=== PATIENT | female | born 1995 | race Caucasian/White ===

== ENCOUNTER 2018-11-15 16:44 | Emergency (ER) | payer OTHER, SELFPAY ==
[2018-11-15] MEDS ORDERED: MAGNE/ALUM HYDROXD 30 ML UCUP ONE (18:07)
[2018-11-15 18:57] LABS: Urine Blood TRACE (NEG); Urine Glucose NEGATIVE (NEG); Urine Protein NEGATIVE (NEG); Urine Specific Gravity 1.025 (1.005-1.030); Urine pH 5.5 (5.0-7.0)
[2018-11-15 19:50] LABS: Basophils % 0.3 % (0-1.3); Eosinophils % 1.9 % (0-4.4); Hematocrit 44.2 % (36.0-45.0); MPV 7.3 fL (7.6-11.3); Monocytes % 5.2 % (3.3-12.3); RBC Red Blood Cell Count 4.55 M/uL (3.86-4.86)
[2018-11-15 20:05] LABS: Albumin 4.2 g/dL (3.4-5.0); Bilirubin Direct 0.1 mg/dL (0-0.2); Bilirubin Total 0.4 mg/dL (0.2-1.0); Potassium 3.7 mmol/L (3.5-5.1); Protein, Total 8.6 g/dL (6.4-8.2)
--- NOTE | 2018-11-15 20:27 | RAD REPORT ---
EXAM DESCRIPTION: US - Abdomen Exam Limited - 11/15/2018 8:10 pm CLINICAL HISTORY: Abdominal pain COMPARISON: None. FINDINGS: No gallstones, sludge or other abnormalities within the gallbladder lumen. There is no wal l thickening or pericholecystic fluid. No common duct stone or biliary tree dilatation identified. IMPRESSION: Normal gallbladder and biliary tree ultrasound.
--- NOTE | 2018-11-15 20:34 | ER ---
Nurse's Notes [facility] Name: Sony Major Age: 23 yrs Sex: Female : 1995 Arrival Date: 11/15/2018 Time: 16:47 Bed 19 Private MD: Diagnosis: Pain localized to upper abdomen Presentation: 11/15 16:54 Presenting complaint: Patient states: 2 DAYS EPIGASTRIC PAIN WITH NAUSEA, DENIES bp VOMITING OR DIARRHEA. Transition of care: patient was not received from another setting of care. Onset of symptoms is unknown. Risk Assessment: Do you want to hurt yourself or someone else? Patient reports no desire to harm self or others. Initial Sepsis Screen: Does the patient meet any 2 criteria? No. Patient's initial sepsis screen is negative. Does the patient have a suspected source of infection? No. Patient's initial sepsis screen is negative. Care prior to arrival: None. 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 - Social history:: Smoking status: Patient/guardian denies using tobacco. - Ebola Screening: : No symptoms or risks identified at this time. Screenin:10 Abuse screen: Denies threats or abuse. Nutritional screening: No deficits noted. tr5 Tuberculosis screening: No symptoms or risk factors identified. Fall Risk No fall in past 12 months (0 pts). No secondary diagnosis (0 pts). No IV (0 pts). Ambulatory Aid- None/Bed Rest/Nurse Assist (0 pts). Gait- Normal/Bed Rest/Wheelchair (0 pts) Mental Status- Oriented to own ability (0 pts). Assessment: 17:00 General: Appears in no apparent distress. Behavior is calm, cooperative, appropriate tr5 for age. Pain: Complains of pain in epigastric area Pain does not radiate. Quality of pain is described as burning. 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 Gait is steady. Cardiovascular: Heart tones present Bruits absent Capillary refill < 3 seconds Pulses are all present. Edema is absent. Respiratory: Airway is patent Trachea midline Breath sounds are clear bilaterally. GI: Abd is soft X 4 quads Reports nausea. : No signs and/or symptoms were reported regarding the genitourinary system. EENT: No signs and/or symptoms were reported regarding the EENT system. Derm: Skin is intact, Skin is dry, Skin is pink, warm \T\ dry. Skin temperature is warm. Musculoskeletal: Capillary refill < 3 seconds, Range of motion: intact in all extremities. 18:11 Reassessment: Patient appears in no apparent distress at this time. Patient and/or tr5 family updated on plan of care and expected duration. Pain level reassessed. Patient is alert, oriented x 3, equal unlabored respirations, skin warm/dry/pink. 19:25 Reassessment: Patient appears in no apparent distress at this time. Patient and/or aa1 family updated on plan of care and expected duration. Pain level reassessed. Patient is alert, oriented x 3, equal unlabored respirations, skin warm/dry/pink. Labs sent at this time. 20:50 Reassessment: Patient appears in no apparent distress at this time. Patient is alert, aa1 oriented x 3, equal unlabored respirations, skin warm/dry/pink. Discussed d/c \T\ f/u instructions with pt; denies questions or concerns at this time. Amb to lobby with steady gait Patient states feeling better. Patient states symptoms have improved. Vital Signs: 16:55 BP 116 / 75; Pulse 86; Resp 16; Temp 97.7; Pulse Ox 99% ; Weight 68.04 kg; Height 5 ft. bp 1 in. (154.94 cm); 18:11 BP 118 / 72; Pulse 85; Resp 16; Pulse Ox 99% on R/A; tr5 19:30 BP 128 / 84; Pulse 81; Resp 16; Pulse Ox 98% on R/A; aa1 20:50 BP 121 / 76; Pulse 79; Resp 16; Temp 98.0; Pulse Ox 99% on R/A; Pain 2/10; aa1 16:55 Body Mass Index 28.34 (68.04 kg, 154.94 cm) bp ED Course: 16:47 Patient arrived in ED. mr 16:55 Triage completed. bp 16:55 Arm band placed on. bp 17:10 Patient has correct armband on for positive identification. Call light in reach. Side tr5 rails up X 1. 17:31 Brandon Cazares MD is Attending Physician. 17:50 Francisco Javier Baird, RN is Primary Nurse. tr5 19:11 Report given to Kelly LINDO. tr5 19:25 Initial lab(s) drawn, by me, sent to lab. Inserted saline lock: 20 gauge in left aa1 antecubital area, using aseptic technique. Blood collected. 20:09 US Abdomen Limited In Process Unspecified. EDMS 20:50 No provider procedures requiring assistance completed. IV discontinued, intact, aa1 bleeding controlled, No redness/swelling at site. Pressure dressing applied. Administered Medications: 17:53 Drug: Maalox Suspension (200 mg-200 mg-20 mg/5 mL) 30 ml Route: PO; tr5 18:10 Follow up: Response: No adverse reaction tr5 Outcome: 20:33 Discharge ordered by . 20:50 Discharged to home ambulatory, with significant other. aa1 20:50 Condition: good 20:50 Discharge instructions given to patient, significant other, Instructed on discharge instructions, follow up and referral plans. Demonstrated understanding of instructions, follow-up care. 20:57 Patient left the ED. aa1 Signatures: Dispatcher [employer] EDOR Kelly Mendoza, RN RN aa1 BenítezCharla mr Brandon Cazares MD MD Joseph Rendon RN GUICHO bp Francisco Javier Baird, GUICHO RN tr5
--- NOTE | 2018-11-15 20:34 | EDPHYS ---
Physician Documentation [facility] Name: Sony Major Age: 23 yrs Sex: Female : 1995 Arrival Date: 11/15/2018 Time: 16:47 Bed 19 Private MD: ED Physician Brandon Cazares HPI: 11/15 21:20 This 23 yrs old Female presents to ER via Ambulatory with complaints of gs Abdominal Pain. 21:20 The patient presents with abdominal pain in the epigastric area, in the right upper gs quadrant. Onset: The symptoms/episode began/occurred 3 day(s) ago. The symptoms do not radiate. Associated signs and symptoms: Pertinent positives: nausea, Pertinent negatives: diarrhea, dysuria, fever, vomiting. The symptoms are described as crampy. Modifying factors: The symptoms are alleviated by nothing, the symptoms are aggravated by food. Severity of pain: At its worst the pain was moderate in the emergency department the pain is unchanged. The patient has not experienced similar symptoms in the past. 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 - Social history:: Smoking status: Patient/guardian denies using tobacco. - Ebola Screening: : No symptoms or risks identified at this time. ROS: 21:20 All other systems are negative. gs Exam: 21:20 Head/Face: Normocephalic, atraumatic. Eyes: Pupils equal round and reactive to light, gs extra-ocular motions intact. Lids and lashes normal. Conjunctiva and sclera are non-icteric and not injected. Cornea within normal limits. Periorbital areas with no swelling, redness, or edema. ENT: Nares patent. No nasal discharge, no septal abnormalities noted. Tympanic membranes are normal and external auditory canals are clear. Oropharynx with no redness, swelling, or masses, exudates, or evidence of obstruction, uvula midline. Mucous membranes moist. Neck: Trachea midline, no thyromegaly or masses palpated, and no cervical lymphadenopathy. Supple, full range of motion without nuchal rigidity, or vertebral point tenderness. No Meningismus. Chest/axilla: Normal chest wall appearance and motion. Nontender with no deformity. No lesions are appreciated. Cardiovascular: Regular rate and rhythm with a normal S1 and S2. No gallops, murmurs, or rubs. Normal PMI, no JVD. No pulse deficits. Respiratory: Lungs have equal breath sounds bilaterally, clear to auscultation and percussion. No rales, rhonchi or wheezes noted. No increased work of breathing, no retractions or nasal flaring. Back: No spinal tenderness. No costovertebral tenderness. Full range of motion. Skin: Warm, dry with normal turgor. Normal color with no rashes, no lesions, and no evidence of cellulitis. MS/ Extremity: Pulses equal, no cyanosis. Neurovascular intact. Full, normal range of motion. Neuro: Awake and alert, GCS 15, oriented to person, place, time, and situation. Cranial nerves II-XII grossly intact. Motor strength 5/5 in all extremities. Sensory grossly intact. Cerebellar exam normal. Normal gait. 21:20 Constitutional: The patient appears alert, awake, comfortable. 21:20 Abdomen/GI: Palpation: moderate abdominal tenderness, in the epigastric area and right upper quadrant. Vital Signs: 16:55 BP 116 / 75; Pulse 86; Resp 16; Temp 97.7; Pulse Ox 99% ; Weight 68.04 kg; Height 5 ft. bp 1 in. (154.94 cm); 18:11 BP 118 / 72; Pulse 85; Resp 16; Pulse Ox 99% on R/A; tr5 19:30 BP 128 / 84; Pulse 81; Resp 16; Pulse Ox 98% on R/A; aa1 20:50 BP 121 / 76; Pulse 79; Resp 16; Temp 98.0; Pulse Ox 99% on R/A; Pain 2/10; aa1 16:55 Body Mass Index 28.34 (68.04 kg, 154.94 cm) bp MDM: 17:47 Patient medically screened. gs 21:20 Differential diagnosis: cholecystitis, Cholelithiasis, non-specific abd pain, gs pancreatitis, urinary tract infection. Data reviewed: vital signs, nurses notes. Data reviewed: lab test result(s), radiologic studies. Counseling: I had a detailed discussion with the patient and/or guardian regarding: the historical points, exam findings, and any diagnostic results supporting the discharge/admit diagnosis, radiology results, the need for outpatient follow up. Response to treatment: the patient's symptoms have markedly improved after treatment, and as a result, I will discharge patient. 11/15 18:11 Order name: Urine Dipstick--Ancillary (enter results); Complete Time: 19:05 11/15 18:11 Order name: Urine --Ancillary (enter results); Complete Time: 19:05 11/15 19:05 Order name: Basic Metabolic Panel; Complete Time: 20:32 11/15 19:05 Order name: CBC with Diff; Complete Time: 20:32 11/15 19:05 Order name: Hepatic Function; Complete Time: 20:32 11/15 17:31 Order name: Urine Test (obtain specimen); Complete Time: 18:05 11/15 17:31 Order name: Urine Dipstick-Ancillary (obtain specimen); Complete Time: 18:05 11/15 19:05 Order name: Lipase; Complete Time: 20:32 11/15 19:05 Order name: IV Saline Lock; Complete Time: 19:52 11/15 19:05 Order name: Labs collected and sent; Complete Time: 19:52 11/15 19:05 Order name: US Abdomen Limited; Complete Time: 20:32 gs Administered Medications: 17:53 Drug: Maalox Suspension (200 mg-200 mg-20 mg/5 mL) 30 ml Route: PO; tr5 18:10 Follow up: Response: No adverse reaction tr5 Disposition: 11/15/18 20:33 Discharged to Home. Impression: Pain localized to upper abdomen. - Condition is Stable. - Discharge Instructions: Abdominal Pain, Adult. - Medication Reconciliation Form, Thank You Letter, Antibiotic Education, Prescription Opioid Use form. - Follow up: Private Physician; When: 2 - 3 days; Reason: Re-evaluation by your physician. Signatures: Dispatcher [employer] EDMS Kelly Mendoza RN RN aa1 Brandon Cazares MD MD gs Peltier, Brian, RN RN bp Rodriguez, Tommie, RN RN tr5 Corrections: (The following items were deleted from the chart) 20:57 20:33 11/15/2018 20:33 Discharged to Home. Impression: Pain localized to upper abdomen. aa1 Condition is Stable. Forms are Medication Reconciliation Form, Thank You Letter, Antibiotic Education, Prescription Opioid Use. Follow up: Private Physician; When: 2 - 3 days; Reason: Re-evaluation by your physician. gs
== END 2018-11-15 20:57 | disposition home or self-care (01) ==
LOC: ER 16:44
DX: R10.10 Upper abdominal pain, unspecified (principal); Z88.0 Allergy status to penicillin
CPT/HCPCS: 36415; 76705; 80048; 80076; 81003; 81025; 83690; 85025; 99284

== ENCOUNTER 2022-05-30 09:52 | Emergency (ER) | payer SELFPAY ==
--- OUTSIDE RECORDS SUMMARY | 2022-05-30 10:01 | XMS REPORT | Continuity of Care Document ---
:1995 Author Organization [facility] t Address [address] [place] [address] Care Team Providers Name Role Phone Pcp, Patient Does Not Have A Primary Care Physician [id number] Yesenia OROZCO Attending Clinician Unavailable Yesenia Smalls Attending Clinician Lala Jimenez Attending Clinician Unavailable DR BRYAN ALICEA Attending Clinician Unavailable Jude Hendrickson Attending Clinician Unavailable BONNY ALEX Attending Clinician Unavailable PROVIDER, ED TEMP Attending Clinician Unavailable DR OPAL MARSH Attending Clinician Unavailable DR JOSH ALMARAZ Attending Clinician Unavailable DR BRITTNEY MARSH Attending Clinician Unavailable DR ANDIE MAE Attending Clinician Unavailable DR Markel GUY Attending Clinician Unavailable DR AMILCAR RILEY Attending Clinician Unavailable DR BRYAN ALICEA Admitting Clinician Unavailable DR OPAL MARSH Admitting Clinician Unavailable DR JOSH ALMARAZ Admitting Clinician Unavailable DR BRITTNEY MARSH Admitting Clinician Unavailable DR ANDIE MAE Admitting Clinician Unavailable DR Markel GUY Admitting Clinician Unavailable DR AMILCAR RILEY Admitting Clinician Unavailable Payers Payer Name Policy Type Policy Number Effective Date Expiration Date Shawn barlow [facility] [id number] 2019 00:00:00 Problems Condition Condition Condition Status Onset Resolution Last Treating Co mments Source Name Details Category Date Date Treatment Clinician Date Abnormal Abnormal Disease Active Unive rs maternal maternal 11-09 ity of glucose glucose 00:00: [place] tolerance, tolerance, 00 Me dical antepartum antepartum Br anch Susceptibl Susceptibl Disease Active U nivers e to e to 11-09 ity of varicella [place]ella [place] (non-immun (non-immun 00 Me dical e), e), Branch currently currently - - needs needs vaccine vaccine Insufficie Insufficie Disease Active U nivers nt nt 11-08 ity of 00:00: [place] care care 00 Medical Branch Previous Previous Disease Active Unive rs 11-08 ity of delivery, [place], [place] ante[place] antepartum 00 Me dical condition condition Bran ch or or complicati complicati on - on - secondary secondary to to intoleranc intoleranc e to labor e to labor with with extended extended decels, decels, emergency emergency PLTCS per PLTCS per operative operative report report Complicati Complicati Disease Active Overview : Univers on of on of 11-08 Formattin ity of , , 00:00: g of this [place] antepartum antepartum 00 note Me dical might be Branch different from the original. ICD10 Diagnosis Term Lighter Utility History of History of Disease Active U nivers macrosomia macrosomia 11-08 it y of in infant in infant 00:[place] in prior in prior 00 Medica l , , Br anch currently currently Allergies, Adverse Reactions, Alerts Allergy Allergy Status Severity Reaction(s) Onset Inactive Treating Comm ents Source Name Type Date Date Clinician Penicill Allergy Active Mild St. ins to 11-17 [place] substanc 00:04: [facility] Penicill DA [facility] Rash [facility] [place] Chowdhury Penicill Propensi Active Rash Univer s ins ty to 2-19 ity of adverse 00:00: [place] reaction 00 Medical s Branch PENICILL Drug Active Rash Univers INS Class 2-19 ity of 00:00: [place] 00 Medical Branch Family History Family Member Diagnosis Comments Start Date Stop Date Source Mother Family Breast [place] [facility] Cancer?No Health Mother Family Coronary Artery [facility] [place] [facility] Disease?No Health Mother Family Congenital [facility] [facility] Heart Disease?No Health Mother Family Myocardial [facility] [facility] Infarction?No Health Mother Family Stroke?No [facility] [place] [facility] Mother Family Diabetes?No [place] [facility] Mother Family Colorectal [facility] Cancer?No Health Social History Social Habit Start Date Stop Date Quantity Comments Source History of [place] tobacco use [facility] Alcohol intake 2019-03-23 2019-03-23 Current University of 00:00:00 00:00:00 non-drinker of [facility] alcohol ([facility]) Strang Tobacco use and 2013-11-08 2013-11-08 Smokeless tobacco Un iversity of exposure 00:00:00 00:00:00 non-user [facility] Sex Assigned At [birth year] Universit y of 00:00:00 00:00:00 [facility] Smoking Status Start Date Stop Date Source Never smoked tobacco [facility] Medications Ordered Filled Start Stop Current Ordering Indication Dosage Frequency Signature Comments Components Source Medication Medication Date Date Medication? Clinician (SIG) Name Name ibuprofen Yes [id number] 600mg Take 1 Univers 600 mg 1-06 tablet by ity of tablet 00:00: mouth [place] 00 every 6 Medical (six) Branch hours as needed for Pain (scale 4-6). lactulose 2018-05 Yes [id number] 30mL Take 30 mL Univers 10 gram/15 1-14 by mouth 3 ity of mL oral 00:00: (three) [place] solution 00 times Medical daily as Branch needed for Constipati on or For bowel movement. sucralfate 2018-05 Yes [id number] 1g Take 1 U nivers 1 gram 1-14 tablet by ity of tablet 00:00: mouth [place] 00 before Medical meals and Branch at bedtime. ondansetron 2018-05 Yes [id number] 4mg Take 1 Univers (ZOFRAN) 4 1-14 tablet by ity of mg tablet 00:00: mouth [place] 00 every 12 Medical (twelve) Branch hours. Omeprazole 2018-05 Yes [id number] 20mg Take 1 U nivers 20 mg 0-04 tablet by ity of tablet 00:00: mouth [place] 00 daily. Medical Branch No 1TABLET Daily St. Comb 7 [place] No.42/Folic 00:00: Region a Acid 00 l ([facility] Chewable Tablet) 1 TABLET Tab.Ch.Bph Vital Signs Vital Name Observation Time Observation Value Comments Source Systolic blood 2022-05-15 19:58:00 133 mm[Hg] Univer sity of pressure [facility] Diastolic blood 2022-05-15 19:58:00 100 mm[Hg] Unive rsity of [facility] Heart rate 2022-05-15 19:58:00 90 /min [facility] Body temperature 2022-05-15 19:58:00 37.11 Susan [facility] Respiratory rate 2022-05-15 19:58:00 16 /min [facility] Body height 2022-05-15 19:58:00 154.9 cm [facility] Body weight 2022-05-15 19:58:00 72.576 kg [facility] BMI 2022-05-15 19:58:00 30.23 kg/m2 [facility] Oxygen saturation in 2022-05-15 19:58:00 100 /min [facility] Arterial blood by [facility] Pulse oximetry Branch Procedures Procedure Date / Time Performed Performing Clinician [facility] NOTICE OF PRIVACY 2022-05-15 19:29:32 Doctor Unassigned, No Univ [facility] PRACTICES Name Medical Branch CONSENT/REFUSAL FOR 2022-05-15 19:10:31 Doctor [facility]igned, [facility] [place] [facility] AND Name Medical Branch TREATMENT Encounters Start End Encounter Admission Attending Care Care Encounter Source Date/Time Date/Time Type Type Clinicians Facility Department ID 2021-08-02 Outpatient [facility] [id number] [place] 10:33:54 [id number] [facility] 2022-05-15 2022-05-15 Emergency X Yesenia OROZCO [facility] ERT [id number] Univers 13:59:00 14:35:00 ity of [facility] 2022-05-15 2022-05-15 Emergency Yesenia Orozco [id number] Univers 13:59:00 14:35:00 Yeni GILLESPIE [id number] i [facility] [id number] [facility] [id number] [facility] 084 Branch 2022-01-14 2022-01-14 Emergency ER Tony STLSKIA STLS [id number] 10:20:00 15:50:00 Lala -[id number] Scooby Gomez 2018-08-21 2018-08-21 Emergency E [facility] [id number] [facility] 19:57:00 19:57:00 2018-08-17 2018-08-17 Emergency E DEANNE, [facility] ECCNONEMER [id number] [facility] 19:53:00 22:38:00 BRYAN [facility] 2018-04-10 2018-04-10 Emergency E MARSH [facility]AL [facility] [id number] [facility] 00:04:00 01:25:00 Medica l Center 2017-12-24 2017-12-25 Emergency E SUNG [facility] [id number] [facility] 21:08:00 00:55:00 MORENO Medic al Center 2017-11-28 2017-11-28 Emergency E MAXIMO [facility]CC [id number] [facility] 14:16:00 14:53:00 BRITTNEY Medica l Center 2017-09-04 2017-09-04 Emergency E ANDIE MAE [facility] [id number] [facility] 01:25:00 02:54:00 Medica l Center 2017-07-19 2017-07-19 Outpatient C Markel GUY [facility] OB [id number] [facility] 21:24:00 22:59:00 FUNSHO Medica l Center 2017-07-03 2017-07-03 Emergency E AMILCAR RILEY [facility] [id number] [facility] 15:56:00 18:20:00 Medica l Center Results Test Description Test Time Test Comments Results Result Comments Source Molecular Testing MM 2022-01-14 20:08:00 Test Item Value Reference Range Interpretation Comme nts Molecular Testing MM Not Detected NotDetected Negativ e (Not Detected) (test code = results do not preclude COVIDNAAT) infectionwith S ARS-CoV-2 virus, and shou ld not be the sole basis of a patient management deci annamarie. Consider testing for oth erviruses if clinically danial cated.The use of this assay a s an In vitro diagnostic unde r theFDA Emergency Use A uthorization (EUA) is limite d tolaboratories that are certified under the ClinicalLaborat ory Improvement Carmen ndments of 1987 (CLIA), 42 U.S.C.263a, to perform high complexity tests. Molecular Testing MM Nasopharyngeal Swab (test code = COVIDSOURCEMM) Resident in Congregate Care Setting: UnknownEmployed in Healthcare: UnknownFirst Test: UnknownHospitalized: UnknownICU: UnknownDate of Symptom Onset: [id number]: UnknownReason for Testing: PUI -SymptomaticSource: Nasopharyngeal SwabSymptomatic as defined by CDC: [id number] 13:11:00 Test Item Value Reference Range Interpretation Comments Urinalysis (test code = UACLR) Light-Yellow Yellow Urinalysis (test code = UACLY) Clear Clear Urinalysis (test code = SPGR) 1.027 1.002-1.036 N Urinalysis (test code = JEWEL) 6.0 5.0-9.0 N Urinalysis (test code = UALEU) 75 Janis/uL Negative A Urinalysis (test code = UANIT) Negative Negative Urinalysis (test code = Negative mg/dL Neg-Trace PROUADIP) Urinalysis (test code = GLUCU) Normal mg/dL Negative Urinalysis (test code = KETU) Negative mg/dL Negative Urinalysis (test code = Normal mg/dL Less than 2 UAUROB) Urinalysis (test code = UABIL) Negative Negative Urinalysis (test code = UABLD) Negative Negative Urinalysis (test code = UARBC) 0-3 HPF 0-3 Urinalysis (test code = UAWBC) 0-3 HPF 0-3 Urinalysis (test code = 0-3 HPF 0-3 UASQUAM) Urinalysis (test code = UABAC) None Seen HPF None Seen Urine Source: Urine [id number] 13:11:00 Test Item Value Reference Range Interpretation Comments Urinalysis (test Negative Negative Method of s ensitivity- code = BHCGUT) INDETERMINANT : results should be repea stevan after 48-72 hrs POSIT JANIE: results may be detected as early as 1 day after the first missed period A dilute urine specimen may no t contain representativel evels of hCG.If pregnanc y is still suspected, a fi rst morning urinespecimen O R a random blood specimen should be obtainedfrom e patient 48-72 hours lat er and re-tested. Urinalysis (test 1.027 1.002-1.036 N code = PREGUSG) [id number] 12:25:00 Test Item Value Reference Range Interpretation Comments Chemistry (test code = LIP) 10 U/L 8-78 N Urine total bilirubin detection by automated test [id number] 12:21:00 Test Item Value Reference Range Interpretation Comments Urine Bilirubin (test code = Negative Negative 38836-8) [facility] hemoglobin detection by automated test strip 2022-01-14 12:21:00 Test Item Value Reference Range Interpretation Comments Urine Blood (test code = 72801-9) Negative Negative [facility] erythrocytes detection by automated method 2022-01-14 12:21:00 Test Item Value Reference Range Interpretation Comments Urine RBC (test code = 91193-2) 0-3 HPF 0-3 [facility] leukocytes detection by automated method 2022-01-14 12:21:00 Test Item Value Reference Range Interpretation Comments Urine WBC (test code = 70004-9) 0-3 HPF 0-3 [facility] cells.squamous [#/area] in Urine sediment by Automated [id number] 12:21:00 Test Item Value Reference Range Interpretation Comments Urine Squamous Epithelial Cells (test 0-3 HPF 0-3 code = 93152-6) [facility] bacteria detection by automated [id number] 12:21:00 Test Item Value Reference Range Interpretation Comments Urine Bacteria (test code = None Seen HPF None Seen 62858-3) [facility] ur [id number] 12:21:00 Test Item Value Reference Range Interpretation Comments Urine Test (test code = Negative Negative 6-3) [facility] gravity of Urine by Refractometry automated 2022-01-14 12:21:00 Test Item Value Reference Range Interpretation Comments Urine Specific [place] (test code = 1.027 1.002-1.036 40708-2) [facility] by [id number] 12:21:00 Test Item Value Reference Range Interpretation Comments Urine Color (test code = Light-Yellow Yellow 15515-2) [facility] clarity by refractometry [id number] 12:21:00 Test Item Value Reference Range Interpretation Comments Urine Clarity (test code = 47602-7) Clear Clear [facility] pH measurement by automated test [id number] 12:21:00 Test Item Value Reference Range Interpretation Comments Urine pH (test code = 10230-6) 6.0 5.0-9.0 [facility] leukocyte esterase detection by automated test [id number] 12:21:00 Test Item Value Reference Range Interpretation Comments Urine Leukocyte Esterase (test code 75 Janis/uL Negative = 97234-3) [facility] Center[facility]itrite [Presence] in Urine by Test [id number] 12:21:00 Test Item Value Reference Range Interpretation Comments Urine Nitrite (test code = 5802-4) Negative Negative [facility] protein measurement by automated test strip (mass/volume)2022-01-14 12:21:00 Test Item Value Reference Range Interpretation Comments Urine Protein (test code = Negative mg/dL Neg-Trace 27987-7) [facility] Center[facility] [Moles/volume] in Urine by Test strip 2022-01-14 12:21:00 Test Item Value Reference Range Interpretation Comments Urine Glucose (UA) (test code = Normal mg/dL Negative 02652-4) [facility] ketones measurement by automated test strip (mass/volume)2022-01-14 12:21:00 Test Item Value Reference Range Interpretation Comments Urine Ketones (test code = Negative mg/dL Negative 55994-3) [facility] urobilinogen measurement (units/volume) by test [id number] 12:21:00 Test Item Value Reference Range Interpretation Comments Urine Urobilinogen (test code = Normal mg/dL Less than 2 05687-4) [facility] CenterChemistry - [id number] 12:18:00 Test Item Value Reference Range Interpretation Comments Chemistry - Specials Negative NEGATIVE Method of sensitivity- (test code = BHCGST) Indeter minant: results should be repea stevan after 48-72 hrs Positive: resul ts may be detected as early as 1 day after the first missed me nses. [id number] 11:13:00 Test Item Value Reference Range Interpretation Comments Chemistry (test code = 139 mmol/L 136-145 N NA-T) Chemistry (test code = 3.9 mmol/L 3.5-5.1 N K-T) Chemistry (test code = 108 mmol/L 98-107 H CL) Chemistry (test code = 22 mmol/L 22-29 N CO2) Chemistry (test code = 13 mmol/L 10-20 N ANGP) Chemistry (test code = 14 mg/dL 7.0-18.7 N BUN) Chemistry (test code = 0.81 mg/dL 0.6-1.1 N CREATT) Chemistry (test code = 102 Refer ence Range for EGFRCR) Estimated GFR: Greater than 90 mL/min/1.73 u3Rsljxnwc eGFR is based on the CK D-EPI 2020 equation thatdoes not us e a race coefficien t. Chemistry (test code = 105 mg/dL 70-105 N GLU-T) Chemistry (test code = 9.1 mg/dL 7.8-10.44 N CA) Chemistry (test code = 0.6 mg/dL 0.2-1.2 N TBILI-T) Chemistry (test code = 7.9 g/dL 6.0-8.3 N TP) Chemistry (test code = 4.3 g/dL 3.5-5.0 N ALB) Chemistry (test code = 3.6 g/dL 2.4-3.5 H GLOB) Chemistry (test code = 1.2 g/dL 1.2-2.2 N AG) Chemistry (test code = 82 U/L 40-110 N ALP) Chemistry (test code = 12 U/L 5-34 N AST) Chemistry (test code = 12 U/L 8-55 N ALT) [id number] 10:49:00 Test Item Value Reference Range Interpretation Comments Hematology (test code = WBCT) 8.3 thou/uL 4.8-10.8 N Hematology (test code = RBCT) 4.15 mill/uL 4.20-5.40 L Hematology (test code = HGBT) 14.3 g/dL 12.0-16.0 N Hematology (test code = HCTT) 41.6 % 36.0-47.0 N Hematology (test code = MCV) 100.0 fL 78.0-98.0 H Hematology (test code = MCH) 34.5 pg 27.0-31.0 H Hematology (test code = MCHC) 34.4 g/dL 32.0-36.0 N Hematology (test code = RDW) 10.4 % 11.5-14.5 L Hematology (test code = PLTT) 293 thou/uL 130-400 N Hematology (test code = MPV) 6.2 fL 7.4-10.4 L Hematology (test code = %NEUT) 66.0 % 42.0-75.0 N Hematology (test code = %LYMPH) 26.7 % 21.0-51.0 N Hematology (test code = %MONO) 4.9 % 0.0-10.0 N Hematology (test code = %EOS) 1.7 % 0.0-10.0 N Hematology (test code = %BASO) 0.6 % 0.0-1.0 N Hematology (test code = NEUT#) 5.5 thou/uL 1.40-6.50 N Hematology (test code = LYMPH#) 2.2 thou/uL 1.20-3.40 N Hematology (test code = MONO#) 0.4 thou/uL 0.11-0.59 N Hematology (test code = EOS#) 0.1 thou/uL 0.0-0.7 N Hematology (test code = BASO#) 0.0 thou/uL 0.0-0.2 N Serum or plasma sodium measurement (moles/volume)2022-01-14 10:35:00 Test Item Value Reference Range Interpretation Comments Sodium Level (test code = 2951-2) 139 mmol/L 136-145 [facility] or plasma potassium measurement (moles/volume) 2022-01-14 10:35:00 Test Item Value Reference Range Interpretation Comments Potassium Level (test code = 3.9 mmol/L 3.5-5.1 2823-3) [facility] or plasma chloride measurement (moles/volume) 2022-01-14 10:35:00 Test Item Value Reference Range Interpretation Comments Chloride Level (test code = 108 mmol/L 98-107 2075-0) [facility] or plasma carbon dioxide, total measurement (moles/volume)2022-01-14 10:35:00 Test Item Value Reference Range Interpretation Comments Carbon Dioxide Level (test code = 22 mmol/L -2028-01) [facility] or plasma anion [id number] 10:35:00 Test Item Value Reference Range Interpretation Comments Anion Gap (test code = 85058-4) 13 mmol/L 10-20 [facility] or plasma urea nitrogen measurement (mass/volume)2022-01-14 10:35:00 Test Item Value Reference Range Interpretation Comments Blood Urea Nitrogen (test code = 14 mg/dL 7.0-18.7 3094-0) [facility] or plasma creatinine measurement (mass/volume) 2022-01-14 10:35:00 Test Item Value Reference Range Interpretation Comments Creatinine (test code = 2160-0) 0.81 mg/dL 0.6-1.1 [facility] CenterGlomerular filtration rate/1.73 sq M.predicted [Volume Rate/Area] in Serum, Plasma [id number] 10:35:00 Test Item Value Reference Range Interpretation Comments Estimated GFR (CKD-EPI 2020) (test code 102 = 38523-0) [facility] CenterGlucose [Mass/volume] in Serum or [id number] 10:35:00 Test Item Value Reference Range Interpretation Comments Glucose Level (test code = 2345-7) 105 mg/dL 70-105 [facility] or plasma calcium measurement (mass/volume) 2022-01-14 10:35:00 Test Item Value Reference Range Interpretation Comments Calcium Level (test code = 74849-1) 9.1 mg/dL 7.8-10.44 [facility] or plasma total bilirubin measurement (mass/volume)2022-01-14 10:35:00 Test Item Value Reference Range Interpretation Comments Total Bilirubin (test code = 0.6 mg/dL 0.2-1.2 1975-2) [facility] or plasma protein measurement (mass/volume) 2022-01-14 10:35:00 Test Item Value Reference Range Interpretation Comments Serum Total Protein (test code = 7.9 g/dL 6.0-8.3 2885-2) [facility] or plasma albumin measurement by bromocresol green (BCG) dye binding method ([id number] 10:35:00 Test Item Value Reference Range Interpretation Comments Albumin (test code = 71692-9) 4.3 g/dL 3.5-5.0 [facility] CenterGlobulin [Mass/volume] in Serum by calculation 2022-01-14 10:35:00 Test Item Value Reference Range Interpretation Comments Globulin (test code = 01521-0) 3.6 g/dL 2.4-3.5 [facility] CenterAlbumin/Globulin [Mass Ratio] in Serum or Plasma 2022-01-14 10:35:00 Test Item Value Reference Range Interpretation Comments Albumin/Globulin Ratio (test code = 1.2 g/dL 1.2-2.2 1759-0) [facility] [[facility] activity/volume] in Serum or [id number] 10:35:00 Test Item Value Reference Range Interpretation Comments Alkaline Phosphatase (test code = 82 U/L 40-110 6768-6) [facility] or plasma aspartate aminotransferase measurement (enzymatic activity/volume)2022-01-14 10:35:00 Test Item Value Reference Range Interpretation Comments Aspartate Amino Transf (AST/SGOT) 12 U/L 5-34 (test code = 1920-8) [facility] or plasma alanine aminotransferase measurement without P-5'-P (enzymatic [id number] 10:35:00 Test Item Value Reference Range Interpretation Comments Alanine Aminotransferase (ALT/SGPT) 12 U/L 8-55 (test code = 1744-2) [facility] or plasma lipase measurement (enzymatic activity/volume)2022-01-14 10:35:00 Test Item Value Reference Range Interpretation Comments Lipase (test code = 3040-3) 10 U/L 8-78 [facility] human chorionic gonadotropin detection for [id number] 10:35:00 Test Item Value Reference Range Interpretation Comments Serum Test, Qualitative Negative NEGATIVE (test code = 2118-8) [facility] CenterLeukocytes [#/volume] in Blood by Automated count 2022-01-14 10:35:00 Test Item Value Reference Range Interpretation Comments White Blood Count (test code = 8.3 thou/uL 4.8-10.8 6690-2) [facility] erythrocytes automated count (number/volume) 2022-01-14 10:35:00 Test Item Value Reference Range Interpretation Comments Red Blood Count (test code = 4.15 mill/uL 4.20-5.40 789-8) [facility] (mass/volume)2022-01-14 10:35:00 Test Item Value Reference Range Interpretation Comments Hemoglobin (test code = 718-7) 14.3 g/dL 12.0-16.0 [facility] CenterAutomated erythrocyte mean corpuscular volume 2022-01-14 10:35:00 Test Item Value Reference Range Interpretation Comments Mean Corpuscular Volume (test code = 100.0 fL 78.0-98.0 787-2) [facility] CenterAutomated erythrocyte mean corpuscular hemoglobin (mass per erythrocyte)2022-01-14 10:35:00 Test Item Value Reference Range Interpretation Comments Mean Corpuscular Hemoglobin (test 34.5 pg 27.0-31.0 code = 785-6) [facility] CenterAutomated erythrocyte mean corpuscular hemoglobin concentration measurement (mass/[id number] 10:35:00 Test Item Value Reference Range Interpretation Comments Mean Corpuscular Hemoglobin Concent 34.4 g/dL 32.0-36.0 (test code = 786-4) [facility] Center[facility] erythrocyte distribution width ratio 2022-01-14 10:35:00 Test Item Value Reference Range Interpretation Comments Red Cell Distribution Width (test code 10.4 % 11.5-14.5 = 788-0) [facility] CenterAutomated blood platelet count (count/volume) 2022-01-14 10:35:00 Test Item Value Reference Range Interpretation Comments Platelet Count (test code = 293 thou/uL 130-400 777-3) [facility] mean [id number] 10:35:00 Test Item Value Reference Range Interpretation Comments Mean Platelet Volume (test code = 6.2 fL 7.4-10.4 41559-3) [facility] neutrophils/100 [id number] 10:35:00 Test Item Value Reference Range Interpretation Comments Neutrophils % (test code = 770-8) 66.0 % 42.0-75.0 [facility] CenterLymphocytes/100 leukocytes in Blood by Automated count 2022-01-14 10:35:00 Test Item Value Reference Range Interpretation Comments Lymphocytes % (test code = 736-9) 26.7 % 21.0-51.0 [facility] monocytes/100 [id number] 10:35:00 Test Item Value Reference Range Interpretation Comments Monocytes % (test code = 5905-5) 4.9 % 0.0-10.0 [facility]/100 [id number] 10:35:00 Test Item Value Reference Range Interpretation Comments Eosinophils % (test code = 713-8) 1.7 % 0.0-10.0 [facility] [id number] 10:35:00 Test Item Value Reference Range Interpretation Comments Basophils % (test code = 706-2) 0.6 % 0.0-1.0 [facility] neutrophils automated count (number/volume) 2022-01-14 10:35:00 Test Item Value Reference Range Interpretation Comments Neutrophils # (test code = 751-8) 5.5 thou/uL 1.40-6.50 [facility] Blood by Automated count 2022-01-14 10:35:00 Test Item Value Reference Range Interpretation Comments Lymphocytes # (test code = 731-0) 2.2 thou/uL 1.20-3.40 [facility] monocytes automated count (number/volume) 2022-01-14 10:35:00 Test Item Value Reference Range Interpretation Comments Monocytes # (test code = 742-7) 0.4 thou/uL 0.11-0.59 [facility] eosinophils automated count (count/volume) 2022-01-14 10:35:00 Test Item Value Reference Range Interpretation Comments Eosinophils # (test code = 711-2) 0.1 thou/uL 0.0-0.7 [facility] blood basophil count (count/volume) 2022-01-14 10:35:00 Test Item Value Reference Range Interpretation Comments Basophils # (test code = 704-7) 0.0 thou/uL 0.0-0.2 [facility] *WW*2018-08-17 21:11:00 Test Item Value Reference Range Interpretation Comments GLUCOSE (test code = 06D) 88 mg/dL 75-100 SODIUM (test code = 01A) 140 mmol/L 136-145 POTASSIUM (test code = 01B) 3.7 mmol/L 3.6-5.1 CHLORIDE (test code = 04A) 107 mmol/L 98-107 CO2 (test code = 02A) 26 mmol/L 22-32 ANION GAP (test code = ANG) 10.8 mmol/L BUN (test code = 05D) 18 mg/dL 7-18 CREATININE (test code = 03E) 0.8 mg/dL 0.4-1.1 BUN/CREA (test code = BCR) 21 12-20 H CALCIUM (test code = 09D) 8.7 mg/dL 8.3-9.5 BILI TOTAL (test code = 11A) 0.2 mg/dL 0.2-1.0 PROTEIN (test code = 07D) 8.5 g/dL 6.4-8.2 H ALBUMIN (test code = 08D) 3.7 g/dL 3.5-4.8 GLOBULIN (test code = GLB) 4.8 g/dL 1.5-3.8 H ALB/GLOB (test code = AGRR) 0.8 1.0-2.6 L ALK PHOS (test code = 35A) 111 IU/L 42-121 AST (test code = 30A) 17 IU/L <=42 ALT (test code = 31A) 23 IU/L <=78 URINALYSIS WITH MICRO *WW*2018-08-17 21:04:00 Test Item Value Reference Range Interpretation Comments COLOR (test code = COLU) YELLOW YELLOW CLARITY (test code = CLA) SLT HAZY CLEAR A GLUCOSE UR (test code = UA GLUCOSE) NEGATIVE NEGATIVE BILI UR (test code = BILE) NEGATIVE NEGATIVE KETONES UR (test code = EVELIN) NEGATIVE NEGATIVE SP GRAVITY (test code = SPGR) 1.020 1.005-1.030 PH UR (test code = PH) 6.5 4.5-8.0 PROTEIN UR (test code = PU) NEGATIVE NEGATIVE UROBIL UR (test code = UROQ) 0.2 EU/dL 0.2-1.0 NITRITE UR (test code = NITRITE) NEGATIVE NEGATIVE BLOOD UR (test code = UA BLOOD) NEGATIVE NEGATIVE LEUK ES UR (test code = LEUK) 1+ NEGATIVE A WBC UR (test code = UWBC) 6 /HPF 0-5 H RBC UR (test code = URBC) 2 /HPF 0-2 EPITH UR (test code = UEPC) FEW /LPF FEW BACTERIA UR (test code = UBACT) FEW /HPF NONE A CAST UR (test code = CAST) /LPF NONE CRYSTAL UR (test code = CRYU) / LPF NONE MUCUS UR (test code = MUC) / HPF NONE AMORPH UR (test code = MUKESH) / HPF NONE TRICH UR (test code = UTRICH) /HPF NONE YEAST UR (test code = UY) /HPF NONE SPERM UR (test code = USPERM) /HPF NONE SERUM MONOCLONAL *WW*2018-08-17 21:03:00 Test Item Value Reference Range Interpretation Comments PREG SRM (test code = PGS) NEGATIVE NEGATIVE CBC (INCLUDES AUTOMATED DIFFERENTIAL)*[id number] 20:56:00 Test Item Value Reference Range Interpretation Comments WBC (test code = WBC) 13.1 10\\S\\3/uL 4.5-11.0 H RBC (test code = RBC) 4.23 10\\S\\6/uL 4.30-5.70 L HGB (test code = HBG) 14.1 g/dL 12.0-15.5 HCT (test code = HCT) 40.3 % 35.0-44.0 MCV (test code = MCV) 95.3 fL 81.0-99.0 MCH (test code = MCH) 33.3 pg 27.0-31.0 H MCHC (test code = MCHC) 35.0 g/dL 32.0-36.0 RDW (test code = RDW) 12.4 % 11.5-14.5 PLT (test code = PLT) 325 10\\S\\3/uL 130-400 MPV (test code = MPV) 8.3 fL 9.4-12.4 L NEUTROP # (test code = NE#) 8.9 10\\S\\3/uL 1.6-8.0 H LYMPH # (test code = LY#) 3.3 10\\S\\3/uL 1.1-3.5 MONOCYTE # (test code = MO#) 0.6 10\\S\\3/uL 0.0-1.1 EOSINOPH # (test code = EO#) 0.3 10\\S\\3/uL 0.0-0.7 BASOPHIL # (test code = BA#) 0.0 10\\S\\3/uL 0.0-0.3 IG # (test code = IG#) 0.05 10\\S\\3/uL 0.00-0.06 NRBC # (test code = NRBC#) 0.00 10\\S\\3/uL 0.00-0.01 NEUTROPH % (test code = NE%) 67.6 % 35.0-73.0 LYMPH % (test code = LY%) 25.2 % 20.0-55.0 MONO % (test code = MO%) 4.6 % 2.5-10.0 EOSINOPH % (test code = EO%) 2.0 % 0.0-5.0 BASOPHIL % (test code = BA%) 0.2 % 0.0-2.0 IG % (test code = IG%) 0.4 % 0.0-0.8 NRBC% (test code = NRBC%) 0.0 % 0.0-0.2 MANDIFF (test code = WMDIFF) NO NO RBC MORPH (test code = NORMAL WRBCMOR) Molecular Testing [id number] 23:57:00 Test Item Value Reference Range Interpretation Comments Molecular Inconclusive NotDetected A Patient Interfe ring Testing MM Substances Pres ent. The (test code = most commoninte rfering GCPCRT) substances are mucous and yeast. Interferingsubs tances are usually present because the mucous was notcleared from the collec tion site using a cotton swab priorto collect ion. Molecular Inconclusive NotDetected A Patient Interfe ring Testing MM Substances Pres ent. The (test code = most commoninte rfering CHLAMPCRT) substances are mucous and yeast. Interferingsubs tances are usually present because the mucous was notcleared from the collec tion site using a cotton swab priorto collect ion. Molecular Testing MM (test code = Accurate results are PCRINTERP) dependent on ad equate specimencollect ion, absence of inhi bitors and sufficient DNA to bedetected. Acc eptable specimens for t his test are vaginal orc ervical swabs (self col lected or clinician colle cted),first void urine ([facility] specimen for ma les), and liquidbased pap specimens.A res ult of "Inconclusive" warrants re-collection.V iability or infectivity can NOT be inferred since targetDNA may persist in the absence of viable organisms. For Urine Sources Collection of urine volumes greater than 20-40 mLs mayresult i n specimen dilution that m ay reduce testsensitivity ; lesser volumes may not adequately rinseorganisms into the specimen * Source: VaginalReference Lab [id number] 14:15:00 Test Item Value Reference Range Interpretation Comments Reference Lab Testing . A Positi ve for Herpes (test code = HSVT) simplex v irus type-2. Typing wasconfi rmed by monoclonal anti body microscopicimmu nofluoresc ence.Performed at: [address] [id number] Director: Clyde Drummond MD, Phone: [phone] Reference Lab [id number] 17:10:00 Test Item Value Reference Range Interpretation Comments Reference Lab Negative Negative Testing (test code = PKK1OLT) Reference Lab Positive Negative A This test was developed and its Testing (test performance code = GSG0EJS) characterist icsdetermined by [facility]. It has not been cleare kenroy approved by the U.S. Food a nd Drug Administration. TheFDA has determined that such clearance or approval is notnecessary. This test is us ed for clinical purposes. Itsho uld not be regarded as inv estigational or research.Perfor med at: [address] [id number] Di hillary: Clyde Drummond MD, Ph one: [phone] HSV Source: SwabMolecular Testing [id number] 18:56:00 Test Item Value Reference Range Interpretation Comments Molecular Testing Not Detected NotDetected MM (test code = GCPCRT) Molecular Testing Not Detected NotDetected MM (test code = CHLAMPCRT) Molecular Testing MM (test code = PCRINTERP) Acc urate results are dep endent on adequate specimencollect ion, absence of inhi bitors and sufficient DNA to bedetected. Acc eptable specimens for t his test are vaginal orc ervical swabs (self col lected or clinician collected),firs t void urine (primary specimen for males), and liquidbased pap specimens.A res ult of "Inconclusive" warrants re-collection.V iability or infectivity can NOT be inferred sin ce targetDNA may p ersist in the absence of viable organisms. For Urine Sources Collect ion of urine volumes g reater than 20-40 mLs mayresult in sp ecimen dilution that m ay reduce testsens itivity; lesser volumes may not adequately rinseorganisms into the specimen Source: VaginalVaginitis Panel 3 by DNA [id number] 08:37:00 Test Item Value Reference Range Interpretation Comments Vaginitis Panel 3 by DNA Probe VPIIICANDI (test code = VP3) Vaginitis Panel 3 by DNA Probe N (test code = VP31) Vaginitis Panel 3 by DNA Probe VPIIITRICH (test code = VP31) [id number] 02:06:00 Test Item Value Reference Range Interpretation Comments Urinalysis (test Negative Negative Method of s ensitivity- code = BHCGUT) INDETERMINANT : results should be repea stevan after 48-72 hrs POSIT JANIE: results may be detected as early as 1 day after the first missed period A dilute urine specimen may no t contain representativel evels of hCG.If pregnanc y is still suspected, a fi rst morning urinespecimen O R a random blood specimen should be obtainedfrom e patient 48-72 hours lat er and re-tested. Urinalysis (test 1.021 1.002-1.036 N code = PREGUSG) Comment add on [id number] 23:39:00 Test Item Value Reference Range Interpretation Comments Urinalysis (test code = YELLOW Yellow UACLR) Urinalysis (test code = CLOUDY Clear UACLY) Urinalysis (test code = 1.021 1.002-1.036 N SPGR) Urinalysis (test code = 5.5 5.0-9.0 N JEWEL) Urinalysis (test code = Large Negative A UALEU) Urinalysis (test code = Negative Negative UANIT) Urinalysis (test code = Trace mg/dL Neg-Trace PROUADIP) Urinalysis (test code = Negative mg/dL Negative GLUCU) Urinalysis (test code = Negative mg/dL Negative KETU) Urinalysis (test code = 0.2 mg/dL 0.2-1.0 UAUROB) Urinalysis (test code = Negative Negative UABIL) Urinalysis (test code = Small Negative A UABLD) Urinalysis (test code = 7-10 HPF 0-3 A UARBC) Urinalysis (test code = Greater Than 50-TNTC 0-3 A UAWBC) HPF Urinalysis (test code = 0-3 HPF 0-3 UASQUAM) Urinalysis (test code = None Seen HPF None Seen UABAC) Urinalysis (test code = 0-3 HYALINE CAST LPF 0-3 Hyaline UACAST) Urine Source: Urine Clean [id number] 21:32:00 Test Item Value Reference Range Interpretation Comments Chemistry (test code 142 mmol/L 136-145 N = NA-T) Chemistry (test code 4.0 mmol/L 3.5-5.1 N = K-T) Chemistry (test code 109 mmol/L 98-107 H = CL) Chemistry (test code 25 mmol/L 22-29 N = CO2) Chemistry (test code 12 mmol/L 10-20 N = ANGP) Chemistry (test code 16 mg/dL 7.0-18.7 N = BUN) Chemistry (test code 1.03 mg/dL 0.6-1.1 N = CREATT) Chemistry (test code 66 Referen ce Range for = EGFRMDRD) Estimated GFR: Greater than 90 mL/min/ 1.73 m2NOTE:The MDRD equation has no t been validated for u se with theelderly (ove r 70 years of age), women, patients with serious comorbi d condition or pe rsons with extremes o fbody size, muscle ma ss, or nutritional sta tus. Chemistry (test code 106 mg/dL 70-105 H = GLU-T) Chemistry (test code 9.2 mg/dL 7.8-10.44 N = CA) Chemistry (test code 0.3 mg/dL 0.2-1.2 N = TBILI) Chemistry (test code 7.9 g/dL 6.0-8.3 N = TP) Chemistry (test code 4.2 g/dL 3.5-5.0 N = ALB) Chemistry (test code 3.7 g/dL 2.4-3.5 H = GLOB) Chemistry (test code 1.1 g/dL 1.2-2.2 L = AG) Chemistry (test code 102 U/L 40-150 N = ALP) Chemistry (test code 19 U/L 5-34 N = AST) Chemistry (test code 14 U/L 8-55 N = ALT) [id number] 21:07:00 Test Item Value Reference Range Interpretation Comments Hematology (test code = WBCT) 13.6 thou/uL 4.8-10.8 H Hematology (test code = RBCT) 4.27 mill/uL 4.20-5.40 N Hematology (test code = HGBT) 14.0 g/dL 12.0-16.0 N Hematology (test code = HCTT) 41.8 % 36.0-47.0 N Hematology (test code = MCV) 97.9 fL 78.0-98.0 N Hematology (test code = MCH) 32.9 pg 27.0-31.0 H Hematology (test code = MCHC) 33.6 g/dL 32.0-36.0 N Hematology (test code = RDW) 11.8 % 11.5-14.5 N Hematology (test code = PLTT) 431 thou/uL 130-400 H Hematology (test code = MPV) 5.6 fL 7.4-10.4 L Hematology (test code = %NEUT) 66.8 % 42.0-75.0 N Hematology (test code = %LYMPH) 25.5 % 21.0-51.0 N Hematology (test code = %MONO) 4.9 % 0.0-10.0 N Hematology (test code = %EOS) 2.4 % 0.0-10.0 N Hematology (test code = %BASO) 0.5 % 0.0-1.0 N Hematology (test code = NEUT#) 9.1 thou/uL 1.40-6.50 H Hematology (test code = LYMPH#) 3.5 thou/uL 1.20-3.40 H Hematology (test code = MONO#) 0.7 thou/uL 0.11-0.59 H Hematology (test code = EOS#) 0.3 thou/uL 0.0-0.7 N Hematology (test code = BASO#) 0.1 thou/uL 0.0-0.2 N PRO TIME AND PTT *WW*2018-04-10 00:57:00 Test Item Value Reference Range Interpretation Comments PT (test code = 13.3 s 9.8-13.6 TT) INR (test code = 1.2 INR) INRH (test code = SUGGESTED THERAPEUTIC INRH) RANGE FOR INR: 2.5 - 3.5 For Patients with Prosthetic Valves or Patients with recurrent Thromboembolic Events 2.0 - 3.0 For Most Other Applications PTT (test code = 27.4 s 20.2-38.0 PTT) PTTH (test code = To monitor the PTTH) effectiveness of heparin, we offer the Anti-Xa (Heparin Assay). It can be used for either unfractionated or LMW Heparin. Order Code is ANTI-XA COMPREHENSIVE METABOLIC SAMPSON *WW*2018-04-10 00:53:00 Test Item Value Reference Range Interpretation Comments GLUCOSE (test code = 06D) 97 mg/dL 75-100 SODIUM (test code = 01A) 141 mmol/L 136-145 POTASSIUM (test code = 01B) 3.9 mmol/L 3.6-5.1 CHLORIDE (test code = 04A) 108 mmol/L 98-107 H CO2 (test code = 02A) 26 mmol/L 22-32 ANION GAP (test code = ANG) 11.2 mmol/L BUN (test code = 05D) 18 mg/dL 7-18 CREATININE (test code = 03E) 1.0 mg/dL 0.4-1.1 BUN/CREA (test code = BCR) 17 12-20 CALCIUM (test code = 09D) 8.5 mg/dL 8.3-9.5 BILI TOTAL (test code = 11A) 0.3 mg/dL 0.2-1.0 PROTEIN (test code = 07D) 8.0 g/dL 6.4-8.2 ALBUMIN (test code = 08D) 4.0 g/dL 3.5-4.8 GLOBULIN (test code = GLB) 3.9 g/dL 1.5-3.8 H ALB/GLOB (test code = AGRR) 1.0 1.0-2.6 ALK PHOS (test code = 35A) 94 IU/L 42-121 AST (test code = 30A) 14 IU/L <=42 ALT (test code = 31A) 26 IU/L <=78 CARDIAC PROFILE 2018-04-10 00:53:00 Test Item Value Reference Range Interpretation Comments TROPONIN I (test code = A84) <0.015 ng/mL 0.000-0.045 XR CHEST 1 VIEW PORTABLE 2018-04-10 00:44:06Examination: Chest one viewLocation code: [id number]: NoneDiscussion:Clinical history is remarkable for chest pain. Cardiac silhouette is normal insize. No consolidation, effusion, or pneumothorax isappreciated. The osseousstructures are unremarkable.Impression:1. No acute abnormality. SERUM MONOCLONAL 2018-04-10 00:43:00 Test Item Value Reference Range Interpretation Comments PREG SRM (test code = PGS) NEGATIVE NEGATIVE CBC (INCLUDES AUTOMATED DIFFERENTIAL)*[id number] 00:35:00 Test Item Value Reference Range Interpretation Comments WBC (test code = WBC) 9.7 10\\S\\3/uL 4.5-11.0 RBC (test code = RBC) 4.21 10\\S\\6/uL 4.30-5.70 L HGB (test code = HBG) 13.6 g/dL 12.0-15.5 HCT (test code = HCT) 40.3 % 35.0-44.0 MCV (test code = MCV) 95.7 fL 81.0-99.0 MCH (test code = MCH) 32.3 pg 27.0-31.0 H MCHC (test code = MCHC) 33.7 g/dL 32.0-36.0 RDW (test code = RDW) 12.4 % 11.5-14.5 PLT (test code = PLT) 331 10\\S\\3/uL 130-400 MPV (test code = MPV) 8.5 fL 9.4-12.4 L NEUTROP # (test code = NE#) 5.6 10\\S\\3/uL 1.6-8.0 LYMPH # (test code = LY#) 3.2 10\\S\\3/uL 1.1-3.5 MONOCYTE # (test code = MO#) 0.6 10\\S\\3/uL 0.0-1.1 EOSINOPH # (test code = EO#) 0.2 10\\S\\3/uL 0.0-0.7 BASOPHIL # (test code = BA#) 0.0 10\\S\\3/uL 0.0-0.3 IG # (test code = IG#) 0.03 10\\S\\3/uL 0.00-0.06 NRBC # (test code = NRBC#) 0.00 10\\S\\3/uL 0.00-0.01 NEUTROPH % (test code = NE%) 57.8 % 35.0-73.0 LYMPH % (test code = LY%) 33.0 % 20.0-55.0 MONO % (test code = MO%) 6.4 % 2.5-10.0 EOSINOPH % (test code = EO%) 2.2 % 0.0-5.0 BASOPHIL % (test code = BA%) 0.3 % 0.0-2.0 IG % (test code = IG%) 0.3 % 0.0-0.8 NRBC% (test code = NRBC%) 0.0 % 0.0-0.2 MANDIFF (test code = WMDIFF) NO NO RBC MORPH (test code = NORMAL WRBCMOR) DIRECT CHLAMYDIA EXAM *WW*2017-12-27 13:20:00 Test Item Value Reference Range Interpretation Comments CHLAMYDIA NOT DETECTED NOT DETECTED TRACHOMATIS (test code = 09611327) NEISSERIA NOT DETECTED NOT DETECTED GONORRHOEAE (test code = 16365704) Endnote (test code This test was = 12448211) performed using the APTIMA COMBO2 Assay([employer]The ruba tical performance characteristics of thisassay, when used to test SurePat h specimens haveb een determined by [facility].AMADOR T PERFORMED AT:[facility] [id number] [place] [address]AEHEZJEN HANNON M.D. URINE [id number] 09:33:00 Test Item Value Reference Range Interpretation Comments Culture Observations THREE OR MORE SPECIES (test code = COB1) OF BACTERIA ISOLATED. PROBABLE CONTAMINATION. Culture Observations IDENTIFICATION AND (test code = COB17) SUSCEPTIBILITY NOT INDICATED. RECOLLECTION RECOMMENDED WET [id number] 00:23:00 Test Item Value Reference Range Interpretation Comments Direct Exam (test FEW RED BLOOD CELLS SEEN code = DE1) Direct Exam (test MODERATE WHITE BLOOD code = DE2) CELLS SEEN Direct Exam (test RARE TRICHOMONAS SEEN code = DE3) Direct Exam (test RARE CLUE CELLS SEEN code = DE4) Direct Exam (test NO FUNGAL ELEMENTS SEEN code = DE5) ON DIRECT EXAM COMPREHENSIVE METABOLIC SAMPSON *WW*2017-12-24 22:54:00 Test Item Value Reference Range Interpretation Comments GLUCOSE (test code = 06D) 88 mg/dL 75-100 SODIUM (test code = 01A) 142 mmol/L 136-145 POTASSIUM (test code = 01B) 3.7 mmol/L 3.6-5.1 CHLORIDE (test code = 04A) 108 mmol/L 98-107 H CO2 (test code = 02A) 26 mmol/L 22-32 ANION GAP (test code = ANG) 11.7 mmol/L BUN (test code = 05D) 22 mg/dL 7-18 H CREATININE (test code = 03E) 0.9 mg/dL 0.4-1.1 BUN/CREA (test code = BCR) 24 12-20 H CALCIUM (test code = 09D) 8.2 mg/dL 8.3-9.5 L BILI TOTAL (test code = 11A) 0.2 mg/dL 0.2-1.0 PROTEIN (test code = 07D) 7.9 g/dL 6.4-8.2 ALBUMIN (test code = 08D) 3.7 g/dL 3.5-4.8 GLOBULIN (test code = GLB) 4.2 g/dL 1.5-3.8 H ALB/GLOB (test code = AGRR) 0.9 1.0-2.6 L ALK PHOS (test code = 35A) 102 IU/L 42-121 AST (test code = 30A) 12 IU/L <=42 ALT (test code = 31A) 30 IU/L <=78 URINE MONOCLONAL *WW*2017-12-24 22:48:00 Test Item Value Reference Range Interpretation Comments PREG UR (test code = PGU) NEGATIVE NEGATIVE URINALYSIS WITH MICRO *WW*2017-12-24 22:43:00 Test Item Value Reference Range Interpretation Comments COLOR (test code = COLU) YELLOW YELLOW CLARITY (test code = CLA) HAZY CLEAR A GLUCOSE UR (test code = UA NEGATIVE NEGATIVE GLUCOSE) BILI UR (test code = BILE) NEGATIVE NEGATIVE KETONES UR (test code = EVELIN) NEGATIVE NEGATIVE SP GRAVITY (test code = SPGR) 1.025 1.005-1.030 PH UR (test code = PH) 6.0 4.5-8.0 PROTEIN UR (test code = PU) NEGATIVE NEGATIVE UROBIL UR (test code = UROQ) 0.2 EU/dL 0.2-1.0 NITRITE UR (test code = NEGATIVE NEGATIVE NITRITE) BLOOD UR (test code = UA BLOOD) TRACE-INTACT NEGATIVE A LEUK ES UR (test code = LEUK) 3+ NEGATIVE A WBC UR (test code = UWBC) 12 /HPF 0-5 H RBC UR (test code = URBC) 5 /HPF 0-2 H EPITH UR (test code = UEPC) FEW /LPF FEW BACTERIA UR (test code = UBACT) MODERATE /HPF NONE A CAST UR (test code = CAST) /LPF NONE CRYSTAL UR (test code = CRYU) / LPF NONE MUCUS UR (test code = MUC) FEW / HPF NONE A AMORPH UR (test code = MUKESH) / HPF NONE TRICH UR (test code = UTRICH) FEW /HPF NONE A YEAST UR (test code = UY) /HPF NONE SPERM UR (test code = USPERM) /HPF NONE CBC (INCLUDES AUTOMATED DIFFERENTIAL)*[id number] 22:38:00 Test Item Value Reference Range Interpretation Comments WBC (test code = WBC) 11.3 10\\S\\3/uL 4.5-11.0 H RBC (test code = RBC) 4.13 10\\S\\6/uL 4.30-5.70 L HGB (test code = HBG) 12.7 g/dL 12.0-15.5 HCT (test code = HCT) 37.8 % 35.0-44.0 MCV (test code = MCV) 91.5 fL 81.0-99.0 MCH (test code = MCH) 30.8 pg 27.0-31.0 MCHC (test code = MCHC) 33.6 g/dL 32.0-36.0 RDW (test code = RDW) 12.7 % 11.5-14.5 PLT (test code = PLT) 370 10\\S\\3/uL 130-400 MPV (test code = MPV) 8.2 fL 9.4-12.4 L NEUTROP # (test code = NE#) 7.6 10\\S\\3/uL 1.6-8.0 LYMPH # (test code = LY#) 2.8 10\\S\\3/uL 1.1-3.5 MONOCYTE # (test code = MO#) 0.5 10\\S\\3/uL 0.0-1.1 EOSINOPH # (test code = EO#) 0.2 10\\S\\3/uL 0.0-0.7 BASOPHIL # (test code = BA#) 0.0 10\\S\\3/uL 0.0-0.3 IG # (test code = IG#) 0.03 10\\S\\3/uL 0.00-0.06 NRBC # (test code = NRBC#) 0.00 10\\S\\3/uL 0.00-0.01 NEUTROPH % (test code = NE%) 67.6 % 35.0-73.0 LYMPH % (test code = LY%) 25.0 % 20.0-55.0 MONO % (test code = MO%) 4.8 % 2.5-10.0 EOSINOPH % (test code = EO%) 2.1 % 0.0-5.0 BASOPHIL % (test code = BA%) 0.2 % 0.0-2.0 IG % (test code = IG%) 0.3 % 0.0-0.8 NRBC% (test code = NRBC%) 0.0 % 0.0-0.2 MANDIFF (test code = WMDIFF) NO NO RBC MORPH (test code = NORMAL WRBCMOR) U/S PELVIS*WW*2017-09-04 02:40:03ULTRASOUND OF THE PELVISLocation: [id number] HISTORY: pelvic pain history of recent /deliveryCOMPARISON: None.TECHNIQUE: Transabdominal only, patient refused transvaginal Real- timegrayscale, color and spectral Doppler imaging was performed. Normal arterialinflow and venous outflow of each ovary was documented.FINDINGS:The uterus measures 10.8 x 6.1 x 7 cm. There is anechoic complex structure seenwithin the lower uterine segment is nonspecific there is questionable flownoted peripherally. Patient had 3 weeks prior this may represent apostsurgical collection. Recommend further evaluation with CT. Patient refusedtransvaginal imagingThe right ovary is not well seen. The left ovary m easures 2.1 x 1.2 x 2.1 cm nosignificant free fluid is visualized. IMPRESSION:There is nonspecific anechoic complex structure seen within the lower uterinesegment with questionable flow noted peripherally. Patient had 3weeks prior , this may represent a postsurgical collection. Recommend furt herevaluation with CT. Patient refused transvaginal imagingDIRECT CHLAMYDIA EXAM 2017-07-07 08:05:00 Test Item Value Reference Range Interpretation Comments CHLAMYDIA NOT DETECTED NOT DETECTED TRACHOMATIS (test code = 85147118) NEISSERIA NOT DETECTED NOT DETECTED GONORRHOEAE (test code = 94845406) Endnote (test code This test was = [id number]) performed using the APTIMA COMBO2 Assay([employer]The ruba tical performance characteristics of thisassay, when used to test SurePat h specimens haveb een determined by [employer].AMADOR T PERFORMED AT:[facility] [address] [id number] HANNON M.D. URINE [id number] 07:55:00 Test Item Value Reference Range Interpretation Comments Isolate 1 (test code = Staphylococcus A ISO1) epidermidis oxacillin miko (test ug/mL S code = ox) gentamicin (test code = ug/mL S gm) ciprofloxacin (test ug/mL S code = cip) levofloxacin (test code ug/mL S = lev) clindamycin (test code ug/mL S = cc) linezolid (test code = ug/mL S lnz) daptomycin (test code = ug/mL S dap) vancomycin (test code = ug/mL S va) doxycycline (test code ug/mL S = dx) tetracycline (test code ug/mL S = tet) nitrofurantoin (test ug/mL S code = ftn) rifampicin (test code = ug/mL S rif) DIRECT STREP GROUP [id number] 07:36:00 Test Item Value Reference Range Interpretation Comments Culture Observations NO BETA HEMOLYTIC (test code = COB1) STREPTOCOCCUS ISOLATED Direct Exam (test code NEGATIVE FOR STREP A = DE1) ANTIGEN WET [id number] 18:51:00 Test Item Value Reference Range Interpretation Comments Direct Exam (test MODERATE EPITHELIAL CELLS code = DE1) SEEN Direct Exam (test MODERATE BACTERIA SEEN code = DE2) Direct Exam (test FEW WHITE BLOOD CELLS code = DE3) SEEN Direct Exam (test TRICHOMONAS SEEN code = DE4) Direct Exam (test RARE CLUE CELLS SEEN code = DE5) Direct Exam (test NO YEAST code = DE6) DIRECT INFLUENZA A AND B [id number] 17:05:00 Test Item Value Reference Range Interpretation Comments Direct Exam (test PRESUMPTIVE NEGATIVE FOR code = DE1) THE PRESENCE OF INFLUENZA ANTIGEN AMYLASE AND [id number] 17:02:00 Test Item Value Reference Range Interpretation Comments AMYLASE (test code = 10A) 64 U/L 28-100 LIPASE (test code = 60A) 83 IU/L 73-393 COMPREHENSIVE METABOLIC [id number] 17:02:00 Test Item Value Reference Range Interpretation Comments GLUCOSE (test code = 06D) 84 mg/dL 75-100 SODIUM (test code = 01A) 137 mmol/L 136-145 POTASSIUM (test code = 01B) 4.0 mmol/L 3.6-5.1 CHLORIDE (test code = 04A) 106 mmol/L 98-107 CO2 (test code = 02A) 22 mmol/L 22-32 ANION GAP (test code = ANG) 13.0 mmol/L BUN (test code = 05D) 11 mg/dL 7-18 CREATININE (test code = 03E) 0.6 mg/dL 0.4-1.1 BUN/CREA (test code = BCR) 20 12-20 CALCIUM (test code = 09D) 7.8 mg/dL 8.3-9.5 L BILI TOTAL (test code = 11A) 0.4 mg/dL 0.2-1.0 PROTEIN (test code = 07D) 7.1 g/dL 6.4-8.2 ALBUMIN (test code = 08D) 2.4 g/dL 3.5-4.8 L GLOBULIN (test code = GLB) 4.7 g/dL 1.5-3.8 H ALB/GLOB (test code = AGRR) 0.5 1.0-2.6 L ALK PHOS (test code = 35A) 135 IU/L 42-121 H AST (test code = 30A) 16 IU/L <=42 ALT (test code = 31A) 13 IU/L <=78 [id number] 16:55:00 Test Item Value Reference Range Interpretation Comments MAGNESIUM (test code = 48A) 1.9 mg/dL 1.8-2.4 URINALYSIS WITH [id number] 16:51:00 Test Item Value Reference Range Interpretation Comments COLOR (test code = COLU) DK YELLOW YELLOW A CLARITY (test code = CLA) HAZY CLEAR A GLUCOSE UR (test code = UA GLUCOSE) NEGATIVE NEGATIVE BILI UR (test code = BILE) NEGATIVE NEGATIVE KETONES UR (test code = EVELIN) TRACE NEGATIVE A SP GRAVITY (test code = SPGR) 1.025 1.005-1.030 PH UR (test code = PH) 6.0 4.5-8.0 PROTEIN UR (test code = PU) NEGATIVE NEGATIVE UROBIL UR (test code = UROQ) 0.2 EU/dL 0.2-1.0 NITRITE UR (test code = NITRITE) NEGATIVE NEGATIVE BLOOD UR (test code = UA BLOOD) NEGATIVE NEGATIVE LEUK ES UR (test code = LEUK) 3+ NEGATIVE A WBC UR (test code = UWBC) 25 /HPF 0-5 H RBC UR (test code = URBC) 1 /HPF 0-2 EPITH UR (test code = UEPC) FEW /LPF FEW BACTERIA UR (test code = UBACT) FEW /HPF NONE A CAST UR (test code = CAST) /LPF NONE CRYSTAL UR (test code = CRYU) / LPF NONE MUCUS UR (test code = MUC) FEW / HPF NONE A AMORPH UR (test code = MUKESH) / HPF NONE TRICH UR (test code = UTRICH) /HPF NONE YEAST UR (test code = UY) /HPF NONE SPERM UR (test code = USPERM) /HPF NONE CBC (INCLUDES AUTOMATED DIFFERENTIAL)[id number] 16:46:00 Test Item Value Reference Range Interpretation Comments WBC (test code = WBC) 11.3 10\\S\\3/uL 4.5-11.0 H RBC (test code = RBC) 3.53 10\\S\\6/uL 4.30-5.70 L HGB (test code = HBG) 11.6 g/dL 12.0-15.5 L HCT (test code = HCT) 34.5 % 35.0-44.0 L MCV (test code = MCV) 97.7 fL 81.0-99.0 MCH (test code = MCH) 32.9 pg 27.0-31.0 H MCHC (test code = MCHC) 33.6 g/dL 32.0-36.0 RDW (test code = RDW) 12.7 % 11.5-14.5 PLT (test code = PLT) 240 10\\S\\3/uL 130-400 MPV (test code = MPV) 8.1 fL 9.4-12.4 L NEUTROP # (test code = NE#) 8.7 10\\S\\3/uL 1.6-8.0 H LYMPH # (test code = LY#) 1.7 10\\S\\3/uL 1.1-3.5 MONOCYTE # (test code = MO#) 0.6 10\\S\\3/uL 0.0-1.1 EOSINOPH # (test code = EO#) 0.1 10\\S\\3/uL 0.0-0.7 BASOPHIL # (test code = BA#) 0.0 10\\S\\3/uL 0.0-0.3 IG # (test code = IG#) 0.18 10\\S\\3/uL 0.00-0.06 H NRBC # (test code = NRBC#) 0.00 10\\S\\3/uL 0.00-0.01 NEUTROPH % (test code = NE%) 76.8 % 35.0-73.0 H LYMPH % (test code = LY%) 15.4 % 20.0-55.0 L MONO % (test code = MO%) 5.3 % 2.5-10.0 EOSINOPH % (test code = EO%) 0.6 % 0.0-5.0 BASOPHIL % (test code = BA%) 0.3 % 0.0-2.0 IG % (test code = IG%) 1.6 % 0.0-0.8 H NRBC% (test code = NRBC%) 0.0 % 0.0-0.2 MANDIFF (test code = MDIFF) NO NO RBC MORPH (test code = RBCMOR) NORMAL
--- NOTE | 2022-05-30 10:52 | RAD REPORT ---
EXAM DESCRIPTION: CT - Head Brain Wo Cont - 05/30/2022 10:41 am CLINICAL HISTORY: swelling occiput COMPARISON: No comparisons TECHNIQUE: All CT scans are performed using dose optimization technique as appropriate and may inclu de automated exposure control or mA/KV adjustment according to patient size. FINDINGS: No intracranial hemorrhage, hydrocephalus or extra-axial fluid collection.No areas of brai n edema or evidence of midline shift. Small oval nodule in the subcutaneous tissues along the right p osterior aspect of the neck measuring 6 millimeters. Small non specific soft tissue nodular density a t the occiput on the left side as seen on image 12, series 201. The paranasal sinuses and mastoids are clear. The calvarium is intact. IMPRESSION: No acute intracranial abnormality. Probable small lymph node at the right upper neck and nonspecific soft tissue nodule/asymmetry at the left aspect of the occiput along the calvarium are of doubtful clinical significance. The nodule on the right likely represents a small non pathologically enlarged lymph node. Suggest clinical follow-u p.
--- NOTE | 2022-05-30 11:06 | ER ---
Nurse's Notes [facility] Name: Sony Major Age: 27 yrs Sex: Female : 1995 Arrival Date: 05/30/2022 Time: 09:55 Bed 12 Private MD: Diagnosis: Nonspecific lymphadenitis, unspecified Presentation: 05/30 10:35 Chief complaint: Patient states: Knot to left posterior base of skull x 2 weeks, new jl7 one to left side. Coronavirus screen: At this time, the client does not indicate any symptoms associated with coronavirus-19. Ebola Screen: No symptoms or risks identified at this time. Initial Sepsis Screen: Does the patient meet any 2 criteria? No. Patient's initial sepsis screen is negative. Does the patient have a suspected source of infection? No. Patient's initial sepsis screen is negative. Risk Assessment: Do you want to hurt yourself or someone else? Patient reports no desire to harm self or others. Onset of symptoms was May 16, 2022. 10:35 Method Of Arrival: Ambulatory [facility] 10:35 Acuity: VINNIE 4 jl7 Triage Assessment: 10:39 General: Appears in no apparent distress. uncomfortable, Behavior is calm, cooperative, jl7 appropriate for age. Pain: Denies pain. Pain currently is 8 out of 10 on a pain scale. Neuro: Level of Consciousness is awake, alert, obeys commands, Oriented to person, place, time, situation. Cardiovascular: Patient's skin is warm and dry. Respiratory: Airway is patent Respiratory effort is even, unlabored, Respiratory pattern is regular, symmetrical. Derm: Skin is pink, warm \T\ dry. Musculoskeletal: lumps palpated to bilateral base of skull. 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 - Social history:: Smoking status: Patient denies any tobacco usage or history of. - Family history:: not pertinent. - Hospitalizations: : No recent hospitalization is reported. Screenin:00 [facility] ED Fall Risk Assessment (Adult) History of falling in the last 3 months, jl7 including since admission No falls in past 3 months (0 pts). Abuse screen: Denies threats or abuse. Denies injuries from another. Nutritional screening: No deficits noted. Tuberculosis screening: No symptoms or risk factors identified. Assessment: 11:00 Reassessment: Dr. Alvarez at bedside discussing results and POC. jl7 Vital Signs: 10:35 BP 122 / 87; Pulse 81; Resp 17 S; Temp 98.1(TE); Pulse Ox 96% on R/A; Weight 74.84 kg jl7 (R); Height 5 ft. 1 in. (154.94 cm) (R); Pain 8/10; 10:35 Body Mass Index 31.18 (74.84 kg, 154.94 cm) jl7 [place] Coma Score: 11:03 Eye Response: spontaneous(4). Verbal Response: oriented(5). Motor Response: obeys rn commands(6). Total: 15. ED Course: 09:55 Patient arrived in ED. as 09:57 Hilario Alvarez MD is Attending Physician. rn 10:35 Alvin Fox RN is Primary Nurse. jl7 10:39 Triage completed. jl7 10:39 Arm band placed on right wrist. jl7 10:42 CT Head Brain wo Cont In Process Unspecified. EDMS 11:00 Patient has correct armband on for positive identification. Bed in low position. Call jl7 light in reach. Side rails up X 1. 11:16 No provider procedures requiring assistance completed. Patient did not have IV access jl7 during this emergency room visit. Administered Medications: No medications were administered Medication: 11:00 VIS not applicable for this client. jl7 Outcome: 11:06 Discharge ordered by . rn 11:16 Discharged to home ambulatory. jl7 11:16 Condition: stable 11:16 Discharge instructions given to patient, Instructed on discharge instructions, follow up and referral plans. medication usage, Demonstrated understanding of instructions, follow-up care, medications, Prescriptions given X 1. 11:17 Patient left the ED. jl7 Signatures: Dispatcher [employer] Catalina Peoples Roman, MD MD rn Leal, Jahala, RN RN jl7
--- NOTE | 2022-05-30 11:06 | EDPHYS ---
Physician Documentation [facility] Name: Sony Major Age: 27 yrs Sex: Female : 1995 Arrival Date: 05/30/2022 Time: 09:55 Bed 12 Private MD: ED Physician Hilario Alvarez HPI: 05/30 10:14 This 27 yrs old Female presents to ER via Unassigned with complaints of knot on back of rn head. 10:14 This 27 yrs old Female presents to ER via Unassigned with complaints of knot on back of rn head. 10:14 The patient complains of pain to the left base of the skull and right base of the rn skull. The patient describes the headache as aching. Onset: The symptoms/episode began/occurred 2 week(s) ago. Associated signs and symptoms: Pertinent negatives: altered mental status, fever, neck stiffness, vision loss, vomiting, vertigo. Severity of symptoms: At its worst the pain was mild, in the emergency department the pain is unchanged. The symptoms are alleviated by nothing. the symptoms are aggravated by nothing. The patient has not experienced similar symptoms in the past. The patient has not recently seen a physician. Pt reports posterior headache, now for 2 weeks, no fever, no trauma. No focal neuro complaints. No neck stiffness. Seen at [facility] when it began and told "swollen lymph nodes". . 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 - Social history:: Smoking status: Patient denies any tobacco usage or history of. - Family history:: not pertinent. - Hospitalizations: : No recent hospitalization is reported. ROS: 10:14 Constitutional: Negative for fever, chills, and weight loss, Eyes: Negative for injury, rn pain, redness, and discharge, Neck: Negative for injury Cardiovascular: Negative for chest pain, palpitations, and edema, Respiratory: Negative for shortness of breath, cough, wheezing, and pleuritic chest pain, Abdomen/GI: Negative for abdominal pain, nausea, vomiting, diarrhea, and constipation, MS/Extremity: Negative for injury and deformity, Skin: Negative for injury, rash, and discoloration, Neuro: Negative for weakness, numbness, tingling, and seizure Exam: 10:14 Constitutional: This is a well developed, well nourished patient who is awake, alert, rn and in no acute distress. Head/Face: Normocephalic, atraumatic. Eyes: Periorbital areas with no swelling, redness, or edema. Neck: Trachea midline, no thyromegaly or masses palpated, and no cervical lymphadenopathy. Supple, full range of motion without nuchal rigidity, or vertebral point tenderness. No Meningismus. Cardiovascular: Regular rate and rhythm. No pulse deficits. Respiratory: No increased work of breathing, no retractions or nasal flaring. Abdomen/GI: Soft, non-tender Skin: Warm, dry , 2 areas of tender lymphadenopathy base of skull on both sides. No overlying skin changes or evidence of fluctuance/abscess. MS/ Extremity: Pulses equal, no cyanosis. Neuro: Awake and alert, GCS 15, oriented to person, place, time, and situation. Cranial nerves II-XII grossly intact. Motor strength 5/5 in all extremities. Sensory grossly intact. Cerebellar exam normal. Normal gait. Vital Signs: 10:35 BP 122 / 87; Pulse 81; Resp 17 S; Temp 98.1(TE); Pulse Ox 96% on R/A; Weight 74.84 kg jl7 (R); Height 5 ft. 1 in. (154.94 cm) (R); Pain 8/10; 10:35 Body Mass Index 31.18 (74.84 kg, 154.94 cm) jl7 [place] Coma Score: 11:03 Eye Response: spontaneous(4). Verbal Response: oriented(5). Motor Response: obeys rn commands(6). Total: 15. MDM: 09:57 Patient medically screened. rn 11:03 Differential diagnosis: cluster headache, hypertensive headache, intracerebral rn hemorrhage, migraine, sinusitis, tension headache, trigeminal neuralgia, vasomotor headache, viral syndrome, lymphadenitis, lymphadenopathy. Data reviewed: vital signs, nurses notes, radiologic studies, CT scan, and as a result, I will discharge patient. Counseling: I had a detailed discussion with the patient and/or guardian regarding: the historical points, exam findings, and any diagnostic results supporting the discharge/admit diagnosis, radiology results, the need for outpatient follow up, to return to the emergency department if symptoms worsen or persist or if there are any questions or concerns that arise at home. Special discussion: I discussed with the patient/guardian in detail that at this point there is no indication for admission to the hospital. It is understood, however, that if the symptoms persist or worsen the patient needs to return immediately for re-evaluation. Based on the history and exam findings, there is no indication for further emergent testing or inpatient evaluation. I discussed with the patient/guardian the need to see the primary care provider for further evaluation of the symptoms. ED course: CT head shows nonspecific lymphadenopathy of posterior head, does show some asymmetric soft tissue changes, will place on abx and discharge with return precautions. . 05/30 10:13 Order name: CT Head Brain wo Cont; Complete Time: 10:57 rn 05/30 11:03 Interpretation: Abnormal. rn Administered Medications: No medications were administered Disposition Summary: 05/30/22 11:06 Discharge Ordered Location: Home rn Problem: an ongoing problem rn Symptoms: have improved rn Condition: Stable rn Diagnosis - Nonspecific lymphadenitis, unspecified rn Followup: rn - With: Private Physician - When: As needed - Reason: Recheck today's complaints, Re-evaluation by your physician Discharge Instructions: - Discharge Summary Sheet rn - Lymphadenopathy rn Forms: - Medication Reconciliation Form rn - Thank You Letter rn - Antibiotic rn staff - Prescription Opioid Use rn Prescriptions: - Clindamycin HCl 300 mg Oral Capsule - take 1 capsule by ORAL route every 6 hours for 10 days; 40 capsule; Refills: 0, rn Product Selection Permitted Signatures: Dispatcher [employer] Hilario Marie MD MD rn Leal, Jahala, RN RN jl7
[2022-05-30 11:27] VITALS: BP 122/87; TEMP 98.1; O2SAT 96
== END 2022-05-30 11:17 | disposition home or self-care (01) ==
LOC: ER 09:52
DX: I88.9 Nonspecific lymphadenitis, unspecified (principal)
CPT/HCPCS: 70450; 99283

== ENCOUNTER 2022-07-10 09:28 | Emergency (ER) | payer OTHER ==
--- OUTSIDE RECORDS SUMMARY | 2022-07-10 09:34 | XMS REPORT | Continuity of Care Document ---
:1995 Author Organization [facility] t Address [address] [facility] [address] [place] [address] Care Team Providers Name Role Phone Lala Jimenez Attending Clinician Unavailable DEANNE, DR ADAMS Attending Clinician Unavailable Jude Hendrickson Attending Clinician Unavailable BONNY ALEX Attending Clinician Unavailable PROVIDER, ED TEMP Attending Clinician Unavailable MAXIMO, DR OPAL Poole Attending Clinician Unavailable SUNG, DR JOSH BOYD Attending Clinician Unavailable MAXIMO, DR LUGO Attending Clinician Unavailable TU, DR CHAVES Attending Clinician Unavailable DR Markel GUY Attending Clinician Unavailable DR AMILCAR RILEY Attending Clinician Unavailable DR BRYAN ALICEA Admitting Clinician Unavailable DR OPAL MARSH Admitting Clinician Unavailable DR JOSH ALMARAZ Admitting Clinician Unavailable MAXIMO, DR LUGO Admitting Clinician Unavailable DR ANDIE MAE Admitting Clinician Unavailable DR Markel GUY Admitting Clinician Unavailable ROSEMARY, DR FITZGERALD Admitting Clinician Unavailable Payers Payer Name Policy Type Policy Number Effective Date Expiration Date S ource Problems This patient has no known problems. Allergies, Adverse Reactions, Alerts Allergy Allergy Status Severity Reaction(s) Onset Inactive Treating Comm ents Source Name Type Date Date Clinician Penicill Allergy Active Mild St. ins to 11-17 [facility] substanc 00:04: [facility] DA Active [place] [facility] 00 [facility] Chowdhury Family History Family Member Diagnosis Comments Start Date Stop Date Source Mother Family Breast [facility] Cancer?No Health Mother Family Coronary Artery [facility] Disease?No Health Mother Family Congenital [facility] Heart Disease?No Health Mother Family Myocardial [facility] Infarction?No Health Mother Family Stroke?No [facility] Health Mother Family Diabetes?No [facility] Mother Family Colorectal [facility] Cancer?No Health Social History Social Habit Start Date Stop Date Quantity Comments Source History of tobacco [facility] Sex Assigned At [address] [facility] Smoking Status Start Date Stop Date Source Never smoked tobacco (finding) S . [facility] Medications Ordered Filled Start Stop Current Ordering Indication Dosage Frequency Signature Comments Components Source Medication Medication Date Date Medication? Clinician (SIG) Name Name No 1TABLET Daily St. Comb - [facility] No.42/Folic 00:00: Region a Acid 00 l (P[facility] Chewable Tablet) 1 TABLET Tab.Ch.Bph Procedures This patient has no known procedures. Encounters Start End Encounter Admission Attending Care Care Encounter Source Date/Time Date/Time Type Type Clinicians Facility Department ID 2021-08-02 Outpatient [facility] [id number] [place] 10:33:54 [id number] [facility] 2022-01-14 2022-01-14 Emergency ER [facility] [id number] 10:20:00 15:50:[address] [id number] [facility] 2018-08-21 2018-08-21 Emergency E [facility] [id number] [facility] 19:57:00 19:57:00 2018-08-17 2018-08-17 Emergency E DEANNE, [facility] ECCNONEMER [id number] [place] 19:53:00 22:38:00 BRYAN [facility] [place] 2018-04-10 2018-04-10 Emergency E OPAL MARSH [facility] [id number] [facility] 00:04:00 01:25:00 [facility] 2017-12-24 2017-12-25 Emergency E SUNG [facility] [id number] [place] 21:08:00 00:55:00 JOSH Medic al [place] 2017-11-28 2017-11-28 Emergency E MAXIMO [facility] ECC [id number] [place] 14:16:00 14:53:00 BRITTNEY [facility] 2017-09-04 2017-09-04 Emergency E ANDIE MAE [facility] [id number] [place] 01:25:00 02:54:00 [facility] 2017-07-19 2017-07-19 Outpatient C Markel GUY [facility] OB [id number] [facility] 21:24:00 22:59:00 FUNSHO [facility] 2017-07-03 2017-07-03 Emergency E AMILCAR RILEY [facility] [id number] [place] 15:56:00 18:20:00 [facility] Results Test Description Test Time Test Comments [...] the ClinicalLaborat ory Improvement Carmen ndments of 1988 (CLIA), 42 U.S.C.263a, to perform high complexity tests. Molecular Testing MM Nasopharyngeal Swab (test code = COVIDSOURCEMM) Resident in Congregate Care Setting: UnknownEmployed in Healthcare: UnknownFirst Test: UnknownHospitalized: UnknownICU: UnknownDate of Symptom Onset: [id number]: UnknownReason for Testing: PUI -SymptomaticSource: Nasopharyngeal SwabSymptomatic as defined by CDC: AhowvatYfdliaihkc4601-00-16 13:11:00 Test Item Value Reference Range Interpretation [...] Seen HPF None Seen Urine Source: Urine YsqiscTxqgbxpfze5233-57-16 13:11:00 Test Item Value Reference Range Interpretation [...] (test 1.027 1.002-1.036 N code = PREGUSG) Dspsnhjsb1678-62-19 12:25:00 Test Item Value Reference Range Interpretation Comments Chemistry (test code = LIP) 10 U/L 8-78 N Specific gravity of Urine by Refractometry jckcakqyl8306-66-14 12:21:00 Test Item Value Reference Range Interpretation Comments Urine Specific [place] (test code = 1.027 1.002-1.036 03248-4) [facility] Zrhk9077-95-06 12:21:00 Test Item Value Reference Range Interpretation Comments Urine Color (test code = Light-Yellow Yellow 64925-6) [facility] clarity by refractometry trpnjqfla0817-69-08 12:21:00 Test Item Value Reference Range Interpretation Comments Urine Clarity (test code = 82848-1) Clear Clear [facility] pH measurement by automated test jchkt8674-39-10 12:21:00 Test Item Value Reference Range Interpretation Comments Urine pH (test code = 84235-0) 6.0 5.0-9.0 [facility] leukocyte esterase detection by automated test czurr6239-04-69 12:21:00 Test Item Value Reference Range Interpretation Comments Urine Leukocyte Esterase (test code 75 Janis/uL Negative = 01262-6) [facility]Presence[facility] in Urine by Test [id number] 12:21:00 Test Item Value Reference Range Interpretation Comments Urine Nitrite (test code = 5802-4) Negative Negative [facility] protein measurement by automated test strip (mass/volume)2022-01-14 12:21:00 Test Item Value Reference Range Interpretation Comments Urine Protein (test code = Negative mg/dL Neg-Trace 31362-9) [facility] [Moles/volume] in Urine by Test strip 2022-01-14 12:21:00 Test Item Value Reference Range Interpretation Comments Urine Glucose (UA) (test code = Normal mg/dL Negative 21531-2) [facility] ketones measurement by automated test strip (mass/volume)2022-01-14 12:21:00 Test Item Value Reference Range Interpretation Comments Urine Ketones (test code = Negative mg/dL Negative 10924-1) [facility] urobilinogen measurement (units/volume) by test [id number] 12:21:00 Test Item Value Reference Range Interpretation Comments Urine Urobilinogen (test code = Normal mg/dL Less than 2 16383-1) [facility] total bilirubin detection by automated test nerbt7120-16-10 12:21:00 Test Item Value Reference Range Interpretation Comments Urine Bilirubin (test code = Negative Negative 66963-1) [facility] hemoglobin detection by automated test strip 2022-01-14 12:21:00 Test Item Value Reference Range Interpretation Comments Urine Blood (test code = 07207-7) Negative Negative [facility] erythrocytes detection by automated method 2022-01-14 12:21:00 Test Item Value Reference Range Interpretation Comments Urine RBC (test code = 54701-8) 0-3 HPF 0-3 [facility] leukocytes detection by automated method 2022-01-14 12:21:00 Test Item Value Reference Range Interpretation Comments Urine WBC (test code = 35554-9) 0-3 HPF 0-3 [facility] cells.squamous [#/area] in Urine sediment by Automated [id number] 12:21:00 Test Item Value Reference Range Interpretation Comments Urine Squamous Epithelial Cells (test 0-3 HPF 0-3 code = 84395-6) [facility] bacteria detection by automated [id number] 12:21:00 Test Item Value Reference Range Interpretation Comments Urine Bacteria (test code = None Seen HPF None Seen 04646-4) [facility] [id number] 12:21:00 Test Item Value Reference Range Interpretation Comments Urine Test (test code = Negative Negative 2106-3) [facility] - Kyuujkus3508-35-43 12:18:00 Test Item Value Reference Range Interpretation Comments Chemistry - Specials Negative NEGATIVE Method of sensitivity- (test code = BHCGST) Indeter minant: results should be repea stevan after 48-72 hrs Positive: resul ts may be detected as early as 1 day after the first missed me nses. Sofsebbfa7034-45-10 11:13:00 Test Item Value Reference Range Interpretation [...] EGFRCR) Estimated GFR: Greater than 90 mL/min/1.73 u8Vxthoxbp eGFR is based on the CK D-EPI [...] code = 12 U/L 8-55 N ALT) Dpyuenshlz3726-90-48 10:49:00 Test Item Value Reference Range Interpretation [...] code = BASO#) 0.0 thou/uL 0.0-0.2 N Leukocytes [#/volume] in Blood by Automated yidea3215-61-21 10:35:00 Test Item Value Reference Range Interpretation Comments White Blood Count (test code = 8.3 thou/uL 4.8-10.8 6690-2) [facility] erythrocytes automated count (number/volume) 2022-01-14 10:35:00 Test Item Value Reference Range Interpretation Comments Red Blood Count (test code = 4.15 mill/uL 4.20-5.40 789-8) [facility] hemoglobin measurement (mass/volume)2022-01-14 10:35:00 Test Item Value Reference Range Interpretation Comments Hemoglobin (test code = 718-7) 14.3 g/dL 12.0-16.0 [facility] mean corpuscular volume 2022-01-14 10:35:00 Test Item Value Reference Range Interpretation Comments Mean Corpuscular Volume (test code = 100.0 fL 78.0-98.0 787-2) [facility] mean corpuscular hemoglobin (mass per erythrocyte)2022-01-14 10:35:00 Test Item Value Reference Range Interpretation Comments Mean Corpuscular Hemoglobin (test 34.5 pg 27.0-31.0 code = 785-6) [facility] erythrocyte mean corpuscular hemoglobin concentration measurement (mass/yyt9778-13-93 10:35:00 Test Item Value Reference Range Interpretation Comments Mean Corpuscular Hemoglobin Concent 34.4 g/dL 32.0-36.0 (test code = 786-4) [facility] distribution width ratio 2022-01-14 10:35:00 Test Item Value Reference Range Interpretation Comments Red Cell Distribution Width (test code 10.4 % 11.5-14.5 = 788-0) [facility] blood platelet count (count/volume) 2022-01-14 10:35:00 Test Item Value Reference Range Interpretation Comments Platelet Count (test code = 293 thou/uL 130-400 777-3) [facility] blood platelet mean tsnhsd2439-40-73 10:35:00 Test Item Value Reference Range Interpretation Comments Mean Platelet Volume (test code = 6.2 fL 7.4-10.4 93348-1) [facility] blood neutrophils/100 gtzzjbvnto1152-97-37 10:35:00 Test Item Value Reference Range Interpretation Comments Neutrophils % (test code = 770-8) 66.0 % 42.0-75.0 [facility] leukocytes in Blood by Automated count 2022-01-14 10:35:00 Test Item Value Reference Range Interpretation Comments Lymphocytes % (test code = 736-9) 26.7 % 21.0-51.0 [facility] blood monocytes/100 moprzduggf4863-75-50 10:35:00 Test Item Value Reference Range Interpretation Comments Monocytes % (test code = 5905-5) 4.9 % 0.0-10.0 [facility] eosinophils/100 ixjaadohpm3493-09-05 10:35:00 Test Item Value Reference Range Interpretation Comments Eosinophils % (test code = 713-8) 1.7 % 0.0-10.0 [facility] blood basophils/100 rubxbuawma1754-19-13 10:35:00 Test Item Value Reference Range Interpretation Comments Basophils % (test code = 706-2) 0.6 % 0.0-1.0 [facility] neutrophils automated count (number/volume) 2022-01-14 10:35:00 Test Item Value Reference Range Interpretation Comments Neutrophils # (test code = 751-8) 5.5 thou/uL 1.40-6.50 [facility] [#/volume] in Blood by Automated count 2022-01-14 10:35:00 Test Item Value Reference Range Interpretation Comments Lymphocytes # (test code = 731-0) 2.2 thou/uL 1.20-3.40 [facility] monocytes automated count (number/volume) 2022-01-14 10:35:00 Test Item Value Reference Range Interpretation Comments Monocytes # (test code = 742-7) 0.4 thou/uL 0.11-0.59 [facility] eosinophils automated count (count/volume) 2022-01-14 10:35:00 Test Item Value Reference Range Interpretation Comments Eosinophils # (test code = 711-2) 0.1 thou/uL 0.0-0.7 [facility] blood basophil count (count/volume) 2022-01-14 10:35:00 Test Item Value Reference Range Interpretation Comments Basophils # (test code = 704-7) 0.0 thou/uL 0.0-0.2 [facility] or plasma sodium measurement (moles/volume) 2022-01-14 10:35:00 Test Item Value Reference Range Interpretation Comments Sodium Level (test code = 2951-2) 139 mmol/L 136-145 [facility] or plasma potassium measurement (moles/volume) 2022-01-14 10:35:00 Test Item Value Reference Range Interpretation Comments Potassium Level (test code = 3.9 mmol/L 3.5-5.1 2823-3) [facility] or plasma chloride measurement (moles/volume) 2022-01-14 10:35:00 Test Item Value Reference Range Interpretation Comments Chloride Level (test code = 108 mmol/L 98-107 2075-0) [facility] or plasma carbon dioxide, total measurement (moles/volume)2022-01-14 10:35:00 Test Item Value Reference Range Interpretation Comments Carbon Dioxide Level (test code = 22 mmol/L 22-29 2028-01) [facility] or plasma anion [id number] 10:35:00 Test Item Value Reference Range Interpretation Comments Anion Gap (test code = 57979-2) 13 mmol/L 10-20 [facility] or plasma urea nitrogen measurement (mass/volume)2022-01-14 10:35:00 Test Item Value Reference Range Interpretation Comments Blood Urea Nitrogen (test code = 14 mg/dL 7.0-18.7 3094-0) [facility] or plasma creatinine measurement (mass/volume) 2022-01-14 10:35:00 Test Item Value Reference Range Interpretation Comments Creatinine (test code = 2160-0) 0.81 mg/dL 0.6-1.1 [facility]/1.73 sq M.predicted [Volume Rate/Area] in Serum, Plasma [id number] 10:35:00 Test Item Value Reference Range Interpretation Comments Estimated GFR (CKD-EPI 2020) (test code 102 = 35573-3) [facility] [Mass/volume] in Serum or Acotmy4863-00-63 10:35:00 Test Item Value Reference Range Interpretation Comments Glucose Level (test code = 2345-7) 105 mg/dL 70-105 [facility] or plasma calcium measurement (mass/volume) 2022-01-14 10:35:00 Test Item Value Reference Range Interpretation Comments Calcium Level (test code = 53993-7) 9.1 mg/dL 7.8-10.44 [facility] or plasma total bilirubin measurement (mass/volume)2022-01-14 10:35:00 Test Item Value Reference Range Interpretation Comments Total Bilirubin (test code = 0.6 mg/dL 0.2-1.2 1975-2) [facility] or plasma protein measurement (mass/volume) 2022-01-14 10:35:00 Test Item Value Reference Range Interpretation Comments Serum Total Protein (test code = 7.9 g/dL 6.0-8.3 2885-2) [facility] or plasma albumin measurement by bromocresol green (BCG) dye binding method ([id number] 10:35:00 Test Item Value Reference Range Interpretation Comments Albumin (test code = 32707-3) 4.3 g/dL 3.5-5.0 [facility]ob[facility] [Mass/volume] in Serum by calculation 2022-01-14 10:35:00 Test Item Value Reference Range Interpretation Comments Globulin (test code = 30493-2) 3.6 g/dL 2.4-3.5 [facility]/Globulin [Mass Ratio] in Serum or Plasma 2022-01-14 10:35:00 Test Item Value Reference Range Interpretation Comments Albumin/Globulin Ratio (test code = 1.2 g/dL 1.2-2.2 1759-0) [facility] [Enzymatic activity/volume] in Serum or Lxbiyn1331-33-64 10:35:00 Test Item Value Reference Range Interpretation Comments Alkaline Phosphatase (test code = 82 U/L 40-110 6768-6) [facility] or plasma aspartate aminotransferase measurement (enzymatic activity/volume)2022-01-14 10:35:00 Test Item Value Reference Range Interpretation Comments Aspartate Amino Transf (AST/SGOT) 12 U/L 5-34 (test code = 1920-8) [facility] or plasma alanine aminotransferase measurement without P-5'-P (enzymatic [id number] 10:35:00 Test Item Value Reference Range Interpretation Comments Alanine Aminotransferase (ALT/SGPT) 12 U/L 8-55 (test code = 1744-2) [facility] or plasma lipase measurement (enzymatic activity/volume)2022-01-14 10:35:00 Test Item Value Reference Range Interpretation Comments Lipase (test code = 3040-3) 10 U/L 8-78 [facility] human chorionic gonadotropin detection for amtgyvrpy2165-03-32 10:35:00 Test Item Value Reference Range Interpretation Comments Serum Test, Qualitative Negative NEGATIVE (test code = 2118-8) [facility] *WW*2018-08-17 21:11:00 Test Item Value [...] = PGS) NEGATIVE NEGATIVE CBC (INCLUDES AUTOMATED DIFFERENTIAL)*[id number] 20:56:00 Test Item Value Reference Range Interpretation [...] (test code = NORMAL WRBCMOR) Molecular Testing [id number] 23:57:00 Test Item Value Reference Range Interpretation [...] lected or clinician colle cted),first void urine ([facility] eris specimen for maryanne benavides), and liquidbased pap specimens.A res ult of "Inconclusive" warrants re-collection.V iability or infectivity can NOT be inferred since targetDNA may persist in the absence of viable organisms. For Urine Sources Collection of urine volumes greater than 20-40 mLs mayresult i n specimen dilution that m ay reduce testsensitivity ; lesser volumes may not adequately rinseorganisms into the specimen * Source: VaginalReference Lab [id number] 14:15:00 Test Item Value Reference Range Interpretation Comments Reference Lab Testing . A Positi ve for Herpes (test code = HSVT) simplex v irus type-2. Typing wasconfi rmed by monoclonal anti body microscopicimmu nofluoresc ence.Performed at: [address] [id number] Director: Clyde Drummond MD, Phone: [phone] Reference Lab [id number] 17:10:00 Test Item Value Reference Range Interpretation Comments Reference Lab Negative Negative Testing (test code = CCS9FRM) Reference Lab Positive Negative A This test was developed and its Testing (test performance code = MBY1IKS) characterist icsdetermined by [facility]. It has not been cleare kenroy approved by the U.S. Food a nd Drug Administration. TheFDA has determined that such clearance or approval is notnecessary. This test is us ed for clinical purposes. Itsho uld not be regarded as inv estigational or research.Perfor med at: [address] [place], [place] [id number] Di hillary: Clyde Drummond MD, Ph one: [phone] HSV Source: SwabMolecular Testing [id number] 18:56:00 Test Item Value Reference Range Interpretation [...] specimen Source: VaginalVaginitis Panel 3 by DNA [id number] 08:37:00 Test Item Value Reference Range Interpretation Comments Vaginitis Panel 3 by DNA Probe VPIIICANDI (test code = VP3) Vaginitis Panel 3 by DNA Probe N (test code = VP31) Vaginitis Panel 3 by DNA Probe VPIIITRICH (test code = VP31) [id number] 02:06:00 Test Item Value Reference Range Interpretation [...] a random blood specimen should be obtainedfrom th e patient 48-72 hours lat er and re-tested. Urinalysis (test 1.021 1.002-1.036 N code = PREGUSG) Comment add on [id number] 23:39:00 Test Item Value Reference Range Interpretation [...] 0-3 Hyaline UACAST) Urine Source: Urine Clean DshzfHuwttaaly2093-25-07 21:32:00 Test Item Value Reference Range Interpretation [...] code 14 U/L 8-55 N = ALT) [id number] 21:07:00 Test Item Value Reference Range Interpretation [...] Order Code is ANTI-XA COMPREHENSIVE METABOLIC SAMPSON 2018-04-10 00:53:00 Test Item Value Reference Range [...] PORTABLE 2018-04-10 00:44:06Examination: Chest one viewLocation code: Z5Blruksfuzo: NoneDiscussion:Clinical history is remarkable for chest pain. Cardiac silhouette is normal insize. No consolidation, effusion, or pneumothorax isappreciated. The osseousstructures are unremarkable.Impression:1. No acute abnormality. SERUM MONOCLONAL *WW* 2018-04-10 00:43:00 Test Item Value Reference Range Interpretation Comments PREG SRM (test code = PGS) NEGATIVE NEGATIVE CBC (INCLUDES AUTOMATED DIFFERENTIAL)*[id number] 00:35:00 Test Item Value Reference Range Interpretation [...] DETECTED NOT DETECTED TRACHOMATIS (test code = 34642832) NEISSERIA NOT DETECTED NOT DETECTED GONORRHOEAE (test code = 27098146) Endnote (test code This test was = 52622722) performed using the APTIMA COMBO2 Assay([employer]The ruba tical performance characteristics of thisassay, when used to test SurePat h specimens haveb een determined by [employer].AMADOR T PERFORMED AT:[facility] [id number] [place] [id number] HANNON M.D. URINE [id number] 09:33:00 Test Item Value Reference Range Interpretation Comments Culture Observations THREE OR MORE SPECIES (test code = COB1) OF BACTERIA ISOLATED. PROBABLE CONTAMINATION. Culture Observations IDENTIFICATION AND (test code = COB17) SUSCEPTIBILITY NOT INDICATED. RECOLLECTION RECOMMENDED WET [id number] 00:23:00 Test Item Value Reference Range Interpretation [...] = USPERM) /HPF NONE CBC (INCLUDES AUTOMATED DIFFERENTIAL)*[id number] 22:38:00 Test Item Value Reference Range Interpretation [...] WRBCMOR) U/S PELVIS*WW*2017-09-04 02:40:03ULTRASOUND OF THE PELVISLocation: [id number] HISTORY: pelvic pain history of recent /deliveryCOMPARISON: [...] DETECTED NOT DETECTED TRACHOMATIS (test code = 87207677) NEISSERIA NOT DETECTED NOT DETECTED GONORRHOEAE (test code = 21495267) Endnote (test code This test was = 13438069) performed using the APTIMA COMBO2 Assay([employer]The ruba tical performance characteristics of thisassay, when used to test SurePat h specimens haveb een determined by [employer].AMADOR T PERFORMED AT:[facility] [address] [id number] HANNON M.D. URINE [id number] 07:55:00 Test Item Value Reference Range Interpretation [...] = ug/mL S rif) DIRECT STREP GROUP [id number] 07:36:00 Test Item Value Reference Range Interpretation Comments Culture Observations NO BETA HEMOLYTIC (test code = COB1) STREPTOCOCCUS ISOLATED Direct Exam (test code NEGATIVE FOR STREP A = DE1) ANTIGEN WET [id number] 18:51:00 Test Item Value Reference Range Interpretation [...] = DE6) DIRECT INFLUENZA A AND B [id number] 17:05:00 Test Item Value Reference Range Interpretation Comments Direct Exam (test PRESUMPTIVE NEGATIVE FOR code = DE1) THE PRESENCE OF INFLUENZA ANTIGEN AMYLASE AND [id number] 17:02:00 Test Item Value Reference Range Interpretation Comments AMYLASE (test code = 10A) 64 U/L 28-100 LIPASE (test code = 60A) 83 IU/L 73-393 COMPREHENSIVE METABOLIC [id number] 17:02:00 Test Item Value Reference Range Interpretation [...] (test code = 31A) 13 IU/L <=78 [id number] 16:55:00 Test Item Value Reference Range Interpretation Comments MAGNESIUM (test code = 48A) 1.9 mg/dL 1.8-2.4 URINALYSIS WITH [id number] 16:51:00 Test Item Value Reference Range Interpretation [...]
[2022-07-10 09:54] LABS: Urine Blood 2+ (Negative); Urine Glucose Negative (Negative); Urine Protein Negative (Negative); Urine Specific Gravity 1.025 (1.005-1.030)
[2022-07-10 10:05] LABS: Urine Bacteria None Seen /HPF (<20); Urine Mucus Slight /HPF (None Seen); Urine RBC <5 /HPF (None Seen)
[2022-07-10 10:11] LABS: Absolute Lymphocytes (CBC) 2.2 K/uL (0.7-4.9); Hematocrit 39.4 % (36.0-45.0); Lymphocytes % 30.7 % (15.3-44.8); MCV 98.7 fL (80-100); MPV 5.9 fL (7.6-11.3); RBC Red Blood Cell Count 3.99 M/uL (3.86-4.86)
[2022-07-10 10:13] LABS: Urine Specific Gravity/Preg 1.025 (1.005-1.030)
[2022-07-10 10:30] LABS: Albumin 3.6 g/dL (3.4-5.0); Bilirubin Total 0.2 mg/dL (0.2-1.0); Protein, Total 7.8 g/dL (6.4-8.2)
--- NOTE | 2022-07-10 11:15 | RAD REPORT ---
EXAM DESCRIPTION: US - Transvaginal Study Probe - 07/10/2022 11:00 am CLINICAL HISTORY: Abd pain Pelvic pain. COMPARISON: No comparisons FINDINGS: Small echogenic reflectors within the mild medium likely uterine calcifications. These are probably of little clinical significance. The uterus measures 8.8 x 4 x 5.5 cm with volume of 101 cc .. The endometrial stripe measures 8 mm Both ovaries are normal in size, shape and echotexture. The right ovary measures 2.2 x 1.6 x 1.9 cm with volume of 3.5 cc. The left ovary measures 3 x 1.4 x 2.1 cm with volume of 4.6 cc. No ovarian or parovarian lesions. No adnexal masses. Normal Doppler blood flow was demonstrated to both ovaries. Small volume of nonspecific free fluid. IMPRESSION: Bilateral ovarian blood flow. Small volume of pelvic free fluid which may be physiologic .
[2022-07-10] MEDS ORDERED: KETOROLAC 30 MG/ML INJ ONE (11:29)
--- NOTE | 2022-07-10 11:42 | ER ---
Nurse's Notes [facility] Name: Sony Major Age: 27 yrs Sex: Female : 1995 Arrival Date: 07/10/2022 Time: 09:31 Bed 6 Private MD: Diagnosis: Other and unspecified ovarian cysts;Lower abdominal pain, unspecified Presentation: 07/10 09:42 Chief complaint: Patient states: abd pain X 5 days , hx of ovarian cyst. Coronavirus iw screen: At this time, the client does not indicate any symptoms associated with coronavirus-19. Ebola Screen: Patient negative for fever greater than or equal to 101.5 degrees Fahrenheit, and additional compatible Ebola Virus Disease symptoms Patient denies exposure to infectious person. Patient denies travel to an Ebola-affected area in the 21 days before illness onset. No symptoms or risks identified at this time. Initial Sepsis Screen: Does the patient meet any 2 criteria? No. Patient's initial sepsis screen is negative. Does the patient have a suspected source of infection? No. Patient's initial sepsis screen is negative. Risk Assessment: Do you want to hurt yourself or someone else? Patient reports no desire to harm self or others. Onset of symptoms was July 06, 2022. 09:42 Method Of Arrival: Ambulatory iw 09:42 Acuity: VINNIE 3 iw Historical: - Allergies: 09:43 PENICILLINS; iw - PMHx: 09:43 Asthma; iw - PSHx: 09:43 section; iw - Social history:: Smoking status: unknown. Screenin:04 [facility] ED Fall Risk Assessment (Adult) History of falling in the last 3 months, iw including since admission No falls in past 3 months (0 pts). Abuse screen: Denies threats or abuse. Denies injuries from another. Nutritional screening: No deficits noted. Tuberculosis screening: No symptoms or risk factors identified. Assessment: 09:55 General: Appears in no apparent distress. Behavior is calm, cooperative. Pain: iw Complains of pain in right lower quadrant and left lower quadrant. Neuro: Level of Consciousness is awake, alert, obeys commands, Oriented to person, place, time, situation. GI: Abdomen is flat, non-distended, Abd is soft X 4 quads. Vital Signs: 09:44 BP 120 / 78; Pulse 91; Resp 20; Temp 97.7(O); Pulse Ox 100% on R/A; Pain 10/10; iw ED Course: 09:31 Patient arrived in ED. am2 09:32 [facility]ox[facility] Marcus [facility]C [facility] snw 09:32 Harjeet Flores DO is Attending Physician. snw 09:43 Triage completed. iw 09:43 Arm band placed on. iw 09:53 Marce Molina, RN is Primary Nurse. iw 10:05 Inserted saline lock: 20 gauge in left antecubital area, using aseptic technique. Blood zm collected. 10:08 CMP Sent. zm 10:08 CBC with Diff Sent. zm 10:08 Urine --Ancillary (enter results) Sent. zm 10:08 Urine Culture Sent. zm 10:08 Urine Microscopic Only Sent. zm 12:15 Patient has correct armband on for positive identification. jl7 12:15 No provider procedures requiring assistance completed. IV discontinued, intact, jl7 bleeding controlled, No redness/swelling at site. Pressure dressing applied. Administered Medications: 11:27 Drug: Ketorolac 30 mg Route: IVP; Site: left antecubital; aa5 Medication: 10:04 VIS not applicable for this client. iw Outcome: 11:42 Discharge ordered by MD. snw 12:15 Discharged to home ambulatory. jl7 12:15 Condition: stable 12:15 Discharge instructions given to patient, Instructed on discharge instructions, follow up and referral plans. medication usage, Demonstrated understanding of instructions, follow-up care, medications, Prescriptions given X 1. 12:15 Patient left the ED. jl7 Signatures: Roxanne Marcus FNP-C [employer]INTER-Csnw Marce Molina RN RN iw Day Pearl RN RN aa5 Alvin Fox RN RN jl7 Sherrie Flores am2 Diane Banuelos Corrections: (The following items were deleted from the chart) 09:53 09:44 BP 120 / 78; Pulse 91bpm; Resp 20bpm; Pulse Ox 100% RA; Pain 10/10; iw iw
--- NOTE | 2022-07-10 11:42 | EDPHYS ---
Physician Documentation [facility] Name: Sony Major Age: 27 yrs Sex: Female : 1995 Arrival Date: 07/10/2022 Time: 09:31 Bed 6 Private MD: ED Physician Harjeet Flores HPI: 07/10 10:15 This 27 yrs old Female presents to ER via Ambulatory with complaints of Abdominal snw Distention, Abdominal Pain - sharp. 10:15 The patient presents with abdominal pain in the lower abdomen. The symptoms radiate to snw back, low back area. Associated signs and symptoms: none. The symptoms are described as sharp, waxing/waning. Severity of pain: At its worst the pain was moderate. The patient has not experienced similar symptoms in the past. The patient has been recently seen by a physician: told she had two ruptured ovarian cysts and that she had an additional one. Historical: - Allergies: 09:43 PENICILLINS; iw - PMHx: 09:43 Asthma; iw - PSHx: 09:43 section; iw - Social history:: Smoking status: unknown. ROS: 10:15 Constitutional: Negative for fever, chills, and weight loss, Eyes: Negative for injury, snw pain, redness, and discharge, ENT: Negative for injury, pain, and discharge, Neck: Negative for injury, pain, and swelling, Cardiovascular: Negative for chest pain, palpitations, and edema, Respiratory: Negative for shortness of breath, cough, wheezing, and pleuritic chest pain, : Negative for injury, bleeding, discharge, and swelling, MS/Extremity: Negative for injury and deformity, Skin: Negative for injury, rash, and discoloration, Neuro: Negative for headache, weakness, numbness, tingling, and seizure. 10:15 Abdomen/GI: Positive for abdominal pain, abdominal cramps, abdominal distension. 10:15 Back: Positive for of the low back area. Exam: 10:14 Constitutional: This is a well developed, well nourished patient who is awake, alert, snw and in no acute distress. Head/Face: Normocephalic, atraumatic. Eyes: Pupils equal round and reactive to light, extra-ocular motions intact. Lids and lashes normal. Conjunctiva and sclera are non-icteric and not injected. Cornea within normal limits. Periorbital areas with no swelling, redness, or edema. ENT: Mucous membranes moist. Neck: Trachea midline, no thyromegaly or masses palpated, and no cervical lymphadenopathy. Supple, full range of motion without nuchal rigidity, or vertebral point tenderness. No Meningismus. Chest/axilla: Normal chest wall appearance and motion. Nontender with no deformity. No lesions are appreciated. Cardiovascular: Regular rate and rhythm with a normal S1 and S2. No gallops, murmurs, or rubs. Normal PMI, no JVD. No pulse deficits. Respiratory: Lungs have equal breath sounds bilaterally, clear to auscultation and percussion. No rales, rhonchi or wheezes noted. No increased work of breathing, no retractions or nasal flaring. Abdomen/GI: Soft, non-tender, with normal bowel sounds. No distension or tympany. No guarding or rebound. No evidence of tenderness throughout. Back: No spinal tenderness. No costovertebral tenderness. Full range of motion. Skin: Warm, dry with normal turgor. Normal color with no rashes, no lesions, and no evidence of cellulitis. MS/ Extremity: Pulses equal, no cyanosis. Neurovascular intact. Full, normal range of motion. Neuro: Awake and alert, GCS 15, oriented to person, place, time, and situation. Cranial nerves II-XII grossly intact. Motor strength 5/5 in all extremities. Sensory grossly intact. Cerebellar exam normal. Normal gait. Psych: Awake, alert, with orientation to person, place and time. Behavior, mood, and affect are within normal limits. Vital Signs: 09:44 BP 120 / 78; Pulse 91; Resp 20; Temp 97.7(O); Pulse Ox 100% on R/A; Pain 10/10; iw MDM: 09:33 Patient medically screened. snw 11:40 Differential diagnosis: bowel obstruction, Ectopic , Endometriosis, Ovarian snw Torsion. Data reviewed: vital signs, nurses notes, lab test result(s), radiologic studies. I considered the following discharge prescriptions or medication management in the emergency department Medications were administered in the Emergency Department. See MAR. Counseling: I had a detailed discussion with the patient and/or guardian regarding: the historical points, exam findings, and any diagnostic results supporting the discharge/admit diagnosis, lab results, radiology results, the need for outpatient follow up, to return to the emergency department if symptoms worsen or persist or if there are any questions or concerns that arise at home. Special discussion: Based on the patient's Hx, exam, and Dx evaluation, there is no indication for emergent surgery or inpatient Tx. It is understood by the patient/guardian that if the Sx's persist or worsen they need to return immediately for re-evaluation. Based on the history and exam findings, there is no indication for further emergent testing or inpatient evaluation. I discussed with the patient/guardian the need to see the OB Gyne specialist for further evaluation of the symptoms. I discussed with the patient/guardian the need to see the primary care provider for further evaluation of the symptoms. 07/10 09:52 Order name: Urine Culture formerly [facility] 07/10 09:52 Order name: Urine Microscopic Only formerly [facility] 07/10 09:52 Order name: Urine Dipstick-Ancillary (obtain specimen); Complete Time: 09:53 [facility] 07/10 09:52 Order name: Urine Test (obtain specimen); Complete Time: 09:53 [facility] 07/10 09:52 Order name: US Transvaginal Study (Probe) formerly [facility] 07/10 09:52 Order name: CBC with Diff formerly [facility] 07/10 09:52 Order name: CMP formerly [facility] 07/10 09:54 Order name: Urine Dipstick-Ancillary; Complete Time: 10:13 [facility] 07/10 09:55 Order name: Urine --Ancillary (enter results) 07/10 10:05 Order name: Urine Microscopic Only; Complete Time: 10:13 [facility] 07/10 10:12 Order name: CBC with Automated Diff; Complete Time: 10:13 EDWA 07/10 10:13 Order name: Urine --Ancillary; Complete Time: 10:34 EDWA 07/10 10:30 Order name: Comprehensive Metabolic Panel; Complete Time: 10:34 EDWA 07/10 11:15 Order name: US; Complete Time: 11:17 EDMS Administered Medications: 11:27 Drug: Ketorolac 30 mg Route: IVP; Site: left antecubital; aa5 Disposition: 18:53 Co-signature as Attending Physician, Harjeet POTTS was immediately available on-site ms3 in the Emergency Department for consultation in the care of the patient. Disposition Summary: 07/10/22 11:42 Discharge Ordered Location: Home snw Condition: Stable snw Diagnosis - Other and unspecified ovarian cysts snw - Lower abdominal pain, unspecified snw Followup: snw - With: Emergency Department - When: As needed - Reason: Worsening of condition Followup: snw - With: Private Physician - When: 2 - 3 days - Reason: Recheck today's complaints, Continuance of care, Re-evaluation by your physician Discharge Instructions: - Discharge Summary Sheet snw - Abdominal Pain, Adult snw - Colic snw - Gas and Gas Pains, Pediatric snw Forms: - Medication Reconciliation Form snw - Thank You Letter snw - Antibiotic Education snw - Prescription Opioid Use snw - Work release form ld1 Prescriptions: - Diclofenac Sodium 75 mg Oral Tablet Sustained Release - take 1 tablet by ORAL route 2 times per day; 30 tablet; Refills: 0, Product snw Selection Permitted Signatures: Dispatcher [employer] EDMS Roxanne Marcus, HEALTHCARE REPRESENTATIVE-C HEALTHCARE REPRESENTATIVE-Csnw Marce Molina, GUICHO LINDO iw Day Pearl, RN RN aa5 Alvin Fox RN RN jl7 Harjeet Flores, DO ms3
[2022-07-10 12:20] VITALS: BP 120/78; TEMP 97.7; O2SAT 100
== END 2022-07-10 12:15 | disposition home or self-care (01) ==
LOC: ER 09:28
DX: N83.299 Other ovarian cyst, unspecified side (principal)
CPT/HCPCS: 36415; 76830; 80053; 81003; 81015; 81025; 85025; 87086; 87088; 96374; 99284

== ENCOUNTER 2022-12-23 10:46 | Emergency (ER) | payer OTHER, SELFPAY ==
--- OUTSIDE RECORDS SUMMARY | 2022-12-23 11:00 | XMS REPORT | Continuity of Care Document ---
:1995 Author Organization [facility] t Address [address] [place] [address] Care Team Providers Name Role Phone STEPHANIE ARMIJO Primary Care Physician Unavailable NAEL PINTO Attending Clinician Unavailable Nael Pinto DO Attending Clinician Yesenia OROZCO Attending Clinician Unavailable Yesenia Smalls Attending Clinician CHEO MICHAEL Attending Clinician Unavailable Cheo Michael MD Attending Clinician ANI PIERCE Attending Clinician Unavailable Ani Pierce MD Attending Clinician YANG PULIDO III Attending Clinician Unavailable King GAVIN MD, James C Attending Clinician Unknown, Attending Attending Clinician Unavailable Doctor Unassigned, Clever Attending Clinician Unavailable Linette Montes De Oca NP Attending Clinician LINETTE MONTES DE OCA Attending Clinician Unavailable WILLIAM DEL VALLE Attending Clinician Unavailable MC DELUCA Attending Clinician Unavailable Stephanie Richards Attending Clinician STEPHANIE ARMIJO Attending Clinician Unavailable Holland REESE, Patti Attending Clinician MOHINDER COLMENARES Attending Clinician Unavailable Mohinder Fernando Attending Clinician Lala Jimenez Attending Clinician Unavailable DEANNE, DR ADAMS Attending Clinician Unavailable Jude Hendrickson Attending Clinician Unavailable BONNY ALEX Attending Clinician Unavailable PROVIDER, ED TEMP Attending Clinician Unavailable MAXIMO, DR OPAL Poole Attending Clinician Unavailable SUNG, DR JOSH BOYD Attending Clinician Unavailable MAXIMO, DR LUGO Attending Clinician Unavailable TU, DR CHAVES Attending Clinician Unavailable MALENA, DR Markel BARRY Attending Clinician Unavailable ROSEMARY, DR FITZGERALD Attending Clinician Unavailable NAEL PINTO Admitting Clinician Unavailable CHEO MICHAEL Admitting Clinician Unavailable MOHINDER COLMENARES Admitting Clinician Unavailable DEANNE, DR ADAMS Admitting Clinician Unavailable MAXIMO, DR OPAL Poole Admitting Clinician Unavailable SUNG, DR JOSH BOYD Admitting Clinician Unavailable MAXIMO, DR LUGO Admitting Clinician Unavailable TU, DR CHAVES Admitting Clinician Unavailable MALENA, DR Markel BARRY Admitting Clinician Unavailable ROSEMARY, DR FITZGERALD Admitting Clinician Unavailable Payers Payer Name Policy Type Policy Number Effective Date Expiration Date Shawn [employer] [id number] 2022 OUT OF NETWORK 00:00:00 MEDICAID PENDING PENDING 2022 00:00:00 [facility] [id number] 2019 00:00:00 Problems Condition Condition Condition Status Onset Resolution Last Treating Co mments Source Name Details Category Date Date Treatment Clinician Date Bilateral Bilateral Disease Active Uni vers ovarian ovarian 2-27 ity of cysts cysts 00:00: [place] 00 Medical Branch Menorrhagi Menorrhagi Disease Active U nivers a with a with 2-27 ity of irregular irregular 00:00: [place] cycle cycle Medical Branch Depo-Prove Depo-Prove Disease Active U nivers ra ra 2-27 it[place] of [place] j[place] status janie status 00 [facility] On oral On oral Disease Active Univers contracept contracept 2-27 it y of j[place] pills [place] 00 Medical non-contra non-contra Br anch ception ception indication indication Pelvic Pelvic Disease Active Univers peritoneal peritoneal 2-27 it y of adhesions, adhesions, 00:[place] female female 00 Medical (postopera (postopera Br anch tive) tive) (postinfec (postinfec tion) tion) Chronic Chronic Disease Active Univers pelvic pelvic 2-27 ity of pain in pain in 00:00: [place] female female 00 Medical Branch BMI BMI Disease Active Univers 33.0-33.9, 33.0-33.9, 2-27 it y of adult adult 00:00: [place] [facility] Screening Screening Disease Active Uni vers for for 2-27 ity of endocrine, endocrine, 00:00[place] metabolic metabolic 00 [facility] [place] immunity immunity disorder disorder Follow-up Follow-up Disease Active Uni vers exam exam 2-15 ity of 00:00: [place] [facility] Branch Constipati Constipati Disease Active U nivers on, on, 2-15 ity of unspecifie unspecifie 00:[place] d d 00 Medical constipati constipati Br anch on type on type PCOS PCOS Disease Active Univers (polycysti (polycysti 2-15 it y of c ovarian c ovarian 00:00: [place] syndrome) syndrome) 00 [facility] Irregular Irregular Disease Active Uni vers periods periods 2-15 ity of 00:00: [place] [facility] Bladder Bladder Disease Active Univers adhesions adhesions 2-15 ity of 00:00: [place] [facility] Branch Lower Lower Disease Active Univers abdominal abdominal 2-15 ity of pain pain 00:00: [place] [facility] Branch Abnormal Abnormal Disease Active Unive rs maternal maternal 11-09 ity of glucose glucose 00:00: [place] tolerance, tolerance, 00 Me dical antepartum antepartum Br anch Susceptibl Susceptibl Disease Active U nivers e to e to 7-03 ity of varicella varicella 00:00: [place] taylor (non-immun (non-immun 00 Me dical e), e), Branch currently currently - - needs needs vaccine vaccine Insufficie Insufficie Disease Active U nivers nt nt 11-08 ity of 00:00: [place] care care 00 Medical Branch History of History of Disease Active U nivers 11-08 ity of section section 00:00: [place] 00 Medical Branch Complicati Complicati Disease Active Overview : Univers on of on of 11-08 Formattin ity of , , 00:00: g of this [place] antepartum antepartum 00 note Me dical might be Branch different from the original. 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 to 7-11 [place] [facility] Penicill DA Active [place] Rash [facility] [place] [facility] Penicill Propensi Active Rash Univer s ins ty to 2-19 ity of adverse 00:00: [place] reaction 00 Medical s Branch PENICILL Drug Active Rash Univers INS Class 2-19 ity of 00:00: [place] 00 Medical Branch Family History Family Member Diagnosis Comments Start Date Stop Date Source Mother Family Breast [place] [facility] Cancer?No Health Mother Family Coronary Artery [facility] Disease?No Health Mother Family Congenital [facility] Disease?No Health Mother Family Myocardial [facility] Infarction?No Health Mother Family Stroke?No [facility] Mother Family Diabetes?No [facility] Mother Family Colorectal [facility] Cancer?No Health Social History Social Habit Start Date Stop Date Quantity Comments Source History of [place] tobacco use [facility] Alcohol intake 2022-10-15 2022-10-15 Current University of 00:00:00 00:00:00 non-drinker of [facility] alcohol (finding) Branch Exposure to 2022-08-25 2022-09-04 Not sure [facility] SARS-CoV-2 00:00:00 14:03:00 [place] Medical (event) Branch Tobacco use and 2022-06-24 2022-06-24 Smokeless tobacco Un iversity of exposure 00:00:00 00:00:00 non-user [facility] Sex Ass[birth year] At [birth year] Universit y of 00:00:00 00:00:00 [facility] Smoking Status Start Date Stop Date Source Never smoked tobacco [facility] Medications Ordered Filled Start Stop Current Ordering Indication Dosage Frequency Signature Comments Components Source Medication Medication Date Date Medication? Clinician (SIG) Name Name naproxen Yes [id number] 550mg Take 1 Univers sodium 7- 9109 tablet by ity of (ANAPROX 00:00: mouth in [facility]) 550 mg 00 the Medical tablet morning Branch and 1 tablet in the evening. Take with meals. ondansetron Yes [id number] 4mg Take 1 Univers 4 mg 6-08 tablet by ity of disintegrat 00:00: mouth [place] ing tablet 00 every 8 Medica l (eight) Branch hours as needed for Nausea and Vomiting (N/V). ondansetron Yes [id number] 4mg Take 1 Univers 4 mg 6-08 tablet by ity of disintegrat 00:00: mouth [place] ing tablet 00 every 8 Medica l (eight) Branch hours as needed for Nausea and Vomiting (N/V). cefdinir 2022- Yes [id number] 300mg Take 1 U nivers 300 mg 10-15 06-19 capsule by ity of capsule 00:00: 04:59 mouth [place] 00 :00 every 12 Medical (twelve) Branch hours for 10 days. benzonatate Yes [id number] 100mg Take 1 Univers 100 mg 3-24 capsule by ity of capsule 00:00: mouth [place] 00 every 8 Medical (eight) Branch hours as needed for Cough. benzonatate Yes [id number] 100mg Take 1 Univers 100 mg 3-24 capsule by ity of capsule 00:00: mouth [place] 00 every 8 Medical (eight) Branch hours as needed for Cough. benzonatate 2023-0 Yes [id number] 100mg Take 1 Univers 100 mg 3-24 capsule by ity of capsule 00:00: mouth [place] 00 every 8 Medical (eight) Branch hours as needed for Cough. benzonatate 2023-0 Yes [id number] 100mg Take 1 Univers 100 mg 3-24 capsule by ity of capsule 00:00: mouth [place] 00 every 8 Medical (eight) Branch hours as needed for Cough. benzonatate 2023-0 Yes [id number] 100mg Take 1 Univers 100 mg 3-24 capsule by ity of capsule 00:00: mouth [place] 00 every 8 Medical (eight) Branch hours as needed for Cough. benzonatate 2023-0 Yes [id number] 100mg Take 1 Univers 100 mg 3-24 capsule by ity of capsule 00:00: mouth [place] 00 every 8 Medical (eight) Branch hours as needed for Cough. Methylpredn 2023-0 2023- No [id number] 4mg Take 1 Univers isolone 4 3-24 03-30 tablet by ity of mg tablet 00:00: 04:59 mouth [place] 00 :00 every 12 Medical (twelve) Branch hours for 5 days. Methylpredn 2023-0 2023- No [id number] 4mg Take 1 Univers isolone 4 3-24 03-30 tablet by ity of mg tablet 00:00: 04:59 mouth [place] 00 :00 every 12 Medical (twelve) Branch hours for 5 days. medroxyPROG 2023-0 Yes 150mg 1 mL by Un erinn ESTERone 2-27 Intramuscu ity o f (DEPO-PROVE 11:23: lar route [place] RA) 150 40 every 3 Medical mg/mL (three) Branch injection months. medroxyPROG 2023-0 Yes 150mg 1 mL by Un erinn ESTERone 2-27 Intramuscu ity o f (DEPO-PROVE 11:23: lar route [place] RA) 150 40 every 3 Medical mg/mL (three) Branch injection months. medroxyPROG 2023-0 Yes 150mg 1 mL by Un erinn ESTERone 2-27 Intramuscu ity o f (DEPO-PROVE 11:23: lar route [place] RA) 150 40 every 3 Medical mg/mL (three) Branch injection months. medroxyPROG 2023-0 Yes 150mg 1 mL by Un erinn ESTERone 2-27 Intramuscu ity o f (DEPO-PROVE 11:23: lar route [place] RA) 150 40 every 3 Medical mg/mL (three) Branch injection months. medroxyPROG 2023-0 Yes 150mg 1 mL by Un erinn ESTERone 2-27 Intramuscu ity o f (DEPO-PROVE 11:23: lar route [place] RA) 150 40 every 3 Medical mg/mL (three) Branch injection months. medroxyPROG 2023-0 Yes 150mg 1 mL by Un erinn ESTERone 2-27 Intramuscu ity o f (DEPO-PROVE 11:23: lar route [place] RA) 150 40 every 3 Medical mg/mL (three) Branch injection months. medroxyPROG 2023-0 Yes 150mg 1 mL by Un erinn ESTERone 2-27 Intramuscu ity o f (DEPO-PROVE 11:23: lar route [place] RA) 150 40 every 3 Medical mg/mL (three) Branch injection months. medroxyPROG 2023-0 Yes 150mg 1 mL by Un erinn ESTERone 2-27 Intramuscu ity o f (DEPO-PROVE 11:23: lar route [place] RA) 150 40 every 3 Medical mg/mL (three) Branch injection months. medroxyPROG 2023-0 Yes 150mg 1 mL by Un erinn ESTERone 2-27 Intramuscu ity o f (DEPO-PROVE 11:23: lar route [place] RA) 150 40 every 3 Medical mg/mL (three) Branch injection months. medroxyPROG 2023-0 Yes 150mg 1 mL by Un erinn ESTERone 2-27 Intramuscu ity o f (DEPO-PROVE 11:23: lar route [place] RA) 150 40 every 3 Medical mg/mL (three) Branch injection months. medroxyPROG 2023-0 Yes 150mg 1 mL by Un erinn ESTERone 2-27 Intramuscu ity o f (DEPO-PROVE 11:23: lar route [place] RA) 150 40 every 3 Medical mg/mL (three) Branch injection months. medroxyPROG 2023-0 Yes 150mg 1 mL by Reynaldo [employer] ESTERone 2-27 Intramuscu ity o f (DEPO-PROVE 11:23: lar route [place] RA) 150 40 every 3 Medical mg/mL (three) Branch injection months. mirtazapine 2023-0 Yes DISSOLVE 1 Univers SOLTAB 15 2-22 TABLET BY ity o f mg rapid 00:00: MOUTH ONCE [place] tablet 00 DAILY WITH Medical OR WITHOUT Branch WATER mirtazapine 2023-0 Yes DISSOLVE 1 Univers SOLTAB 15 2-22 TABLET BY ity o f mg rapid 00:00: MOUTH ONCE [place] tablet 00 DAILY WITH Medical OR WITHOUT Branch WATER mirtazapine 2023-0 Yes DISSOLVE 1 Univers SOLTAB 15 2-22 TABLET BY ity o f mg rapid 00:00: MOUTH ONCE [place] tablet 00 DAILY WITH Medical OR WITHOUT Branch WATER mirtazapine 2023-0 Yes DISSOLVE 1 Univers SOLTAB 15 2-22 TABLET BY ity o f mg rapid 00:00: MOUTH ONCE [place] tablet 00 DAILY WITH Medical OR WITHOUT Branch WATER mirtazapine 2023-0 Yes DISSOLVE 1 Univers SOLTAB 15 2-22 TABLET BY ity o f mg rapid 00:00: MOUTH ONCE [place] tablet 00 DAILY WITH Medical OR WITHOUT Branch WATER mirtazapine 2023-0 Yes DISSOLVE 1 Univers SOLTAB 15 2-22 TABLET BY ity o f mg rapid 00:00: MOUTH ONCE [place] tablet 00 DAILY WITH Medical OR WITHOUT Branch WATER mirtazapine 2023-0 Yes DISSOLVE 1 Univers SOLTAB 15 2-22 TABLET BY ity o f mg rapid 00:00: MOUTH ONCE [place] tablet 00 DAILY WITH Medical OR WITHOUT Branch WATER mirtazapine 2023-0 Yes DISSOLVE 1 Univers SOLTAB 15 2-22 TABLET BY ity o f mg rapid 00:00: MOUTH ONCE [place] tablet 00 DAILY WITH Medical OR WITHOUT Branch WATER mirtazapine 2023-0 Yes DISSOLVE 1 Univers SOLTAB 15 2-22 TABLET BY ity o f mg rapid 00:00: MOUTH ONCE [place] tablet 00 DAILY WITH Medical OR WITHOUT Branch WATER mirtazapine 2023-0 Yes DISSOLVE 1 Univers SOLTAB 15 2-22 TABLET BY ity o f mg rapid 00:00: MOUTH ONCE [place] tablet 00 DAILY WITH Medical OR WITHOUT Branch WATER tiZANidine 2023-0 Yes [id number] 2mg Take 1 U nivers 2 mg tablet 2-21 tablet by ity of 00:00: mouth [place] 00 every 8 Medical (eight) Branch hours as needed for Pain (scale 4-6). tiZANidine 2023-0 Yes [id number] 2mg Take 1 U nivers 2 mg tablet 2-21 tablet by ity of 00:00: mouth [place] 00 every 8 Medical (eight) Branch hours as needed for Pain (scale 4-6). tiZANidine 2023-0 Yes [id number] 2mg Take 1 U nivers 2 mg tablet 2-21 tablet by ity of 00:00: mouth [place] 00 every 8 Medical (eight) Branch hours as needed for Pain (scale 4-6). tiZANidine 2023-0 Yes [id number] 2mg Take 1 U nivers 2 mg tablet 2-21 tablet by ity of 00:00: mouth [place] 00 every 8 Medical (eight) Branch hours as needed for Pain (scale 4-6). tiZANidine 2023-0 Yes [id number] 2mg Take 1 U nivers 2 mg tablet 2-21 tablet by ity of 00:00: mouth [place] 00 every 8 Medical (eight) Branch hours as needed for Pain (scale 4-6). tiZANidine 2023-0 Yes [id number] 2mg Take 1 U nivers 2 mg tablet 2-21 tablet by ity of 00:00: mouth [place] 00 every 8 Medical (eight) Branch hours as needed for Pain (scale 4-6). tiZANidine 2023-0 Yes [id number] 2mg Take 1 U nivers 2 mg tablet 2-21 tablet by ity of 00:00: mouth [place] 00 every 8 Medical (eight) Branch hours as needed for Pain (scale 4-6). tiZANidine 2023-0 Yes [id number] 2mg Take 1 U nivers 2 mg tablet 2-21 tablet by ity of 00:00: mouth [place] 00 every 8 Medical (eight) Branch hours as needed for Pain (scale 4-6). tiZANidine 2023-0 Yes [id number] 2mg Take 1 U nivers 2 mg tablet 2-21 tablet by ity of 00:00: mouth [place] 00 every 8 Medical (eight) Branch hours as needed for Pain (scale 4-6). tiZANidine 2023-0 Yes [id number] 2mg Take 1 U nivers 2 mg tablet 2-21 tablet by ity of 00:00: mouth [place] 00 every 8 Medical (eight) Branch hours as needed for Pain (scale 4-6). tiZANidine 2023-0 Yes [id number] 2mg Take 1 U nivers 2 mg tablet 2-21 tablet by ity of 00:00: mouth [place] 00 every 8 Medical (eight) Branch hours as needed for Pain (scale 4-6). tiZANidine 3-0 Yes [id number] 2mg Take 1 U nivers 2 mg tablet 2-21 tablet by ity of 00:00: mouth [place] 00 every 8 Medical (eight) Branch hours as needed for Pain (scale 4-6). tiZANidine 3-0 Yes [id number] 2mg Take 1 U nivers 2 mg tablet 2-21 tablet by ity of 00:00: mouth [place] 00 every 8 Medical (eight) Branch hours as needed for Pain (scale 4-6). tiZANidine 3-0 Yes [id number] 2mg Take 1 U nivers 2 mg tablet 2-21 tablet by ity of 00:00: mouth [place] 00 every 8 Medical (eight) Branch hours as needed for Pain (scale 4-6). hydrOXYzine 2022-0 Yes TAKE 1 TO U nivers 25 mg 2-16 2 TABLETS ity of tablet 00:00: [facility] hydrOXYzine 2022-0 Yes TAKE 1 TO U nivers 25 mg 2-16 2 TABLETS ity of tablet 00:00: BY MOUTH [place] [facility] hydrOXYzine 2022-0 Yes TAKE 1 TO U nivers 25 mg 2-16 2 TABLETS ity of tablet 00:00: BY MOUTH [place] AT BEDTIME Medical Branch QUEtiapine 2022-0 Yes 25mg Take 1 Unive rs 25 mg 2-16 tablet by ity of tablet 00:00: mouth at [place] 00 bedtime. Medical Branch hydrOXYzine 2022-0 Yes TAKE 1 TO U nivers 25 mg 2-16 2 TABLETS ity of tablet 00:00: BY MOUTH [place] AT BEDTIME Medical Branch QUEtiapine 3-0 Yes 25mg Take 1 Unive rs 25 mg 2-16 tablet by ity of tablet 00:00: mouth at [place] [address] bedtime. Medical Branch hydrOXYzine 3-0 Yes TAKE 1 TO U nivers 25 mg 2-16 2 TABLETS ity of tablet 00:00: BY MOUTH [place] AT BEDTIME Medical Branch QUEtiapine 3-0 Yes 25mg Take 1 Unive rs 25 mg 2-16 tablet by ity of tablet 00:00: mouth at [place] [address] bedtime. Medical Branch hydrOXYzine 3-0 Yes TAKE 1 TO U nivers 25 mg 2-16 2 TABLETS ity of tablet 00:00: BY MOUTH [place] AT BEDTIME Medical Branch QUEtiapine 3-0 Yes 25mg Take 1 Unive rs 25 mg 2-16 tablet by ity of tablet 00:00: mouth at [place] [address] bedtime. Medical Branch hydrOXYzine 2022-0 Yes TAKE 1 TO U nivers 25 mg 2-16 2 TABLETS ity of tablet 00:00: BY MOUTH [place] AT BEDTIME Medical Branch QUEtiapine 3-0 Yes 25mg Take 1 Unive rs 25 mg 2-16 tablet by ity of tablet 00:00: mouth at [place] [address] bedtime. Medical Branch hydrOXYzine 3-0 Yes TAKE 1 TO U nivers 25 mg 2-16 2 TABLETS ity of tablet 00:00: BY MOUTH [place] [address] AT BEDTIME Medical Branch QUEtiapine 3-0 Yes 25mg Take 1 Unive rs 25 mg 2-16 tablet by ity of tablet 00:00: mouth at [place] [address] bedtime. Medical Branch hydrOXYzine 3-0 Yes TAKE 1 TO U nivers 25 mg 2-16 2 TABLETS ity of tablet 00:00: BY MOUTH [place] [address] AT BEDTIME Medical Branch QUEtiapine 3-0 Yes 25mg Take 1 Unive rs 25 mg 2-16 tablet by ity of tablet 00:00: mouth at [place] [address] bedtime. Medical Branch hydrOXYzine 3-0 Yes TAKE 1 TO U nivers 25 mg 2-16 2 TABLETS ity of tablet 00:00: BY MOUTH [place] [address] AT BEDTIME Medical Branch QUEtiapine 2023-0 Yes 25mg Take 1 Unive rs 25 mg 2-16 tablet by ity of tablet 00:00: mouth at [place] [address] bedtime. Medical Branch hydrOXYzine 3-0 Yes TAKE 1 TO U nivers 25 mg 2-16 2 TABLETS ity of tablet 00:00: BY MOUTH [place] 00 AT BEDTIME Medical Branch QUEtiapine 2022-0 Yes 25mg Take 1 Unive rs 25 mg 2-16 tablet by ity of tablet 00:00: mouth at [place] [address] bedtime. Medical Branch hydrOXYzine 0 Yes TAKE 1 TO U nivers 25 mg 2-16 2 TABLETS ity of tablet 00:00: BY MOUTH [place] 00 AT BEDTIME Medical Branch QUEtiapine 2022-0 Yes 25mg Take 1 Unive rs 25 mg 2-16 tablet by ity of tablet 00:00: mouth at [place] [address] bedtime. Medical Branch tiZANidine Yes [id number] 2mg Take 1 U nivers 2 mg tablet 2-15 tablet by ity of 00:00: mouth [place] 00 every 6 Medical (six) Branch hours as needed for Pain (scale 4-6). tiZANidine 2022- Yes [id number] 2mg Take 1 U nivers 2 mg tablet 2-15 tablet by ity of 00:00: mouth [place] [address] every 6 Medical (six) Branch hours as needed for Pain (scale 4-6). tiZANidine 2022- No [id number] 2mg Take 1 Univers 2 mg tablet 2-15 -21 tablet by it y of 00:00: 00:00 mouth [place] 00 :00 every 6 Medical (six) Branch hours as needed for Pain (scale 4-6). iopamidol 2022- No [id number] 100mL 100 mL, Univers (ISOVUE 06-23 Intravenou ity o f 370-500 mL) 18:15: 17:14 s, ONCE, 1 [place] injection 00 :00 dose, On Medica l 100 mL Tue Branch 06/23/22 at 1215, Routine NaCl 0.9% 2022- No 1000mL at 999 Uni vers (NS) bolus 06-23- mL/hr, ity of infusion 16:15: 18:18 1,000 mL, [place] as 1,000 mL 00 :00 IV Medical Infusion, Branch ONCE, 1 dose, On 06/23/22 at 1015, VINEET ondansetron 2022- No 4mg 4 mg, Slow Univers (ZOFRAN 2-14 02-14 IV Push, ity of (PF)) 15:30: 15:39 ONCE, 1 [place] injection 4 00 :00 dose, On Medi [place] mg Tue Branch 06/23/22 at 0930, VINEET ondansetron 2023-0 Yes [id number] 4mg Take 1 Univers 4 mg 2-14 tablet by ity of disintegrat 00:00: mouth [place] ing tablet 00 every 12 Medic al (twelve) Branch hours as needed for Nausea and Vomiting (N/V). ibuprofen 3-0 Yes [id number] 800mg Take 1 U nivers 800 mg 2-14 tablet by ity of tablet 00:00: mouth [place] 00 every 8 Medical (eight) Branch hours as needed for Pain (scale 4-6). dicyclomine 2023-0 Yes [id number] 20mg Take 1 Univers 20 mg 2-14 tablet by ity of tablet 00:00: mouth 4 00 (four) Medical times Branch daily as needed for Abdominal pain. ondansetron 3-0 Yes [id number] 4mg Take 1 Univers 4 mg 2-14 tablet by ity of disintegrat 00:00: mouth [place] ing tablet 00 every 12 Medic al (twelve) Branch hours as needed for Nausea and Vomiting (N/V). ibuprofen 3-0 Yes [id number] 800mg Take 1 U nivers 800 mg 2-14 tablet by ity of tablet 00:00: mouth [place] 00 every 8 Medical (eight) Branch hours as needed for Pain (scale 4-6). dicyclomine 2023-0 Yes [id number] 20mg Take 1 Univers 20 mg 2-14 tablet by ity of tablet 00:00: mouth 4 [place] 00 (four) Medical times Branch daily as needed for Abdominal pain. ondansetron 2023-0 Yes [id number] 4mg Take 1 Univers 4 mg 2-14 tablet by ity of disintegrat 00:00: mouth [place] ing tablet 00 every 12 Medic al (twelve) Branch hours as needed for Nausea and Vomiting (N/V). ibuprofen 2023-0 Yes [id number] 800mg Take 1 U nivers 800 mg 2-14 tablet by ity of tablet 00:00: mouth [place] 00 every 8 Medical (eight) Branch hours as needed for Pain (scale 4-6). dicyclomine 2023-0 Yes [id number] 20mg Take 1 Univers 20 mg 2-14 tablet by ity of tablet 00:00: mouth 4 [place] 00 (four) Medical times Branch daily as needed for Abdominal pain. ondansetron 2023-0 Yes [id number] 4mg Take 1 Univers 4 mg 2-14 tablet by ity of disintegrat 00:00: mouth [place] ing tablet 00 every 12 Medic al (twelve) Branch hours as needed for Nausea and Vomiting (N/V). ibuprofen 2023-0 Yes [id number] 800mg Take 1 U nivers 800 mg 2-14 tablet by ity of tablet 00:00: mouth [place] 00 every 8 Medical (eight) Branch hours as needed for Pain (scale 4-6). dicyclomine 2023-0 Yes [id number] 20mg Take 1 Univers 20 mg 2-14 tablet by ity of tablet 00:00: mouth 4 [place] 00 (four) Medical times Branch daily as needed for Abdominal pain. ondansetron 2023-0 Yes [id number] 4mg Take 1 Univers 4 mg 2-14 tablet by ity of disintegrat 00:00: mouth [place] ing tablet 00 every 12 Medic al (twelve) Branch hours as needed for Nausea and Vomiting (N/V). ibuprofen 2023-0 Yes [id number] 800mg Take 1 U nivers 800 mg 2-14 tablet by ity of tablet 00:00: mouth [place] 00 every 8 Medical (eight) Branch hours as needed for Pain (scale 4-6). dicyclomine 2023-0 Yes [id number] 20mg Take 1 Univers 20 mg 2-14 tablet by ity of tablet 00:00: mouth 4 [place] 00 (four) Medical times Branch daily as needed for Abdominal pain. ondansetron 2023-0 Yes [id number] 4mg Take 1 Univers 4 mg 2-14 tablet by ity of disintegrat 00:00: mouth [place] ing tablet 00 every 12 Medic al (twelve) Branch hours as needed for Nausea and Vomiting (N/V). ibuprofen 2023-0 Yes [id number] 800mg Take 1 U nivers 800 mg 2-14 tablet by ity of tablet 00:00: mouth [place] 00 every 8 Medical (eight) Branch hours as needed for Pain (scale 4-6). dicyclomine 2023-0 Yes [id number] 20mg Take 1 Univers 20 mg 2-14 tablet by ity of tablet 00:00: mouth 4 [place] 00 (four) Medical times Branch daily as needed for Abdominal pain. ondansetron 2023-0 Yes [id number] 4mg Take 1 Univers 4 mg 2-14 tablet by ity of disintegrat 00:00: mouth [place] ing tablet 00 every 12 Medic al (twelve) Branch hours as needed for Nausea and Vomiting (N/V). ibuprofen 2023-0 Yes [id number] 800mg Take 1 [facility] 800 mg 2-14 tablet by [facility] of tablet 00:00: mouth [place] 00 every 8 Medical (eight) Branch hours as needed for Pain (scale 4-6). dicyclomine 2023-0 Yes [id number] 20mg Take 1 [facility] 20 mg 2-14 tablet by [facility] of tablet 00:00: mouth 4 [place] 00 (four) Medical times Branch daily as needed for Abdominal pain. ondansetron 2023-0 Yes [id number] 4mg Take 1 [facility] 4 mg 2-14 tablet by ity of disintegrat 00:00: mouth [place] ing tablet 00 every 12 Medic al (twelve) Branch hours as needed for Nausea and Vomiting (N/V). ibuprofen 3-0 Yes [id number] 800mg Take 1 [facility] 800 mg 2-14 tablet by ity of tablet 00:00: mouth [place] 00 every 8 Medical (eight) Branch hours as needed for Pain (scale 4-6). dicyclomine 2023-0 Yes [id number] 20mg Take 1 [facility] 20 mg 2-14 tablet by ity of tablet 00:00: mouth 4 [place] 00 (four) Medical times Branch daily as needed for Abdominal pain. ondansetron 2023-0 Yes [id number] 4mg Take 1 [facility] 4 mg 2-14 tablet by ity of disintegrat 00:00: mouth [place] ing tablet 00 every 12 Medic al (twelve) Branch hours as needed for Nausea and Vomiting (N/V). ibuprofen 2023-0 Yes [id number] 800mg Take 1 [facility] 800 mg 2-14 tablet by ity of tablet 00:00: mouth [place] 00 every 8 Medical (eight) Branch hours as needed for Pain (scale 4-6). dicyclomine 2023-0 Yes [id number] 20mg Take 1 [facility] 20 mg 2-14 tablet by ity of tablet 00:00: mouth 4 [place] 00 (four) Medical times Branch daily as needed for Abdominal pain. ondansetron 2023-0 Yes [id number] 4mg Take 1 [facility] 4 mg 2-14 tablet by ity of disintegrat 00:00: mouth [place] ing tablet 00 every 12 Medic al (twelve) Branch hours as needed for Nausea and Vomiting (N/V). ibuprofen 2023-0 Yes [id number] 800mg Take 1 [facility] 800 mg 2-14 tablet by ity of tablet 00:00: mouth [place] 00 every 8 Medical (eight) Branch hours as needed for Pain (scale 4-6). dicyclomine 2023-0 Yes [id number] 20mg Take 1 [facility] 20 mg 2-14 tablet by ity of tablet 00:00: mouth 4 [place] 00 (four) Medical times Branch daily as needed for Abdominal pain. ondansetron 2023-0 Yes [id number] 4mg Take 1 [facility] 4 mg 2-14 tablet by ity of disintegrat 00:00: mouth [place] ing tablet 00 every 12 Medic al (twelve) Branch hours as needed for Nausea and Vomiting (N/V). ibuprofen 2023-0 Yes [id number] 800mg Take 1 [facility] 800 mg 2-14 tablet by ity of tablet 00:00: mouth [place] 00 every 8 Medical (eight) Branch hours as needed for Pain (scale 4-6). dicyclomine 2023-0 Yes [id number] 20mg Take 1 [facility] 20 mg 2-14 tablet by ity of tablet 00:00: mouth 4 [place] 00 (four) Medical times Branch daily as needed for Abdominal pain. ondansetron 2023-0 Yes [id number] 4mg Take 1 [facility] 4 mg 2-14 tablet by ity of disintegrat 00:00: mouth [place] ing tablet 00 every 12 Medic al (twelve) Branch hours as needed for Nausea and Vomiting (N/V). ibuprofen 2023-0 Yes [id number] 800mg Take 1 [facility] 800 mg 2-14 tablet by ity of tablet 00:00: mouth [place] 00 every 8 Medical (eight) Branch hours as needed for Pain (scale 4-6). dicyclomine 2023-0 Yes [id number] 20mg Take 1 [facility] 20 mg 2-14 tablet by ity of tablet 00:00: mouth 4 [place] 00 (four) Medical times Branch daily as needed for Abdominal pain. ondansetron 2023-0 Yes [id number] 4mg Take 1 [facility] 4 mg 2-14 tablet by ity of disintegrat 00:00: mouth [place] ing tablet 00 every 12 Medic al (twelve) Branch hours as needed for Nausea and Vomiting (N/V). ibuprofen 2023-0 Yes [id number] 800mg Take 1 [facility] 800 mg 2-14 tablet by ity of tablet 00:00: mouth [place] 00 every 8 Medical (eight) Branch hours as needed for Pain (scale 4-6). dicyclomine 2023-0 Yes [id number] 20mg Take 1 [facility] 20 mg 2-14 tablet by ity of tablet 00:00: mouth 4 00 (four) Medical times Branch daily as needed for Abdominal pain. ondansetron 2023-0 Yes [id number] 4mg Take 1 [facility] 4 mg 2-14 tablet by ity of disintegrat 00:00: mouth [place] ing tablet 00 every 12 Medic al (twelve) Branch hours as needed for Nausea and Vomiting (N/V). ibuprofen 2023-0 Yes [id number] 800mg Take 1 [facility] 800 mg 2-14 tablet by ity of tablet 00:00: mouth [place] 00 every 8 Medical (eight) Branch hours as needed for Pain (scale 4-6). dicyclomine 2023-0 Yes [id number] 20mg Take 1 [facility] 20 mg 2-14 tablet by ity of tablet 00:00: mouth 4 00 (four) Medical times Branch daily as needed for Abdominal pain. ondansetron 2023-0 Yes [id number] 4mg Take 1 [facility] 4 mg 2-14 tablet by ity of disintegrat 00:00: mouth [place] ing tablet 00 every 12 Medic al (twelve) Branch hours as needed for Nausea and Vomiting (N/V). ibuprofen 2023-0 Yes [id number] 800mg Take 1 [facility] 800 mg 2-14 tablet by ity of tablet 00:00: mouth [place] 00 every 8 Medical (eight) Branch hours as needed for Pain (scale 4-6). dicyclomine 2023-0 Yes [id number] 20mg Take 1 [facility] 20 mg 2-14 tablet by ity of tablet 00:00: mouth 4 [place] 00 (four) Medical times Branch daily as needed for Abdominal pain. ondansetron 2023-0 Yes [id number] 4mg Take 1 [facility] 4 mg 2-14 tablet by ity of disintegrat 00:00: mouth [place] ing tablet 00 every 12 Medic al (twelve) Branch hours as needed for Nausea and Vomiting (N/V). ibuprofen 2023-0 Yes [id number] 800mg Take 1 [facility] 800 mg 2-14 tablet by ity of tablet 00:00: mouth [place] 00 every 8 Medical (eight) Branch hours as needed for Pain (scale 4-6). dicyclomine 2023-0 Yes [id number] 20mg Take 1 [facility] 20 mg 2-14 tablet by ity of tablet 00:00: mouth (four) Medical times Branch daily as needed for Abdominal pain. ondansetron 2023-0 Yes [id number] 4mg Take 1 [facility] 4 mg 2-14 tablet by ity of disintegrat 00:00: mouth [place] ing tablet 00 every 12 Medic al (twelve) Branch hours as needed for Nausea and Vomiting (N/V). ibuprofen 2023-0 Yes [id number] 800mg Take 1 [facility] 800 mg 2-14 tablet by ity of tablet 00:00: mouth [place] 00 every 8 Medical (eight) Branch hours as needed for Pain (scale 4-6). dicyclomine 2023-0 Yes [id number] 20mg Take 1 [facility] 20 mg 2-14 tablet by ity of tablet 00:00: mouth (four) Medical times Branch daily as needed for Abdominal pain. ondansetron 2023-0 Yes [id number] 4mg Take 1 [facility] 4 mg 2-14 tablet by ity of disintegrat 00:00: mouth [place] ing tablet 00 every 12 Medic al (twelve) Branch hours as needed for Nausea and Vomiting (N/V). ibuprofen 2023-0 Yes [id number] 800mg Take 1 [facility] 800 mg 2-14 tablet by ity of tablet 00:00: mouth [place] 00 every 8 Medical (eight) Branch hours as needed for Pain (scale 4-6). dicyclomine 2023-0 Yes [id number] 20mg Take 1 [facility] 20 mg 2-14 tablet by ity of tablet 00:00: mouth 4 (four) Medical times Branch daily as needed for Abdominal pain. ondansetron 2022-0 Yes [id number] 4mg Take 1 [facility] 4 mg 2-14 tablet by ity of disintegrat 00:00: mouth [place] ing tablet 00 every 12 Medic al (twelve) Branch hours as needed for Nausea and Vomiting (N/V). ibuprofen 2022-0 Yes [id number] 800mg Take 1 [facility] 800 mg 2-14 tablet by ity of tablet 00:00: mouth [place] 00 every 8 Medical (eight) Branch hours as needed for Pain (scale 4-6). dicyclomine 2022-0 Yes [id number] 20mg Take 1 [facility] 20 mg 2-14 tablet by ity of tablet 00:00: mouth 4 [place] 00 (four) Medical times Branch daily as needed for Abdominal pain. ibuprofen 2022-0 Yes [id number] 600mg Take 1 [facility] 600 mg 1-06 tablet by ity of tablet 00:00: mouth [place] 00 every 6 Medical (six) Branch hours as needed for Pain (scale 4-6). ibuprofen 2022-0 Yes [id number] 600mg Take 1 [facility] 600 mg 1-06 tablet by ity of tablet 00:00: mouth [place] 00 every 6 Medical (six) Branch hours as needed for Pain (scale 4-6). ibuprofen 2022-0 3- No [id number] 600mg Take 1 [facility] 600 mg 1-06 02-15 tablet by ity of tablet 00:00: 00:00 mouth [place] 00 :00 every 6 Medical (six) Branch hours as needed for Pain (scale 4-6). ibuprofen 2022-0 2023- No [id number] 600mg Take 1 [facility] 600 mg 1-06 02-15 tablet by ity of tablet 00:00: 00:00 mouth [place] 00 :00 every 6 Medical (six) Branch hours as needed for Pain (scale 4-6). albuterol 0 Yes SMARTSIG:V Un erinn (PROAIR 5-05 ia Inhaler ity of HFA) 90 00:00: [place] mcg/actuati 00 Medical on inhaler Branch albuterol 0 Yes SMARTSIG:V Un erinn (PROAIR 5-05 ia Inhaler ity of HFA) 90 00:00: [place] mcg/actuati 00 Medical on inhaler Branch albuterol 2022-0 Yes SMARTSIG:V Un erinn (PROAIR 5-05 ia Inhaler ity of HFA) 90 00:00: [place] mcg/actuati 00 Medical on inhaler Branch famotidine 0 Yes 20mg Take 1 [facility] rs 20 mg 5-05 tablet by ity of tablet 00:00: mouth. Medical Branch naproxen 0 Yes 500mg Take 1 [facility] s 500 mg 5-05 tablet by ity of tablet 00:00: mouth. Medical Branch albuterol 0 Yes SMARTSIG:V Un erinn (PROAIR 5-05 ia Inhaler ity of HFA) 90 00:00: [place] mcg/actuati 00 Medical on inhaler Branch famotidine 0 Yes 20mg Take 1 [facility] rs 20 mg 5-05 tablet by ity of tablet 00:00: mouth. Medical Branch naproxen 0 Yes 500mg Take 1 [facility] s 500 mg 5-05 tablet by ity of tablet 00:00: mouth. [place] [facility] albuterol 0 Yes SMARTSIG:V Un erinn (PROAIR 5-05 ia Inhaler ity of HFA) 90 00:00: [place] mcg/actuati 00 Medical on inhaler Branch famotidine 2021-0 Yes 20mg Take 1 Un[facility] rs 20 mg 5-05 tablet by ity of tablet 00:00: mouth. Medical Branch naproxen 2021-0 Yes 500mg Take 1 [facility] s 500 mg 5-05 tablet by ity of tablet 00:00: mouth. [place] [facility] albuterol 0 Yes SMARTSIG:V Un erinn (PROAIR 5-05 ia Inhaler ity of HFA) 90 00:00: [place] mcg/actuati 00 Medical on inhaler Branch famotidine 2021-0 Yes 20mg Take 1 [facility] rs 20 mg 5-05 tablet by ity of tablet 00:00: mouth. Medical Branch naproxen 2021-0 Yes 500mg Take 1 Univer s 500 mg 5-05 tablet by ity of tablet 00:00: mouth. Medical Branch albuterol 2021-0 Yes SMARTSIG:V Un erinn (PROAIR 5-05 ia Inhaler ity of HFA) 90 00:00: [place] mcg/actuati Medical on inhaler Branch famotidine 2021-0 Yes 20mg Take 1 [facility] rs 20 mg 5-05 tablet by ity of tablet 00:00: mouth. Medical Branch naproxen 2021-0 Yes 500mg Take 1 Univer s 500 mg 5-05 tablet by ity of tablet 00:00: mouth. Medical Branch albuterol 0 Yes SMARTSIG:V Un erinn (PROAIR 5-05 ia Inhaler ity of HFA) 90 00:00: [place] mcg/actuati Medical on inhaler Branch famotidine 2021-0 Yes 20mg Take 1 Un[facility] rs 20 mg 5-05 tablet by ity of tablet 00:00: mouth. Medical Branch naproxen 2021-0 Yes 500mg Take 1 Univer s 500 mg 5-05 tablet by ity of tablet 00:00: mouth. Medical Branch albuterol 0 Yes SMARTSIG:V Un erinn (PROAIR 5-05 ia Inhaler ity of HFA) 90 00:00: [place] mcg/actuati Medical on inhaler Branch famotidine 2021-0 Yes 20mg Take 1 [facility] rs 20 mg 5-05 tablet by ity of tablet 00:00: mouth. Medical Branch naproxen 2021-0 Yes 500mg Take 1 Univer s 500 mg 5-05 tablet by ity of tablet 00:00: mouth. Medical Branch albuterol 0 Yes SMARTSIG:V Un erinn (PROAIR 5-05 ia Inhaler ity of HFA) 90 00:00: [place] mcg/actuati Medical on inhaler Branch famotidine 2021-0 Yes 20mg Take 1 [facility] rs 20 mg 5-05 tablet by ity of tablet 00:00: mouth. Medical Branch naproxen 2021-0 Yes 500mg Take 1 Univer s 500 mg 5-05 tablet by ity of tablet 00:00: mouth. Medical Branch albuterol 2021-0 Yes SMARTSIG:V Un erinn (PROAIR 5-05 ia Inhaler ity of HFA) 90 00:00: [place] mcg/actuati 00 Medical on inhaler Branch famotidine 2022-0 Yes 20mg Take 1 [facility] rs 20 mg 5-05 tablet by ity of tablet 00:00: mouth. [place] [facility] naproxen 2021-0 Yes 500mg Take 1 Univer s 500 mg 5-05 tablet by ity of tablet 00:00: mouth. [place] [address] Medical Branch albuterol 0 Yes SMARTSIG:V Un erinn (PROAIR 5-05 ia Inhaler ity of HFA) 90 00:00: [place] mcg/actuati Medical on inhaler Branch famotidine 2021-0 Yes 20mg Take 1 [facility] rs 20 mg 5-05 tablet by ity of tablet 00:00: mouth. [place] [address] Medical Branch naproxen 2021-0 Yes 500mg Take 1 Univer s 500 mg 5-05 tablet by ity of tablet 00:00: mouth. [place] [address] Medical Branch drospirenon 0 Yes 1{tbl} Take 1 Un erinn e-ethinyl 1-29 tablet by ity o f estradioL 00:00: mouth. [place] ([address]LEN[address] 28,) 3-0.02 Branch mg per tablet metFORMIN 2021-0 Yes 500mg Take 1 Unive rs 500 mg 1-29 tablet by ity of tablet 00:00: mouth. [place] [address] Medical Branch drospirenon 0 Yes 1{tbl} Take 1 Un erinn e-ethinyl 1-29 tablet by ity o f estradioL 00:00: mouth. [place] (ARLEN, [address] [place] [address] 28,) 3-0.02 Branch mg per tablet metFORMIN 2021-0 Yes 500mg Take 1 Unive rs 500 mg 1-29 tablet by ity of tablet 00:00: mouth. [place] [address] Medical Branch drospirenon 2021-0 Yes 1{tbl} Take 1 Un erinn e-ethinyl 1-29 tablet by ity o f estradioL 00:00: mouth. [place] (ARLEN, [facility] 28,) 3-0.02 Branch mg per tablet metFORMIN 2021-0 Yes 500mg Take 1 Unive rs 500 mg 1-29 tablet by ity of tablet 00:00: mouth. [place] [address] Medical Branch cyclobenzap 2021-0 Yes 5mg Take 1 Univ ers rine 5 mg 1-29 tablet by ity o f tablet 00:00: mouth. [place] 00 Medical Branch gabapentin 2022-0 Yes SMARTSIG:C U nivers 300 mg 1-29 apsule(s) ity of capsule 00:00: By Mouth [address] Branch oxybutynin 2021-0 Yes 5mg Take 1 Unive rs XL 5 mg 24 1-29 tablet by ity of hr tablet 00:00: mouth. [address] Branch tranexamic 0 Yes SMARTSIG:T U nivers acid 650 mg 1-29 ablet(s) ity of tablet 00:00: By Mouth [address] drospirenon 0 Yes 1{tbl} Take 1 Un erinn e-ethinyl 1-29 tablet by ity o f estradioL 00:00: mouth. [place] (ARLEN [facility] ,) 3-0.02 Branch mg per tablet metFORMIN 2021-0 Yes 500mg Take 1 Unive rs 500 mg 1-29 tablet by ity of tablet 00:00: mouth. [address] cyclobenzap 0 Yes 5mg Take 1 [facility] ers rine 5 mg 1-29 tablet by ity o f tablet 00:00: mouth. [address] gabapentin 0 Yes SMARTSIG:C U nivers 300 mg 1-29 apsule(s) ity of capsule 00:00: By Mouth [address] oxybutynin 0 Yes 5mg Take 1 Unive rs XL 5 mg 24 1-29 tablet by ity of hr tablet 00:00: mouth. [address] tranexamic 0 Yes SMARTSIG:T U nivers acid 650 mg 1-29 ablet(s) ity of tablet 00:00: By Mouth [address] drospirenon 0 Yes 1{tbl} Take 1 Un erinn e-ethinyl 1-29 tablet by ity o f estradioL 00:00: mouth. [place] (ARLEN [facility] ,) 3-0.02 Branch mg per tablet metFORMIN 2021-0 Yes 500mg Take 1 Unive rs 500 mg 1-29 tablet by ity of tablet 00:00: mouth. [address] cyclobenzap 2021-0 Yes 5mg Take 1 [facility] ers rine 5 mg 1-29 tablet by ity o f tablet 00:00: mouth. [address] gabapentin 0 Yes SMARTSIG:C U nivers 300 mg 1-29 apsule(s) ity of capsule 00:00: By Mouth [address] Branch oxybutynin 2021-0 Yes 5mg Take 1 Unive rs XL 5 mg 24 1-29 tablet by ity of hr tablet 00:00: mouth. [address] Branch tranexamic 0 Yes SMARTSIG:T U nivers acid 650 mg 1-29 ablet(s) ity of tablet 00:00: By Mouth [address] drospirenon 0 Yes 1{tbl} Take 1 Un erinn e-ethinyl 1-29 tablet by ity o f estradioL 00:00: mouth. [place] (ARLEN [facility] ,) 3-0.02 Branch mg per tablet metFORMIN 2021-0 Yes 500mg Take 1 Unive rs 500 mg 1-29 tablet by ity of tablet 00:00: mouth. [address] cyclobenzap 0 Yes 5mg Take 1 Univ ers rine 5 mg 1-29 tablet by ity o f tablet 00:00: mouth. [address] gabapentin 0 Yes SMARTSIG:C U nivers 300 mg 1-29 apsule(s) ity of capsule 00:00: By Mouth [address] oxybutynin 0 Yes 5mg Take 1 Unive rs XL 5 mg 24 1-29 tablet by ity of hr tablet 00:00: mouth. [address] tranexamic 0 Yes SMARTSIG:T U nivers acid 650 mg 1-29 ablet(s) ity of tablet 00:00: By Mouth [address] drospirenon 0 Yes 1{tbl} Take 1 Un erinn e-ethinyl 1-29 tablet by ity o f estradioL 00:00: mouth. [place] (ARLEN [facility] ,) 3-0.02 Branch mg per tablet metFORMIN 2021-0 Yes 500mg Take 1 Unive rs 500 mg 1-29 tablet by ity of tablet 00:00: mouth. [address] cyclobenzap 2021-0 Yes 5mg Take 1 Univ ers rine 5 mg 1-29 tablet by ity o f tablet 00:00: mouth. [address] gabapentin 0 Yes SMARTSIG:C U nivers 300 mg 1-29 apsule(s) ity of capsule 00:00: By Mouth [address] Branch oxybutynin 2021-0 Yes 5mg Take 1 Unive rs XL 5 mg 24 1-29 tablet by ity of hr tablet 00:00: mouth. [address] Branch tranexamic 0 Yes SMARTSIG:T U nivers acid 650 mg 1-29 ablet(s) ity of tablet 00:00: By Mouth [address] drospirenon 0 Yes 1{tbl} Take 1 Un erinn e-ethinyl 1-29 tablet by ity o f estradioL 00:00: mouth. [place] (ARLEN [facility] ,) 3-0.02 Branch mg per tablet metFORMIN 2021-0 Yes 500mg Take 1 Unive rs 500 mg 1-29 tablet by ity of tablet 00:00: mouth. [address] cyclobenzap 0 Yes 5mg Take 1 Univ ers rine 5 mg 1-29 tablet by ity o f tablet 00:00: mouth. [address] gabapentin 0 Yes SMARTSIG:C U nivers 300 mg 1-29 apsule(s) ity of capsule 00:00: By Mouth [address] oxybutynin 0 Yes 5mg Take 1 Unive rs XL 5 mg 24 1-29 tablet by ity of hr tablet 00:00: mouth. [address] tranexamic 0 Yes SMARTSIG:T U nivers acid 650 mg 1-29 ablet(s) ity of tablet 00:00: By Mouth [address] drospirenon 0 Yes 1{tbl} Take 1 Un erinn e-ethinyl 1-29 tablet by ity o f estradioL 00:00: mouth. [place] (ARLEN [facility] ,) 3-0.02 Branch mg per tablet metFORMIN 2021-0 Yes 500mg Take 1 Unive rs 500 mg 1-29 tablet by ity of tablet 00:00: mouth. [address] cyclobenzap 2021-0 Yes 5mg Take 1 Univ ers rine 5 mg 1-29 tablet by ity o f tablet 00:00: mouth. [address] gabapentin 0 Yes SMARTSIG:C U nivers 300 mg 1-29 apsule(s) ity of capsule 00:00: By Mouth [address] Branch oxybutynin 2021-0 Yes 5mg Take 1 Unive rs XL 5 mg 24 1-29 tablet by ity of hr tablet 00:00: mouth. [address] Branch tranexamic 0 Yes SMARTSIG:T U nivers acid 650 mg 1-29 ablet(s) ity of tablet 00:00: By Mouth [address] drospirenon 0 Yes 1{tbl} Take 1 Un erinn e-ethinyl 1-29 tablet by ity o f estradioL 00:00: mouth. [place] (ARLEN [facility] ,) 3-0.02 Branch mg per tablet metFORMIN 2021-0 Yes 500mg Take 1 Unive rs 500 mg 1-29 tablet by ity of tablet 00:00: mouth. [address] cyclobenzap 0 Yes 5mg Take 1 Univ ers rine 5 mg 1-29 tablet by ity o f tablet 00:00: mouth. [address] gabapentin 0 Yes SMARTSIG:C U nivers 300 mg 1-29 apsule(s) ity of capsule 00:00: By Mouth [address] oxybutynin 0 Yes 5mg Take 1 Unive rs XL 5 mg 24 1-29 tablet by ity of hr tablet 00:00: mouth. [address] tranexamic 0 Yes SMARTSIG:T U nivers acid 650 mg 1-29 ablet(s) ity of tablet 00:00: By Mouth [address] drospirenon 0 Yes 1{tbl} Take 1 Un erinn e-ethinyl 1-29 tablet by ity o f estradioL 00:00: mouth. [place] (ARLEN [facility] ,) 3-0.02 Branch mg per tablet metFORMIN 2021-0 Yes 500mg Take 1 Unive rs 500 mg 1-29 tablet by ity of tablet 00:00: mouth. [address] cyclobenzap 2021-0 Yes 5mg Take 1 Univ ers rine 5 mg 1-29 tablet by ity o f tablet 00:00: mouth. [address] gabapentin Yes SMARTSIG:C U nivers 300 mg 1-29 apsule(s) ity of capsule 00:00: By Mouth [address] Branch oxybutynin Yes 5mg Take 1 Unive rs XL 5 mg 24 1-29 tablet by ity of hr tablet 00:00: mouth. [address] Branch tranexamic Yes SMARTSIG:T U nivers acid 650 mg 1-29 ablet(s) ity of tablet 00:00: By Mouth [address] drospirenon Yes 1{tbl} Take 1 Un erinn e-ethinyl 1-29 tablet by ity o f estradioL 00:00: mouth. [place] (ARLEN, ,) 3-0.02 Branch mg per tablet metFORMIN Yes 500mg Take 1 Unive rs 500 mg 1-29 tablet by ity of tablet 00:00: mouth. [address] cyclobenzap Yes 5mg Take 1 Univ ers rine 5 mg 1-29 tablet by ity o f tablet 00:00: mouth. [address] gabapentin Yes SMARTSIG:C U nivers 300 mg 1-29 apsule(s) ity of capsule 00:00: By Mouth [address] oxybutynin Yes 5mg Take 1 Unive rs XL 5 mg 24 1-29 tablet by ity of hr tablet 00:00: mouth. [address] tranexamic Yes SMARTSIG:T U nivers acid 650 mg 1-29 ablet(s) ity of tablet 00:00: By Mouth [address] ondansetron 2018-05 Yes [id number] 4mg Take 1 [facility] (ZOFRAN) 4 1-14 tablet by ity of mg tablet 00:00: mouth [place] [address] every 12 Medical (twelve) Branch hours. ondansetron 2018-05 Yes [id number] 4mg Take 1 [facility] (ZOFRAN) 4 1-14 tablet by ity of mg tablet 00:00: mouth [place] [address] every 12 Medical (twelve) Branch hours. ondansetron 2018-05 Yes [id number] 4mg Take 1 [facility] (ZOFRAN) 4 1-14 tablet by ity of mg tablet 00:00: mouth [place] 00 every 12 Medical (twelve) Branch hours. ondansetron 2018-05 Yes [id number] 4mg Take 1 [facility] (ZOFRAN) 4 1-14 tablet by ity of mg tablet 00:00: mouth [place] 00 every 12 Medical (twelve) Branch hours. ondansetron 2018-05 Yes [id number] 4mg Take 1 [facility] (ZOFRAN) 4 1-14 tablet by ity of mg tablet 00:00: mouth [place] 00 every 12 Medical (twelve) Branch hours. ondansetron 2018-05 Yes [id number] 4mg Take 1 [facility] (ZOFRAN) 4 1-14 tablet by ity of mg tablet 00:00: mouth [place] 00 every 12 Medical (twelve) Branch hours. lactulose 2018-05 Yes [id number] 30mL Take 30 mL [facility] 10 gram/15 1-14 by mouth 3 ity of mL oral 00:00: (three) [place] solution 00 times Medical daily as Branch needed for Constipati on or For bowel movement. ondansetron 2018-05 Yes [id number] 4mg Take 1 [facility] (ZOFRAN) 4 1-14 tablet by ity of mg tablet 00:00: mouth [place] 00 every 12 Medical (twelve) Branch hours. sucralfate 2018-05 Yes [id number] 1g Take 1 U nivers 1 gram 1-14 tablet by ity of tablet 00:00: mouth [place] 00 before Medical meals and Branch at bedtime. ondansetron 2018-05 Yes [id number] 4mg Take 1 [facility] (ZOFRAN) 4 1-14 tablet by ity of mg tablet 00:00: mouth [place] 00 every 12 Medical (twelve) Branch hours. ondansetron 2018-05 Yes [id number] 4mg Take 1 [facility] (ZOFRAN) 4 1-14 tablet by ity of mg tablet 00:00: mouth [place] 00 every 12 Medical (twelve) Branch hours. ondansetron 2018-05 Yes [id number] 4mg Take 1 Univers (ZOFRAN) 4 1-14 tablet by ity of mg tablet 00:00: mouth [place] 00 every 12 Medical (twelve) Branch hours. ondansetron 2018-05 Yes [id number] 4mg Take 1 [facility] (ZOFRAN) 4 1-14 tablet by ity of mg tablet 00:00: mouth [place] 00 every 12 Medical (twelve) Branch hours. ondansetron 2018-05 Yes [id number] 4mg Take 1 [facility] (ZOFRAN) 4 1-14 tablet by ity of mg tablet 00:00: mouth [place] 00 every 12 Medical (twelve) Branch hours. ondansetron 2018-05 Yes [id number] 4mg Take 1 [facility] (ZOFRAN) 4 1-14 tablet by ity of mg tablet 00:00: mouth [place] 00 every 12 Medical (twelve) Branch hours. ondansetron 2018-05 Yes [id number] 4mg Take 1 Univers (ZOFRAN) 4 1-14 tablet by ity of mg tablet 00:00: mouth [place] 00 every 12 Medical (twelve) Branch hours. ondansetron 2018-05 Yes [id number] 4mg Take 1 [facility] (ZOFRAN) 4 1-14 tablet by ity of mg tablet 00:00: mouth [place] 00 every 12 Medical (twelve) Branch hours. ondansetron 2018-05 Yes [id number] 4mg Take 1 [facility] (ZOFRAN) 4 1-14 tablet by ity of mg tablet 00:00: mouth [place] 00 every 12 Medical (twelve) Branch hours. ondansetron 2018-05 Yes [id number] 4mg Take 1 [facility] (ZOFRAN) 4 1-14 tablet by ity of mg tablet 00:00: mouth [place] 00 every 12 Medical (twelve) Branch hours. lactulose 2018-05 Yes [id number] 30mL Take 30 mL [facility] 10 gram/15 1-14 by mouth 3 ity of mL oral 00:00: (three) [place] solution 00 times Medical daily as Branch needed for Constipati on or For bowel movement. sucralfate 2018-05 Yes [id number] 1g Take 1 U nivers 1 gram 1-14 tablet by ity of tablet 00:00: mouth [place] 00 before Medical meals and Branch at bedtime. ondansetron 2018-05 Yes [id number] 4mg Take 1 [facility] (ZOFRAN) 4 1-14 tablet by ity of mg tablet 00:00: mouth [place] 00 every 12 Medical (twelve) Branch hours. ondansetron 2018-05 Yes [id number] 4mg Take 1 [facility] (ZOFRAN) 4 1-14 tablet by ity of mg tablet 00:00: mouth [place] 00 every 12 Medical (twelve) Branch hours. ondansetron 2018-05 Yes [id number] 4mg Take 1 [facility] (ZOFRAN) 4 1-14 tablet by ity of mg tablet 00:00: mouth [place] 00 every 12 Medical (twelve) Branch hours. lactulose 2018-05- No [id number] 30mL Take 30 mL [facility] 10 gram/15 1-14 02-15 by mouth 3 it y of mL oral 00:00: 00:00 (three) [place] solution 00 :00 times Medical daily as Branch needed for Constipati on or For bowel movement. sucralfate 2018-05- No [id number] 1g Take 1 [facility] 1 gram 1-14 02-15 tablet by ity of tablet 00:00: 00:00 mouth [place] 00 :00 before Medical meals and Branch at bedtime. lactulose 2018-05- No [id number] 30mL Take 30 mL [facility] 10 gram/15 -14 02-15 by mouth 3 it y of mL oral 00:00: 00:00 (three) [place] solution 00 :00 times Medical daily as Branch needed for Constipati on or For bowel movement. sucralfate 2018-05- No [id number] 1g Take 1 Univers 1 gram -14 02-15 tablet by ity of tablet 00:00: 00:00 mouth [place] 00 :00 before Medical meals and Branch at bedtime. Omeprazole 2018-05 Yes [id number] 20mg Take 1 U nivers 20 mg 0-04 tablet by ity of tablet 00:00: mouth [place] 00 daily. Medical Branch Omeprazole 2018-05 Yes [id number] 20mg Take 1 U nivers 20 mg 0-04 tablet by ity of tablet 00:00: mouth [place] 00 daily. Medical Branch Omeprazole 2018-05 Yes [id number] 20mg Take 1 U nivers 20 mg 0-04 tablet by ity of tablet 00:00: mouth [place] 00 daily. Medical Branch Omeprazole 2018-05 Yes [id number] 20mg Take 1 U nivers 20 mg 0-04 tablet by ity of tablet 00:00: mouth [place] 00 daily. Medical Branch Omeprazole 2018-05 Yes [id number] 20mg Take 1 U nivers 20 mg 0-04 tablet by ity of tablet 00:00: mouth [place] 00 daily. Medical Branch Omeprazole 2018-05 Yes [id number] 20mg Take 1 U nivers 20 mg 0-04 tablet by ity of tablet 00:00: mouth [place] 00 daily. Medical Branch Omeprazole 2018-05 Yes [id number] 20mg Take 1 U nivers 20 mg 0-04 tablet by ity of tablet 00:00: mouth [place] 00 daily. Medical Branch Omeprazole 2018-05 Yes [id number] 20mg Take 1 U nivers 20 mg 0-04 tablet by ity of tablet 00:00: mouth [place] 00 daily. Medical Branch Omeprazole 2018-05 Yes [id number] 20mg Take 1 U nivers 20 mg 0-04 tablet by ity of tablet 00:00: mouth [place] 00 daily. Medical Branch Omeprazole 2018-05 Yes [id number] 20mg Take 1 U nivers 20 mg 0-04 tablet by ity of tablet 00:00: mouth [place] 00 daily. Medical Branch Omeprazole 2018-05 Yes [id number] 20mg Take 1 U nivers 20 mg 0-04 tablet by ity of tablet 00:00: mouth [place] 00 daily. Medical Branch Omeprazole 2018-05 Yes [id number] 20mg Take 1 U nivers 20 mg 0-04 tablet by ity of tablet 00:00: mouth [place] 00 daily. Medical Branch Omeprazole 2018-05 Yes [id number] 20mg Take 1 U nivers 20 mg 0-04 tablet by ity of tablet 00:00: mouth [place] 00 daily. Medical Branch Omeprazole 2018-05 Yes [id number] 20mg Take 1 U nivers 20 mg 0-04 tablet by ity of tablet 00:00: mouth [place] 00 daily. Medical Branch Omeprazole 2018-05 Yes [id number] 20mg Take 1 U nivers 20 mg 0-04 tablet by ity of tablet 00:00: mouth [place] 00 daily. Medical Branch Omeprazole 2018-05 Yes [id number] 20mg Take 1 U nivers 20 mg 0-04 tablet by ity of tablet 00:00: mouth [place] 00 daily. Medical Branch Omeprazole 2018-05 Yes [id number] 20mg Take 1 U nivers 20 mg 0-04 tablet by ity of tablet 00:00: mouth [place] 00 daily. Medical Branch Omeprazole 2018-05 Yes [id number] 20mg Take 1 U nivers 20 mg 0-04 tablet by ity of tablet 00:00: mouth [place] 00 daily. Medical Branch Omeprazole 2018-05 Yes [id number] 20mg Take 1 U nivers 20 mg 0-04 tablet by ity of tablet 00:00: mouth 00 daily. Medical Branch Omeprazole 2018-05 Yes [id number] 20mg Take 1 U nivers 20 mg 0-04 tablet by ity of tablet 00:00: mouth 00 daily. Medical Branch 2016-[address] Comb 7-11 [place] No.42/Folic 00:00: Region a Acid 00 l (Pren Health Chewable Tablet) 1 TABLET Tab.Ch.Bph Immunizations Ordered Filled Immunization Date Status Comments [facility] e Immunization Name Name Influenza Virus 2021-06-17 Completed Universit y of Vaccine Quad IM, 00:00:00 [place] Me dical Preserv and ABX Branch Free 6 MO-64 YRS Influenza Virus 2021-06-17 Completed Universit y of Vaccine [facility] IM, 00:00:00 [place] Me dical Preserv and ABX Branch Free 6 MO-64 YRS Influenza Virus 2021-06-17 Completed Universit y of Vaccine [facility] IM, 00:00:00 [place] Me dical Preserv and ABX Branch Free 6 MO-64 YRS Influenza Virus 2021-06-17 Completed Universit y of Vaccine [facility] IM, 00:00:00 [place] Me dical Preserv and ABX Branch Free 6 MO-64 YRS Influenza Virus 2021-06-17 Completed Universit y of Vaccine [facility] IM, 00:00:00 [place] Me dical Preserv and ABX Branch Free 6 MO-64 YRS Influenza Virus 2021-06-17 Completed Universit y of Vaccine [facility] IM, 00:00:00 [place] Me dical Preserv and ABX Branch Free 6 MO-64 YRS Influenza Virus 2021-06-17 Completed Universit y of Vaccine [facility] IM, 00:00:00 [place] Me dical Preserv and ABX Branch Free 6 MO-64 YRS Influenza Virus 2021-06-17 Completed Universit y of Vaccine [facility] IM, 00:00:00 [place] Me dical Preserv and ABX Branch Free 6 MO-64 YRS Influenza Virus 2021-06-17 Completed Universit y of Vaccine [facility] IM, 00:00:00 [place] Me dical Preserv and ABX Branch Free 6 MO-64 YRS Influenza Virus 2021-06-17 Completed Universit y of Vaccine [facility] IM, 00:00:00 [place] Me dical Preserv and ABX Branch Free 6 MO-64 YRS Influenza Virus 2021-06-17 Completed Universit y of Vaccine [facility] IM, 00:00:00 [place] Me dical Preserv and ABX Branch Free 6 MO-64 YRS Influenza Virus 2021-06-17 Completed Universit y of Vaccine [facility] IM, 00:00:00 [place] Me dical Preserv and ABX Branch Free 6 MO-64 YRS Influenza Virus 2021-06-17 Completed Universit y of Vaccine [facility] IM, 00:00:00 [place] Me dical Preserv and ABX Branch Free 6 MO-64 YRS Influenza Virus 2021-06-17 Completed Universit y of Vaccine [facility] IM, 00:00:00 [place] Me dical Preserv and ABX Branch Free 6 MO-64 YRS Influenza Virus 2021-06-17 Completed Universit y of Vaccine [facility] IM, 00:00:00 [place] Me dical Preserv and ABX Branch Free 6 MO-64 YRS Influenza Virus 2021-06-17 Completed Universit y of Vaccine [facility] IM, 00:00:00 [place] Me dical Preserv and ABX Branch Free 6 MO-64 YRS Influenza Virus 2021-06-17 Completed Universit y of Vaccine [facility] IM, 00:00:00 [place] Me dical Preserv and ABX Branch Free 6 MO-64 YRS Influenza Virus 2021-06-17 Completed Universit y of Vaccine [facility] IM, 00:00:00 [place] Me dical Preserv and ABX Branch Free 6 MO-64 YRS Vital Signs Vital Name Observation Time Observation Value Comments Source Systolic blood 2022-11-09 18:59:00 136 mm[Hg] Univer sity of pressure [facility] Diastolic blood 2022-11-09 18:59:00 84 mm[Hg] Unive rsity of pressure [facility] Heart rate 2022-11-09 18:57:00 100 /min [facility] Body temperature 2022-11-09 18:57:00 36.83 Susan [facility] Respiratory rate 2022-11-09 18:57:00 18 /min [facility] Body weight 2022-11-09 18:57:00 68.04 kg [facility] BMI 2022-11-09 18:57:00 29.29 kg/m2 Universi ty of [place] [facility] Oxygen saturation in 2022-11-09 18:57:00 99 /min University of Arterial blood by [place] [facility] lakeisha Pulse oximetry Branch Systolic blood 2022-10-15 17:26:00 133 mm[Hg] Univer sity of pressure [place] [facility] Diastolic blood 2022-10-15 17:26:00 95 mm[Hg] Unive rsity of pressure [place] [facility] Heart rate 2022-10-15 17:26:00 92 /min Universi ty of [place] [facility] Body temperature 2022-10-15 17:26:00 36.72 Susan Univ ersity of [place] [facility] Respiratory rate 2022-10-15 17:26:00 18 /min Univ ersity of [place] [facility] Body height 2022-10-15 17:26:00 152.4 cm Universi ty of [place] [facility] Body weight 2022-10-15 17:26:00 68.04 kg Universi ty [facility] [place] [facility] BMI 2022-10-15 17:26:00 29.29 kg/m2 Universi ty [facility] [place] [facility] Systolic blood 2022-09-04 17:31:00 110 mm[Hg] Univer sity of pressure [place] [facility] Diastolic blood 2022-09-04 17:31:00 89 mm[Hg] Unive rsity of pressure [place] [facility] Heart rate 2022-09-04 17:31:00 112 /min Universi ty of [place] [facility] Body temperature 2022-09-04 17:31:00 36.72 Susan Univ ersity of [place] [facility] Respiratory rate 2022-09-04 17:31:00 16 /min Univ ersity of [place] [facility] Body height 2022-09-04 17:31:00 154.9 cm Universi ty [facility] [place] [facility] Body weight 2022-09-04 17:31:00 80.287 kg Universi ty of [place] [facility] BMI 2022-09-04 17:31:00 33.44 kg/m2 Universi ty of [place] [facility] Oxygen saturation in 2022-09-04 17:31:00 99 /min University of Arterial blood by [place] [facility] lakeisha Pulse oximetry Branch Systolic blood 2022-08-27 03:00:00 110 mm[Hg] Univer sity of pressure [place] [facility] Diastolic blood 2022-08-27 03:00:00 73 mm[Hg] Unive rsity of pressure [place] [facility] Heart rate 2022-08-27 03:00:00 78 /min Universi ty of [place] [facility] Respiratory rate 2022-08-27 03:00:00 17 /min Univ ersity of [place] [facility] Oxygen saturation in 2022-08-27 03:00:00 100 /min University of Arterial blood by [place] Medi lakeisha Pulse oximetry Branch Body temperature 2022-08-27 00:20:00 36.72 Susan Univ ersity of [place] [facility] Body height 2022-08-27 00:20:00 154.9 cm Universi ty of [place] [facility] Body weight 2022-08-27 00:20:00 77.565 kg Universi ty of [place] [facility] BMI 2022-08-27 00:20:00 32.31 kg/m2 Universi ty of [place] [facility] Systolic blood 2022-07-31 14:31:00 126 mm[Hg] Univer sity of pressure [place] [facility] Diastolic blood 2022-07-31 14:31:00 84 mm[Hg] Unive rsity of pressure [place] [facility] Heart rate 2022-07-31 14:31:00 98 /min Universi ty [facility] [place] [facility] Body temperature 2022-07-31 14:31:00 36.78 Susan Univ ersity of [place] [facility] Respiratory rate 2022-07-31 14:31:00 16 /min Univ ersity of [place] [facility] Body height 2022-07-31 14:31:00 154.9 cm Universi ty [facility] [place] [facility] Body weight 2022-07-31 14:31:00 79.833 kg [facility]i [facility] [place] [facility] BMI 2022-07-31 14:31:00 33.25 kg/m2 Universi ty [facility] [place] [facility] Oxygen saturation in 2022-07-31 14:31:00 99 /min University of Arterial blood by [facility] lakeisha Pulse oximetry Branch Systolic blood 2022-07-06 17:11:00 136 mm[Hg] Univer sity of pressure [place] [facility] Diastolic blood 2022-07-06 17:11:00 75 mm[Hg] Unive rsity of pressure [place] [facility] Heart rate 2022-07-06 17:11:00 68 /min Universi ty of [place] [facility] Body temperature 2022-07-06 17:11:00 36.72 Susan Univ ersity of [place] [facility] Respiratory rate 2022-07-06 17:11:00 18 /min Univ ersity of [place] [facility] Body height 2022-07-06 17:11:00 154.9 cm Universi ty [facility] [place] [facility] Body weight 2022-07-06 17:11:00 80.332 kg [facility]i ty [facility] [place] [facility] BMI 2022-07-06 17:11:00 33.46 kg/m2 [facility]i ty [facility] [place] [facility] Systolic blood 2022-06-24 15:10:00 108 mm[Hg] Univer sity of pressure [place] [facility] Diastolic blood 2022-06-24 15:10:00 71 mm[Hg] Unive rsity of pressure [place] [facility] Heart rate 2022-06-24 15:10:00 78 /min Universi ty of [place] [facility] Body temperature 2022-06-24 15:10:00 36.78 Susan Univ ersity of [place] [facility] Body height 2022-06-24 15:10:00 154.9 cm Universi ty [facility] [place] [facility] Body weight 2022-06-24 15:10:00 75.978 kg [facility]i ty [facility] [place] [facility] BMI 2022-06-24 15:10:00 31.65 kg/m2 Universi ty of [facility] Oxygen saturation in 2022-06-24 15:10:00 100 /min University of Arterial blood by [place] [facility] lakeisha Pulse oximetry Branch Systolic blood 2022-06-23 18:00:00 116 mm[Hg] Univer sity of pressure [facility] Diastolic blood 2022-06-23 18:00:00 81 mm[Hg] Unive rsity of pressure [place] [facility] Heart rate 2022-06-23 18:00:00 85 /min Universi ty of [place] [facility] Respiratory rate 2022-06-23 18:00:00 19 /min Univ ersity of [facility] Oxygen saturation in 2022-06-23 18:00:00 99 /min University of Arterial blood by [place] [facility] lakeisha Pulse oximetry Branch Body temperature 2022-06-23 15:18:00 37.22 Susan Univ ersity of [place] [facility] Body height 2022-06-23 15:18:00 154.9 cm Universi ty of [place] [facility] [place] Body weight 2022-06-23 15:18:00 72.576 kg [facility] BMI 2022-06-23 15:18:00 30.23 kg/m2 [facility] Systolic blood 2022-05-15 19:58:00 133 mm[Hg] Univer sity [facility] Diastolic blood 2022-05-15 19:58:00 100 mm[facility]Hg] [facility] 2022-05-15 19:58:00 90 /min [facility] Body temperature 2022-05-15 19:58:00 37.11 Susan [facility] Res[facility] rate 2022-05-15 19:58:00 16 /min [facility] Body height 2022-05-15 19:58:00 154.9 cm [facility] Body weight 2022-05-15 19:58:00 72.576 kg [facility] BMI 2022-05-15 19:58:00 30.23 kg/m2 [facility] Oxygen saturation in 2022-05-15 19:58:00 100 /min [facility] blood by [facility] Pulse oximetry Branch Procedures Procedure Date / Time Performing Clinician Source Performed ASSIGNMENT OF BENEFITS 2022-11-09 19:50:56 Doctor Unassigned, No [facility] XR KNEE <3 VW RIGHT 2022-11-09 19:38:20 Nael Pinto [facility] CONSENT/REFUSAL FOR 2022-11-09 18:49:17 Doctor Unassigned, No [facility] DIAGNOSIS AND TREATMENT [facility] POCT TEST 2022-10-15 19:45:00 Yesenia Orozco [facility] LIPASE 2022-10-15 18:32:00 Yesenia Orozco [facility] MAGNESIUM 2022-10-15 18:32:00 Yesenia Orozco [facility] COMP. METABOLIC PANEL 2022-10-15 18:32:00 Yesenia Orozco [facility] ([id number]) [facility] CBC WITH DIFF 2022-10-15 18:32:00 Yesenia Orozco [facility] URINALYSIS 2022-10-15 18:32:[address] [facility] o f [facility] CONSENT/REFUSAL FOR 2022-10-15 17:21:37 Doctor Unassigned, No [facility] [place] DIAGNOSIS AND TREATMENT Name [facility] XR KNEE 3 VW RIGHT 2022-09-04 18:40:13 Cheo [facility] CONSENT/REFUSAL FOR 2022-09-04 17:28:13 Doctor Unassigned, No [facility] [place] DIAGNOSIS AND TREATMENT Name [facility] EKG-12 LEAD 2022-08-27 03:08:22 Ani Pierce [facility] THYROID STIMULATING 2022-08-27 01:09:00 Ani Pierce [facility] HORMONE [facility] COMP. METABOLIC PANEL 2022-08-27 01:09:00 Ani Pierce [facility] ([id number]) [facility] CBC WITH DIFF 2022-08-27 01:09:00 Ani Pierce [facility] D-DIMER 2022-08-27 01:09:00 Ani Pierce [facility] URINALYSIS 2022-08-27 01:09:00 Ani Pierce [facility] POCT TEST 2022-08-27 01:00:00 Ani Pierce [facility] CONSENT/REFUSAL FOR 2022-08-27 00:20:29 Doctor Unassigned, No Un [facility] [place] DIAGNOSIS AND TREATMENT [facility] EXTERNAL PROVIDER 2022-07-28 05:01:00 Doctor Unassigned, No [facility] RECORDS [facility] PATIENT FINANCIAL 2022-07-06 17:06:41 Doctor Unassigned, No [facility] POLICY Name [facility] CT ABDOMEN PELVIS W 2022-06-23 17:22:40 Mohinder Colmenares [facility] CONTRAST [facility] Branch URINALYSIS 2022-06-23 16:46:00 Mohinder Colmenares [facility] POCT TEST 2022-06-23 16:46:00 Mohinder Colmenares [facility] LIPASE 2022-06-23 15:31:00 Mohinder Colmenares [facility] COMP. METABOLIC PANEL 2022-06-23 15:31:00 Mohinder Colmenares [facility] ([id number]) [facility] CBC WITH DIFF 2022-06-23 15:31:00 Mohinder Colmenares [facility] CONSENT/REFUSAL FOR 2022-06-23 15:12:32 Doctor Unassigned, No [facility] [place] DIAGNOSIS AND TREATMENT Name [facility] NOTICE OF PRIVACY 2022-05-15 19:29:32 Doctor Unassigned, No Univ [facility] PRACTICES Name [facility] CONSENT/REFUSAL FOR 2022-05-15 19:10:31 Doctor Unassigned, No [facility] Name [facility] Encounters Start End Encounter Admission Attending Care Care Encounter Source Date/Time Date/Time Type Type Clinicians Facility Department ID 2021-08-02 Outpatient [facility] [place] [id number] [place] 10:33:54 [id number] [facility] 2022-11-09 2022-11-09 Emergency X SINGER [facility] ERT [id number] Univers 14:00:00 15:41:00 NAEL donohue [facility] 2022-11-09 2022-11-09 Emergency Singer [facility] [id number] [id number] Univers 14:00:00 15:41:00 Nael GILLESPIE 350.1.13.10 i ty of [place] 4.2.7.2.686 [facility] [id number] [address] 2022-10-15 2022-10-15 Emergency X Yesenia OROZCO [facility] ERT [id number] Univers 12:28:00 15:09:00 itgreyson [facility] 2022-10-15 2022-10-15 Emergency Yesenia Orozco [facility] 1.2.840.114 [id number] Univers 12:28:00 15:09:00 Yeni GILLESPIE 350.1.13.10 i ty of [place] 4.2.7.2.686 [facility] [id number] [address] 2022-09-04 2022-09-04 Emergency Jesica MICHAEL [facility] ERT [id number] Univers 12:33:00 14:13:00 CHEO ity [facility] 2022-09-04 2022-09-04 Emergency [facility] [id number] [id number] Univers 12:33:00 14:13:00 Gordonalicia [place] 350.1.13.10 i ty of [facility] 4.2.7.2.686 [facility] [id number] [address] 2022-08-26 2022-08-26 Emergency X [facility] ERT [id number] Univers 19:52:00 22:18:00 [facility] ity [facility] 2022-08-26 2022-08-26 Emergency Counts include 234 beds at the [facility] 1..930.508 [id number] Univers 19:52:00 22:18:00 [facility] Shawn [facility] 350.1.13.10 ity of [place] 4.2.7.2.686 [facility] [id number] [address] 2022-07-31 2022-07-31 Outpatient [facility] [id number] Univers 09:20:00 09:56:18 YANG donohue [facility] 2022-07-31 2022-07-31 Urgent Yang Pulido [facility] 1..840.114 [id number] Univers 09:20:00 09:56:18 Care Unknown, Attending HEALTH 350.1.13.10 ity of [place] 4.2.7.2.686 Pablo as EN?BLEA [id number] [address] MEDICAL OFFICE BUILDING 2022-07-31 2022-07-31 Letter Yang Pulido [facility] 1..840.114 10 [id number] Univers 00:00:00 00:00:00 (Out) C HEALTH 350.1.13.10 it y [facility] 4.2.7.2.686 Pablo as EN?BLEA [id number] [address] MEDICAL OFFICE BUILDING 2022-07-28 2022-07-28 Orders Doctor SHANIA 1.2.840.114 [id number] Univers 00:00:00 00:00:00 Only Unassigned, JESSE 350.1.13.10 ity of [facility] 4.2.7.2.686 Pablo as [id number] [address] 2022-07-24 2022-07-24 Telephone Tavon [facility] 1.2.840.11 [id number] Univers 00:00:00 00:00:00 Linette [place] 350.1.13.10 it y of [place] 4[place]2.[place] [id number] [address] 2022-07-24 2022-07-24 Case [facility] 1.2.840.114 [id number] Univers 00:00:00 00:00:00 Management Linette [place] 350.1.13.10 ity [place]2.[place] [id number] [address] 2022-07-24 2022-07-24 Telephone [facility] 1.2.840.11 [id number] Univers 00:00:00 00:00:00 Linette [place] 350.1.13.10 it y [place].2.686 [place] [id number] [address] 2022-07-22 2022-07-22 Outpatient R TAVON LINETTE [facility] B [id number] Univers 10:00:00 10:00:00 LINETTE MONTES DE OCA [facility] 2022-07-10 2022-07-10 Outpatient R [facility] [id number] Univers 16:45:00 16:45:00 ity of [facility] 2022-07-06 2022-07-06 Outpatient R LINETTE MONTES DE OCA [facility] B [id number] Univers 11:30:00 11:45:05 LINETTE MONTES DE OCA [facility] 2022-07-06 2022-07-06 Office [facility] 1.2.840.114 [id number] Univers 11:30:00 11:45:05 Visit Radhajaxson ELIGIO 350.1.13.10 it y [place] 4[place]2.[place].2.[place] [id number] [facility] [address] 2022-07-06 2022-07-06 Orders Doctor SHANIA 1.2.840.114 [id number] Univers 00:00:00 00:00:00 Only Unassigned, JESSE 350.1.13.10 ity of [place] [facility] 4.2.7.2.686 Pablo as [id number] [facility] [address] Branch 2022-07-02 2022-07-02 Outpatient R AGNES [facility] [id number] Univers 09:00:00 09:00:00 jayde TILLMAN [facility] 2022-06-25 2022-06-25 Refill [facility] 1.2.840.114 [id number] Univers 00:00:00 00:00:00 Stephanie HEALTH 350.1.13.10 it y of [place] 4.2.7.2.686 Pablo as EN?BLEA [id number] [address] MEDICAL OFFICE [facility] 2022-06-24 2022-06-24 Office [facility] 1.2.840.114 [id number] Univers 09:00:00 09:37:56 Visit Stephanie HEALTH 350.1.13.10 it y of [place] 4.2.7.2.686 Pablo as EN?BLEA [id number] [address] MEDICAL OFFICE [facility] 2022-06-24 2022-06-24 Outpatient R MARIA ELENA [facility] [id number] Univers 09:00:00 09:37:56 STEPHANIE ity of [facility] 2022-06-24 2022-06-24 Telephone ROSA Lino 1.2.840.114 10 [id number] Univers 00:00:00 00:00:00 Patti Y HEALTH 350.1.13.10 i ty of [place] 4[place]2.7.2.686 [place] [id number] [facility] 113 Branch 2022-06-24 2022-06-24 Letter Maria Elena [facility] 1.2.840.114 [id number] Univers 00:00:00 00:00:00 (Out) Stephanie HEALTH 350.1.13.10 it y of [facility] 4.2.7.2.686 Pablo as EN?BLEA [id number] Wy shalini BASSETT [address] [place] [address] MEDICAL OFFICE BUILDING 2022-06-23 2022-06-23 Emergency X DARRIAN [facility] ERT [id number] Univers 09:18:00 13:22:00 MOHINDER ity [facility] 2022-06-23 2022-06-23 Emergency [place], [facility] 1.2.840.114 [id number] Univers 09:18:00 13:22:00 Mohinder B VERNA 350.1.13.10 i ty [facility] 4.2.7.2.686 [place] [id number] [address] 2022-05-15 2022-05-15 Emergency X Yesenia OROZCO [facility] ERT [id number] Univers 13:59:00 14:35:00 ity [facility] 2022-05-15 2022-05-15 Emergency Yesenia Orozco [facility] 1.2.840.114 [id number] Univers 13:59:00 14:35:00 Yeni [facility] 350.1.13.10 i ty of [facility] 4.2.7.2.686 [facility] [id number] [address] 2022-01-14 2022-01-14 Emergency ER Jimenez, [facility] [id number] 10:20:00 15:50:00 Lala -[id number] Scooby taylor [facility] 2018-08-21 2018-08-21 Emergency E [facility]FB [facility] [id number] [facility] 19:57:00 19:57:00 2018-08-17 2018-08-17 Emergency E DEANNE [facility] ECCNONEMER [id number] [place] 19:53:00 22:38:00 BRYAN [facility] [place] 2018-04-10 2018-04-10 Emergency E OPAL MARSH [facility] [id number] [place] 00:04:00 01:25:00 Medica [facility] 2017-12-24 2017-12-25 Emergency E SUNG [facility] [id number] [place] 21:08:00 00:55:00 MORENO [facility] Center 2017-11-28 2017-11-28 Emergency E MAXIMO, [facility] ECC [id number] [place] 14:16:00 14:53:00 BRITTNEY [facility] 2017-09-04 2017-09-04 Emergency E ANDIE MAE OM ECC 1000 [id number] [place] 01:25:00 02:54:00 Medica l Center 2017-07-19 2017-07-19 Outpatient C Markel GUY C OB [id number] [facility] 21:24:00 22:59:00 FUNSHO [facility] [place] 2017-07-03 2017-07-03 Emergency E AMILCAR RILEY [facility] ECC [id number] [place] 15:56:00 18:20:00 Medica [facility] [place] Results Test Description Test Time Test Comments Results Result Comments Source POCT TEST 2022-10-15 19:45:00 Test Item Value Reference Range Interpretation Comme nts POCT PREG (test code = 1605) Negative On board controls acceptable with C Line (test code = 3574) Yes POCT PREG LOT # (test code = 3575) [id number] POCT PREG TEST DATE (test code = 3576) 02-13-24 Lab Interpretation (test code = 87730-3) Normal [facility] [id number] 01:00:00 Test Item Value Reference Range Interpretation Comments POCT PREG (test code = 1605) negative On board controls acceptable with present C Line (test code = 3574) POCT PREG LOT # (test code = 3575) [id number] POCT PREG TEST DATE (test code = 3576) Lab Interpretation (test code = Normal 81963-4) [facility] [id number] 16:46:00 Test Item Value Reference Range Interpretation Comments POCT PREG (test code = 1605) NEGATIVE On board controls acceptable with PRESENT C Line (test code = 3574) POCT PREG LOT # (test code = 3575) [id number] POCT PREG TEST DATE (test 2023-10-08 code = 3576) Lab Interpretation (test code = Normal 14657-5) [facility] METABOLIC PANEL (14543)2022-06-23 16:14:43 Test Item Value Reference Range Interpretation Comments NA (test code = 140 mmol/L 135-145 8195726554) K (test code = 3.8 mmol/L 3.5-5.0 5214061628) CL (test code = 105 mmol/L 98-108 3665640059) CO2 TOTAL (test code = 21 mmol/L 23-31 L 7917529655) AGAP (test code = 14 2-16 6293490914) BUN (test code = 13 mg/dL 7-23 0476514314) GLUCOSE (test code = 120 mg/dL 70-110 H 7340520231) CREATININE (test code = 0.69 mg/dL 0.50-1.04 8589805731) TOTAL BILI (test code = 0.6 mg/dL 0.1-1.9 6479306971) CALCIUM (test code = 8.9 mg/dL 8.6-10.6 1842337224) T PROTEIN (test code = 7.8 g/dL 6.3-8.2 4578420185) ALBUMIN (test code = 4.4 g/dL 3.5-5.0 8165629460) ALK PHOS (test code = 80 U/L 34-122 5552725198) ALTv (test code = 25 U/L 5-35 1742-6) AST(SGOT) (test code = 25 U/L 13-40 5736923238) eGFR (test code = 101.3 mL/min/1.73m2 5968797673) JOHN (test code = JOHN) Association of Glomerular Filtration Rate (GFR) and Staging of Kidney Disease* + --+ --+ ------+| GFR (mL/min/1.73 m2) ?| With Kidney Damage ?| ?Without Kidney Damage+ --------+ --------+ +| ?>90 ?| ?Stage one ?| ? Normal ?+ ---+ ---+ -------+| ?60-89 ?| ?Stage two ?| ? Decreased GFR ? + --+ --+ ------+| ?30-59 ?| ?Stage three ?| ? Stage three ? + --+ --+ ------+| ?15-29 ?| ?Stage four ? | ? Stage four ?+ ---+ ---+ -------+| ?<15 (or dialysis) ? ?| ?Stage five ? | ? Stage five ?+ ---+ ---+ -------+ *Each stage assumes the associated GFR level has been in effect for at least three months. ?Stages 1 to 5, with or without kidney disease, indicate chronic kidney disease. Notes: Determination of stages one and two (with eGFR >59mL/min/1.73 m2) requires estimation of kidney damage for at least three months as defined by structural or functional abnormalities of the kidney, manifested by either:Pathological abnormalities or Markers of kidney damage (including abnormalities in the composition of the blood or urine or abnormalities in imaging tests). Lab Interpretation Abnormal (test code = 06978-6) [facility] Test Item Value Reference Range Interpretation Comments LIPASE (test code = 6625572786) 60 U/L 0-220 Lab Interpretation (test code = Normal 61529-4) [facility] WITH [id number] 16:00:42 Test Item Value Reference Range Interpretation Comments WBC (test code = 7.22 See_Comment [Automated 1990-2) message] The sy stem which generated this result transmitted reference range : 4.30 - 11.10 10*3/?L. The reference range was not used to interpret this result as normal/abnormal . RBC (test code = 4.32 See_Comment [Automated 019-8) message] The sy stem which generated this result transmitted reference range : 3.93 - 5.25 10*6/?L. The reference range was not used to interpret this result as normal/abnormal . HGB (test code = 14.8 g/dL 11.6-15.0 718-7) HCT (test code = 41.8 % 35.7-45.2 4544-3) MCV (test code = 96.8 fL 80.6-95.5 H 787-2) MCH (test code = 34.3 pg 25.9-32.8 H 785-6) MCHC (test code = 35.4 g/dL 31.6-35.1 H 786-4) RDW-SD (test code = 41.9 fL 39.0-49.9 19919-1) RDW-CV (test code = 11.8 % 12.0-15.5 L 788-0) PLT (test code = 271 See_Comment [Automated 777-3) message] The sy stem which generated this result transmitted reference range : 166 - 358 10*3/ ?L. The reference r bruce was not used to interpret this result as normal/abnormal . MPV (test code = 8.1 fL 9.5-12.9 L 62241-5) NRBC/100 WBC (test 0.0 See_Comment [Automat ed code = 4306693634) message] The system which generated this result transmitted reference range : 0.0 - 10.0 /100 WBCs. The refer ence range was not u sed to interpret th is result as normal/abnormal . NRBC x10^3 (test code See_Comment [Auto mated = 2113097063) message] The s ystem which generated this result transmitted reference range : 10*3/?L. The reference range was not used to interpret this result as normal/abnormal . GRAN MAT (NEUT) % 61.8 % (test code = 770-8) IMM GRAN % (test code 0.30 % = 4392575330) LYMPH % (test code = 30.6 % 736-9) MONO % (test code = 4.8 % 5905-5) EOS % (test code = 2.4 % 713-8) BASO % (test code = 0.1 % 706-2) GRAN MAT x10^3(ANC) 4.46 10*3/uL 1.88-7.09 (test code = 4105428113) IMM GRAN x10^3 (test 0.00-0.06 code = 3932296781) LYMPH x10^3 (test code 2.21 10*3/uL 1.32-3.29 = 731-0) MONO x10^3 (test code 0.35 10*3/uL 0.33-0.92 = 742-7) EOS x10^3 (test code = 0.17 10*3/uL 0.03-0.39 711-2) BASO x10^3 (test code 0.01-0.07 = 704-7) Lab Interpretation Abnormal (test code = 46663-3) [facility] [id number] 20:08:00 Test Item Value Reference Range Interpretation Comments Molecular Not Detected NotDetected Negative (Not Testing MM Detected) resul ts do (test code = not preclude COVIDNAAT) infectionwith SARS-CoV-2 viru s, and should not be t he sole basis of apatie nt management deci annamarie. Consider testin g for otherviruses if clinically indicated.The u se of this assay as a n In vitro diagnosti c under theA Emergenc y Use Authorization ( EUA) is limited tolabor atories that are certif ied under the ClinicalPullman Regional Hospitalt ory Improvement Carmen ndments of 1987 (CLIA), 42 U.S.C.263a, to perform high complexity tests. Molecular Nasopharyngeal Swab Testing MM (test code = COVIDSOURCEMM) Resident in Congregate Care Setting: UnknownEmployed in Healthcare: UnknownFirst Test: UnknownHospitalized: UnknownICU: UnknownDate of Symptom Onset: [id number]: UnknownReason for Testing: PUI -SymptomaticSource: Nasopharyngeal SwabSymptomatic as defined by CDC: ObhanygEikaynghpt0335-17-53 13:11:00 Test Item Value Reference Range Interpretation [...] Seen HPF None Seen Urine Source: Urine ByafbkGlgxoitbpp8258-94-01 13:11:00 Test Item Value Reference Range Interpretation [...] (test 1.027 1.002-1.036 N code = PREGUSG) Bediabuld0301-72-49 12:25:00 Test Item Value Reference Range Interpretation Comments Chemistry (test code = LIP) 10 U/L 8-78 N Color of Urine by Dunl1946-42-17 12:21:00 Test Item Value Reference Range Interpretation Comments Urine Color (test code = Light-Yellow Yellow 57294-1) [facility] clarity by refractometry tvsurqplk6899-37-89 12:21:00 Test Item Value Reference Range Interpretation Comments Urine Clarity (test code = 57306-6) Clear Clear [facility] pH measurement by automated test kwjgw1330-53-00 12:21:00 Test Item Value Reference Range Interpretation Comments Urine pH (test code = 14682-5) 6.0 5.0-9.0 [facility] leukocyte esterase detection by automated test fygbi4635-07-94 12:21:00 Test Item Value Reference Range Interpretation Comments Urine Leukocyte Esterase (test code 75 Janis/uL Negative = 65324-5) [facility]Presence[facility] in Urine by Test azzwj1881-62-06 12:21:00 Test Item Value Reference Range Interpretation Comments Urine Nitrite (test code = 5802-4) Negative Negative [facility] protein measurement by automated test strip (mass/volume)2022-01-14 12:21:00 Test Item Value Reference Range Interpretation Comments Urine Protein (test code = Negative mg/dL Neg-Trace 81850-9) [facility] Hospital[facility]ucose [Moles/volume] in Urine by Test strip 2022-01-14 12:21:00 Test Item Value Reference Range Interpretation Comments Urine Glucose (UA) (test code = Normal mg/dL Negative 94795-7) [facility] ketones measurement by automated test strip (mass/volume)2022-01-14 12:21:00 Test Item Value Reference Range Interpretation Comments Urine Ketones (test code = Negative mg/dL Negative 66005-1) [facility] urobilinogen measurement (units/volume) by test bybcx4234-25-31 12:21:00 Test Item Value Reference Range Interpretation Comments Urine Urobilinogen (test code = Normal mg/dL Less than 2 65671-1) [facility] total bilirubin detection by automated test oottk7269-64-16 12:21:00 Test Item Value Reference Range Interpretation Comments Urine Bilirubin (test code = Negative Negative 26116-1) [facility] hemoglobin detection by automated test strip 2022-01-14 12:21:00 Test Item Value Reference Range Interpretation Comments Urine Blood (test code = 90919-1) Negative Negative [facility] erythrocytes detection by automated method 2022-01-14 12:21:00 Test Item Value Reference Range Interpretation Comments Urine RBC (test code = 85652-0) 0-3 HPF 0-3 [facility] leukocytes detection by automated method 2022-01-14 12:21:00 Test Item Value Reference Range Interpretation Comments Urine WBC (test code = 12455-8) 0-3 HPF 0-3 [facility] cells.squamous [#/area] in Urine sediment by Automated vnudu0619-13-78 12:21:00 Test Item Value Reference Range Interpretation Comments Urine Squamous Epithelial Cells (test 0-3 HPF 0-3 code = 09472-6) [facility] detection by automated ijhbru0821-84-73 12:21:00 Test Item Value Reference Range Interpretation Comments Urine Bacteria (test code = None Seen HPF None Seen 35278-4) [facility]HC ur [id number] 12:21:00 Test Item Value Reference Range Interpretation Comments Urine Test (test code = Negative Negative 6-3) [facility] HospitalSpecific gravity of Urine by Refractometry automated 2022-01-14 12:21:00 Test Item Value Reference Range Interpretation Comments Urine Specific [place] (test code = 1.027 1.002-1.036 44459-4) [facility] HospitalChemistry - Nmoztmte7172-12-74 12:18:00 Test Item Value Reference Range Interpretation Comments Chemistry - Specials Negative NEGATIVE Method of sensitivity- (test code = BHCGST) Indeter minant: results should be repea stevan after 48-72 hrs Positive: resul ts may be detected as early as 1 day after the first missed me nses. Iprszbgkx3496-18-37 11:13:00 Test Item Value Reference Range Interpretation [...] EGFRCR) Estimated GFR: Greater than 90 mL/min/1.73 o0Tobicvfo eGFR is based on the CK D-EPI [...] code = 12 U/L 8-55 N ALT) Dparygbqtj5466-18-80 10:49:00 Test Item Value Reference Range Interpretation [...] code = BASO#) 0.0 thou/uL 0.0-0.2 N Lymphocytes/100 leukocytes in Blood by Automated yndqn4463-45-83 10:35:00 Test Item Value Reference Range Interpretation Comments Lymphocytes % (test code = 736-9) 26.7 % 21.0-51.0 [facility] HospitalAutomated blood monocytes/100 usidhhtzkw4513-74-38 10:35:00 Test Item Value Reference Range Interpretation Comments Monocytes % (test code = 5905-5) 4.9 % 0.0-10.0 [facility] eosinophils/100 mhfzxvoqth2150-50-74 10:35:00 Test Item Value Reference Range Interpretation Comments Eosinophils % (test code = 713-8) 1.7 % 0.0-10.0 [facility] basophils/100 hqavouvccs4185-84-99 10:35:00 Test Item Value Reference Range Interpretation Comments Basophils % (test code = 706-2) 0.6 % 0.0-1.0 [facility] neutrophils automated count (number/volume) 2022-01-14 10:35:00 Test Item Value Reference Range Interpretation Comments Neutrophils # (test code = 751-8) 5.5 thou/uL 1.40-6.50 [facility] HospitalLymphocytes [#/volume] in Blood by Automated count 2022-01-14 10:35:00 Test Item Value Reference Range Interpretation Comments Lymphocytes # (test code = 731-0) 2.2 thou/uL 1.20-3.40 [facility] automated count (number/volume) 2022-01-14 10:35:00 Test Item Value Reference Range Interpretation Comments Monocytes # (test code = 742-7) 0.4 thou/uL 0.11-0.59 [facility] Hospital[facility] eosinophils automated count (count/volume) 2022-01-14 10:35:00 Test Item Value Reference Range Interpretation Comments Eosinophils # (test code = 711-2) 0.1 thou/uL 0.0-0.7 [facility] blood basophil count (count/volume) 2022-01-14 10:35:00 Test Item Value Reference Range Interpretation Comments Basophils # (test code = 704-7) 0.0 thou/uL 0.0-0.2 [facility] or plasma sodium measurement (moles/volume) 2022-01-14 10:35:00 Test Item Value Reference Range Interpretation Comments Sodium Level (test code = 2951-2) 139 mmol/L 136-145 [facility] or plasma potassium measurement (moles/volume) 2022-01-14 10:35:00 Test Item Value Reference Range Interpretation Comments Potassium Level (test code = 3.9 mmol/L 3.5-5.1 2823-3) [facility] or plasma chloride measurement (moles/volume) 2022-01-14 10:35:00 Test Item Value Reference Range Interpretation Comments Chloride Level (test code = 108 mmol/L 98-107 2075-0) [facility] or plasma carbon dioxide, total measurement (moles/volume)2022-01-14 10:35:00 Test Item Value Reference Range Interpretation Comments Carbon Dioxide Level (test code = 22 mmol/L 22-29 2028-01) [facility] or plasma anion [id number] 10:35:00 Test Item Value Reference Range Interpretation Comments Anion Gap (test code = 57471-5) 13 mmol/L 10-20 [facility] or plasma urea nitrogen measurement (mass/volume)2022-01-14 10:35:00 Test Item Value Reference Range Interpretation Comments Blood Urea Nitrogen (test code = 14 mg/dL 7.0-18.7 3094-0) [facility] or plasma creatinine measurement (mass/volume) 2022-01-14 10:35:00 Test Item Value Reference Range Interpretation Comments Creatinine (test code = 2160-0) 0.81 mg/dL 0.6-1.1 [facility] rate/1.73 sq M.predicted [Volume Rate/Area] in Serum, Plasma [id number] 10:35:00 Test Item Value Reference Range Interpretation Comments Estimated GFR (CKD-EPI 2020) (test code 102 = 63834-4) [facility] HospitalGlucose [Mass/volume] in Serum or Tptvtc4315-98-08 10:35:00 Test Item Value Reference Range Interpretation Comments Glucose Level (test code = 2345-7) 105 mg/dL 70-105 [facility] or plasma calcium measurement (mass/volume) 2022-01-14 10:35:00 Test Item Value Reference Range Interpretation Comments Calcium Level (test code = 55279-3) 9.1 mg/dL 7.8-10.44 [facility] or plasma total bilirubin measurement (mass/volume)2022-01-14 10:35:00 Test Item Value Reference Range Interpretation Comments Total Bilirubin (test code = 0.6 mg/dL 0.2-1.2 1975-2) [facility] or plasma protein measurement (mass/volume) 2022-01-14 10:35:00 Test Item Value Reference Range Interpretation Comments Serum Total Protein (test code = 7.9 g/dL 6.0-8.3 2885-2) [facility] or plasma albumin measurement by bromocresol green (BCG) dye binding method ([id number] 10:35:00 Test Item Value Reference Range Interpretation Comments Albumin (test code = 65304-8) 4.3 g/dL 3.5-5.0 [facility] HospitalGlobulin [Mass/volume] in Serum by calculation 2022-01-14 10:35:00 Test Item Value Reference Range Interpretation Comments Globulin (test code = 33410-8) 3.6 g/dL 2.4-3.5 [facility] HospitalAlbumin/Globulin [Mass Ratio] in Serum or Plasma 2022-01-14 10:35:00 Test Item Value Reference Range Interpretation Comments Albumin/Globulin Ratio (test code = 1.2 g/dL 1.2-2.2 1759-0) [facility] HospitalAlkaline phosphatase [Enzymatic activity/volume] in Serum or Lmivsb6886-66-53 10:35:00 Test Item Value Reference Range Interpretation Comments Alkaline Phosphatase (test code = 82 U/L 40-110 6768-6) [facility] or plasma aspartate aminotransferase measurement (enzymatic activity/volume)2022-01-14 10:35:00 Test Item Value Reference Range Interpretation Comments Aspartate Amino Transf (AST/SGOT) 12 U/L 5-34 (test code = 1920-8) [facility] or plasma alanine aminotransferase measurement without P-5'-P (enzymatic oewxxz7939-45-14 10:35:00 Test Item Value Reference Range Interpretation Comments Alanine Aminotransferase (ALT/SGPT) 12 U/L 8-55 (test code = 1744-2) [facility] or plasma lipase measurement (enzymatic activity/volume)2022-01-14 10:35:00 Test Item Value Reference Range Interpretation Comments Lipase (test code = 3040-3) 10 U/L 8-78 [facility] human chorionic gonadotropin detection for cumzkrisc6302-11-50 10:35:00 Test Item Value Reference Range Interpretation Comments Serum Test, Qualitative Negative NEGATIVE (test code = 2118-8) [facility] HospitalLeukocytes [#/volume] in Blood by Automated count 2022-01-14 10:35:00 Test Item Value Reference Range Interpretation Comments White Blood Count (test code = 8.3 thou/uL 4.8-10.8 6690-2) [facility] erythrocytes automated count (number/volume) 2022-01-14 10:35:00 Test Item Value Reference Range Interpretation Comments Red Blood Count (test code = 4.15 mill/uL 4.20-5.40 789-8) [facility] hemoglobin measurement (mass/volume)2022-01-14 10:35:00 Test Item Value Reference Range Interpretation Comments Hemoglobin (test code = 718-7) 14.3 g/dL 12.0-16.0 [facility] HospitalAutom[facility] erythrocyte mean corpuscular volume 2022-01-14 10:35:00 Test Item Value Reference Range Interpretation Comments Mean Corpuscular Volume (test code = 100.0 fL 78.0-98.0 787-2) [facility] mean corpuscular hemoglobin (mass per erythrocyte)2022-01-14 10:35:00 Test Item Value Reference Range Interpretation Comments Mean Corpuscular Hemoglobin (test 34.5 pg 27.0-31.0 code = 785-6) [facility] mean corpuscular hemoglobin concentration measurement (mass/whu4308-78-44 10:35:00 Test Item Value Reference Range Interpretation Comments Mean Corpuscular Hemoglobin Concent 34.4 g/dL 32.0-36.0 (test code = 786-4) [facility] erythrocyte distribution width ratio 2022-01-14 10:35:00 Test Item Value Reference Range Interpretation Comments Red Cell Distribution Width (test code 10.4 % 11.5-14.5 = 788-0) [facility] blood platelet count (count/volume) 2022-01-14 10:35:00 Test Item Value Reference Range Interpretation Comments Platelet Count (test code = 293 thou/uL 130-400 777-3) [facility] blood platelet mean pnlmri0320-24-33 10:35:00 Test Item Value Reference Range Interpretation Comments Mean Platelet Volume (test code = 6.2 fL 7.4-10.4 79053-5) [facility] blood neutrophils/100 mkvkayvqnd2796-03-55 10:35:00 Test Item Value Reference Range Interpretation Comments Neutrophils % (test code = 770-8) 66.0 % 42.0-75.0 [facility] HospitalCOMPREHENSIVE METABOLIC SAMPSON *WW*2018-08-17 21:11:00 Test Item Value [...] = PGS) NEGATIVE NEGATIVE CBC (INCLUDES AUTOMATED DIFFERENTIAL)*[id number] 20:56:00 Test Item Value Reference Range Interpretation [...] (test code = NORMAL WRBCMOR) Molecular Testing [id number] 23:57:00 Test Item Value Reference Range Interpretation [...] lected or clinician colle cted),first void urine ([facility] specimen for maryanne benavides), and liquidbased pap [...] into the specimen * Source: VaginalReference Lab [id number] 14:15:00 Test Item Value Reference Range Interpretation Comments Reference Lab Testing . A Positi ve for Herpes (test code = HSVT) simplex v irus type-2. Typing wasconfi rmed by monoclonal anti body microscopicimmu nofluoresc ence.Performed at: [address] [id number] Director: Clyde Drummond MD, Phone: [phone] Reference Lab [id number] 17:10:00 Test Item Value Reference Range Interpretation Comments Reference Lab Negative Negative Testing (test code = CMR5DZY) Reference Lab Positive Negative A This test was developed and its Testing (test performance code = SOZ9XBT) characterist icsdetermined by [facility]raat oribridgette. It has not been cleare kenroy approved by the U.S. Food a nd Drug Administration. TheFDA has determined that such clearance or approval is notnecessary. This test is us ed for clinical purposes. Itsho uld not be regarded as inv estigational or research.Perfor med at: [address] [id number] Di hillary: Clyde Drummond MD, Ph one: [phone] HSV Source: SwabMolecular Testing [id number] 18:56:00 Test Item Value Reference Range Interpretation [...] specimen Source: VaginalVaginitis Panel 3 by DNA [id number] 08:37:00 Test Item Value Reference Range Interpretation Comments Vaginitis Panel 3 by DNA Probe VPIIICANDI (test code = VP3) Vaginitis Panel 3 by DNA Probe N (test code = VP31) Vaginitis Panel 3 by DNA Probe VPIIITRICH (test code = VP31) Pewregockd5985-69-74 02:06:00 Test Item Value Reference Range Interpretation Comments Urinalysis (test Negative Negative Method of s ensitivity- code = BHCGUT) INDETERMINANT : results should be repea stevan after 48-72 hrs POSI TIVE: results may be detected as early as 1 day after the first missed pe riod A dilute urine specimen may no t contain representativel evels of hCG.If pregnanc y is still suspected, a fi rst morning urinespecimen O R a random blood specimen should be obtainedfrom e patient 48-72 hours lat er and re-tested. Urinalysis (test 1.021 1.002-1.036 N code = PREGUSG) Comment add on bunjklCadwjdltha3259-90-38 23:39:00 Test Item Value Reference Range Interpretation [...] 0-3 Hyaline UACAST) Urine Source: Urine Clean KnkptCppndslxe2152-30-75 21:32:00 Test Item Value Reference Range Interpretation [...] code 14 U/L 8-55 N = ALT) Eqtzfzxpyy7361-39-39 21:07:00 Test Item Value Reference Range Interpretation [...] PORTABLE 2018-04-10 00:44:06Examination: Chest one viewLocation code: U3Mxlkfdfxot: NoneDiscussion:Clinical history is remarkable for chest pain. Cardiac silhouette is normal insize. No consolidation, effusion, or pneumothorax isappreciated. The osseousstructures are unremarkable.Impression:1. No acute abnormality. SERUM MONOCLONAL 2018-04-10 00:43:00 Test Item Value Reference Range Interpretation Comments PREG SRM (test code = PGS) NEGATIVE NEGATIVE CBC (INCLUDES AUTOMATED DIFFERENTIAL)*[id number] 00:35:00 Test Item Value Reference Range Interpretation [...] DETECTED NOT DETECTED TRACHOMATIS (test code = 73974971) NEISSERIA NOT DETECTED NOT DETECTED GONORRHOEAE (test code = 17192476) Endnote (test code This test was = 03959123) performed using the APTIMA COMBO2 Assay([employer]The ruba tical performance characteristics of thisassay, when used to test SurePat h specimens haveb een determined by [employer] [facility].AMADOR T PERFORMED AT:[facility] [id number] [place] [id number] HANNON M.D. URINE [id number] 09:33:00 Test Item Value Reference Range Interpretation Comments Culture Observations THREE OR MORE SPECIES (test code = COB1) OF BACTERIA ISOLATED. PROBABLE CONTAMINATION. Culture Observations IDENTIFICATION AND (test code = COB17) SUSCEPTIBILITY NOT INDICATED. RECOLLECTION RECOMMENDED WET [id number] 00:23:00 Test Item Value Reference Range Interpretation [...] DE5) ON DIRECT EXAM COMPREHENSIVE METABOLIC SAMPSON 2017-12-24 22:54:00 Test Item Value Reference Range Interpretation [...] = USPERM) /HPF NONE CBC (INCLUDES AUTOMATED DIFFERENTIAL)*[id number] 22:38:00 Test Item Value Reference Range Interpretation [...] WRBCMOR) U/S PELVIS*WW*2017-09-04 02:40:03ULTRASOUND OF THE PELVISLocation: [id number] HISTORY: pelvic pain history of recent /deliveryCOMPARISON: [...] DETECTED NOT DETECTED TRACHOMATIS (test code = 15875813) NEISSERIA NOT DETECTED NOT DETECTED GONORRHOEAE (test code = 73851338) Endnote (test code This test was = [id number]) performed using the APTIMA COMBO2 Assay([employer]The ruba tical performance characteristics of thisassay, when used to test SurePat h specimens haveb een determined by [employer].AMADOR T PERFORMED AT:[facility] [address] [id number] HANNON M.D. URINE [id number] 07:55:00 Test Item Value Reference Range Interpretation [...] = ug/mL S rif) DIRECT STREP GROUP [id number] 07:36:00 Test Item Value Reference Range Interpretation Comments Culture Observations NO BETA HEMOLYTIC (test code = COB1) STREPTOCOCCUS ISOLATED Direct Exam (test code NEGATIVE FOR STREP A = DE1) ANTIGEN WET [id number] 18:51:00 Test Item Value Reference Range Interpretation [...] = DE6) DIRECT INFLUENZA A AND B [id number] 17:05:00 Test Item Value Reference Range Interpretation Comments Direct Exam (test PRESUMPTIVE NEGATIVE FOR code = DE1) THE PRESENCE OF INFLUENZA ANTIGEN AMYLASE AND [id number] 17:02:00 Test Item Value Reference Range Interpretation Comments AMYLASE (test code = 10A) 64 U/L 28-100 LIPASE (test code = 60A) 83 IU/L 73-393 COMPREHENSIVE METABOLIC [id number] 17:02:00 Test Item Value Reference Range Interpretation [...] (test code = 31A) 13 IU/L <=78 [id number] 16:55:00 Test Item Value Reference Range Interpretation Comments MAGNESIUM (test code = 48A) 1.9 mg/dL 1.8-2.4 URINALYSIS WITH [id number] 16:51:00 Test Item Value Reference Range Interpretation [...]
--- NOTE | 2022-12-23 11:49 | RAD REPORT ---
EXAM DESCRIPTION: RAD - Chest Pa And Lat (2 Views) - 12/23/2022 11:44 am CLINICAL HISTORY: COUGH COMPARISON: No comparisons TECHNIQUE: PA and lateral views of the chest were obtained. FINDINGS: The lungs are clear. Heart size is normal and central vasculature is within normal limits. No pleural effusion or pneumothorax seen. No acute bony finding noted. IMPRESSION: No acute cardiopulmonary process.
[2022-12-23 12:08] LABS: Absolute Lymphocytes (CBC) 2.2 K/uL (0.7-4.9); Lymphocytes % 27.5 % (15.3-44.8); MCV 97.9 fL (80-100); MPV 6.3 fL (7.6-11.3); Platelets 282 thou/uL (152-406); RBC Red Blood Cell Count 4.08 M/uL (3.86-4.86)
[2022-12-23] MEDS ORDERED: NA CHLORIDE 0.9% 1,000 ML ONE (12:12)
[2022-12-23 12:26] LABS: SARS-CoV-2 Antigen Rapid Res Negative (Negative)
[2022-12-23 12:27] LABS: Albumin 3.6 g/dL (3.4-5.0); Bilirubin Total 0.4 mg/dL (0.2-1.0); Potassium 3.7 mEq/L (3.5-5.1); Protein, Total 7.7 g/dL (6.4-8.2)
[2022-12-23 13:00] LABS: Specific Gravity 1.013 (1.005-1.030)
[2022-12-23 13:02] LABS: Specific Gravity 1.013 (1.005-1.030); Urine Bacteria <20 /HPF (<20); Urine Bilirubin NEGATIVE (Negative); Urine Blood 2+ (Negative); Urine Clarity Extremely Turbid (Clear); Urine Color Light-Yellow (Yellow); Urine Glucose NEGATIVE (Negative); Urine Mucus Slight /HPF (None Seen); Urine Protein NEGATIVE (Negative); Urine RBC <5 /HPF (None Seen); Urine Urobilinogen Normal (Normal)
--- NOTE | 2022-12-23 13:24 | ER ---
Nurse's Notes [facility] Name: Sony Major Age: 27 yrs Sex: Female : 1995 Arrival Date: 12/23/2022 Time: 10:46 Bed 15 Private MD: Diagnosis: Dysuria;UTI/ Urinary tract infection, site not specified;Cough Presentation: 12/23 10:58 Chief complaint: Patient states: 2 DAYS DYSPNEA AND NAUSEA/VOMITING. Coronavirus mb9 screen: At this time, the client does not indicate any symptoms associated with coronavirus-19. Ebola Screen: No symptoms or risks identified at this time. Initial Sepsis Screen: Does the patient meet any 2 criteria? No. Patient's initial sepsis screen is negative. Does the patient have a suspected source of infection? No. Patient's initial sepsis screen is negative. Risk Assessment: Do you want to hurt yourself or someone else? Patient reports no desire to harm self or others. Onset of symptoms is unknown. 10:58 Method Of Arrival: Ambulatory mb9 10:58 Acuity: VINNIE 3 mb9 Triage Assessment: 10:59 General: Appears in no apparent distress. Behavior is calm, cooperative, appropriate mb9 for age. Pain: Denies pain. EENT: No deficits noted. Neuro: No deficits noted. Cardiovascular: No deficits noted. Respiratory: Reports shortness of breath cough that is Onset: The symptoms/episode began/occurred at an unknown time. the patient has mild shortness of breath. GI: Reports nausea, vomiting. : No signs and/or symptoms were reported regarding the genitourinary system. Derm: No deficits noted. Musculoskeletal: No deficits noted. 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 - Social history:: Smoking status: Patient denies any tobacco usage or history of. Screenin:50 [facility] ED Fall Risk Assessment (Adult) History of falling in the last 3 months, ko1 including since admission No falls in past 3 months (0 pts) Confusion or Disorientation No (0 pts) Intoxicated or Sedated No (0 pts) Impaired Gait No (0 pts) Mobility Assist Device Used No (0 pt) Altered Elimination No (0 pt) Score/Fall Risk Level 0 - 2 = Low Risk Oriented to surroundings, Maintained a safe environment, Educated pt \T\ family on fall prevention, incl call for assistance when getting out of bed, Assessed \T\ reinforced patient's understanding of fall precautions, Provided non-skid footwear, Hourly rounding (assess needs \T\ fall precautionary measures) done, Used ambulatory aids as needed (educated on \T\ assisted with), Used gait belt as appropriate. Abuse screen: Denies threats or abuse. Denies injuries from another. Nutritional screening: No deficits noted. Tuberculosis screening: No symptoms or risk factors identified. Assessment: 10:50 Neuro: No deficits noted. Cardiovascular: Rhythm is sinus rhythm. Respiratory: Airway ko1 is patent Respiratory effort is even, unlabored, Breath sounds are clear bilaterally. GI: Reports nausea. : No deficits noted. EENT: No deficits noted. Derm: No deficits noted. Musculoskeletal: No deficits noted. Vital Signs: 10:58 BP 120 / 90; Pulse 89; Resp 16; Temp 98; Pulse Ox 99% ; Weight 72.57 kg; Height 5 ft. 1 mb9 in. ; 13:31 BP 118 / 82; Pulse 82; Resp 16; Pulse Ox 99% on R/A; ko1 10:58 Body Mass Index 30.23 (72.57 kg, 154.94 cm) mb9 ED Course: 10:48 Patient arrived in ED. ts1 10:50 Patient has correct armband on for positive identification. Bed in low position. Call ko1 light in reach. Side rails up X 1. Provided Education on: NA. Pulse ox on. NIBP on. Door closed. Noise minimized. Lights dimmed. Warm blanket given. 10:57 Dev Austin MD is Attending Physician. zeeshan 10:59 Triage completed. mb9 10:59 Arm band placed on. mb9 11:37 Gisela Lerma, GUICHO is Primary Nurse. ko1 11:45 Chest Pa And Lat (2 Views) XRAY In Process Unspecified. EDMS 11:55 Inserted saline lock: 20 gauge in right antecubital area, using aseptic technique. ko1 Blood collected. 11:59 SARS RAPID Sent. ko1 11:59 Flu Sent. ko1 11:59 Comprehensive Metabolic Panel Sent. ko1 11:59 CBC with Diff Sent. ko1 13:31 No provider procedures requiring assistance completed. IV discontinued, intact, ko1 bleeding controlled, No redness/swelling at site. Pressure dressing applied. Administered Medications: 12:01 Drug: NS 0.9% IV 1000 ml Route: IV; Rate: 1 bolus; Site: right antecubital; ko1 13:03 Follow up: IV Status: Completed infusion; IV Intake: 1000ml ko1 13:23 Drug: Rocephin IV 1 grams Route: IV; Rate: per protocol; Site: right antecubital; ko1 13:38 Follow up: Response: No adverse reaction; IV Status: Completed infusion; IV Intake: [id number] Medication: 13:31 VIS not applicable for this client. ko1 Intake: 13:03 IV: 1000ml; Total: 1000ml. ko1 13:38 IV: 20ml; Total: 1020ml. ko1 Outcome: 13:23 Discharge ordered by . zeeshan 13:31 Discharged to home ambulatory. ko1 13:31 Condition: good 13:31 Discharge instructions given to patient, Instructed on discharge instructions, follow up and referral plans. medication usage, Demonstrated understanding of instructions, follow-up care, medications, Prescriptions given X 2. 13:41 Patient left the ED. ko1 Signatures: Dispatcher [employer] EDDev Gutierrez MD MD cha Oliver, Kathy, RN RN ko1 Charla Cronin RN RN mb9 Halina Perales, NEO PAS ts1
--- NOTE | 2022-12-23 13:24 | EDPHYS ---
Physician Documentation [facility] Name: Sony Major Age: 27 yrs Sex: Female : 1995 Arrival Date: 12/23/2022 Time: 10:46 Bed 15 Private MD: ED Physician Dev Austin HPI: 12/23 13:16 This 27 yrs old Female presents to ER via Ambulatory with complaints of zeeshan Shortness Of Breath, Urinary Frequency, Chest Pain. 13:16 The patient has shortness of breath at rest, with light activity. Onset: The zeeshan symptoms/episode began/occurred 2 day(s) ago. Duration: The symptoms are continuous, and are unchanged since they started. The patient's shortness of breath is aggravated by nothing, is alleviated by nothing. Associated signs and symptoms: Pertinent positives: non-productive cough, nausea. Severity of symptoms: At their worst the symptoms were mild in the emergency department the symptoms are unchanged. The patient has not experienced similar symptoms in the past. 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 - Social history:: Smoking status: Patient denies any tobacco usage or history of. ROS: 13:17 Constitutional: Negative for fever, chills, and weight loss, Eyes: Negative for injury, zeeshan pain, redness, and discharge, ENT: Negative for injury, pain, and discharge, Neck: Negative for injury, pain, and swelling, Cardiovascular: Negative for chest pain, palpitations, and edema, Abdomen/GI: Negative for abdominal pain, nausea, vomiting, diarrhea, and constipation, Back: Negative for injury and pain, MS/Extremity: Negative for injury and deformity, Skin: Negative for injury, rash, and discoloration, Neuro: Negative for headache, weakness, numbness, tingling, and seizure, Psych: Negative for depression, anxiety, suicide ideation, homicidal ideation, and hallucinations, Allergy/Immunology: Negative for hives, rash, and allergies, Endocrine: Negative for neck swelling, polydipsia, polyuria, polyphagia, and marked weight changes, Hematologic/Lymphatic: Negative for swollen nodes, abnormal bleeding, and unusual bruising. 13:17 Respiratory: Positive for cough, with no reported sputum. 13:17 : Positive for urinary frequency, burning with urination, difficulty urinating. Exam: 13:17 Constitutional: This is a well developed, well nourished patient who is awake, alert, zeeshan and in no acute distress. Head/Face: Normocephalic, atraumatic. Eyes: Pupils equal round and reactive to light, extra-ocular motions intact. Lids and lashes normal. Conjunctiva and sclera are non-icteric and not injected. Cornea within normal limits. Periorbital areas with no swelling, redness, or edema. ENT: Nares patent. No nasal discharge, no septal abnormalities noted. Tympanic membranes are normal and external auditory canals are clear. Oropharynx with no redness, swelling, or masses, exudates, or evidence of obstruction, uvula midline. Mucous membranes moist. Neck: Trachea midline, no thyromegaly or masses palpated, and no cervical lymphadenopathy. Supple, full range of motion without nuchal rigidity, or vertebral point tenderness. No Meningismus. Chest/axilla: Normal chest wall appearance and motion. Nontender with no deformity. No lesions are appreciated. Cardiovascular: Regular rate and rhythm with a normal S1 and S2. No gallops, murmurs, or rubs. Normal PMI, no JVD. No pulse deficits. Respiratory: Lungs have equal breath sounds bilaterally, clear to auscultation and percussion. No rales, rhonchi or wheezes noted. No increased work of breathing, no retractions or nasal flaring. Abdomen/GI: Soft, non-tender, with normal bowel sounds. No distension or tympany. No guarding or rebound. No evidence of tenderness throughout. Back: No spinal tenderness. No costovertebral tenderness. Full range of motion. Skin: Warm, dry with normal turgor. Normal color with no rashes, no lesions, and no evidence of cellulitis. MS/ Extremity: Pulses equal, no cyanosis. Neurovascular intact. Full, normal range of motion. Neuro: Awake and alert, GCS 15, oriented to person, place, time, and situation. Cranial nerves II-XII grossly intact. Motor strength 5/5 in all extremities. Sensory grossly intact. Cerebellar exam normal. Normal gait. Psych: Awake, alert, with orientation to person, place and time. Behavior, mood, and affect are within normal limits. Vital Signs: 10:58 BP 120 / 90; Pulse 89; Resp 16; Temp 98; Pulse Ox 99% ; Weight 72.57 kg; Height 5 ft. 1 mb9 in. ; 13:31 BP 118 / 82; Pulse 82; Resp 16; Pulse Ox 99% on R/A; ko1 10:58 Body Mass Index 30.23 (72.57 kg, 154.94 cm) 9 MDM: 10:57 Patient medically screened. [facility] 13:19 Differential diagnosis: urinary tract infection, pneumonia, reactive airway disease. [facility] Antibiotic administration: The patient is discharged and will get outpatient antibiotics, keflex. Immunization status:. Data reviewed: vital signs, nurses notes, lab test result(s), radiologic studies, plain films. Consideration of Admission/Observation Escalation of care including admission/observation considered. I considered the following discharge prescriptions or medication management in the emergency department Medications were administered in the Emergency Department. See MAR. Test considered but Not performed: CT: no ct stone. Historians other than the Patient: patient. Care significantly affected by the following chronic conditions: asthma. Counseling: I had a detailed discussion with the patient and/or guardian regarding: the historical points, exam findings, and any diagnostic results supporting the discharge/admit diagnosis, lab results, radiology results, the need for outpatient follow up, for definitive care, a family practitioner. 12/23 11:32 Order name: CBC with Diff; Complete Time: 13:15 [facility] 12/23 11:32 Order name: Comprehensive Metabolic Panel; Complete Time: 13:15 [facility] 12/23 11:32 Order name: Urinalysis w/ reflexes; Complete Time: 13:15 [facility] 12/23 11:32 Order name: PREGU; Complete Time: 13:15 [facility] 12/23 11:32 Order name: Flu; Complete Time: 13:15 [facility] 12/23 11:32 Order name: SARS RAPID; Complete Time: 13:15 [facility] 12/23 11:32 Order name: Chest Pa And Lat (2 Views) XRAY; Complete Time: 12:01 [facility] Administered Medications: 12:01 Drug: NS 0.9% IV 1000 ml Route: IV; Rate: 1 bolus; Site: right antecubital; ko1 13:03 Follow up: IV Status: Completed infusion; IV Intake: 1000ml ko1 13:23 Drug: Rocephin IV 1 grams Route: IV; Rate: per protocol; Site: right antecubital; ko1 13:38 Follow up: Response: No adverse reaction; IV Status: Completed infusion; IV Intake: [id number] Disposition Summary: 12/23/22 13:23 Discharge Ordered Location: Home zeeshan Problem: new zeeshan Symptoms: have improved zeeshan Condition: Stable zeeshan Diagnosis - Dysuria zeeshan - UTI/ Urinary tract infection, site not specified zeeshan - Cough zeeshan Followup: zeeshan - With: Private Physician - When: 2 - 3 days - Reason: Recheck today's complaints, Continuance of care, Re-evaluation by your physician Discharge Instructions: - Discharge Summary Sheet zeeshan - Dysuria zeesahn - Upper Respiratory Infection, Adult zeeshan - Urinary Tract Infection, Adult zeeshan - Urinary Tract Infection, Adult, [id number] Forms: - Medication Reconciliation Form zeeshan - Thank You Letter zeeshan - Antibiotic Education zeeshan - Prescription Opioid Use zeeshan - Patient Portal Instructions zeeshan - Leadership Thank You Letter zeeshan - Work release form ko1 Prescriptions: - Cephalexin 500 mg Oral Capsule - take 1 capsule by ORAL route every 6 hours for 7 days; 28 capsule; Refills: 0, zeeshan Product Selection Permitted - Pyridium 200 mg Oral Tablet - take 1 tablet by ORAL route every 8 hours for 3 days; 9 tablet; Refills: 0, zeeshan Product Selection Permitted Signatures: Dispatcher [employer] Dev Fried MD MD cha Oliver, Kathy, RN RN ko1 Charla Cronin RN RN mb9
[2022-12-23] MEDS ORDERED: CEFTRIAXONE 1000 MG/VIAL ONE (13:32)
[2022-12-23 14:11] VITALS: TEMP 98; O2SAT 99
[2022-12-23 14:12] VITALS: BP 118/82
== END 2022-12-23 13:41 | disposition home or self-care (01) ==
LOC: ER 10:46
DX: N39.0 Urinary tract infection, site not specified (principal); R05.9 Cough, unspecified; Z20.822 Contact with and (suspected) exposure to COVID-19
CPT/HCPCS: 36415; 71046; 80053; 81001; 81025; 85025; 87804; 87811; J0696; J7030

== ENCOUNTER 2023-01-23 11:10 | Emergency (ER) | payer SELFPAY ==
--- OUTSIDE RECORDS SUMMARY | 2023-01-23 11:17 | XMS REPORT | Continuity of Care Document ---
:1995 Author Organization [facility] t Address [address] [facility] [address] [place] [address] Care Team Providers Name Role Phone STEPHANIE [...] Unknown, Attending Attending Clinician Unavailable Doctor Unassigned, Frank Attending Clinician Unavailable Linette Montes De Oca [...] Effective Date Expiration Date Shawn [employer] [id number] 2022 OUT OF NETWORK 00:00:00 MEDICAID PENDING PENDING 2022 00:00:00 [facility] [id number] 2019 00:00:00 Problems Condition Condition Condition Status Onset Resolution Last Treating Co mments Source Name Details Category Date Date Treatment Clinician Date Bilateral Bilateral Disease Active Uni vers ovarian ovarian 2-27 ity of cysts cysts 00:00: [place] 00 [facility] Branch Menorrhagi Menorrhagi Disease Active U nivers a with a with 2-27 ity of irregular irregular 00:00: [place] cycle cycle Medical Branch Depo-Prove Depo-Prove Disease Active U nivers ra ra 2-27 [place] janie status 00 [facility] On oral On oral Disease Active Univers [...] 2-27 it y of adult adult 00:00: [place] [facility] Screening Screening Disease Active Uni vers for for 2-27 [place] of endocrine[place] endocrine, [place] metabolic metabolic 00 [facility] [place] immunity immunity disorder disorder Follow-up Follow-up Disease Active Uni vers exam exam 2-15 ity of 00:00: [place] [facility] Constipati Constipati Disease Active U nivers on, on, 2-15 ity of unspecifie unspecifie [place] 00 Medical constipati constipati Br anch on type on type PCOS PCOS Disease Active Univers (polycysti (polycysti 2-15 it y of c ovarian c ovarian 00:00: [place] syndrome) syndrome) 00 [facility] Irregular Irregular Disease Active Uni vers periods periods 2-15 ity of 00:00: [place] [facility] Bladder Bladder Disease Active Univers adhesions adhesions 2-15 ity of 00:00: [place] [facility] Lower Lower Disease Active Univers abdominal abdominal 2-15 ity of pain pain 00:00: [place] [facility] Abnormal Abnormal Disease Active Unive rs [...] different from the original. 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 Disease?No Health Mother Family Congenital [facility] Heart Disease?No Health Mother Family Myocardial [facility] Infarction?No Health Mother Family Stroke?No [facility] Health Mother Family Diabetes?No [place] [facility] Mother Family Colorectal [facility] Cancer?No Health Social History Social Habit Start Date Stop Date Quantity Comments Source History of [place] tobacco use [facility] Alcohol intake 2022-10-15 2022-10-15 Current University of 00:00:00 00:00:00 non-drinker of [facility] alcohol (finding) Branch Exposure to 2022-08-25 2022-09-04 Not sure [facility] SARS-CoV-2 00:00:00 14:03:00 [place] [facility] (event) Branch Tobacco use and 2022-06-24 2022-06-24 Smokeless tobacco Un iversity of exposure 00:00:00 00:00:00 non-user [facility] [place] Sex Ass[birth year] At [birth year] Universit y of 00:00:00 00:00:00 [facility] [place] Smoking Status Start Date Stop Date Source Never smoked tobacco [facility] Medications Ordered Filled Start Stop Current Ordering Indication Dosage Frequency Signature Comments Components Source Medication Medication Date Date Medication? Clinician (SIG) Name Name naproxen Yes [id number] 550mg Take 1 Univers sodium 7- 9109 tablet by ity of (ANAPROX 00:00: mouth in [facility]) 550 mg 00 the Medical tablet morning Branch and 1 tablet in the evening. Take with meals. ondansetron Yes [id number] 4mg Take 1 Univers 4 mg 6-08 tablet by ity of disintegrat 00:00: mouth [place] ing tablet 00 every 8 Medica l (eight) Branch hours as needed for Nausea and Vomiting (N/V). ondansetron Yes [id number] 4mg Take 1 Univers 4 mg 6-08 tablet by ity of disintegrat 00:00: mouth [place] ing tablet 00 every 8 Medica l (eight) Branch hours as needed for Nausea and Vomiting (N/V). cefdinir 2022- No [id number] 300mg Take 1 U nivers 300 mg 10-15 06-19 capsule by ity of capsule 00:00: 04:59 mouth [place] 00 :00 every 12 Medical (twelve) Branch hours for 10 days. benzonatate 0 Yes [id number] 100mg Take 1 Univers 100 mg 3-24 capsule by ity of capsule 00:00: mouth [place] 00 every 8 Medical (eight) Branch hours as needed for Cough. benzonatate 2022-0 Yes [id number] 100mg Take 1 Univers 100 mg 3-24 capsule by ity of capsule 00:00: mouth [place] 00 every 8 Medical (eight) Branch hours as needed for Cough. benzonatate 2023-0 Yes [id number] 100mg Take 1 Univers 100 mg 3-24 capsule by ity of capsule 00:00: mouth [place] 00 every 8 Medical (eight) Branch hours as needed for Cough. benzonatate 2023-0 Yes [id number] 100mg Take 1 Univers 100 mg 3-24 capsule by ity of capsule 00:00: mouth [place] 00 every 8 Medical (eight) Branch hours as needed for Cough. benzonatate 2023-0 Yes [id number] 100mg Take 1 Univers 100 mg 3-24 capsule by ity of capsule 00:00: mouth [place] 00 every 8 Medical (eight) Branch hours as needed for Cough. benzonatate 2023-0 Yes [id number] 100mg Take 1 Univers 100 mg 3-24 capsule by ity of capsule 00:00: mouth [place] 00 every 8 Medical (eight) Branch hours as needed for Cough. Methylpredn 2023-0 2023- No [id number] 4mg Take 1 Univers isolone 4 3-24 03-30 tablet by ity of mg tablet 00:00: 04:59 mouth [place] 00 :00 every 12 Medical (twelve) Branch hours for 5 days. Methylpredn 2023-0 2023- No [id number] 4mg Take 1 Univers isolone 4 3-24 [...] OR WITHOUT Branch WATER tiZANidine 2023-0 Yes [id number] 2mg Take 1 U nivers 2 mg tablet 2-21 tablet by ity of 00:00: mouth [place] 00 every 8 Medical (eight) Branch hours as needed for Pain (scale 4-6). tiZANidine 2023-0 Yes [id number] 2mg Take 1 U nivers 2 mg tablet 2-21 tablet by ity of 00:00: mouth [place] 00 every 8 Medical (eight) Branch hours as needed for Pain (scale 4-6). tiZANidine 2023-0 Yes [id number] 2mg Take 1 U nivers 2 mg tablet 2-21 tablet by ity of 00:00: mouth [place] 00 every 8 Medical (eight) Branch hours as needed for Pain (scale 4-6). tiZANidine 2023-0 Yes [id number] 2mg Take 1 U nivers 2 mg tablet 2-21 tablet by ity of 00:00: mouth [place] 00 every 8 Medical (eight) Branch hours as needed for Pain (scale 4-6). tiZANidine 2023-0 Yes [id number] 2mg Take 1 U nivers 2 mg tablet 2-21 tablet by ity of 00:00: mouth [place] 00 every 8 Medical (eight) Branch hours as needed for Pain (scale 4-6). tiZANidine 2023-0 Yes [id number] 2mg Take 1 U nivers 2 mg tablet 2-21 tablet by ity of 00:00: mouth [place] 00 every 8 Medical (eight) Branch hours as needed for Pain (scale 4-6). tiZANidine 2023-0 Yes [id number] 2mg Take 1 U nivers 2 mg tablet 2-21 tablet by ity of 00:00: mouth [place] 00 every 8 Medical (eight) Branch hours as needed for Pain (scale 4-6). tiZANidine 2023-0 Yes [id number] 2mg Take 1 U nivers 2 mg tablet 2-21 tablet by ity of 00:00: mouth [place] 00 every 8 Medical (eight) Branch hours as needed for Pain (scale 4-6). tiZANidine 2023-0 Yes [id number] 2mg Take 1 U nivers 2 mg tablet 2-21 tablet by ity of 00:00: mouth [place] 00 every 8 Medical (eight) Branch hours as needed for Pain (scale 4-6). tiZANidine 2023-0 Yes [id number] 2mg Take 1 U nivers 2 mg tablet 2-21 tablet by ity of 00:00: mouth [place] 00 every 8 Medical (eight) Branch hours as needed for Pain (scale 4-6). tiZANidine 2023-0 Yes [id number] 2mg Take 1 U nivers 2 mg tablet 2-21 tablet by ity of 00:00: mouth [place] 00 every 8 Medical (eight) Branch hours as needed for Pain (scale 4-6). tiZANidine 3-0 Yes [id number] 2mg Take 1 U nivers 2 mg tablet 2-21 tablet by ity of 00:00: mouth [place] 00 every 8 Medical (eight) Branch hours as needed for Pain (scale 4-6). tiZANidine 3-0 Yes [id number] 2mg Take 1 U nivers 2 mg tablet 2-21 tablet by ity of 00:00: mouth [place] 00 every 8 Medical (eight) Branch hours as needed for Pain (scale 4-6). tiZANidine 3-0 Yes [id number] 2mg Take 1 U nivers 2 mg tablet 2-21 tablet by ity of 00:00: mouth [place] 00 every 8 Medical (eight) Branch hours as needed for Pain (scale 4-6). hydrOXYzine 2022-0 Yes TAKE 1 TO U nivers 25 mg 2-16 2 TABLETS ity of tablet 00:00: BY [facility] AT BANNERTIME Medical Branch hydrOXYzine 2022-0 Yes TAKE 1 TO U nivers 25 mg 2-16 2 TABLETS ity of tablet 00:00: BY MOUTH [place] AT BANNERTIME Medical Branch hydrOXYzine 2022-0 Yes TAKE 1 TO U nivers 25 mg 2-16 2 TABLETS ity of tablet 00:00: BY MOUTH [place] AT BEDTIME Medical Branch QUEtiapine 2022-0 Yes 25mg Take 1 Unive rs 25 mg 2-16 tablet by ity of tablet 00:00: mouth at [place] 00 bedtime. Medical Branch hydrOXYzine 2022-0 Yes TAKE 1 TO U nivers 25 mg 2-16 2 TABLETS ity of tablet 00:00: BY MOUTH [place] AT BEDTIME Medical Branch QUEtiapine 3-0 Yes 25mg Take 1 Unive rs 25 mg 2-16 tablet by ity of tablet 00:00: mouth at [place] [address] bedtime. Medical Branch hydrOXYzine 3-0 Yes TAKE 1 TO U nivers 25 mg 2-16 2 TABLETS ity of tablet 00:00: BY MOUTH [place] AT BEDTIME Medical Branch QUEtiapine 3-0 Yes 25mg Take 1 Unive rs 25 mg 2-16 tablet by ity of tablet 00:00: mouth at [place] [address] bedtime. Medical Branch hydrOXYzine 3-0 Yes TAKE 1 TO U nivers 25 mg 2-16 2 TABLETS ity of tablet 00:00: BY MOUTH [place] AT BEDTIME Medical Branch QUEtiapine 3-0 Yes 25mg Take 1 Unive rs 25 mg 2-16 tablet by ity of tablet 00:00: mouth at [place] [address] bedtime. Medical Branch hydrOXYzine 2022-0 Yes TAKE 1 TO U nivers 25 mg 2-16 2 TABLETS ity of tablet 00:00: BY MOUTH [place] AT BEDTIME Medical Branch QUEtiapine 3-0 Yes 25mg Take 1 Unive rs 25 mg 2-16 tablet by ity of tablet 00:00: mouth at [place] [address] bedtime. Medical Branch hydrOXYzine 3-0 Yes TAKE 1 TO U nivers 25 mg 2-16 2 TABLETS ity of tablet 00:00: BY MOUTH [place] [address] AT BEDTIME Medical Branch QUEtiapine 3-0 Yes 25mg Take 1 Unive rs 25 mg 2-16 tablet by ity of tablet 00:00: mouth at [place] [address] bedtime. Medical Branch hydrOXYzine 3-0 Yes TAKE 1 TO U nivers 25 mg 2-16 2 TABLETS ity of tablet 00:00: BY MOUTH [place] [address] AT BEDTIME Medical Branch QUEtiapine 3-0 Yes 25mg Take 1 Unive rs 25 mg 2-16 tablet by ity of tablet 00:00: mouth at [place] [address] bedtime. Medical Branch hydrOXYzine 3-0 Yes TAKE 1 TO U nivers 25 mg 2-16 2 TABLETS ity of tablet 00:00: BY MOUTH [place] [address] AT BEDTIME Medical Branch QUEtiapine 2023-0 Yes 25mg Take 1 Unive rs 25 mg 2-16 tablet by ity of tablet 00:00: mouth at [place] [address] bedtime. Medical Branch hydrOXYzine 3-0 Yes TAKE 1 TO U nivers 25 mg 2-16 2 TABLETS ity of tablet 00:00: BY MOUTH [place] 00 AT BEDTIME Medical Branch QUEtiapine 2022-0 Yes 25mg Take 1 Unive rs 25 mg 2-16 tablet by ity of tablet 00:00: mouth at [place] [address] bedtime. Medical Branch hydrOXYzine 0 Yes TAKE 1 TO U nivers 25 mg 2-16 2 TABLETS ity of tablet 00:00: BY MOUTH [place] 00 AT BEDTIME Medical Branch QUEtiapine 2022-0 Yes 25mg Take 1 Unive rs 25 mg 2-16 tablet by ity of tablet 00:00: mouth at [place] [address] bedtime. Medical Branch tiZANidine Yes [id number] 2mg Take 1 U nivers 2 mg tablet 2-15 tablet by ity of 00:00: mouth [place] 00 every 6 Medical (six) Branch hours as needed for Pain (scale 4-6). tiZANidine 2022- Yes [id number] 2mg Take 1 U nivers 2 mg tablet 2-15 tablet by ity of 00:00: mouth [place] [address] every 6 Medical (six) Branch hours as needed for Pain (scale 4-6). tiZANidine 2022- No [id number] 2mg Take 1 Univers 2 mg tablet 2-15 -21 tablet by it y of 00:00: 00:00 mouth [place] 00 :00 every 6 Medical (six) Branch hours as needed for Pain (scale 4-6). iopamidol 2022- No [id number] 100mL 100 mL, Univers (ISOVUE 06-23 Intravenou [...] 06/23/22 at 0930, VINEET ondansetron 2023-0 Yes [id number] 4mg Take 1 Univers 4 mg 2-14 tablet by ity of disintegrat 00:00: mouth [place] ing tablet 00 every 12 Medic al (twelve) Branch hours as needed for Nausea and Vomiting (N/V). ibuprofen 3-0 Yes [id number] 800mg Take 1 U nivers 800 mg 2-14 tablet by ity of tablet 00:00: mouth [place] 00 every 8 Medical (eight) Branch hours as needed for Pain (scale 4-6). dicyclomine 2023-0 Yes [id number] 20mg Take 1 Univers 20 mg 2-14 tablet by ity of tablet 00:00: mouth 4 00 (four) Medical times Branch daily as needed for Abdominal pain. ondansetron 3-0 Yes [id number] 4mg Take 1 Univers 4 mg 2-14 tablet by ity of disintegrat 00:00: mouth [place] ing tablet 00 every 12 Medic al (twelve) Branch hours as needed for Nausea and Vomiting (N/V). ibuprofen 3-0 Yes [id number] 800mg Take 1 U nivers 800 mg 2-14 tablet by ity of tablet 00:00: mouth [place] 00 every 8 Medical (eight) Branch hours as needed for Pain (scale 4-6). dicyclomine 2023-0 Yes [id number] 20mg Take 1 Univers 20 mg 2-14 tablet by ity of tablet 00:00: mouth 4 [place] 00 (four) Medical times Branch daily as needed for Abdominal pain. ondansetron 2023-0 Yes [id number] 4mg Take 1 Univers 4 mg 2-14 tablet by ity of disintegrat 00:00: mouth [place] ing tablet 00 every 12 Medic al (twelve) Branch hours as needed for Nausea and Vomiting (N/V). ibuprofen 2023-0 Yes [id number] 800mg Take 1 U nivers 800 mg 2-14 tablet by ity of tablet 00:00: mouth [place] 00 every 8 Medical (eight) Branch hours as needed for Pain (scale 4-6). dicyclomine 2023-0 Yes [id number] 20mg Take 1 Univers 20 mg 2-14 tablet by ity of tablet 00:00: mouth 4 [place] 00 (four) Medical times Branch daily as needed for Abdominal pain. ondansetron 2023-0 Yes [id number] 4mg Take 1 Univers 4 mg 2-14 tablet by ity of disintegrat 00:00: mouth [place] ing tablet 00 every 12 Medic al (twelve) Branch hours as needed for Nausea and Vomiting (N/V). ibuprofen 2023-0 Yes [id number] 800mg Take 1 U nivers 800 mg 2-14 tablet by ity of tablet 00:00: mouth [place] 00 every 8 Medical (eight) Branch hours as needed for Pain (scale 4-6). dicyclomine 2023-0 Yes [id number] 20mg Take 1 Univers 20 mg 2-14 tablet by ity of tablet 00:00: mouth 4 [place] 00 (four) Medical times Branch daily as needed for Abdominal pain. ondansetron 2023-0 Yes [id number] 4mg Take 1 Univers 4 mg 2-14 tablet by ity of disintegrat 00:00: mouth [place] ing tablet 00 every 12 Medic al (twelve) Branch hours as needed for Nausea and Vomiting (N/V). ibuprofen 2023-0 Yes [id number] 800mg Take 1 U nivers 800 mg 2-14 tablet by ity of tablet 00:00: mouth [place] 00 every 8 Medical (eight) Branch hours as needed for Pain (scale 4-6). dicyclomine 2023-0 Yes [id number] 20mg Take 1 Univers 20 mg 2-14 tablet by ity of tablet 00:00: mouth 4 [place] 00 (four) Medical times Branch daily as needed for Abdominal pain. ondansetron 2023-0 Yes [id number] 4mg Take 1 Univers 4 mg 2-14 tablet by ity of disintegrat 00:00: mouth [place] ing tablet 00 every 12 Medic al (twelve) Branch hours as needed for Nausea and Vomiting (N/V). ibuprofen 2023-0 Yes [id number] 800mg Take 1 U nivers 800 mg 2-14 tablet by ity of tablet 00:00: mouth [place] 00 every 8 Medical (eight) Branch hours as needed for Pain (scale 4-6). dicyclomine 2023-0 Yes [id number] 20mg Take 1 Univers 20 mg 2-14 tablet by ity of tablet 00:00: mouth 4 [place] 00 (four) Medical times Branch daily as needed for Abdominal pain. ondansetron 2023-0 Yes [id number] 4mg Take 1 Univers 4 mg 2-14 tablet by ity of disintegrat 00:00: mouth [place] ing tablet 00 every 12 Medic al (twelve) Branch hours as needed for Nausea and Vomiting (N/V). ibuprofen 2023-0 Yes [id number] 800mg Take 1 U nivers 800 mg 2-14 tablet by ity of tablet 00:00: mouth [place] 00 every 8 Medical (eight) Branch hours as needed for Pain (scale 4-6). dicyclomine 2023-0 Yes [id number] 20mg Take 1 Univers 20 mg 2-14 tablet by ity of tablet 00:00: mouth 4 [place] 00 (four) Medical times Branch daily as needed for Abdominal pain. ondansetron 2023-0 Yes [id number] 4mg Take 1 Univers 4 mg 2-14 tablet by ity of disintegrat 00:00: mouth [place] ing tablet 00 every 12 Medic al (twelve) Branch hours as needed for Nausea and Vomiting (N/V). ibuprofen 3-0 Yes [id number] 800mg Take 1 U nivers 800 mg 2-14 tablet by ity of tablet 00:00: mouth [place] 00 every 8 Medical (eight) Branch hours as needed for Pain (scale 4-6). dicyclomine 2023-0 Yes [id number] 20mg Take 1 Univers 20 mg 2-14 tablet by ity of tablet 00:00: mouth 4 [place] 00 (four) Medical times Branch daily as needed for Abdominal pain. ondansetron 2023-0 Yes [id number] 4mg Take 1 Univers 4 mg 2-14 tablet by ity of disintegrat 00:00: mouth [place] ing tablet 00 every 12 Medic al (twelve) Branch hours as needed for Nausea and Vomiting (N/V). ibuprofen 2023-0 Yes [id number] 800mg Take 1 U nivers 800 mg 2-14 tablet by ity of tablet 00:00: mouth [place] 00 every 8 Medical (eight) Branch hours as needed for Pain (scale 4-6). dicyclomine 2023-0 Yes [id number] 20mg Take 1 Univers 20 mg 2-14 tablet by ity of tablet 00:00: mouth 4 [place] 00 (four) Medical times Branch daily as needed for Abdominal pain. ondansetron 2023-0 Yes [id number] 4mg Take 1 Univers 4 mg 2-14 tablet by ity of disintegrat 00:00: mouth [place] ing tablet 00 every 12 Medic al (twelve) Branch hours as needed for Nausea and Vomiting (N/V). ibuprofen 2023-0 Yes [id number] 800mg Take 1 U nivers 800 mg 2-14 tablet by ity of tablet 00:00: mouth [place] 00 every 8 Medical (eight) Branch hours as needed for Pain (scale 4-6). dicyclomine 2023-0 Yes [id number] 20mg Take 1 Univers 20 mg 2-14 tablet by ity of tablet 00:00: mouth 4 [place] 00 (four) Medical times Branch daily as needed for Abdominal pain. ondansetron 2023-0 Yes [id number] 4mg Take 1 Univers 4 mg 2-14 tablet by ity of disintegrat 00:00: mouth [place] ing tablet 00 every 12 Medic al (twelve) Branch hours as needed for Nausea and Vomiting (N/V). ibuprofen 2023-0 Yes [id number] 800mg Take 1 U nivers 800 mg 2-14 tablet by ity of tablet 00:00: mouth [place] 00 every 8 Medical (eight) Branch hours as needed for Pain (scale 4-6). dicyclomine 2023-0 Yes [id number] 20mg Take 1 Univers 20 mg 2-14 tablet by ity of tablet 00:00: mouth 4 [place] 00 (four) Medical times Branch daily as needed for Abdominal pain. ondansetron 2023-0 Yes [id number] 4mg Take 1 Univers 4 mg 2-14 tablet by ity of disintegrat 00:00: mouth [place] ing tablet 00 every 12 Medic al (twelve) Branch hours as needed for Nausea and Vomiting (N/V). ibuprofen 2023-0 Yes [id number] 800mg Take 1 U nivers 800 mg 2-14 tablet by ity of tablet 00:00: mouth [place] 00 every 8 Medical (eight) Branch hours as needed for Pain (scale 4-6). dicyclomine 2023-0 Yes [id number] 20mg Take 1 Univers 20 mg 2-14 tablet by ity of tablet 00:00: mouth 4 [place] 00 (four) Medical times Branch daily as needed for Abdominal pain. ondansetron 2023-0 Yes [id number] 4mg Take 1 Univers 4 mg 2-14 tablet by ity of disintegrat 00:00: mouth [place] ing tablet 00 every 12 Medic al (twelve) Branch hours as needed for Nausea and Vomiting (N/V). ibuprofen 2023-0 Yes [id number] 800mg Take 1 U nivers 800 mg 2-14 tablet by ity of tablet 00:00: mouth [place] 00 every 8 Medical (eight) Branch hours as needed for Pain (scale 4-6). dicyclomine 2023-0 Yes [id number] 20mg Take 1 Univers 20 mg 2-14 tablet by ity of tablet 00:00: mouth 4 00 (four) Medical times Branch daily as needed for Abdominal pain. ondansetron 2023-0 Yes [id number] 4mg Take 1 Univers 4 mg 2-14 tablet by ity of disintegrat 00:00: mouth [place] ing tablet 00 every 12 Medic al (twelve) Branch hours as needed for Nausea and Vomiting (N/V). ibuprofen 2023-0 Yes [id number] 800mg Take 1 U nivers 800 mg 2-14 tablet by ity of tablet 00:00: mouth [place] 00 every 8 Medical (eight) Branch hours as needed for Pain (scale 4-6). dicyclomine 2023-0 Yes [id number] 20mg Take 1 Univers 20 mg 2-14 tablet by ity of tablet 00:00: mouth 4 00 (four) Medical times Branch daily as needed for Abdominal pain. ondansetron 2023-0 Yes [id number] 4mg Take 1 Univers 4 mg 2-14 tablet by ity of disintegrat 00:00: mouth [place] ing tablet 00 every 12 Medic al (twelve) Branch hours as needed for Nausea and Vomiting (N/V). ibuprofen 2023-0 Yes [id number] 800mg Take 1 U nivers 800 mg 2-14 tablet by ity of tablet 00:00: mouth [place] 00 every 8 Medical (eight) Branch hours as needed for Pain (scale 4-6). dicyclomine 2023-0 Yes [id number] 20mg Take 1 Univers 20 mg 2-14 tablet by ity of tablet 00:00: mouth 4 [place] 00 (four) Medical times Branch daily as needed for Abdominal pain. ondansetron 2023-0 Yes [id number] 4mg Take 1 Univers 4 mg 2-14 tablet by ity of disintegrat 00:00: mouth [place] ing tablet 00 every 12 Medic al (twelve) Branch hours as needed for Nausea and Vomiting (N/V). ibuprofen 2023-0 Yes [id number] 800mg Take 1 U nivers 800 mg 2-14 tablet by ity of tablet 00:00: mouth [place] 00 every 8 Medical (eight) Branch hours as needed for Pain (scale 4-6). dicyclomine 2023-0 Yes [id number] 20mg Take 1 Univers 20 mg 2-14 tablet by ity of tablet 00:00: mouth (four) Medical times Branch daily as needed for Abdominal pain. ondansetron 2023-0 Yes [id number] 4mg Take 1 Univers 4 mg 2-14 tablet by ity of disintegrat 00:00: mouth [place] ing tablet 00 every 12 Medic al (twelve) Branch hours as needed for Nausea and Vomiting (N/V). ibuprofen 2023-0 Yes [id number] 800mg Take 1 U nivers 800 mg 2-14 tablet by ity of tablet 00:00: mouth [place] 00 every 8 Medical (eight) Branch hours as needed for Pain (scale 4-6). dicyclomine 2023-0 Yes [id number] 20mg Take 1 Univers 20 mg 2-14 tablet by ity of tablet 00:00: mouth (four) Medical times Branch daily as needed for Abdominal pain. ondansetron 2023-0 Yes [id number] 4mg Take 1 Univers 4 mg 2-14 tablet by ity of disintegrat 00:00: mouth [place] ing tablet 00 every 12 Medic al (twelve) Branch hours as needed for Nausea and Vomiting (N/V). ibuprofen 2023-0 Yes [id number] 800mg Take 1 U nivers 800 mg 2-14 tablet by ity of tablet 00:00: mouth [place] 00 every 8 Medical (eight) Branch hours as needed for Pain (scale 4-6). dicyclomine 2023-0 Yes [id number] 20mg Take 1 Univers 20 mg 2-14 tablet by ity of tablet 00:00: mouth 4 (four) Medical times Branch daily as needed for Abdominal pain. ondansetron 2022-0 Yes [id number] 4mg Take 1 Univers 4 mg 2-14 tablet by ity of disintegrat 00:00: mouth [place] ing tablet 00 every 12 Medic al (twelve) Branch hours as needed for Nausea and Vomiting (N/V). ibuprofen 2022-0 Yes [id number] 800mg Take 1 U nivers 800 mg 2-14 tablet by ity of tablet 00:00: mouth [place] 00 every 8 Medical (eight) Branch hours as needed for Pain (scale 4-6). dicyclomine 2022-0 Yes [id number] 20mg Take 1 Univers 20 mg 2-14 tablet by ity of tablet 00:00: mouth 4 [place] 00 (four) Medical times Branch daily as needed for Abdominal pain. ibuprofen 2022-0 Yes [id number] 600mg Take 1 Univers 600 mg 1-06 tablet by ity of tablet 00:00: mouth [place] 00 every 6 Medical (six) Branch hours as needed for Pain (scale 4-6). ibuprofen 2022-0 Yes [id number] 600mg Take 1 Univers 600 mg 1-06 tablet by ity of tablet 00:00: mouth [place] 00 every 6 Medical (six) Branch hours as needed for Pain (scale 4-6). ibuprofen 2022-0 3- No [id number] 600mg Take 1 Univers 600 mg 1-06 02-15 tablet by ity of tablet 00:00: 00:00 mouth [place] 00 :00 every 6 Medical (six) Branch hours as needed for Pain (scale 4-6). ibuprofen 2022-0 2023- No [id number] 600mg Take 1 Univers 600 mg 1-06 [...] tablet by ity of tablet 00:00: mouth. [place] [facility] albuterol 0 Yes SMARTSIG:V Un erinn (PROAIR 5-05 ia Inhaler ity of HFA) 90 00:00: [place] mcg/actuati 00 Medical on inhaler Branch famotidine 2021-0 Yes 20mg Take 1 Unive rs 20 mg 5-05 tablet by ity of tablet 00:00: mouth. Medical Branch naproxen 2021-0 Yes 500mg Take 1 Univer s 500 mg 5-05 tablet by ity of tablet 00:00: mouth. [place] [facility] albuterol 0 Yes SMARTSIG:V Un [...] tablet by ity of tablet 00:00: mouth. [place] [facility] naproxen 2021-0 Yes 500mg Take 1 Univer s 500 mg 5-05 tablet by ity of tablet 00:00: mouth. [place] [address] [facility] Branch albuterol 0 Yes SMARTSIG:V Un erinn (PROAIR 5-05 ia Inhaler ity of HFA) 90 00:00: [place] mcg/actuati Medical on inhaler Branch famotidine 2021-0 Yes 20mg Take 1 Unive rs 20 mg 5-05 tablet by ity of tablet 00:00: mouth. [place] [address] [facility] Branch naproxen 2021-0 Yes 500mg Take 1 Univer s 500 mg 5-05 tablet by ity of tablet 00:00: mouth. [place] [address] Medical Branch drospirenon 0 Yes 1{tbl} Take 1 Un erinn e-ethinyl 1-29 tablet by ity o f estradioL 00:00: mouth. [place] (ARLEN[address] 28,) 3-0.02 Branch mg per tablet metFORMIN 2021-0 Yes 500mg Take 1 Unive rs 500 mg 1-29 tablet by ity of tablet 00:00: mouth. [place] [address] Medical Branch drospirenon 0 Yes 1{tbl} Take 1 Un erinn e-ethinyl 1-29 tablet by ity o f estradioL 00:00: mouth. [place] (ARLEN, [address] [place] [address] 28,) 3-0.02 Branch mg per tablet metFORMIN 2021-0 Yes 500mg Take 1 Unive rs 500 mg 1-29 tablet by ity of tablet 00:00: mouth. [place] [address] Medical Branch drospirenon 2021-0 Yes 1{tbl} Take 1 Un erinn e-ethinyl 1-29 tablet by ity o f estradioL 00:00: mouth. [place] (ALREN, [facility] 28,) 3-0.02 Branch mg per tablet metFORMIN 2021-0 Yes 500mg Take 1 Unive rs 500 mg 1-29 tablet by ity of tablet 00:00: mouth. [place] [address] Medical Branch cyclobenzap 2021-0 Yes 5mg Take 1 Univ ers rine 5 mg 1-29 tablet by ity o f tablet 00:00: mouth. [place] 00 [facility] Branch gabapentin 2022-0 Yes SMARTSIG:C U nivers 300 mg 1-29 apsule(s) ity of capsule 00:00: By Mouth [address] Branch oxybutynin 2021-0 Yes 5mg Take 1 Unive rs XL 5 mg 24 1-29 tablet by ity of hr tablet 00:00: mouth. [address] Branch tranexamic 0 Yes SMARTSIG:T U nivers acid 650 mg 1-29 ablet(s) ity of tablet 00:00: By Mouth [address] drospirenon 0 Yes 1{tbl} Take 1 Un erinn e-ethinyl 1-29 tablet by ity o f estradioL 00:00: mouth. [place] (ARLEN [facility] ,) 3-0.02 Branch mg per tablet metFORMIN 2021-0 Yes 500mg Take 1 Unive rs 500 mg 1-29 tablet by ity of tablet 00:00: mouth. [address] cyclobenzap 0 Yes 5mg Take 1 Univ ers rine 5 mg 1-29 tablet by ity o f tablet 00:00: mouth. [address] gabapentin 0 Yes SMARTSIG:C U nivers 300 mg 1-29 apsule(s) ity of capsule 00:00: By Mouth [address] oxybutynin 0 Yes 5mg Take 1 Unive rs XL 5 mg 24 1-29 tablet by ity of hr tablet 00:00: mouth. [address] tranexamic 0 Yes SMARTSIG:T U nivers acid 650 mg 1-29 ablet(s) ity of tablet 00:00: By Mouth [address] drospirenon 0 Yes 1{tbl} Take 1 Un erinn e-ethinyl 1-29 tablet by ity o f estradioL 00:00: mouth. [place] (ARLEN [facility] ,) 3-0.02 Branch mg per tablet metFORMIN 2021-0 Yes 500mg Take 1 Unive rs 500 mg 1-29 tablet by ity of tablet 00:00: mouth. [address] cyclobenzap 2021-0 Yes 5mg Take 1 Univ ers rine 5 mg 1-29 tablet by ity o f tablet 00:00: mouth. [address] gabapentin 0 Yes SMARTSIG:C U nivers 300 mg 1-29 apsule(s) ity of capsule 00:00: By Mouth [address] Branch oxybutynin 2021-0 Yes 5mg Take 1 Unive rs XL 5 mg 24 1-29 tablet by ity of hr tablet 00:00: mouth. [address] Branch tranexamic 0 Yes SMARTSIG:T U nivers acid 650 mg 1-29 ablet(s) ity of tablet 00:00: By Mouth [address] drospirenon 0 Yes 1{tbl} Take 1 Un erinn e-ethinyl 1-29 tablet by ity o f estradioL 00:00: mouth. [place] (ARLEN [facility] ,) 3-0.02 Branch mg per tablet metFORMIN 2021-0 Yes 500mg Take 1 Unive rs 500 mg 1-29 tablet by ity of tablet 00:00: mouth. [address] cyclobenzap 0 Yes 5mg Take 1 Univ ers rine 5 mg 1-29 tablet by ity o f tablet 00:00: mouth. [address] gabapentin 0 Yes SMARTSIG:C U nivers 300 mg 1-29 apsule(s) ity of capsule 00:00: By Mouth [address] oxybutynin 0 Yes 5mg Take 1 Unive rs XL 5 mg 24 1-29 tablet by ity of hr tablet 00:00: mouth. [address] tranexamic 0 Yes SMARTSIG:T U nivers acid 650 mg 1-29 ablet(s) ity of tablet 00:00: By Mouth [address] drospirenon 0 Yes 1{tbl} Take 1 Un erinn e-ethinyl 1-29 tablet by ity o f estradioL 00:00: mouth. [place] (ARLEN [facility] ,) 3-0.02 Branch mg per tablet metFORMIN 2021-0 Yes 500mg Take 1 Unive rs 500 mg 1-29 tablet by ity of tablet 00:00: mouth. [address] cyclobenzap 2021-0 Yes 5mg Take 1 Univ ers rine 5 mg 1-29 tablet by ity o f tablet 00:00: mouth. [address] gabapentin 0 Yes SMARTSIG:C U nivers 300 mg 1-29 apsule(s) ity of capsule 00:00: By Mouth [address] Branch oxybutynin 2021-0 Yes 5mg Take 1 Unive rs XL 5 mg 24 1-29 tablet by ity of hr tablet 00:00: mouth. [address] Branch tranexamic 0 Yes SMARTSIG:T U nivers acid 650 mg 1-29 ablet(s) ity of tablet 00:00: By Mouth [address] drospirenon 0 Yes 1{tbl} Take 1 Un erinn e-ethinyl 1-29 tablet by ity o f estradioL 00:00: mouth. [place] (ARLEN [facility] ,) 3-0.02 Branch mg per tablet metFORMIN 2021-0 Yes 500mg Take 1 Unive rs 500 mg 1-29 tablet by ity of tablet 00:00: mouth. [address] cyclobenzap 0 Yes 5mg Take 1 Univ ers rine 5 mg 1-29 tablet by ity o f tablet 00:00: mouth. [address] gabapentin 0 Yes SMARTSIG:C U nivers 300 mg 1-29 apsule(s) ity of capsule 00:00: By Mouth [address] oxybutynin 0 Yes 5mg Take 1 Unive rs XL 5 mg 24 1-29 tablet by ity of hr tablet 00:00: mouth. [address] tranexamic 0 Yes SMARTSIG:T U nivers acid 650 mg 1-29 ablet(s) ity of tablet 00:00: By Mouth [address] drospirenon 0 Yes 1{tbl} Take 1 Un erinn e-ethinyl 1-29 tablet by ity o f estradioL 00:00: mouth. [place] (ARLEN [facility] ,) 3-0.02 Branch mg per tablet metFORMIN 2021-0 Yes 500mg Take 1 Unive rs 500 mg 1-29 tablet by ity of tablet 00:00: mouth. [address] cyclobenzap 2021-0 Yes 5mg Take 1 Univ ers rine 5 mg 1-29 tablet by ity o f tablet 00:00: mouth. [address] gabapentin 0 Yes SMARTSIG:C U nivers 300 mg 1-29 apsule(s) ity of capsule 00:00: By Mouth [address] Branch oxybutynin 2021-0 Yes 5mg Take 1 Unive rs XL 5 mg 24 1-29 tablet by ity of hr tablet 00:00: mouth. [address] Branch tranexamic 0 Yes SMARTSIG:T U nivers acid 650 mg 1-29 ablet(s) ity of tablet 00:00: By Mouth [address] drospirenon 0 Yes 1{tbl} Take 1 Un erinn e-ethinyl 1-29 tablet by ity o f estradioL 00:00: mouth. [place] (ARLEN [facility] ,) 3-0.02 Branch mg per tablet metFORMIN 2021-0 Yes 500mg Take 1 Unive rs 500 mg 1-29 tablet by ity of tablet 00:00: mouth. [address] cyclobenzap 0 Yes 5mg Take 1 Univ ers rine 5 mg 1-29 tablet by ity o f tablet 00:00: mouth. [address] gabapentin 0 Yes SMARTSIG:C U nivers 300 mg 1-29 apsule(s) ity of capsule 00:00: By Mouth [address] oxybutynin 0 Yes 5mg Take 1 Unive rs XL 5 mg 24 1-29 tablet by ity of hr tablet 00:00: mouth. [address] tranexamic 0 Yes SMARTSIG:T U nivers acid 650 mg 1-29 ablet(s) ity of tablet 00:00: By Mouth [address] drospirenon 0 Yes 1{tbl} Take 1 Un erinn e-ethinyl 1-29 tablet by ity o f estradioL 00:00: mouth. [place] (ARLEN [facility] ,) 3-0.02 Branch mg per tablet metFORMIN 2021-0 Yes 500mg Take 1 Unive rs 500 mg 1-29 tablet by ity of tablet 00:00: mouth. [address] cyclobenzap 2021-0 Yes 5mg Take 1 Univ ers rine 5 mg 1-29 tablet by ity o f tablet 00:00: mouth. [address] gabapentin Yes SMARTSIG:C U nivers 300 mg 1-29 apsule(s) ity of capsule 00:00: By Mouth [address] Branch oxybutynin Yes 5mg Take 1 Unive rs XL 5 mg 24 1-29 tablet by ity of hr tablet 00:00: mouth. [address] Branch tranexamic Yes SMARTSIG:T U nivers acid 650 mg 1-29 ablet(s) ity of tablet 00:00: By Mouth [address] drospirenon Yes 1{tbl} Take 1 Un erinn e-ethinyl 1-29 tablet by ity o f estradioL 00:00: mouth. [place] (ARLEN, ,) 3-0.02 Branch mg per tablet metFORMIN Yes 500mg Take 1 Unive rs 500 mg 1-29 tablet by ity of tablet 00:00: mouth. [address] cyclobenzap Yes 5mg Take 1 Univ ers rine 5 mg 1-29 tablet by ity o f tablet 00:00: mouth. [address] gabapentin Yes SMARTSIG:C U nivers 300 mg 1-29 apsule(s) ity of capsule 00:00: By Mouth [address] oxybutynin Yes 5mg Take 1 Unive rs XL 5 mg 24 1-29 tablet by ity of hr tablet 00:00: mouth. [address] tranexamic Yes SMARTSIG:T U nivers acid 650 mg 1-29 ablet(s) ity of tablet 00:00: By Mouth [address] ondansetron 2018-05 Yes [id number] 4mg Take 1 Univers (ZOFRAN) 4 1-14 tablet by ity of mg tablet 00:00: mouth [place] [address] every 12 Medical (twelve) Branch hours. ondansetron 2018-05 Yes [id number] 4mg Take 1 Univers (ZOFRAN) 4 1-14 tablet by ity of mg tablet 00:00: mouth [place] [address] every 12 Medical (twelve) Branch hours. ondansetron 2018-05 Yes [id number] 4mg Take 1 Univers (ZOFRAN) 4 1-14 tablet by ity of mg tablet 00:00: mouth [place] 00 every 12 Medical (twelve) Branch hours. ondansetron 2018-05 Yes [id number] 4mg Take 1 Univers (ZOFRAN) 4 1-14 tablet by ity of mg tablet 00:00: mouth [place] 00 every 12 Medical (twelve) Branch hours. ondansetron 2018-05 Yes [id number] 4mg Take 1 Univers (ZOFRAN) 4 1-14 tablet by ity of mg tablet 00:00: mouth [place] 00 every 12 Medical (twelve) Branch hours. ondansetron 2018-05 Yes [id number] 4mg Take 1 Univers (ZOFRAN) 4 1-14 tablet by ity of mg tablet 00:00: mouth [place] 00 every 12 Medical (twelve) Branch hours. lactulose 2018-05 Yes [id number] 30mL Take 30 mL Univers 10 gram/15 1-14 by mouth 3 ity of mL oral 00:00: (three) [place] solution 00 times Medical daily as Branch needed for Constipati on or For bowel movement. ondansetron 2018-05 Yes [id number] 4mg Take 1 Univers (ZOFRAN) 4 1-14 tablet by ity of mg tablet 00:00: mouth [place] 00 every 12 Medical (twelve) Branch hours. sucralfate 2018-05 Yes [id number] 1g Take 1 U nivers 1 gram 1-14 tablet by ity of tablet 00:00: mouth [place] 00 before Medical meals and Branch at bedtime. ondansetron 2018-05 Yes [id number] 4mg Take 1 Univers (ZOFRAN) 4 1-14 tablet by ity of mg tablet 00:00: mouth [place] 00 every 12 Medical (twelve) Branch hours. ondansetron 2018-05 Yes [id number] 4mg Take 1 Univers (ZOFRAN) 4 1-14 tablet by ity of mg tablet 00:00: mouth [place] 00 every 12 Medical (twelve) Branch hours. ondansetron 2018-05 Yes [id number] 4mg Take 1 Univers (ZOFRAN) 4 1-14 tablet by ity of mg tablet 00:00: mouth [place] 00 every 12 Medical (twelve) Branch hours. ondansetron 2018-05 Yes [id number] 4mg Take 1 Univers (ZOFRAN) 4 1-14 tablet by ity of mg tablet 00:00: mouth [place] 00 every 12 Medical (twelve) Branch hours. ondansetron 2018-05 Yes [id number] 4mg Take 1 Univers (ZOFRAN) 4 1-14 tablet by ity of mg tablet 00:00: mouth [place] 00 every 12 Medical (twelve) Branch hours. ondansetron 2018-05 Yes [id number] 4mg Take 1 Univers (ZOFRAN) 4 1-14 tablet by ity of mg tablet 00:00: mouth [place] 00 every 12 Medical (twelve) Branch hours. ondansetron 2018-05 Yes [id number] 4mg Take 1 Univers (ZOFRAN) 4 1-14 tablet by ity of mg tablet 00:00: mouth [place] 00 every 12 Medical (twelve) Branch hours. ondansetron 2018-05 Yes [id number] 4mg Take 1 Univers (ZOFRAN) 4 1-14 tablet by ity of mg tablet 00:00: mouth [place] 00 every 12 Medical (twelve) Branch hours. ondansetron 2018-05 Yes [id number] 4mg Take 1 Univers (ZOFRAN) 4 1-14 tablet by ity of mg tablet 00:00: mouth [place] 00 every 12 Medical (twelve) Branch hours. ondansetron 2018-05 Yes [id number] 4mg Take 1 Univers (ZOFRAN) 4 1-14 tablet by ity of mg tablet 00:00: mouth [place] 00 every 12 Medical (twelve) Branch hours. lactulose 2018-05 Yes [id number] 30mL Take 30 mL Univers 10 gram/15 1-14 by mouth 3 ity of mL oral 00:00: (three) [place] solution 00 times Medical daily as Branch needed for Constipati on or For bowel movement. sucralfate 2018-05 Yes [id number] 1g Take 1 U nivers 1 gram 1-14 tablet by ity of tablet 00:00: mouth [place] 00 before Medical meals and Branch at bedtime. ondansetron 2018-05 Yes [id number] 4mg Take 1 Univers (ZOFRAN) 4 1-14 tablet by ity of mg tablet 00:00: mouth [place] 00 every 12 Medical (twelve) Branch hours. ondansetron 2018-05 Yes [id number] 4mg Take 1 Univers (ZOFRAN) 4 1-14 tablet by ity of mg tablet 00:00: mouth [place] 00 every 12 Medical (twelve) Branch hours. ondansetron 2018-05 Yes [id number] 4mg Take 1 Univers (ZOFRAN) 4 1-14 tablet by ity of mg tablet 00:00: mouth [place] 00 every 12 Medical (twelve) Branch hours. lactulose 2018-05- No [id number] 30mL Take 30 mL Univers 10 gram/15 1-14 02-15 by mouth 3 it y of mL oral 00:00: 00:00 (three) [place] solution 00 :00 times Medical daily as Branch needed for Constipati on or For bowel movement. sucralfate 2018-05- No [id number] 1g Take 1 Univers 1 gram 1-14 02-15 tablet by ity of tablet 00:00: 00:00 mouth [place] 00 :00 before Medical meals and Branch at bedtime. lactulose 2018-05- No [id number] 30mL Take 30 mL Univers 10 gram/15 -14 02-15 by mouth 3 it y of mL oral 00:00: 00:00 (three) [place] solution 00 :00 times Medical daily as Branch needed for Constipati on or For bowel movement. sucralfate 2018-05- No [id number] 1g Take 1 Univers 1 gram -14 02-15 tablet by ity of tablet 00:00: 00:00 mouth [place] 00 :00 before Medical meals and Branch at bedtime. Omeprazole 2018-05 Yes [id number] 20mg Take 1 U nivers 20 mg 0-04 tablet by ity of tablet 00:00: mouth [place] 00 daily. Medical Branch Omeprazole 2018-05 Yes [id number] 20mg Take 1 U nivers 20 mg 0-04 tablet by ity of tablet 00:00: mouth [place] 00 daily. Medical Branch Omeprazole 2018-05 Yes [id number] 20mg Take 1 U nivers 20 mg 0-04 tablet by ity of tablet 00:00: mouth [place] 00 daily. Medical Branch Omeprazole 2018-05 Yes [id number] 20mg Take 1 U nivers 20 mg 0-04 tablet by ity of tablet 00:00: mouth [place] 00 daily. Medical Branch Omeprazole 2018-05 Yes [id number] 20mg Take 1 U nivers 20 mg 0-04 tablet by ity of tablet 00:00: mouth [place] 00 daily. Medical Branch Omeprazole 2018-05 Yes [id number] 20mg Take 1 U nivers 20 mg 0-04 tablet by ity of tablet 00:00: mouth [place] 00 daily. Medical Branch Omeprazole 2018-05 Yes [id number] 20mg Take 1 U nivers 20 mg 0-04 tablet by ity of tablet 00:00: mouth [place] 00 daily. Medical Branch Omeprazole 2018-05 Yes [id number] 20mg Take 1 U nivers 20 mg 0-04 tablet by ity of tablet 00:00: mouth [place] 00 daily. Medical Branch Omeprazole 2018-05 Yes [id number] 20mg Take 1 U nivers 20 mg 0-04 tablet by ity of tablet 00:00: mouth [place] 00 daily. Medical Branch Omeprazole 2018-05 Yes [id number] 20mg Take 1 U nivers 20 mg 0-04 tablet by ity of tablet 00:00: mouth [place] 00 daily. Medical Branch Omeprazole 2018-05 Yes [id number] 20mg Take 1 U nivers 20 mg 0-04 tablet by ity of tablet 00:00: mouth [place] 00 daily. Medical Branch Omeprazole 2018-05 Yes [id number] 20mg Take 1 U nivers 20 mg 0-04 tablet by ity of tablet 00:00: mouth [place] 00 daily. Medical Branch Omeprazole 2018-05 Yes [id number] 20mg Take 1 U nivers 20 mg 0-04 tablet by ity of tablet 00:00: mouth [place] 00 daily. Medical Branch Omeprazole 2018-05 Yes [id number] 20mg Take 1 U nivers 20 mg 0-04 tablet by ity of tablet 00:00: mouth [place] 00 daily. Medical Branch Omeprazole 2018-05 Yes [id number] 20mg Take 1 U nivers 20 mg 0-04 tablet by ity of tablet 00:00: mouth [place] 00 daily. Medical Branch Omeprazole 2018-05 Yes [id number] 20mg Take 1 U nivers 20 mg 0-04 tablet by ity of tablet 00:00: mouth [place] 00 daily. Medical Branch Omeprazole 2018-05 Yes [id number] 20mg Take 1 U nivers 20 mg 0-04 tablet by ity of tablet 00:00: mouth [place] 00 daily. Medical Branch Omeprazole 2018-05 Yes [id number] 20mg Take 1 U nivers 20 mg 0-04 tablet by ity of tablet 00:00: mouth [place] 00 daily. Medical Branch Omeprazole 2018-05 Yes [id number] 20mg Take 1 U nivers 20 mg 0-04 tablet by ity of tablet 00:00: mouth 00 daily. Medical Branch Omeprazole 2018-05 Yes [id number] 20mg Take 1 U nivers 20 mg 0-04 tablet by ity of tablet 00:00: mouth 00 daily. Medical Branch 2016-[address] [facility] 7-11 [place] No.42/Folic 00:00: Region a Acid 00 l (Pren Health Chewable Tablet) 1 TABLET Tab.Ch.Bph Immunizations Ordered Filled Immunization Date Status Comments [facility] e Immunization Name Name Influenza Virus [...] Universit y of Vaccine Quad IM, 00:00:00 [place] Me dical Preserv and ABX Branch Free 6 MO-64 YRS Vital Signs Vital Name Observation Time Observation Value Comments Source Systolic blood 2022-11-09 18:59:00 136 mm[Hg] Univer sity of pressure [facility] [place] Diastolic blood 2022-11-09 18:59:00 84 mm[Hg] Unive rsity of pressure [facility] [place] Heart rate 2022-11-09 18:57:00 100 /min [facility] Body temperature 2022-11-09 18:57:00 36.83 Susan [facility] Respiratory rate 2022-11-09 18:57:00 18 /min [facility] Body weight 2022-11-09 18:57:00 68.04 kg [facility] BMI 2022-11-09 18:57:00 29.29 kg/m2 Universi ty of [place] [facility] Oxygen saturation in 2022-11-09 18:57:00 99 /min University of Arterial blood by [place] [facility] Pulse oximetry Branch Systolic blood 2022-10-15 17:26:00 133 mm[Hg] Univer sity of pressure [place] [facility] Diastolic blood 2022-10-15 17:26:00 95 mm[Hg] Unive rsity of pressure [place] [facility] Heart rate 2022-10-15 17:26:00 92 /min [facility] [place] [facility] Body temperature 2022-10-15 17:26:00 36.72 Susan Univ ersity of [place] [facility] Respiratory rate 2022-10-15 17:26:00 18 /min Univ ersity of [place] [facility] Body height 2022-10-15 17:26:00 152.4 cm [facility]i [facility] [place] [facility] Body weight 2022-10-15 17:26:00 68.04 kg [facility] [place] [facility] BMI 2022-10-15 17:26:00 29.29 kg/m2 [facility] [place] [facility] Systolic blood 2022-09-04 17:31:00 110 mm[Hg] Univer sity of pressure [place] [facility] Diastolic blood 2022-09-04 17:31:00 89 mm[Hg] Unive rsity of pressure [place] [facility] Heart rate 2022-09-04 17:31:00 112 /min [facility]i [facility] [place] [facility] Body temperature 2022-09-04 17:31:00 36.72 Susan Univ ersity of [place] [facility] Respiratory rate 2022-09-04 17:31:00 16 /min Univ ersity of [place] [facility] Body height 2022-09-04 17:31:00 154.9 cm [facility] [place] [facility] Body weight 2022-09-04 17:31:00 80.287 kg [facility] [place] [facility] BMI 2022-09-04 17:31:00 33.44 kg/m2 [facility] [place] [facility] Oxygen saturation in 2022-09-04 17:31:00 99 /min [facility] of Arterial blood by [place] [facility] Pulse oximetry Branch Systolic blood 2022-08-27 03:00:00 110 mm[Hg] Univer sity of pressure [place] [facility] Diastolic blood 2022-08-27 03:00:00 73 mm[Hg] Unive rsity of pressure [place] [facility] Heart rate 2022-08-27 03:00:00 78 /min [facility] [place] [facility] Respiratory rate 2022-08-27 03:00:00 17 /min Univ ersity of [place] [facility] Oxygen saturation in 2022-08-27 03:00:00 100 /min [facility] of Arterial blood by [place] [facility] Pulse oximetry Branch Body temperature 2022-08-27 00:20:00 36.72 Susan Univ ersity of [place] [facility] Body height 2022-08-27 00:20:00 154.9 cm [facility] [place] [facility] Body weight 2022-08-27 00:20:00 77.565 kg [facility] [place] [facility] BMI 2022-08-27 00:20:00 32.31 kg/m2 [facility] [place] [facility] Systolic blood 2022-07-31 14:31:00 126 mm[Hg] Univer sity of pressure [place] [facility] Diastolic blood 2022-07-31 14:31:00 84 mm[Hg] Unive rsity of pressure [place] [facility] Heart rate 2022-07-31 14:31:00 98 /min [facility] [place] [facility] Body temperature 2022-07-31 14:31:00 36.78 Susan Univ ersity of [place] [facility] Respiratory rate 2022-07-31 14:31:00 16 /min Univ ersity of [place] [facility] Body height 2022-07-31 14:31:00 154.9 cm [facility] [place] [facility] Body weight 2022-07-31 14:31:00 79.833 kg [facility] [place] [facility] BMI 2022-07-31 14:31:00 33.25 kg/m2 [facility] [place] [facility] Oxygen saturation in 2022-07-31 14:31:00 99 /min University of Arterial blood by [facility] [place] lakeisha Pulse oximetry Branch Systolic blood 2022-07-06 17:11:00 136 mm[Hg] Univer sity of pressure [place] [facility] Diastolic blood 2022-07-06 17:11:00 75 mm[Hg] Unive rsity of pressure [place] [facility] Heart rate 2022-07-06 17:11:00 68 /min [facility] [place] [facility] Body temperature 2022-07-06 17:11:00 36.72 Susan Univ ersity of [place] [facility] Respiratory rate 2022-07-06 17:11:00 18 /min Univ ersity of [place] [facility] Body height 2022-07-06 17:11:00 154.9 cm [facility]i [facility] [place] [facility] Body weight 2022-07-06 17:11:00 80.332 kg [facility] [place] [facility] BMI 2022-07-06 17:11:00 33.46 kg/m2 [facility] [place] [facility] Systolic blood 2022-06-24 15:10:00 108 mm[Hg] Univer sity of pressure [place] [facility] Diastolic blood 2022-06-24 15:10:00 71 mm[Hg] Unive rsity of pressure [place] [facility] Heart rate 2022-06-24 15:10:00 78 /min Universi ty of [facility] [place] Body temperature 2022-06-24 15:10:00 36.78 Susan [facility] ersity of [place] [facility] Body height 2022-06-24 15:10:00 154.9 cm [facility] [place] [facility] Body weight 2022-06-24 15:10:00 75.978 kg [facility] [place] [facility] BMI 2022-06-24 15:10:00 31.65 kg/m2 Universi ty of [facility] Branch Oxygen saturation in 2022-06-24 15:10:00 100 /min University of Arterial blood by [place] [facility] Pulse oximetry Branch Systolic blood 2022-06-23 18:00:00 116 mm[Hg] Univer sity of pressure [facility] [place] Diastolic blood 2022-06-23 18:00:00 81 mm[Hg] Unive rsity of pressure [place] [facility] Heart rate 2022-06-23 18:00:00 85 /min [facility]i ty [facility] [place] [facility] Respiratory rate 2022-06-23 18:00:00 19 /min Univ ersity of [facility] Branch Oxygen saturation in 2022-06-23 18:00:00 99 /min University of Arterial blood by [place] [facility] Pulse oximetry Branch Body temperature 2022-06-23 15:18:00 37.22 Susan [facility] ersity [facility] [place] [facility] Body height 2022-06-23 15:18:00 154.9 cm [facility]i [facility] of [place] [facility] [place] Body weight 2022-06-23 15:18:00 72.576 kg [facility] BMI 2022-06-23 15:18:00 30.23 kg/m2 [facility] Systolic blood 2022-05-15 19:58:00 133 mm[Hg] Univer sity [facility] Diastolic blood 2022-05-15 19:58:00 100 mm[facility]Hg] [facility] 2022-05-15 19:58:00 90 /min [facility] Body temperature 2022-05-15 19:58:00 37.11 Susan [facility] 2022-05-15 19:58:00 16 /min [facility] Body height 2022-05-15 19:58:00 154.9 cm [facility] Body weight 2022-05-15 19:58:00 72.576 kg [facility] BMI 2022-05-15 19:58:00 30.23 kg/m2 [facility] Oxygen saturation in 2022-05-15 19:58:00 100 /min [facility] blood by [facility] Pulse oximetry Branch Procedures Procedure Date / Time Performing Clinician Source Performed ASSIGNMENT OF BENEFITS 2022-11-09 19:50:56 Doctor Unassigned, No [facility] XR KNEE <3 VW RIGHT 2022-11-09 19:38:20 Nael Pinto [facility] CONSENT/REFUSAL FOR 2022-11-09 18:49:17 Doctor Unassigned, No [facility] DIAGNOSIS AND TREATMENT [facility] POCT TEST 2022-10-15 19:45:00 Yesenia Orozco [facility] LIPASE 2022-10-15 18:32:00 Yesenia Orozco [facility] MAGNESIUM 2022-10-15 18:32:00 Yesenia Orozco [facility] COMP. METABOLIC PANEL 2022-10-15 18:32:00 Yesenia Orozco [facility] ([id number]) [facility] CBC WITH DIFF 2022-10-15 18:32:00 Yesenia Orozco [facility] URINALYSIS 2022-10-15 18:32:00 Yeesnia Orozco [facility] o f [facility] [place] CONSENT/REFUSAL FOR 2022-10-15 17:21:37 Doctor Unassigned, No [facility] [facility] [place] [facility] Name [facility] XR KNEE 3 VW RIGHT 2022-09-04 18:40:13 Cheo [facility] CONSENT/REFUSAL FOR 2022-09-04 17:28:13 Doctor Unassigned, No Un [facility] [place] [facility] Name [facility] EKG-12 LEAD 2022-08-27 03:08:22 Ani Pierce [facility] THYROID STIMULATING 2022-08-27 01:09:00 Ani Pierce [facility] HORMONE [facility] COMP. METABOLIC PANEL 2022-08-27 01:09:00 Ani Pierce [facility] ([id number]) [facility] CBC WITH DIFF 2022-08-27 01:09:00 Ani Pierce [facility] D-DIMER 2022-08-27 01:09:00 Ani Pierce [facility] URINALYSIS 2022-08-27 01:09:00 Ani Pierce [facility] POCT TEST 2022-08-27 01:00:00 Ani [facility] CONSENT/REFUSAL FOR 2022-08-27 00:20:29 Doctor Unassigned, No Un [facility] [place] [facility] EXTERNAL PROVIDER 2022-07-28 05:01:00 Doctor Unassigned, No [facility] RECORDS [facility] PATIENT FINANCIAL 2022-07-06 17:06:41 Doctor Unassigned, No [facility] POLICY Name [facility] CT ABDOMEN PELVIS W 2022-06-23 17:22:40 Mohinder Colmenares [facility] CONTRAST [facility] URINALYSIS 2022-06-23 16:46:00 Mohinder Colmenares [facility] POCT TEST 2022-06-23 16:46:00 Mohinder Col[facility]ares [facility] LIPASE 2022-06-23 15:31:00 Mohinder Colmenares [facility] COMP. METABOLIC PANEL 2022-06-23 15:31:00 Mohinder Colmenares [facility] ([id number]) [facility] CBC WITH DIFF 2022-06-23 15:31:00 Mohinder Colmenares [facility] CONSENT/REFUSAL FOR 2022-06-23 15:12:32 Doctor Unassigned, No Un [facility] [place] [facility] Name [facility] NOTICE OF PRIVACY 2022-05-15 19:29:32 Doctor Unassigned, No [facility] PRACTICES Name [facility] CONSENT/REFUSAL FOR 2022-05-15 19:10:31 [facility], No [facility] Encounters Start End Encounter Admission Attending Care Care Encounter Source Date/Time Date/Time Type Type Clinicians Facility Department ID 2021-08-02 Outpatient [facility] LS [id number] [place] 10:33:54 [id number] [facility] 2022-11-09 2022-11-09 Emergency X SINGER [facility] ERT [id number] Univers 14:00:00 15:41:00 NAEL donohue [facility] 2022-11-09 2022-11-09 Emergency Singer [facility] [id number] Univers 14:00:00 15:41:00 Nael GILLESPIE 350.1.13.10 i ty of REGISTER 4.2.7.2.686 [facility] [id number] [address] 2022-10-15 2022-10-15 Emergency X Yesenia OROZCO [facility] ERT [id number] Univers 12:28:00 15:09:00 itgreyson [facility] 2022-10-15 2022-10-15 Emergency Yesenia Orozco [facility] 1.2.840.114 [id number] Univers 12:28:00 15:09:00 Yeni GILLESPIE 350.1.13.10 i ty of REGISTER 4.2.7.2.686 [facility] [id number] [address] 2022-09-04 2022-09-04 Emergency Jesica MICHAEL [facility] ERT [id number] Univers 12:33:00 14:13:00 CHEO ity [facility] 2022-09-04 2022-09-04 Emergency [facility] [id number] Univers 12:33:00 14:13:00 Gordonalicia WALLTON 350.1.13.10 i ty of [facility] 4.2.7.2.686 [id number] [address] 2022-08-26 2022-08-26 Emergency X [facility] ERT [id number] Univers 19:52:00 22:18:00 [facility] ity [facility] 2022-08-26 2022-08-26 Emergency [facility] 1..093.126 [id number] Univers 19:52:00 22:18:00 [facility] Shawn [facility] 350.1.13.10 ity of REGISTER 4.2.7.2.686 [facility] [id number] [address] 2022-07-31 2022-07-31 Outpatient R [facility] [id number] Univers 09:20:00 09:56:18 YANG donohue [facility] 2022-07-31 2022-07-31 Urgent Yang Pulido [facility] 1..840.114 [id number] Univers 09:20:00 09:56:18 Care Unknown, Attending HEALTH 350.1.13.10 ity of [place] 4.2.7.2.686 Pablo as EN?BLEA [id number] [address] MEDICAL OFFICE BUILDING 2022-07-31 2022-07-31 Letter Yang Pulido [facility] 1..840.114 10 [id number] Univers 00:00:00 00:00:00 (Out) C HEALTH 350.1.13.10 it y [facility] 4.2.7.2.686 Pablo as EN?BLEA [id number] [address] MEDICAL OFFICE BUILDING 2022-07-28 2022-07-28 Orders Doctor SHANIA 1.2.840.114 [id number] Univers 00:00:00 00:00:00 Only Unassigned, JESSE 350.1.13.10 ity of [facility] 4.2.7.2.686 Pablo as [id number] [address] 2022-07-24 2022-07-24 Telephone Tavon [facility] 1.2.840.11 [id number] Univers 00:00:00 00:00:00 Linette [place] 350.1.13.10 it y of [place] [id number] [address] 2022-07-24 2022-07-24 Case [facility] 1.2.840.114 [id number] Univers 00:00:00 00:00:00 Management Linette [place] 350.1.13.10 ity [place] [id number] [address] 2022-07-24 2022-07-24 Telephone [facility] 1.2.840.11 [id number] Univers 00:00:00 00:00:00 Linette [place] 350.1.13.10 it y of [place] [id number] [address] 2022-07-22 2022-07-22 Outpatient R TAVON LINETTE [facility] B [id number] Univers 10:00:00 10:00:00 LINETTE MONTES DE OCA [facility] 2022-07-10 2022-07-10 Outpatient R [facility] [id number] Univers 16:45:00 16:45:00 ity of [facility] 2022-07-06 2022-07-06 Outpatient R LINETTE MONTES DE OCA [facility] B [id number] Univers 11:30:00 11:45:05 LINETTE MONTES DE OCA [facility] 2022-07-06 2022-07-06 Office [facility] 1.2.840.114 [id number] Univers 11:30:00 11:45:05 Visit Radhajaxson ELIGIO 350.1.13.10 it y [place] [id number] [facility] [address] 2022-07-06 2022-07-06 Orders Doctor SHANIA 1.2.840.114 [id number] Univers 00:00:00 00:00:00 Only Unassigned, JESSE 350.1.13.10 ity of [place] [facility] 4.2.7.2.686 Pablo as [id number] [facility] [address] 2022-07-02 2022-07-02 Outpatient R AGNES [facility] [id number] Univers 09:00:00 09:00:00 jayde TILLMAN [facility] 2022-06-25 2022-06-25 [facility]ill [facility] 1.2.840.114 [id number] Univers 00:00:00 00:00:00 Stephanie HEALTH 350.1.13.10 it y of [place] 4.2.7.2.686 Pablo as EN?BLEA [id number] [address] MEDICAL OFFICE [facility] 2022-06-24 2022-06-24 Office [facility] 1.2.840.114 [id number] Univers 09:00:00 09:37:56 Visit Stephanie HEALTH 350.1.13.10 it y of [place] 4.2.7.2.686 Pablo as EN?BLEA [id number] [address] MEDICAL OFFICE [facility] 2022-06-24 2022-06-24 Outpatient R MARIA ELENA [facility] [id number] Univers 09:00:00 09:37:56 STEPHANIE ity of [facility] 2022-06-24 2022-06-24 Telephone ROSA Lino 1.2.840.114 10 [id number] Univers 00:00:00 00:00:00 Patti Y HEALTH 350.1.13.10 i ty of CL[place]ICS [place].2.[place] [id number] [facility] [address] 2022-06-24 2022-06-24 Letter Maria Elena [facility] 1.2.840.114 [id number] Univers 00:00:00 00:00:00 (Out) Stephanie HEALTH 350.1.13.10 it y of [facility] 4.2.7.2.686 Pablo as EN?BLEA [id number] Ky shalini BASSETT [address] [place] [address] MEDICAL OFFICE BUILDING 2022-06-23 2022-06-23 Emergency X DARRIAN [facility] ERT [id number] Univers 09:18:00 13:22:00 MOHINDER ity [facility] 2022-06-23 2022-06-23 Emergency [place] 1.2.840.114 10 [id number] Univers 09:18:00 13:22:00 Mohinder B VERNA 350.1.13.10 i ty of [facility] 4.2.7.2.686 [place] [id number] [address] 2022-05-15 2022-05-15 Emergency X Yesenia OROZCO [facility] ERT [id number] Univers 13:59:00 14:35:00 ity [facility] 2022-05-15 2022-05-15 Emergency Yesenia Orozco [facility] 1.2.840.114 [id number] Univers 13:59:00 14:35:00 Yeni [facility] 350.1.13.10 i ty of [facility] 4.2.7.2.686 [facility] [id number] [address] 2022-01-14 2022-01-14 Emergency ER Jimenez, [facility] [id number] 10:20:00 15:50:00 Lala -[id number] Scooby taylor [facility] 2018-08-21 2018-08-21 Emergency E MHFB [facility]FB 7521 [facility]FB 19:57:00 19:57:00 2018-08-17 2018-08-17 Emergency E DEANNE [facility] ECCNONEMER [id number] [facility] 19:53:00 22:38:00 BRYAN [facility] 2018-04-10 2018-04-10 Emergency E OPAL [facility] [id number] [facility] 00:04:00 01:25:00 Medica [facility] 2017-12-24 2017-12-25 Emergency E [facility] [id number] [facility] 21:08:00 00:55:00 [facility] 2017-11-28 2017-11-28 Emergency E MAXIMO, [facility] ECC [id number] [facility] 14:16:00 14:53:00 BRITTNEY [facility] 2017-09-04 2017-09-04 Emergency E ANDIE MAE OM ECC 1000 [id number] [facility] 01:25:00 02:54:00 Medica l Center 2017-07-19 2017-07-19 Outpatient C Markel GUY C OB [id number] [facility] 21:24:00 22:59:00 FUNSHO [facility] 2017-07-03 2017-07-03 Emergency E AMILCAR RILEY [facility] ECC 1000 [id number] [facility] 15:56:00 18:20:00 [facility] Results Test Description Test Time Test Comments Results Result Comments Source POCT TEST 2022-10-15 19:45:00 Test Item Value Reference Range Interpretation Comme nts POCT PREG (test code = 1605) Negative On board controls acceptable with C Line (test code = 3574) Yes POCT PREG LOT # (test code = 3575) [id number] POCT PREG TEST DATE (test code = 3576) 02-13-24 Lab Interpretation (test code = 10174-4) Normal [facility] [id number] 01:00:00 Test Item Value Reference Range Interpretation Comments POCT PREG (test code = 1605) negative On board controls acceptable with present C Line (test code = 3574) POCT PREG LOT # (test code = 3575) [id number] POCT PREG TEST DATE (test code = 3576) Lab Interpretation (test code = Normal 77356-3) [facility] [id number] 16:46:00 Test Item Value Reference Range Interpretation Comments POCT PREG (test code = 1605) NEGATIVE On board controls acceptable with PRESENT C Line (test code = 3574) POCT PREG LOT # (test code = 3575) [id number] POCT PREG TEST DATE (test 2023-10-08 code = 3576) Lab Interpretation (test code = Normal 96173-1) [facility] METABOLIC PANEL (06498)2022-06-23 16:14:43 Test Item Value Reference Range Interpretation Comments NA (test code = 140 mmol/L 135-145 7636581296) K (test code = 3.8 mmol/L 3.5-5.0 6475352088) CL (test code = 105 mmol/L 98-108 1373980459) CO2 TOTAL (test code = 21 mmol/L 23-31 L 5820953693) AGAP (test code = 14 2-16 4718051014) BUN (test code = 13 mg/dL 7-23 7761899111) GLUCOSE (test code = 120 mg/dL 70-110 H 5519586847) CREATININE (test code = 0.69 mg/dL 0.50-1.04 5594548467) TOTAL BILI (test code = 0.6 mg/dL 0.1-1.5 9506384068) CALCIUM (test code = 8.9 mg/dL 8.6-10.6 4629639194) T PROTEIN (test code = 7.8 g/dL 6.3-8.2 0327662900) ALBUMIN (test code = 4.4 g/dL 3.5-5.0 7611946967) ALK PHOS (test code = 80 U/L 34-122 1160165619) ALTv (test code = 25 U/L 5-35 1742-6) AST(SGOT) (test code = 25 U/L 13-40 8335426440) eGFR (test code = 101.3 mL/min/1.73m2 8737116498) JOHN (test code = JOHN) Association of [...] tests). Lab Interpretation Abnormal (test code = 98125-1) [facility] 16:14[facility]43 Test Item Value Reference Range Interpretation Comments LIPASE (test code = 6500793242) 60 U/L 0-220 Lab Interpretation (test code = Normal 91784-5) [facility] WITH [id number] 16:00:42 Test Item Value Reference Range Interpretation Comments WBC (test code = 7.22 See_Comment [Automated 4990-2) message] The sy stem which generated this result transmitted reference range : 4.30 - 11.10 10*3/?L. The reference range was not used to interpret this result as normal/abnormal . RBC (test code = 4.32 See_Comment [Automated 969-8) message] The sy stem which generated this [...] RDW-SD (test code = 41.9 fL 39.0-49.9 69929-0) RDW-CV (test code = 11.8 % 12.0-15.5 L 788-0) PLT (test code = 271 See_Comment [Automated 777-3) message] The sy stem which generated this result transmitted reference range : 166 - 358 10*3/ ?L. The reference r bruce was not used to interpret this result as normal/abnormal . MPV (test code = 8.1 fL 9.5-12.9 L 37831-9) NRBC/100 WBC (test 0.0 See_Comment [Automat ed code = 4081138784) message] The system which generated this result transmitted reference range : 0.0 - 10.0 /100 WBCs. The refer ence range was not u sed to interpret th is result as normal/abnormal . NRBC x10^3 (test code See_Comment [Auto mated = 2752849254) message] The s ystem which generated this result transmitted reference range : 10*3/?L. The reference range was not used to interpret this result as normal/abnormal . GRAN MAT (NEUT) % 61.8 % (test code = 770-8) IMM GRAN % (test code 0.30 % = 3453139811) LYMPH % (test code = 30.6 % 736-9) MONO % (test code = 4.8 % 5905-5) EOS % (test code = 2.4 % 713-8) BASO % (test code = 0.1 % 706-2) GRAN MAT x10^3(ANC) 4.46 10*3/uL 1.88-7.09 (test code = 8735289401) IMM GRAN x10^3 (test 0.00-0.06 code = 5492979123) LYMPH x10^3 (test code 2.21 10*3/uL 1.32-3.29 = 731-0) MONO x10^3 (test code 0.35 10*3/uL 0.33-0.92 = 742-7) EOS x10^3 (test code = 0.17 10*3/uL 0.03-0.39 711-2) BASO x10^3 (test code 0.01-0.07 = 704-7) Lab Interpretation Abnormal (test code = 70212-1) [facility] [id number] 20:08:00 Test Item Value Reference Range Interpretation [...] atories that are certif ied under the [facility] ory Improvement Carmen ndments of 1987 (CLIA), 42 U.S.C.263a, to perform high complexity tests. Molecular Nasopharyngeal Swab Testing MM (test code = COVIDSOURCEMM) Resident in Congregate Care Setting: UnknownEmployed in Healthcare: UnknownFirst Test: UnknownHospitalized: UnknownICU: UnknownDate of Symptom Onset: [id number]: UnknownReason for Testing: PUI -SymptomaticSource: Nasopharyngeal SwabSymptomatic as defined by CDC: EzfadqdRfgcjpcvqf7928-66-59 13:11:00 Test Item Value Reference Range Interpretation [...] Seen HPF None Seen Urine Source: Urine FxwzadCcmwlhsyzh2760-94-26 13:11:00 Test Item Value Reference Range Interpretation [...] (test 1.027 1.002-1.036 N code = PREGUSG) [id number] 12:25:00 Test Item Value Reference Range Interpretation Comments Chemistry (test code = LIP) 10 U/L 8-78 N Specific gravity of Urine by Refractometry ardhvkfvb9013-10-79 12:21:00 Test Item Value Reference Range Interpretation Comments Urine Specific [place]ul[place] (test code = 1.027 1.002-1.036 89732-9) [facility] by [id number] 12:21:00 Test Item Value Reference Range Interpretation Comments Urine Color (test code = Light-Yellow Yellow 59021-1) [facility] clarity by refractometry nwbdoqeza0820-79-75 12:21:00 Test Item Value Reference Range Interpretation Comments Urine Clarity (test code = 27875-1) Clear Clear [facility] pH measurement by automated test [id number] 12:21:00 Test Item Value Reference Range Interpretation Comments Urine pH (test code = 65629-0) 6.0 5.0-9.0 [facility] leukocyte esterase detection by automated test [id number] 12:21:00 Test Item Value Reference Range Interpretation Comments Urine Leukocyte Esterase (test code 75 Janis/uL Negative = 82252-4) [facility] [Presence] in Urine by Test [id number] 12:21:00 Test Item Value Reference Range Interpretation Comments Urine Nitrite (test code = 5802-4) Negative Negative [facility] protein measurement by automated test strip (mass/volume)2022-01-14 12:21:00 Test Item Value Reference Range Interpretation Comments Urine Protein (test code = Negative mg/dL Neg-Trace 89652-6) [facility]ucose [Moles/volume] in Urine by Test strip 2022-01-14 12:21:00 Test Item Value Reference Range Interpretation Comments Urine Glucose (UA) (test code = Normal mg/dL Negative 39386-3) [facility] ketones measurement by automated test strip (mass/volume)2022-01-14 12:21:00 Test Item Value Reference Range Interpretation Comments Urine Ketones (test code = Negative mg/dL Negative 63478-2) [facility] urobilinogen measurement (units/volume) by test [id number] 12:21:00 Test Item Value Reference Range Interpretation Comments Urine Urobilinogen (test code = Normal mg/dL Less than 2 63601-3) [facility] total bilirubin detection by automated test szijt5510-17-06 12:21:00 Test Item Value Reference Range Interpretation Comments Urine Bilirubin (test code = Negative Negative 84105-3) [facility] hemoglobin detection by automated test strip 2022-01-14 12:21:00 Test Item Value Reference Range Interpretation Comments Urine Blood (test code = 26914-5) Negative Negative [facility] erythrocytes detection by automated method 2022-01-14 12:21:00 Test Item Value Reference Range Interpretation Comments Urine RBC (test code = 88499-6) 0-3 HPF 0-3 [facility] leukocytes detection by automated method 2022-01-14 12:21:00 Test Item Value Reference Range Interpretation Comments Urine WBC (test code = 19051-8) 0-3 HPF 0-3 [facility] cells.squamous [#/area] in Urine sediment by Automated [id number] 12:21:00 Test Item Value Reference Range Interpretation Comments Urine Squamous Epithelial Cells (test 0-3 HPF 0-3 code = 72768-5) [facility] bacteria detection by automated [id number] 12:21:00 Test Item Value Reference Range Interpretation Comments Urine Bacteria (test code = None Seen HPF None Seen 97603-5) [facility] ur [id number] 12:21:00 Test Item Value Reference Range Interpretation Comments Urine Test (test code = Negative Negative 2105-3) [facility] - Mmjbjetx1305-89-38 12:18:00 Test Item Value Reference Range Interpretation Comments Chemistry - Specials Negative NEGATIVE Method of sensitivity- (test code = BHCGST) Indeter minant: results should be repea stevan after 48-72 hrs Positive: resul ts may be detected as early as 1 day after the first missed me nses. Ibujlwwsu1415-07-94 11:13:00 Test Item Value Reference Range Interpretation [...] EGFRCR) Estimated GFR: Greater than 90 mL/min/1.73 w8Fqbyfjqu eGFR is based on the CK D-EPI [...] code = 12 U/L 8-55 N ALT) [id number] 10:49:00 Test Item Value Reference Range Interpretation [...] N Leukocytes [#/volume] in Blood by Automated [id number] 10:35:00 Test Item Value Reference Range Interpretation Comments White Blood Count (test code = 8.3 thou/uL 4.8-10.8 6690-2) [facility] erythrocytes automated count (number/volume) 2022-01-14 10:35:00 Test Item Value Reference Range Interpretation Comments Red Blood Count (test code = 4.15 mill/uL 4.20-5.40 789-8) [facility] hemoglobin measurement (mass/volume)2022-01-14 10:35:00 Test Item Value Reference Range Interpretation Comments Hemoglobin (test code = 718-7) 14.3 g/dL 12.0-16.0 [facility] mean corpuscular volume 2022-01-14 10:35:00 Test Item Value Reference Range Interpretation Comments Mean Corpuscular Volume (test code = 100.0 fL 78.0-98.0 787-2) [facility] eryth[facility] mean corpuscular hemoglobin (mass per erythrocyte)2022-01-14 10:35:00 Test Item Value Reference Range Interpretation Comments Mean Corpuscular Hemoglobin (test 34.5 pg 27.0-31.0 code = 785-6) [facility] erythrocyte mean corpuscular hemoglobin concentration measurement (mass/psn2105-86-92 10:35:00 Test Item Value Reference Range Interpretation Comments Mean Corpuscular Hemoglobin Concent 34.4 g/dL 32.0-36.0 (test code = 786-4) [facility] erythrocyte distribution width ratio 2022-01-14 10:35:00 Test Item Value Reference Range Interpretation Comments Red Cell Distribution Width (test code 10.4 % 11.5-14.5 = 788-0) [facility] blood platelet count (count/volume) 2022-01-14 10:35:00 Test Item Value Reference Range Interpretation Comments Platelet Count (test code = 293 thou/uL 130-400 777-3) [facility] blood platelet mean [id number] 10:35:00 Test Item Value Reference Range Interpretation Comments Mean Platelet Volume (test code = 6.2 fL 7.4-10.4 80326-1) [facility] blood neutrophils/100 [id number] 10:35:00 Test Item Value Reference Range Interpretation Comments Neutrophils % (test code = 770-8) 66.0 % 42.0-75.0 [facility]allLymphocytes/100 leukocytes in Blood by Automated count 2022-01-14 10:35:00 Test Item Value Reference Range Interpretation Comments Lymphocytes % (test code = 736-9) 26.7 % 21.0-51.0 [facility] blood monocytes/100 atrtplprys1842-84-18 10:35:00 Test Item Value Reference Range Interpretation Comments Monocytes % (test code = 5905-5) 4.9 % 0.0-10.0 [facility] blood eosinophils/100 nslsfzbjhn0003-11-33 10:35:00 Test Item Value Reference Range Interpretation Comments Eosinophils % (test code = 713-8) 1.7 % 0.0-10.0 [facility] blood basophils/100 gnjerekmqa6517-19-71 10:35:00 Test Item Value Reference Range Interpretation Comments Basophils % (test code = 706-2) 0.6 % 0.0-1.0 [facility] neutrophils automated count (number/volume) 2022-01-14 10:35:00 Test Item Value Reference Range Interpretation Comments Neutrophils # (test code = 751-8) 5.5 thou/uL 1.40-6.50 [facility]ymph[facility] [#/volume] in Blood by Automated count 2022-01-14 10:35:00 Test Item Value Reference Range Interpretation Comments Lymphocytes # (test code = 731-0) 2.2 thou/uL 1.20-3.40 [facility] monocytes automated count (number/volume) 2022-01-14 10:35:00 Test Item Value Reference Range Interpretation Comments Monocytes # (test code = 742-7) 0.4 thou/uL 0.11-0.59 [facility]allBlood eosinophils automated count (count/volume) 2022-01-14 10:35:00 Test Item Value Reference Range Interpretation Comments Eosinophils # (test code = 711-2) 0.1 thou/uL 0.0-0.7 [facility] blood basophil count (count/volume) 2022-01-14 10:35:00 Test Item Value Reference Range Interpretation Comments Basophils # (test code = 704-7) 0.0 thou/uL 0.0-0.2 [facility] or plasma sodium measurement (moles/volume) 2022-01-14 10:35:00 Test Item Value Reference Range Interpretation Comments Sodium Level (test code = 2951-2) 139 mmol/L 136-145 [facility] or plasma potassium measurement (moles/volume) 2022-01-14 10:35:00 Test Item Value Reference Range Interpretation Comments Potassium Level (test code = 3.9 mmol/L 3.5-5.1 2823-3) [facility] or plasma chloride measurement (moles/volume) 2022-01-14 10:35:00 Test Item Value Reference Range Interpretation Comments Chloride Level (test code = 108 mmol/L 98-107 5-0) [facility] or plasma carbon dioxide, total measurement (moles/volume)2022-01-14 10:35:00 Test Item Value Reference Range Interpretation Comments Carbon Dioxide Level (test code = 22 mmol/L 22-29 2027-9) [facility] or plasma anion [id number] 10:35:00 Test Item Value Reference Range Interpretation Comments Anion Gap (test code = 81090-0) 13 mmol/L 10-20 [facility] or plasma urea nitrogen measurement (mass/volume)2022-01-14 10:35:00 Test Item Value Reference Range Interpretation Comments Blood Urea Nitrogen (test code = 14 mg/dL 7.0-18.7 3094-0) [facility] or plasma creatinine measurement (mass/volume) 2022-01-14 10:35:00 Test Item Value Reference Range Interpretation Comments Creatinine (test code = 2160-0) 0.81 mg/dL 0.6-1.1 [facility]1.73 sq M.predicted [Volume Rate/Area] in Serum, Plasma [id number] 10:35:00 Test Item Value Reference Range Interpretation Comments Estimated GFR (CKD-EPI 2020) (test code 102 = 08441-7) [facility]/volume] in Serum or [id number] 10:35:00 Test Item Value Reference Range Interpretation Comments Glucose Level (test code = 2345-7) 105 mg/dL 70-105 [facility] or plasma calcium measurement (mass/volume) 2022-01-14 10:35:00 Test Item Value Reference Range Interpretation Comments Calcium Level (test code = 27488-7) 9.1 mg/dL 7.8-10.44 [facility] or plasma total bilirubin measurement (mass/volume)2022-01-14 10:35:00 Test Item Value Reference Range Interpretation Comments Total Bilirubin (test code = 0.6 mg/dL 0.2-1.2 1974-2) [facility] or plasma protein measurement (mass/volume) 2022-01-14 10:35:00 Test Item Value Reference Range Interpretation Comments Serum Total Protein (test code = 7.9 g/dL 6.0-8.3 2885-2) [facility] or plasma albumin measurement by bromocresol green (BCG) dye binding method ([id number] 10:35:00 Test Item Value Reference Range Interpretation Comments Albumin (test code = 76334-1) 4.3 g/dL 3.5-5.0 [facility] [Mass/volume] in Serum by calculation 2022-01-14 10:35:00 Test Item Value Reference Range Interpretation Comments Globulin (test code = 79645-6) 3.6 g/dL 2.4-3.5 [facility]Globulin [Mass Ratio] in Serum or Plasma 2022-01-14 10:35:00 Test Item Value Reference Range Interpretation Comments Albumin/Globulin Ratio (test code = 1.2 g/dL 1.2-2.2 1759-0) [facility] [Enzymatic activity/volume] in Serum or [id number] 10:35:00 Test Item Value Reference Range Interpretation Comments Alkaline Phosphatase (test code = 82 U/L 40-110 6768-6) [facility] or plasma aspartate aminotransferase measurement (enzymatic activity/volume)2022-01-14 10:35:00 Test Item Value Reference Range Interpretation Comments Aspartate Amino Transf (AST/SGOT) 12 U/L 5-34 (test code = 1920-8) [facility] or plasma alanine aminotransferase measurement without P-5'-P (enzymatic [id number] 10:35:00 Test Item Value Reference Range Interpretation Comments Alanine Aminotransferase (ALT/SGPT) 12 U/L 8-55 (test code = 1744-2) [facility] or plasma lipase measurement (enzymatic activity/volume)2022-01-14 10:35:00 Test Item Value Reference Range Interpretation Comments Lipase (test code = 3040-3) 10 U/L 8-78 [facility] human chorionic gonadotropin detection for [id number] 10:35:00 Test Item Value Reference Range Interpretation Comments Serum Test, Qualitative Negative NEGATIVE (test code = 2118-8) [facility]PRE[facility]OL[facility] SAMPSON *WW*2018-08-17 21:11:00 Test Item Value [...] = PGS) NEGATIVE NEGATIVE CBC (INCLUDES AUTOMATED DIFFERENTIAL)*[id number] 20:56:00 Test Item Value Reference Range Interpretation [...] (test code = NORMAL WRBCMOR) Molecular Testing [id number] 23:57:00 Test Item Value Reference Range Interpretation [...] or clinician colle cted),first void urine ([facility] specimen for maryanne benavides), and liquidbased pap [...] into the specimen * Source: VaginalReference Lab [id number] 14:15:00 Test Item Value Reference Range Interpretation Comments Reference Lab Testing . A Positi ve for Herpes (test code = HSVT) simplex v irus type-2. Typing wasconfi rmed by monoclonal anti body microscopicimmu nofluoresc ence.Performed at: [address] [id number] Director: Clyde Drummond MD, Phone: [phone] Reference Lab [id number] 17:10:00 Test Item Value Reference Range Interpretation Comments Reference Lab Negative Negative Testing (test code = GNH9NIE) Reference Lab Positive Negative A This test was developed and its Testing (test performance code = ZBV4BOX) characterist icsdetermined by [facility] oribridgette. It has not been cleare kenroy approved by the U.S. Food a nd Drug Administration. TheFDA has determined that such clearance or approval is notnecessary. This test is us ed for clinical purposes. Itsho uld not be regarded as inv estigational or research.Perfor med at: [address] [id number] Di hillary: Clyde Drummond MD, Ph one: [phone] HSV Source: SwabMolecular Testing [id number] 18:56:00 Test Item Value Reference Range Interpretation [...] specimen Source: VaginalVaginitis Panel 3 by DNA [id number] 08:37:00 Test Item Value Reference Range Interpretation Comments Vaginitis Panel 3 by DNA Probe VPIIICANDI (test code = VP3) Vaginitis Panel 3 by DNA Probe N (test code = VP31) Vaginitis Panel 3 by DNA Probe VPIIITRICH (test code = VP31) [id number] 02:06:00 Test Item Value Reference Range Interpretation [...] N code = PREGUSG) Comment add on [id number] 23:39:00 Test Item Value Reference Range Interpretation [...] 0-3 Hyaline UACAST) Urine Source: Urine Clean [id number] 21:32:00 Test Item Value Reference Range Interpretation [...] code 14 U/L 8-55 N = ALT) [id number] 21:07:00 Test Item Value Reference Range Interpretation [...] PORTABLE 2018-04-10 00:44:06Examination: Chest one viewLocation code: Y4Xmtyszeqcq: NoneDiscussion:Clinical history is remarkable for chest pain. Cardiac silhouette is normal insize. No consolidation, effusion, or pneumothorax isappreciated. The osseousstructures are unremarkable.Impression:1. No acute abnormality. SERUM MONOCLONAL 2018-04-10 00:43:00 Test Item Value Reference Range Interpretation Comments PREG SRM (test code = PGS) NEGATIVE NEGATIVE CBC (INCLUDES AUTOMATED DIFFERENTIAL)*[id number] 00:35:00 Test Item Value Reference Range Interpretation [...] DETECTED NOT DETECTED TRACHOMATIS (test code = 38520759) NEISSERIA NOT DETECTED NOT DETECTED GONORRHOEAE (test code = 92699214) Endnote (test code This test was = 56015080) performed using the APTIMA COMBO2 Assay([employer]The ruba tical performance characteristics of thisassay, when used to test SurePat h specimens haveb een determined by [employer].AMADOR T PERFORMED AT:[facility] [id number] [place] [id number] HANNON M.D. URINE [id number] 09:33:00 Test Item Value Reference Range Interpretation Comments Culture Observations THREE OR MORE SPECIES (test code = COB1) OF BACTERIA ISOLATED. PROBABLE CONTAMINATION. Culture Observations IDENTIFICATION AND (test code = COB17) SUSCEPTIBILITY NOT INDICATED. RECOLLECTION RECOMMENDED WET [id number] 00:23:00 Test Item Value Reference Range Interpretation [...] = USPERM) /HPF NONE CBC (INCLUDES AUTOMATED DIFFERENTIAL)*[id number] 22:38:00 Test Item Value Reference Range Interpretation [...] WRBCMOR) U/S PELVIS*WW*2017-09-04 02:40:03ULTRASOUND OF THE PELVISLocation: [id number] HISTORY: pelvic pain history of recent /deliveryCOMPARISON: [...] DETECTED NOT DETECTED TRACHOMATIS (test code = 54983466) NEISSERIA NOT DETECTED NOT DETECTED GONORRHOEAE (test code = 79480949) Endnote (test code This test was = 95032284) performed using the APTIMA COMBO2 Assay([employer]The ruba tical performance characteristics of thisassay, when used to test SurePat h specimens haveb een determined by [employer].AMADOR T PERFORMED AT:[facility] [address] [id number] HANNON M.D. URINE [id number] 07:55:00 Test Item Value Reference Range Interpretation [...] = ug/mL S rif) DIRECT STREP GROUP [id number] 07:36:00 Test Item Value Reference Range Interpretation Comments Culture Observations NO BETA HEMOLYTIC (test code = COB1) STREPTOCOCCUS ISOLATED Direct Exam (test code NEGATIVE FOR STREP A = DE1) ANTIGEN WET [id number] 18:51:00 Test Item Value Reference Range Interpretation [...] = DE6) DIRECT INFLUENZA A AND B [id number] 17:05:00 Test Item Value Reference Range Interpretation Comments Direct Exam (test PRESUMPTIVE NEGATIVE FOR code = DE1) THE PRESENCE OF INFLUENZA ANTIGEN AMYLASE AND [id number] 17:02:00 Test Item Value Reference Range Interpretation Comments AMYLASE (test code = 10A) 64 U/L 28-100 LIPASE (test code = 60A) 83 IU/L 73-393 COMPREHENSIVE METABOLIC [id number] 17:02:00 Test Item Value Reference Range Interpretation [...] (test code = 31A) 13 IU/L <=78 [id number] 16:55:00 Test Item Value Reference Range Interpretation Comments MAGNESIUM (test code = 48A) 1.9 mg/dL 1.8-2.4 URINALYSIS WITH [id number] 16:51:00 Test Item Value Reference Range Interpretation [...]
[2023-01-23 11:48] LABS: Lymphocytes % 23.4 % (15.3-44.8); MCV 98.7 fL (80-100); MPV 6.3 fL (7.6-11.3); Platelets 299 thou/uL (152-406); RBC Red Blood Cell Count 4.05 M/uL (3.86-4.86)
[2023-01-23 11:49] LABS: Specific Gravity 1.016 (1.005-1.030)
[2023-01-23] MEDS ORDERED: NA CHLORIDE 0.9% 1,000 ML ONE (11:54)
[2023-01-23] MEDS ORDERED: ONDANSETRON 4 MG/2 ML VIAL ONE (11:54)
[2023-01-23] MEDS ORDERED: NA CHLORIDE 0.9% 50 ML ONE (11:54)
[2023-01-23] MEDS ORDERED: CEFTRIAXONE 1000 MG/VIAL ONE (11:54)
[2023-01-23 11:58] LABS: Specific Gravity 1.016 (1.005-1.030); Urine Bacteria <20 /HPF (<20); Urine Bilirubin NEGATIVE (Negative); Urine Blood Negative (Negative); Urine Clarity Turbid (Clear); Urine Color Light-Yellow (Yellow); Urine Glucose NEGATIVE (Negative); Urine Mucus Slight /HPF (None Seen); Urine Protein NEGATIVE (Negative); Urine RBC <5 /HPF (None Seen); Urine Urobilinogen Normal (Normal); Urine pH 5.5 (5.0-7.0)
[2023-01-23 12:04] LABS: Albumin 3.6 g/dL (3.4-5.0); Bilirubin Total 0.3 mg/dL (0.2-1.0); Potassium 3.6 mEq/L (3.5-5.1); Protein, Total 7.7 g/dL (6.4-8.2)
--- NOTE | 2023-01-23 12:40 | RAD REPORT ---
EXAM DESCRIPTION: CT - Abdomen Pelvis W Contrast - 01/23/2023 12:20 pm CLINICAL HISTORY: Abdominal pain COMPARISON: none. TECHNIQUE: Computed axial tomography of the abdomen pelvis was obtained. 100 cc Isovue-300 was admin istered intravenously. Oral contrast was not requested which limits evaluation of bowel and appendix All CT scans are performed using dose optimization technique as appropriate and may include automated exposure control or mA/KV adjustment according to patient size. FINDINGS: The liver, spleen, pancreas, adrenal and kidneys appear unremarkable. There is no evidence of diverticulitis. 3 centimeter left ovarian cyst without significant free fluid. No follow-up recommended IMPRESSION: 3 centimeter left ovarian cyst without significant free fluid
--- NOTE | 2023-01-23 13:13 | EDPHYS ---
Physician Documentation [facility] Name: Sony Major Age: 27 yrs Sex: Female : 1995 Arrival Date: 01/23/2023 Time: 11:10 Bed 13 Private MD: ROBERT Physician Dev Austin HPI: 01/23 13:06 This 27 yrs old Female presents to ER via Ambulatory with complaints of zeeshan Urinary Problem, Low Back Pain. 13:06 The patient presents with pain that is acute, with no known mechanism of injury. The zeeshan symptoms are located in the low back. The pain radiates to the low back area and left low back. The problem was sustained from unknown cause. 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 - Social history:: Smoking status: Patient denies any tobacco usage or history of. ROS: 13:07 Constitutional: Negative for fever, chills, and weight loss, Eyes: Negative for injury, zeeshan pain, redness, and discharge, ENT: Negative for injury, pain, and discharge, Neck: Negative for injury, pain, and swelling, Cardiovascular: Negative for chest pain, palpitations, and edema, Respiratory: Negative for shortness of breath, cough, wheezing, and pleuritic chest pain, Back: Negative for injury and pain, : Negative for injury, bleeding, discharge, and swelling, MS/Extremity: Negative for injury and deformity, Skin: Negative for injury, rash, and discoloration, Neuro: Negative for headache, weakness, numbness, tingling, and seizure, Psych: Negative for depression, anxiety, suicide ideation, homicidal ideation, and hallucinations, Allergy/Immunology: Negative for hives, rash, and allergies, Endocrine: Negative for neck swelling, polydipsia, polyuria, polyphagia, and marked weight changes, Hematologic/Lymphatic: Negative for swollen nodes, abnormal bleeding, and unusual bruising. 13:07 Abdomen/GI: Positive for abdominal cramps, of the posterior aspect of right lateral abdomen, posterior aspect of left lateral abdomen, right lower quadrant and left lower quadrant. 13:07 : Positive for urinary frequency. Exam: 13:07 Constitutional: This is a well developed, well nourished patient who is awake, alert, zeeshan and in no acute distress. Head/Face: Normocephalic, atraumatic. Eyes: Pupils equal round and reactive to light, extra-ocular motions intact. Lids and lashes normal. Conjunctiva and sclera are non-icteric and not injected. Cornea within normal limits. Periorbital areas with no swelling, redness, or edema. ENT: Nares patent. No nasal discharge, no septal abnormalities noted. Tympanic membranes are normal and external auditory canals are clear. Oropharynx with no redness, swelling, or masses, exudates, or evidence of obstruction, uvula midline. Mucous membranes moist. Neck: Trachea midline, no thyromegaly or masses palpated, and no cervical lymphadenopathy. Supple, full range of motion without nuchal rigidity, or vertebral point tenderness. No Meningismus. Chest/axilla: Normal chest wall appearance and motion. Nontender with no deformity. No lesions are appreciated. Cardiovascular: Regular rate and rhythm with a normal S1 and S2. No gallops, murmurs, or rubs. Normal PMI, no JVD. No pulse deficits. Respiratory: Lungs have equal breath sounds bilaterally, clear to auscultation and percussion. No rales, rhonchi or wheezes noted. No increased work of breathing, no retractions or nasal flaring. Back: No spinal tenderness. No costovertebral tenderness. Full range of motion. Skin: Warm, dry with normal turgor. Normal color with no rashes, no lesions, and no evidence of cellulitis. MS/ Extremity: Pulses equal, no cyanosis. Neurovascular intact. Full, normal range of motion. Neuro: Awake and alert, GCS 15, oriented to person, place, time, and situation. Cranial nerves II-XII grossly intact. Motor strength 5/5 in all extremities. Sensory grossly intact. Cerebellar exam normal. Normal gait. Psych: Awake, alert, with orientation to person, place and time. Behavior, mood, and affect are within normal limits. 13:07 Abdomen/GI: Inspection: distension, that is mild, Bowel sounds: normal, Palpation: mild abdominal tenderness, in the right lower quadrant and left lower quadrant, Liver: no appreciated palpable abnormalities, Hernia: not appreciated. Vital Signs: 11:23 BP 108 / 76; Pulse 82; Resp 16; Temp 98.8; Pulse Ox 99% on R/A; Weight 77.11 kg; Height hb 5 ft. 1 in. ; Pain 7/10; 12:30 BP 122 / 80; Pulse 81; Resp 16; Pulse Ox 100% on R/A; eh3 13:25 BP 125 / 80; Pulse 70; Resp 16; Pulse Ox 100% on R/A; eh3 11:23 Body Mass Index 32.12 (77.11 kg, 154.94 cm) hb 11:23 Pain Scale: Adult hb MDM: 11:[address] [facility] 13:10 Differential diagnosis: diverticulitis, Endometriosis, gastritis, non-specific abd zeeshan pain, Ovarian Torsion, pancreatitis, Peptic Ulcer Disease, Pyelonephritis, Ureterolithiasis, urinary tract infection. Data reviewed: vital signs, nurses notes, lab test result(s), radiologic studies, CT scan. Consideration of Admission/Observation Escalation of care including admission/observation considered. I considered the following discharge prescriptions or medication management in the emergency department Medications were administered in the Emergency Department. See MAR. Independent interpretation of the following test(s) in the Emergency Department CT Scan: My interpretation is ct abd / pelvis. Test considered but Not performed: Ultrasound no abd usg. Historians other than the Patient: pt, good historian. Care significantly affected by the following chronic conditions: asthma. 01/23 11:25 Order name: CBC with Diff; Complete Time: 13: [facility] 01/23 11:25 Order name: CMP; Complete Time: 13: [facility] 01/23 11:25 Order name: Lipase; Complete Time: 13: [facility] 01/23 11:25 Order name: Test, Urine; Complete Time: 13: [facility] 01/23 11:25 Order name: Urinalysis w/ reflexes; Complete Time: 13: [facility] 01/23 11:25 Order name: Urine Culture [facility] 01/23 11:25 Order name: CT Abd/Pelvis - IV Contrast Only; Complete Time: 13: [facility] 01/23 11:25 Order name: IV Saline Lock; Complete Time: 11:[address] [facility] 01/23 11:25 Order name: Labs collected and sent; Complete Time: 11:[address] [facility] Administered Medications: 11:45 Drug: NS 0.9% IV 1000 ml Route: IV; Rate: 1 bolus; Site: left antecubital; 3 13:08 Follow up: IV Status: Completed infusion; IV Intake: 1000ml 3 11:45 Drug: Ondansetron IVP 4 mg Route: IVP; Site: left antecubital; 3 13:08 Follow up: Response: No adverse reaction eh3 11:50 Drug: Rocephin IV 1 grams Route: IV; Rate: per protocol; Site: left antecubital; eh3 13:08 Follow up: Response: No adverse reaction; IV Status: Completed infusion; IV Intake: 37dsop9 13:15 Drug: Ciprofloxacin PO 500 mg Route: PO; eh3 13:26 Follow up: Response: No adverse reaction 3 13:15 Drug: Ketorolac IVP 30 mg Route: IVP; Site: left antecubital; 3 13:26 Follow up: Response: No adverse reaction eh3 Disposition Summary: 01/23/23 13:12 Discharge Ordered Location: Home zeeshan Problem: new zeeshan Symptoms: have improved zeeshan Condition: Stable zeeshan Diagnosis - UTI/ Urinary tract infection, site not specified zeeshan - Other ovarian cysts zeeshan Followup: zeeshan - With: Private Physician - When: 2 - 3 days - Reason: Recheck today's complaints, Continuance of care, Re-evaluation by your physician Discharge Instructions: - Discharge Summary Sheet zeeshan - Dysuria zeeshan - Ovarian Cyst zeeshan - Urinary Tract Infection, Adult zeeshan - Urinary Tract Infection, Adult, Nzsv-ij-Cxis zeeshan - Ovarian Cyst, Yghx-dk-Xgti [facility] Forms: - Medication Reconciliation Form [facility] - Thank You Letter zeeshan - Antibiotic Education zeeshan - Prescription Opioid Use zeeshan - Patient Portal Instructions zeeshan - Leadership Thank You Letter zeeshan - Work release form 3 Prescriptions: - Cipro 250 mg Oral Tablet - take 1 tablet by ORAL route every 12 hours; 14 tablet; Refills: 0, Product [facility] Selection Permitted - Pyridium 200 mg Oral Tablet - take 1 tablet by ORAL route every 8 hours for 3 days; 9 tablet; Refills: 0, [facility] Product Selection Permitted - Diclofenac Sodium 75 mg Oral tablet,delayed release (DR/EC) - take 1 tablet by ORAL route 2 times per day; 20 tablet; Refills: 0, Product [facility] Selection Permitted Signatures: Dispatcher [employer] Dev Fried MD MD cha Baxter, Heather RN RN hb Lotus De La Rosa, RN RN eh3
--- NOTE | 2023-01-23 13:13 | ER ---
Nurse's Notes [facility] Name: Sony Major Age: 27 yrs Sex: Female : 1995 Arrival Date: 01/23/2023 Time: 11:10 Bed 13 Private MD: Diagnosis: UTI/ Urinary tract infection, site not specified;Other ovarian cysts Presentation: 01/23 11:23 Chief complaint: Suprapubic pain, burning with urination, and low back pain x 2 weeks. hb Completed Keflex for UTI 5 days ago. Coronavirus screen: At this time, the client does not indicate any symptoms associated with coronavirus-19. Ebola Screen: No symptoms or risks identified at this time. Initial Sepsis Screen: Does the patient meet any 2 criteria? No. Patient's initial sepsis screen is negative. Does the patient have a suspected source of infection? No. Patient's initial sepsis screen is negative. Risk Assessment: Do you want to hurt yourself or someone else? Patient reports no desire to harm self or others. Onset of symptoms was January 09, 2023. 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 - Social history:: Smoking status: Patient denies any tobacco usage or history of. Screenin:30 [facility] ED Fall Risk Assessment (Adult) Score/Fall Risk Level 0 - 2 = Low Risk. Abuse eh3 screen: Denies threats or abuse. Denies injuries from another. Nutritional screening: No deficits noted. Tuberculosis screening: No symptoms or risk factors identified. Assessment: 11:30 General: Appears in no apparent distress. uncomfortable, Behavior is calm, cooperative, eh3 appropriate for age. Pain: Complains of pain in left low back, right low back, and suprapubic area. Neuro: Level of Consciousness is awake, alert, obeys commands, Oriented to person, place, time, situation. Cardiovascular: Capillary refill < 3 seconds Patient's skin is warm and dry. Respiratory: Airway is patent Respiratory effort is even, unlabored, Respiratory pattern is regular, symmetrical. GI: Abdomen is round non-distended, Reports nausea. : Reports urgency, urinary frequency. Derm: Skin is healthy with good turgor, Skin is pink, warm \T\ dry. Musculoskeletal: Circulation, motion, and sensation intact. 12:30 Reassessment: Patient appears in no apparent distress at this time. Patient and/or eh3 family updated on plan of care and expected duration. Pain level reassessed. Patient is alert, oriented x 3, equal unlabored respirations, skin warm/dry/pink. 13:25 Reassessment: Patient appears in no apparent distress at this time. Patient is alert, eh3 oriented x 3, equal unlabored respirations, skin warm/dry/pink. Vital Signs: 11:23 BP 108 / 76; Pulse 82; Resp 16; Temp 98.8; Pulse Ox 99% on R/A; Weight 77.11 kg; Height hb 5 ft. 1 in. ; Pain 7/10; 12:30 BP 122 / 80; Pulse 81; Resp 16; Pulse Ox 100% on R/A; eh3 13:25 BP 125 / 80; Pulse 70; Resp 16; Pulse Ox 100% on R/A; eh3 11:23 Body Mass Index 32.12 (77.11 kg, 154.94 cm) hb 11:23 Pain Scale: Adult hb ED Course: 11:15 Patient arrived in ED. mg5 11:20 Lotus De La Rosa, RN is Primary Nurse. eh3 11:23 Dev Austin MD is Attending Physician. zeeshan 11:24 Triage completed. hb 11:24 Arm band placed on. hb 11:30 Patient has correct armband on for positive identification. Bed in low position. Call eh3 light in reach. Side rails up X2. Provided Education on: Use of call antoine. Pulse ox on. NIBP on. Door closed. Noise minimized. Lights dimmed. Warm blanket given. 11:35 Inserted saline lock: 22 gauge in left antecubital area, using aseptic technique. Blood eh3 collected. 11:44 Urine Culture Sent. eh3 12:21 CT Abd/Pelvis - IV Contrast Only In Process Unspecified. EDMS 13:26 No provider procedures requiring assistance completed. IV discontinued, intact, eh3 bleeding controlled, No redness/swelling at site. Pressure dressing applied. Administered Medications: 11:45 Drug: NS 0.9% IV 1000 ml Route: IV; Rate: 1 bolus; Site: left antecubital; 3 13:08 Follow up: IV Status: Completed infusion; IV Intake: 1000ml eh3 11:45 Drug: Ondansetron IVP 4 mg Route: IVP; Site: left antecubital; eh3 13:08 Follow up: Response: No adverse reaction 3 11:50 Drug: Rocephin IV 1 grams Route: IV; Rate: per protocol; Site: left antecubital; eh3 13:08 Follow up: Response: No adverse reaction; IV Status: Completed infusion; IV Intake: [id number] 13:15 Drug: Ciprofloxacin PO 500 mg Route: PO; 3 13:26 Follow up: Response: No adverse reaction 3 13:15 Drug: Ketorolac IVP 30 mg Route: IVP; Site: left antecubital; 3 13:26 Follow up: Response: No adverse reaction 3 Medication: 13:26 VIS not applicable for this client. eh3 Intake: 13:08 IV: 1000ml; Total: 1000ml. eh3 13:08 IV: 50ml; Total: 1050ml. 3 Outcome: 13:12 [address] ordered [address] . [facility] 13:27 Discharged to home ambulatory. 3 13:27 Condition: stable 13:27 Discharge instructions given to patient, Instructed on discharge instructions, follow up and referral plans. medication usage, Demonstrated understanding of instructions, follow-up care, medications, Prescriptions given X 3. 13:31 Patient left the ED. 3 Signatures: Dispatcher [employer] EDAL Dev Austin MD MD cha Baxter, Heather, RN RN Lotus De La Rosa RN RN 3 Inga Sweeney mg5 Corrections: (The following items were deleted from the chart) 11:25 11:23 Chief complaint: Suprapubic pain, burning with urination, and low back pain x 2 hb weeks. Completed abx for UTI 5 days ago hb 12:03 12:00 General: Appears eh3 eh3
[2023-01-23] MEDS ORDERED: KETOROLAC 30 MG/ML INJ ONE (13:24)
[2023-01-23] MEDS ORDERED: CIPROFLOXACIN HCL 500 MG TAB ONE (13:24)
[2023-01-23 13:36] VITALS: TEMP 98.8
[2023-01-23 13:37] VITALS: O2SAT 100
[2023-01-23 13:39] VITALS: BP 125/80
== END 2023-01-23 13:31 | disposition home or self-care (01) ==
LOC: ER 11:10
DX: N39.0 Urinary tract infection, site not specified (principal); N83.299 Other ovarian cyst, unspecified side
CPT/HCPCS: 36415; 74177; 80053; 81001; 81025; 83690; 85025; 87086; 87088; 96365; 96375; 99284; J0696; J2405; J7030; Q9967

== ENCOUNTER → 2023-05-27 | Emergency (ER) | payer OTHER ==
[~2023-05-27] MED LIST: FAMOTIDINE 20 MG/2 ML VIAL IV ONE; NA CHLORIDE 0.9% 1,000 ML ONE; ONDANSETRON 4 MG/2 ML VIAL ONE
--- OUTSIDE RECORDS SUMMARY | 2023-05-27 08:37 | XMS REPORT | Continuity of Care Document ---
Author Name Unknown Address [address] [facility] [address] [place] [address] [facility] thconnect Address [address] 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 Role Phone ESASTEPHANIE Cruz Primary Care Physician Unavailab YESSICA Polanco Attending Clinician Unavailable NAEL PINTO Attending Clinician Unavailable Nael Pinto DO Attending Clinician [phone] Yesenia OROZCO Attending Clinician Unavailable Yesenia Smalls Attending Clinician [phone] CHEO MICHAEL Attending Clinician Unavailable Cheo Michael MD Attending Clinician [phone] ANI PIERCE Attending Clinician Unavailable Ani Pierce MD Attending Clinician [phone] YANG PULIDO III Attending Clinician Unavaillorena Pulido III, MD, James C Attending Clinician [phone] Unknown, Attending Attending Clinician Unavailab ashish Doctor Unassigned, [place] Attending Clinician Linette Veronica NP Attending Clinician LINETTE MONTES DE OCA Attending Clinician UnavailWILLIAM Puentes Attending Clinician Unavailable MC DELUCA Attending Clinician Un available Stephanie Richards Attending Clinician STEPHANIE ARMIJO Attending Clinician Unavailable Holland REESE, Patti Attending Clinician [phone] MOHINDER COLMENARES Attending Clinician Unavailable Bayron REESE, Mohinder Hicks Attending Clinician Lala Jimenez Attending Clinician Unavailable DEANNE, DR ADAMS Attending Clinician UnavailJude Dey Attending Clinician Unavailable BONNY ALEX Attending Clinician Unavailable PROVIDER, ED TEMP Attending Clinician Unavaillorena MARSH, DR OPAL Poole Attending Clinician Unavaillorena ALMARAZ, DR JOSH BOYD Attending Clinician U pauline MARSH, DR LUGO Attending Clinician Unavailable TU, DR CHAVES Attending Clinician Unavailable MALENA, DR Markel BARRY Attending Clinician Amy RILEY, DR FITZGERALD Attending Clinician Unavailable YESSICA ESPINO Admitting Clinician Unavailable NAEL PINTO Admitting Clinician Unavailable CHEO MICHAEL Admitting Clinician Unavailable MOHINDER COLMENARES Admitting Clinician Unavailable DEANNE, DR ADAMS Admitting Clinician Unavailab Smiley, DR OPAL Poole Admitting Clinician Unavaillorena ALMARAZ, DR JOSH BOYD Admitting Clinician U pauline MARSH, DR LUGO Admitting Clinician Unavailable TU, DR CHAVES Admitting Clinician Unavailable MALENA, DR Markel BARRY Admitting Clinician Amy RILEY, DR FITZGERALD Admitting Clinician Unavailable Payers Payer Name Policy Type Policy Number Effective Date Expirati on Date Source [employer]WORK [id number] 2022 00:00:00 MEDICAID PENDING PENDING 2022 00:00:00 [facility] [id number] 2019 00:00:00 Problems Condition Name Condition Details Condition Category Status Onset Date Resolution Date Last Treatment Date Treating Clinician Comments Source Bilateral ovarian cysts Bilateral ovarian cysts Disease Active 07-06 00:00: 00 [facility] Menorrhagi a with irregular cycle Menorrhagi a with irregular cycle Disease Active 07-06 00:00: 00 [facility] Depo-Prove ra contracept radha status Depo-Prove ra contracept radha status Disease Active 07-06 00:00: 00 [facility] On oral contracept radha pills for non-contra ception indication On oral contracept radha pills for non-contra ception indication Disease Active 07-06 00:00: 00 [facility] Pelvic peritoneal adhesions, female (postopera tive) (postinfec tion) Pelvic peritoneal adhesions, female (postopera tive) (postinfec tion) Disease Active 07-06 00:00: 00 [facility] Chronic pelvic pain in female Chronic pelvic pain in female Disease Active 07-06 00:00: 00 [facility] BMI 33.0-33.9, adult BMI 33.0-33.9, adult Disease Active 07-06 00:00: 00 [facility] Screening for endocrine, metabolic and immunity disorder Screening for endocrine, metabolic and immunity disorder Disease Active 07-06 00:00: 00 [facility] Follow-up exam Follow-up exam Disease Active 06-24 00:00: 00 [facility] Constipati on, unspecifie d constipati on type Constipati on, unspecifie d constipati on type Disease Active 2 00:00: 00 [facility] PCOS (polycysti c ovarian syndrome) PCOS (polycysti c ovarian syndrome) Disease Active 2 00:00: 00 [facility] Irregular periods Irregular periods Disease Active 215 00:00: 00 [facility] Bladder adhesions Bladder adhesions Disease Active 2 00:00: 00 [facility] Lower abdominal pain Lower abdominal pain Disease Active 215 00:00: 00 [facility] Abnormal maternal glucose tolerance, antepartum Abnormal maternal glucose tolerance, antepartum Disease Active 7-03 00:00: 00 [facility] Susceptibl e to varicella (non-immun e), currently - needs vaccine Susceptibl e to varicella (non-immun e), currently - needs vaccine Disease Active 11-09 00:00: 00 [facility] Insufficie nt care Insufficie nt care Disease Active 11-08 00:00: 00 [facility] History of section History of section Disease Active 11-08 00:00: 00 [facility] Complicati on of , antepartum Complicati on of , antepartum Disease Active 11-08 00:00: 00 Overview: Formattin g of this note might be different from the original. 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 [facility] History of macrosomia in in prior , currently History of macrosomia in infant in prior , currently Disease Active 11-08 00:00: 00 [facility] Allergies, Adverse Reactions, Alerts Allergy Name Allergy Type Status Severity Reaction(s) Onset Date Inactive Date Treating Clinician Comments Source CODEINE DRUG INGREDI Active High Hives 2019-05 00:00: 00 [facility] Codeine Propensi ty to adverse reaction s Active Hives 2019-05 00:00: 00 [facility] Penicill ins Allergy to substanc e Active Mild 11-17 00:04: 08 [facility] Penicill ins DA Active AR Rash 11-17 00:00: 00 [facility] Penicill ins Propensi ty to adverse reaction s Active Rash 06-28 00:00: 00 [facility] PENICILL INS Drug Class Active Rash 06-28 00:00: 00 [facility] Family History Family Member Diagnosis Comments Start Date Stop Date Sourc e Mother Family Breast Cancer?No [facility] Mother Family Coronary Nhi ry Disease?No [facility] Mother Family Congenital Heart Disease?No [facility] Mother Family Myocardial Infarction?No [facility] Mother Family Stroke?No [facility] Mother Family Diabetes?No [facility] Mother Family Colorectal Cancer?No [facility] Social History Social Habit Start Date Stop Date Quantity Comments Source History of tobacco use [facility] 2023-03-29 00:00:00 2023-03-29 00:00:00 Current non-drinker of alcohol (finding) [facility] Exposure to SARS-CoV-2 (event) 2022-08-25 00:00:00 2022-09-04 14:03:00 Not sure [facility] Tobacco use and exposure 2022-06-24 00:00:00 2022-06-24 00:00:00 Smokeless tobacco non-user [facility] History of Social function 2022-06-24 00:00:00 2022-06-24 00:00:00 [facility] Sex Assigned At 1995 00:00:00 1995 00:00:00 [facility] Smoking Status Start Date Stop Date Source Never smoked tobacco [facility] Medications Ordered Medication Name Filled Medication Name Start Date Stop Date Current Medication? Ordering Clinician Indication Dosage Frequency Signature (SIG) Comments Components Source cefTRIAXone (ROCEPHIN) injection 1,000 mg 2022-05 18:00: 00 03-29 17:16 :00 No 1000mg 1,000 mg, Intramuscu lar, ONCE, 1 dose, On Wed03/29/23 at 1200, VINEET
Re ason for Anti-Infec tive: Documented Infection< br>Documen stevan Infection Site: HEENT
D uration of Therapy: 7 days [facility] azithromyci n 250 mg tablet 2022-05 00:00: 00 Yes [id number] 2 tabs today, then one tab once daily until completed [facility] ibuprofen 800 mg tablet 2022-05 00:00: 00 Yes [id number] 800mg Take 1 tablet by mouth every 6 (six) hours as needed for Temp > 38.5 C or Pain (scale 4-6). [facility] oseltamivir (TAMIFLU) 75 mg capsule 2022-05 00:00: 00 Yes [id number] 75mg Take 1 capsule by mouth in the morning and 1 capsule in the evening. [facility] benzonatate 100 mg capsule 2022-05 1-20 00:00: 00 Yes [id number] 100mg Take 1 capsule by mouth 3 (three) times daily as needed for Cough. [facility] naproxen sodium (ANAPROX DS) 550 mg tablet 11-09 00:00: 00 Yes [id number] 550mg Take 1 tablet by mouth in the morning and 1 tablet in the evening. Take with meals. [facility] naproxen sodium (ANAPROX DS) 550 mg tablet 11-09 00:00: 00 Yes [id number] 550mg Take 1 tablet by mouth in the morning and 1 tablet in the evening. Take with meals. [facility] ondansetron 4 mg disintegrat ing tablet 10-15 00:00: 00 Yes [id number] 4mg Take 1 tablet by mouth every 8 (eight) hours as needed for Nausea and Vomiting (N/V). [facility] ondansetron 4 mg disintegrat ing tablet 10-15 00:00: 00 Yes [id number] 4mg Take 1 tablet by mouth every 8 (eight) hours as needed for Nausea and Vomiting (N/V). [facility] ondansetron 4 mg disintegrat ing tablet 10-15 00:00: 00 Yes [id number] 4mg Take 1 tablet by mouth every 8 (eight) hours as needed for Nausea and Vomiting (N/V). [facility] cefdinir 300 mg capsule 0 08 00:00: 00 10-26 04:59 :00 No [id number] 300mg Take 1 capsule by mouth every 12 (twelve) hours for 10 days. [facility] benzonatate 100 mg capsule 0 3-24 00:00: 00 Yes [id number] 100mg Take 1 capsule by mouth every 8 (eight) hours as needed for Cough. [facility] benzonatate 100 mg capsule 2022-0 3-24 00:00: 00 Yes [id number] 100mg Take 1 capsule by mouth every 8 (eight) hours as needed for Cough. [facility] benzonatate 100 mg capsule 3-0 3-24 00:00: 00 Yes [id number] 100mg Take 1 capsule by mouth every 8 (eight) hours as needed for Cough. [facility] benzonatate 100 mg capsule 3-0 3-24 00:00: 00 Yes [id number] 100mg Take 1 capsule by mouth every 8 (eight) hours as needed for Cough. [facility] benzonatate 100 mg capsule 3-0 3-24 00:00: 00 Yes [id number] 100mg Take 1 capsule by mouth every 8 (eight) hours as needed for Cough. [facility] benzonatate 100 mg capsule 3-0 3-24 00:00: 00 Yes [id number] 100mg Take 1 capsule by mouth every 8 (eight) hours as needed for Cough. [facility] benzonatate 100 mg capsule 3-0 3-24 00:00: 00 Yes [id number] 100mg Take 1 capsule by mouth every 8 (eight) hours as needed for Cough. [facility] Methylpredn isolone 4 mg tablet 2022-0 324 00:00: 00 08-06 04:59 :00 No [id number] 4mg Take 1 tablet by mouth every 12 (twelve) hours for 5 days. [facility] Methylpredn isolone 4 mg tablet 2022-0 3-24 00:00: 00 08-06 04:59 :00 No [id number] 4mg Take 1 tablet by mouth every 12 (twelve) hours for 5 days. [facility] medroxyPROG ESTERone (DEPO-PROVE RA) 150 mg/mL injection 0 07-06 11:23: 40 Yes 150mg 1 mL by Intramuscu lar route every 3 (three) months. [facility] medroxyPROG ESTERone (DEPO-PROVE RA) 150 mg/mL injection 2022-0 07-06 11:23: 40 Yes 150mg 1 mL by Intramuscu lar route every 3 (three) months. [facility] medroxyPROG ESTERone (DEPO-PROVE RA) 150 mg/mL injection 07-06 11:23: 40 Yes 150mg 1 mL by Intramuscu lar route every 3 (three) months. [facility] (DEPO-PROVE RA) 150 mg/mL injection 07-06 11:23: 40 Yes 150mg 1 mL by Intramuscu lar route every 3 (three) months. [facility] ity [facility] medroxyPROG ESTERone (DEPO-PROVE RA) 150 mg/mL injection 07-06 11:23: 40 Yes 150mg 1 mL by Intramuscu lar route every 3 (three) months. [facility] ESTERone (DEPO-PROVE RA) 150 mg/mL injection 07-06 11:23: 40 Yes 150mg 1 mL by Intramuscu lar route every 3 (three) months. [facility] med[facility]xy[facility] ESTERone (DEPO-PROVE RA) 150 mg/mL injection 07-06 11:23: 40 Yes 150mg 1 mL by Intramuscu lar route every 3 (three) months. [facility] med[facility]xy[facility] ESTERone (DEPO-PROVE RA) 150 mg/mL injection 07-06 11:23: 40 Yes 150mg 1 mL by Intramuscu lar route every 3 (three) months. [facility] medroxyPR[facility] ESTERone (DEPO-PROVE RA) 150 mg/mL injection 07-06 11:23: 40 Yes 150mg 1 mL by Intramuscu lar route every 3 (three) months. [facility] it[facility] medroxyPROG ESTERone (DEPO-PROVE RA) 150 mg/mL injection 07-06 11:23: 40 Yes 150mg 1 mL by Intramuscu lar route every 3 (three) months. [facility] it[facility] medroxyPROG ESTERone (DEPO-PROVE RA) 150 mg/mL injection 07-06 11:23: 40 Yes 150mg 1 mL by Intramuscu lar route every 3 (three) months. [facility] med[facility]xyPR[facility] ESTERone (DEPO-PROVE RA) 150 mg/mL injection 07-06 11:23: 40 Yes 150mg 1 mL by Intramuscu lar route every 3 (three) months. [facility] medroxyPROG ESTERone (DEPO-PROVE RA) 150 mg/mL injection 07-06 11:23: 40 Yes 150mg 1 mL by Intramuscu lar route every 3 (three) months. [facility] mirtazapine SOLTAB 15 mg rapid tablet 07-01 00:00: 00 Yes DISSOLVE 1 TABLET BY MOUTH ONCE DAILY WITH OR WITHOUT WATER [facility] mirtazapine SOLTAB 15 mg rapid tablet 07-01 00:00: 00 Yes DISSOLVE 1 TABLET BY MOUTH ONCE DAILY WITH OR WITHOUT WATER [facility] mirtazapine SOLTAB 15 mg rapid tablet 07-01 00:00: 00 Yes DISSOLVE 1 TABLET BY MOUTH ONCE DAILY WITH OR WITHOUT WATER [facility] mirtazapine SOLTAB 15 mg rapid tablet 07-01 00:00: 00 Yes DISSOLVE 1 TABLET BY MOUTH ONCE DAILY WITH OR WITHOUT WATER [facility] mirtazapine SOLTAB 15 mg rapid tablet 07-01 00:00: 00 Yes DISSOLVE 1 TABLET BY MOUTH ONCE DAILY WITH OR WITHOUT WATER [facility] mirtazapine SOLTAB 15 mg rapid tablet 07-01 00:00: 00 Yes DISSOLVE 1 TABLET BY MOUTH ONCE DAILY WITH OR WITHOUT WATER [facility] mirtazapine SOLTAB 15 mg rapid tablet 07-01 00:00: 00 Yes DISSOLVE 1 TABLET BY MOUTH ONCE DAILY WITH OR WITHOUT WATER [facility] mirtazapine SOLTAB 15 mg rapid tablet 07-01 00:00: 00 Yes DISSOLVE 1 TABLET BY MOUTH ONCE DAILY WITH OR WITHOUT WATER [facility] mirtazapine SOLTAB 15 mg rapid tablet 07-01 00:00: 00 Yes DISSOLVE 1 TABLET BY MOUTH ONCE DAILY WITH OR WITHOUT WATER [facility] mirtazapine SOLTAB 15 mg rapid tablet 07-01 00:00: 00 Yes DISSOLVE 1 TABLET BY MOUTH ONCE DAILY WITH OR WITHOUT WATER [facility] mirtazapine SOLTAB 15 mg rapid tablet 07-01 00:00: 00 Yes DISSOLVE 1 TABLET BY MOUTH ONCE DAILY WITH OR WITHOUT WATER [facility] tiZANidine 2 mg tablet 0 2 00:00: 00 Yes [id number] 2mg Take 1 tablet by mouth every 8 (eight) hours as needed for Pain (scale 4-6). [facility] tiZANidine 2 mg tablet 0 06-30 00:00: 00 Yes [id number] 2mg Take 1 tablet by mouth every 8 (eight) hours as needed for Pain (scale 4-6). [facility] tiZANidine 2 mg tablet 0 06-30 00:00: 00 Yes [id number] 2mg Take 1 tablet by mouth every 8 (eight) hours as needed for Pain (scale 4-6). [facility] tiZANidine 2 mg tablet 0 06-30 00:00: 00 Yes [id number] 2mg Take 1 tablet by mouth every 8 (eight) hours as needed for Pain (scale 4-6). [facility] tiZANidine 2 mg tablet 0 06-30 00:00: 00 Yes [id number] 2mg Take 1 tablet by mouth every 8 (eight) hours as needed for Pain (scale 4-6). [facility] tiZANidine 2 mg tablet 2022-0 06-30 00:00: 00 Yes [id number] 2mg Take 1 tablet by mouth every 8 (eight) hours as needed for Pain (scale 4-6). [facility] tiZANidine 2 mg tablet 2022-0 06-30 00:00: 00 Yes [id number] 2mg Take 1 tablet by mouth every 8 (eight) hours as needed for Pain (scale 4-6). [facility] tiZANidine 2 mg tablet 2022-0 221 00:00: 00 Yes [id number] 2mg Take 1 tablet by mouth every 8 (eight) hours as needed for Pain (scale 4-6). [facility] tiZANidine 2 mg tablet 2022-0 2-21 00:00: 00 Yes [id number] 2mg Take 1 tablet by mouth every 8 (eight) hours as needed for Pain (scale 4-6). [facility] tiZANidine 2 mg tablet 3-0 2-21 00:00: 00 Yes [id number] 2mg Take 1 tablet by mouth every 8 (eight) hours as needed for Pain (scale 4-6). [facility] tiZANidine 2 mg tablet 2022-0 2-21 00:00: 00 Yes [id number] 2mg Take 1 tablet by mouth every 8 (eight) hours as needed for Pain (scale 4-6). [facility] tiZANidine 2 mg tablet 2022-0 2-21 00:00: 00 Yes [id number] 2mg Take 1 tablet by mouth every 8 (eight) hours as needed for Pain (scale 4-6). [facility] tiZANidine 2 mg tablet 2022-0 2-21 00:00: 00 Yes [id number] 2mg Take 1 tablet by mouth every 8 (eight) hours as needed for Pain (scale 4-6). [facility] tiZANidine 2 mg tablet 2022-0 2-21 00:00: 00 Yes [id number] 2mg Take 1 tablet by mouth every 8 (eight) hours as needed for Pain (scale 4-6). [facility] tiZANidine 2 mg tablet 2022-0 2-21 00:00: 00 Yes [id number] 2mg Take 1 tablet by mouth every 8 (eight) hours as needed for Pain (scale 4-6). [facility] hydrOXYzine 25 mg tablet 3-0 2-16 00:00: 00 Yes TAKE 1 TO 2 TABLETS BY MOUTH AT BEDTIME [facility] hydrOXYzine 25 mg tablet 3-0 2-16 00:00: 00 Yes TAKE 1 TO 2 TABLETS BY MOUTH AT BEDTIME [facility] hydrOXYzine 25 mg tablet 3-0 2-16 00:00: 00 Yes TAKE 1 TO 2 TABLETS BY MOUTH AT BEDTIME [facility] QUEtiapine 25 mg tablet 3-0 2-16 00:00: 00 Yes 25mg Take 1 tablet by mouth at bedtime. [facility] hydrOXYzine 25 mg tablet 2023-0 2-16 00:00: 00 Yes TAKE 1 TO 2 TABLETS BY MOUTH AT BEDTIME [facility] QUEtiapine 25 mg tablet 3-0 2-16 00:00: 00 Yes 25mg Take 1 tablet by mouth at bedtime. [facility] hydrOXYzine 25 mg tablet 3-0 2-16 00:00: 00 Yes TAKE 1 TO 2 TABLETS BY MOUTH AT BEDTIME [facility] QUEtiapine 25 mg tablet 3-0 2-16 00:00: 00 Yes 25mg Take 1 tablet by mouth at bedtime. [facility] hydrOXYzine 25 mg tablet 3-0 2-16 00:00: 00 Yes TAKE 1 TO 2 TABLETS BY MOUTH AT BEDTIME [facility] QUEtiapine 25 mg tablet 3-0 2-16 00:00: 00 Yes 25mg Take 1 tablet by mouth at bedtime. [facility] hydrOXYzine 25 mg tablet 3-0 2-16 00:00: 00 Yes TAKE 1 TO 2 TABLETS BY MOUTH AT BEDTIME [facility] QUEtiapine 25 mg tablet 3-0 2-16 00:00: 00 Yes 25mg Take 1 tablet by mouth at bedtime. [facility] hydrOXYzine 25 mg tablet 3-0 2-16 00:00: 00 Yes TAKE 1 TO 2 TABLETS BY MOUTH AT BEDTIME [facility] QUEtiapine 25 mg tablet 3-0 2-16 00:00: 00 Yes 25mg Take 1 tablet by mouth at bedtime. [facility] hydrOXYzine 25 mg tablet 3-0 2-16 00:00: 00 Yes TAKE 1 TO 2 TABLETS BY MOUTH AT BEDTIME [facility] QUEtiapine 25 mg tablet 3-0 2-16 00:00: 00 Yes 25mg Take 1 tablet by mouth at bedtime. [facility] hydrOXYzine 25 mg tablet 3-0 2-16 00:00: 00 Yes TAKE 1 TO 2 TABLETS BY MOUTH AT BEDTIME [facility] QUEtiapine 25 mg tablet 2023-0 2-16 00:00: 00 Yes 25mg Take 1 tablet by mouth at bedtime. [facility] hydrOXYzine 25 mg tablet 2022-0 2-16 00:00: 00 Yes TAKE 1 TO 2 TABLETS BY MOUTH AT BEDTIME [facility] QUEtiapine 25 mg tablet 2022-0 2-16 00:00: 00 Yes 25mg Take 1 tablet by mouth at bedtime. [facility] hydrOXYzine 25 mg tablet 2022-0 2-16 00:00: 00 Yes TAKE 1 TO 2 TABLETS BY MOUTH AT BEDTIME [facility] QUEtiapine 25 mg tablet 2022-0 2-16 00:00: 00 Yes 25mg Take 1 tablet by mouth at bedtime. [facility] hydrOXYzine 25 mg tablet 2022-0 2-16 00:00: 00 Yes TAKE 1 TO 2 TABLETS BY MOUTH AT BEDTIME [facility] QUEtiapine 25 mg tablet 2022-0 2-16 00:00: 00 Yes 25mg Take 1 tablet by mouth at bedtime. [facility] tiZANidine 2 mg tablet 0 2-15 00:00: 00 Yes [id number] 2mg Take 1 tablet by mouth every 6 (six) hours as needed for Pain (scale 4-6). [facility] tiZANidine 2 mg tablet 2022-0 2-15 00:00: 00 Yes [id number] 2mg Take 1 tablet by mouth every 6 (six) hours as needed for Pain (scale 4-6). [facility] tiZANidine 2 mg tablet 0 2-15 00:00: 00 06-30 00:00 :00 No [id number] 2mg Take 1 tablet by mouth every 6 (six) hours as needed for Pain (scale 4-6). [facility] iopamidol (ISOVUE 370-500 mL) injection 100 mL 14 18:15: 00 06-23 17:14 :00 No [id number] 100mL 100 mL, Intravenou s, ONCE, 1 dose, On Wed06/23/22 at 1215, Routine [facility] NaCl 0.9% (NS) bolus infusion 1,000 mL 06-23 16:15: 00 06-23 18:18 :00 No 1000mL at 999 mL/hr, 1,000 mL, IV Infusion, ONCE, 1 dose, On Wed06/23/22 at 1015, VINEET [facility] ondansetron (ZOFRAN (PF)) injection 4 mg 06-23 15:30: 00 06-23 15:39 :00 No 4mg 4 mg, Slow IV Push, ONCE, 1 dose, On Wed06/23/22 at 0930, [facility] ondansetron 4 mg disintegrat ing tablet 06-23 00:00: 00 Yes [id number] 4mg Take 1 tablet by mouth every 12 (twelve) hours as needed for Nausea and Vomiting (N/V). [facility] ibuprofen 800 mg tablet 06-23 00:00: 00 Yes [id number] 800mg Take 1 tablet by mouth every 8 (eight) hours as needed for Pain (scale 4-6). [facility] dicyclomine 20 mg tablet 06-23 00:00: 00 Yes [id number] 20mg Take 1 tablet by mouth 4 (four) times daily as needed for Abdominal pain. [facility] ondansetron 4 mg disintegrat ing tablet 06-23 00:00: 00 Yes [id number] 4mg Take 1 tablet by mouth every 12 (twelve) hours as needed for Nausea and Vomiting (N/V). [facility] ibuprofen 800 mg tablet 14 00:00: 00 Yes [id number] 800mg Take 1 tablet by mouth every 8 (eight) hours as needed for Pain (scale 4-6). [facility] dicyclomine 20 mg tablet 14 00:00: 00 Yes [id number] 20mg Take 1 tablet by mouth 4 (four) times daily as needed for Abdominal pain. [facility] ondansetron 4 mg disintegrat ing tablet 06-23 00:00: 00 Yes [id number] 4mg Take 1 tablet by mouth every 12 (twelve) hours as needed for Nausea and Vomiting (N/V). [facility] ibuprofen 800 mg tablet 3-0 2-14 00:00: 00 Yes [id number] 800mg Take 1 tablet by mouth every 8 (eight) hours as needed for Pain (scale 4-6). [facility] dicyclomine 20 mg tablet 3-0 2-14 00:00: 00 Yes [id number] 20mg Take 1 tablet by mouth 4 (four) times daily as needed for Abdominal pain. [facility] ondansetron 4 mg disintegrat ing tablet 3-0 2-14 00:00: 00 Yes [id number] 4mg Take 1 tablet by mouth every 12 (twelve) hours as needed for Nausea and Vomiting (N/V). [facility] ibuprofen 800 mg tablet 3-0 2-14 00:00: 00 Yes [id number] 800mg Take 1 tablet by mouth every 8 (eight) hours as needed for Pain (scale 4-6). [facility] dicyclomine 20 mg tablet 3-0 2-14 00:00: 00 Yes [id number] 20mg Take 1 tablet by mouth 4 (four) times daily as needed for Abdominal pain. [facility] ondansetron 4 mg disintegrat ing tablet 3-0 2-14 00:00: 00 Yes [id number] 4mg Take 1 tablet by mouth every 12 (twelve) hours as needed for Nausea and Vomiting (N/V). [facility] ibuprofen 800 mg tablet 3-0 2-14 00:00: 00 Yes [id number] 800mg Take 1 tablet by mouth every 8 (eight) hours as needed for Pain (scale 4-6). [facility] dicyclomine 20 mg tablet 3-0 2-14 00:00: 00 Yes [id number] 20mg Take 1 tablet by mouth 4 (four) times daily as needed for Abdominal pain. [facility] ondansetron 4 mg disintegrat ing tablet 3-0 2-14 00:00: 00 Yes [id number] 4mg Take 1 tablet by mouth every 12 (twelve) hours as needed for Nausea and Vomiting (N/V). [facility] 3-0 2-14 00:00: 00 Yes [id number] 800mg Take 1 tablet by mouth every 8 (eight) hours as needed for Pain (scale 4-6). [facility] dicyclomine 20 mg tablet 3-0 2-14 00:00: 00 Yes [id number] 20mg Take 1 tablet by mouth 4 (four) times daily as needed for Abdominal pain. [facility] ondansetron 4 mg disintegrat ing tablet 3-0 2-14 00:00: 00 Yes [id number] 4mg Take 1 tablet by mouth every 12 (twelve) hours as needed for Nausea and Vomiting (N/V). [facility] ibuprofen 800 mg tablet 3-0 2-14 00:00: 00 Yes [id number] 800mg Take 1 tablet by mouth every 8 (eight) hours as needed for Pain (scale 4-6). [facility] dicyclomine 20 mg tablet 3-0 2-14 00:00: 00 Yes [id number] 20mg Take 1 tablet by mouth 4 (four) times daily as needed for Abdominal pain. [facility] ondansetron 4 mg disintegrat ing tablet 2022-0 2-14 00:00: 00 Yes [id number] 4mg Take 1 tablet by mouth every 12 (twelve) hours as needed for Nausea and Vomiting (N/V). [facility] ibuprofen 800 mg tablet 3-0 2-14 00:00: 00 Yes [id number] 800mg Take 1 tablet by mouth every 8 (eight) hours as needed for Pain (scale 4-6). [facility] dicyclomine 20 mg tablet 3-0 2-14 00:00: 00 Yes [id number] 20mg Take 1 tablet by mouth 4 (four) times daily as needed for Abdominal pain. [facility] ondansetron 4 mg disintegrat ing tablet 3-0 2-14 00:00: 00 Yes [id number] 4mg Take 1 tablet by mouth every 12 (twelve) hours as needed for Nausea and Vomiting (N/V). [facility] ibuprofen 800 mg tablet 3-0 2-14 00:00: 00 Yes [id number] 800mg Take 1 tablet by mouth every 8 (eight) hours as needed for Pain (scale 4-6). [facility] dicyclomine 20 mg tablet 2022-0 2-14 00:00: 00 Yes [id number] 20mg Take 1 tablet by mouth 4 (four) times daily as needed for Abdominal pain. [facility] ondansetron 4 mg disintegrat ing tablet 2022-0 2-14 00:00: 00 Yes [id number] 4mg Take 1 tablet by mouth every 12 (twelve) hours as needed for Nausea and Vomiting (N/V). [facility] ibuprofen 800 mg tablet 2022-0 2-14 00:00: 00 Yes [id number] 800mg Take 1 tablet by mouth every 8 (eight) hours as needed for Pain (scale 4-6). [facility] dicyclomine 20 mg tablet 2022-0 2-14 00:00: 00 Yes [id number] 20mg Take 1 tablet by mouth 4 (four) times daily as needed for Abdominal pain. [facility] ondansetron 4 mg disintegrat ing tablet 2022-0 2-14 00:00: 00 Yes [id number] 4mg Take 1 tablet by mouth every 12 (twelve) hours as needed for Nausea and Vomiting (N/V). [facility] ibuprofen 800 mg tablet 3-0 2-14 00:00: 00 Yes [id number] 800mg Take 1 tablet by mouth every 8 (eight) hours as needed for Pain (scale 4-6). [facility] dicyclomine 20 mg tablet 3-0 2-14 00:00: 00 Yes [id number] 20mg Take 1 tablet by mouth 4 (four) times daily as needed for Abdominal pain. [facility] ondansetron 4 mg disintegrat ing tablet 3-0 2-14 00:00: 00 Yes [id number] 4mg Take 1 tablet by mouth every 12 (twelve) hours as needed for Nausea and Vomiting (N/V). [facility] ibuprofen 800 mg tablet 3-0 2-14 00:00: 00 Yes [id number] 800mg Take 1 tablet by mouth every 8 (eight) hours as needed for Pain (scale 4-6). [facility] dicyclomine 20 mg tablet 3-0 2-14 00:00: 00 Yes [id number] 20mg Take 1 tablet by mouth 4 (four) times daily as needed for Abdominal pain. [facility] ondansetron 4 mg disintegrat ing tablet 2022-0 2-14 00:00: 00 Yes [id number] 4mg Take 1 tablet by mouth every 12 (twelve) hours as needed for Nausea and Vomiting (N/V). [facility] ibuprofen 800 mg tablet 3-0 2-14 00:00: 00 Yes [id number] 800mg Take 1 tablet by mouth every 8 (eight) hours as needed for Pain (scale 4-6). [facility] dicyclomine 20 mg tablet 2022-0 2-14 00:00: 00 Yes [id number] 20mg Take 1 tablet by mouth 4 (four) times daily as needed for Abdominal pain. [facility] ondansetron 4 mg disintegrat ing tablet 2022-0 2-14 00:00: 00 Yes [id number] 4mg Take 1 tablet by mouth every 12 (twelve) hours as needed for Nausea and Vomiting (N/V). [facility] ibuprofen 800 mg tablet 3-0 2-14 00:00: 00 Yes [id number] 800mg Take 1 tablet by mouth every 8 (eight) hours as needed for Pain (scale 4-6). [facility] dicyclomine 20 mg tablet 2022-0 2-14 00:00: 00 Yes [id number] 20mg Take 1 tablet by mouth 4 (four) times daily as needed for Abdominal pain. [facility] ondansetron 4 mg disintegrat ing tablet 3-0 2-14 00:00: 00 Yes [id number] 4mg Take 1 tablet by mouth every 12 (twelve) hours as needed for Nausea and Vomiting (N/V). [facility] ibuprofen 800 mg tablet 3-0 2-14 00:00: 00 Yes [id number] 800mg Take 1 tablet by mouth every 8 (eight) hours as needed for Pain (scale 4-6). [facility] dicyclomine 20 mg tablet 3-0 2-14 00:00: 00 Yes [id number] 20mg Take 1 tablet by mouth 4 (four) times daily as needed for Abdominal pain. [facility] ondansetron 4 mg disintegrat ing tablet 3-0 2-14 00:00: 00 Yes [id number] 4mg Take 1 tablet by mouth every 12 (twelve) hours as needed for Nausea and Vomiting (N/V). [facility] ibuprofen 800 mg tablet 3-0 2-14 00:00: 00 Yes [id number] 800mg Take 1 tablet by mouth every 8 (eight) hours as needed for Pain (scale 4-6). [facility] dicyclomine 20 mg tablet 3-0 2-14 00:00: 00 Yes [id number] 20mg Take 1 tablet by mouth 4 (four) times daily as needed for Abdominal pain. [facility] ondansetron 4 mg disintegrat ing tablet 2022-0 2-14 00:00: 00 Yes [id number] 4mg Take 1 tablet by mouth every 12 (twelve) hours as needed for Nausea and Vomiting (N/V). [facility] ibuprofen 800 mg tablet 3-0 2-14 00:00: 00 Yes [id number] 800mg Take 1 tablet by mouth every 8 (eight) hours as needed for Pain (scale 4-6). [facility] dicyclomine 20 mg tablet 3-0 2-14 00:00: 00 Yes [id number] 20mg Take 1 tablet by mouth 4 (four) times daily as needed for Abdominal pain. [facility] ondansetron 4 mg disintegrat ing tablet 3-0 2-14 00:00: 00 Yes [id number] 4mg Take 1 tablet by mouth every 12 (twelve) hours as needed for Nausea and Vomiting (N/V). [facility] ibuprofen 800 mg tablet 3-0 2-14 00:00: 00 Yes [id number] 800mg Take 1 tablet by mouth every 8 (eight) hours as needed for Pain (scale 4-6). [facility] dicyclomine 20 mg tablet 2022-0 2-14 00:00: 00 Yes [id number] 20mg Take 1 tablet by mouth 4 (four) times daily as needed for Abdominal pain. [facility] ondansetron 4 mg disintegrat ing tablet 0 2-14 00:00: 00 Yes [id number] 4mg Take 1 tablet by mouth every 12 (twelve) hours as needed for Nausea and Vomiting (N/V). [facility] ibuprofen 800 mg tablet 2022-0 2-14 00:00: 00 Yes [id number] 800mg Take 1 tablet by mouth every 8 (eight) hours as needed for Pain (scale 4-6). [facility] dicyclomine 20 mg tablet 0 2-14 00:00: 00 Yes [id number] 20mg Take 1 tablet by mouth 4 (four) times daily as needed for Abdominal pain. [facility] ondansetron 4 mg disintegrat ing tablet 0 2-14 00:00: 00 Yes [id number] 4mg Take 1 tablet by mouth every 12 (twelve) hours as needed for Nausea and Vomiting (N/V). [facility] ibuprofen 800 mg tablet 0 2-14 00:00: 00 Yes [id number] 800mg Take 1 tablet by mouth every 8 (eight) hours as needed for Pain (scale 4-6). [facility] dicyclomine 20 mg tablet 0 2-14 00:00: 00 Yes [id number] 20mg Take 1 tablet by mouth 4 (four) times daily as needed for Abdominal pain. [facility] ibuprofen 600 mg tablet 2022-0 1-06 00:00: 00 Yes [id number] 600mg Take 1 tablet by mouth every 6 (six) hours as needed for Pain (scale 4-6). [facility] ibuprofen 600 mg tablet 3-0 1-06 00:00: 00 Yes [id number] 600mg Take 1 tablet by mouth every 6 (six) hours as needed for Pain (scale 4-6). [facility] ibuprofen 600 mg tablet 2022-0 1-06 00:00: 00 06-24 00:00 :00 No [id number] 600mg Take 1 tablet by mouth every 6 (six) hours as needed for Pain (scale 4-6). [facility] ibuprofen 600 mg tablet 1- 00:00: 00 06-24 00:00 :00 No [id number] 600mg Take 1 tablet by mouth every 6 (six) hours as needed for Pain (scale 4-6). [facility] albuterol (PROAIR HFA) 90 mcg/actuati on inhaler 09-11 00:00: 00 Yes SMARTSIG:V ia Inhaler [facility] albuterol (PROAIR HFA) 90 mcg/actuati on inhaler 09-11 00:00: 00 Yes SMARTSIG:V ia Inhaler [facility] albuterol (PROAIR HFA) 90 mcg/actuati on inhaler 09-11 00:00: 00 Yes SMARTSIG:V ia Inhaler [facility] famotidine 20 mg tablet 09-11 00:00: 00 Yes 20mg Take 1 tablet by mouth. [facility] naproxen 500 mg tablet 09-11 00:00: 00 Yes 500mg Take 1 tablet by mouth. [facility] albuterol (PROAIR HFA) 90 mcg/actuati on inhaler 09-11 00:00: 00 Yes SMARTSIG:V ia Inhaler [facility] famotidine 20 mg tablet 05 00:00: 00 Yes 20mg Take 1 tablet by mouth. [facility] naproxen 500 mg tablet 05 00:00: 00 Yes 500mg Take 1 tablet by mouth. [facility] albuterol (PROAIR HFA) 90 mcg/actuati on inhaler 05 00:00: 00 Yes SMARTSIG:V ia Inhaler [facility] famotidine 20 mg tablet 05 00:00: 00 Yes 20mg Take 1 tablet by mouth. [facility] naproxen 500 mg tablet 05 00:00: 00 Yes 500mg Take 1 tablet by mouth. [facility] albuterol (PROAIR HFA) 90 mcg/actuati on inhaler 05 00:00: 00 Yes SMARTSIG:V ia Inhaler [facility] famotidine 20 mg tablet 05 00:00: 00 Yes 20mg Take 1 tablet by mouth. [facility] naproxen 500 mg tablet 05 00:00: 00 Yes 500mg Take 1 tablet by mouth. [facility] albuterol (PROAIR HFA) 90 mcg/actuati on inhaler 09-11 00:00: 00 Yes SMARTSIG:V ia Inhaler [facility] famotidine 20 mg tablet 09-11 00:00: 00 Yes 20mg Take 1 tablet by mouth. [facility] naproxen 500 mg tablet 09-11 00:00: 00 Yes 500mg Take 1 tablet by mouth. [facility] albuterol (PROAIR HFA) 90 mcg/actuati on inhaler 09-11 00:00: 00 Yes SMARTSIG:V ia Inhaler [facility] famotidine 20 mg tablet 09-11 00:00: 00 Yes 20mg Take 1 tablet by mouth. [facility] naproxen 500 mg tablet 05 00:00: 00 Yes 500mg Take 1 tablet by mouth. [facility] albuterol (PROAIR HFA) 90 mcg/actuati on inhaler 05 00:00: 00 Yes SMARTSIG:V ia Inhaler [facility] famotidine 20 mg tablet 05 00:00: 00 Yes 20mg Take 1 tablet by mouth. [facility] naproxen 500 mg tablet 05 00:00: 00 Yes 500mg Take 1 tablet by mouth. [facility] albuterol (PROAIR HFA) 90 mcg/actuati on inhaler 09-11 00:00: 00 Yes SMARTSIG:V ia Inhaler [facility] famotidine 20 mg tablet 09-11 00:00: 00 Yes 20mg Take 1 tablet by mouth. [facility] naproxen 500 mg tablet 09-11 00:00: 00 Yes 500mg Take 1 tablet by mouth. [facility] albuterol (PROAIR HFA) 90 mcg/actuati on inhaler 09-11 00:00: 00 Yes SMARTSIG:V ia Inhaler [facility] famotidine 20 mg tablet 09-11 00:00: 00 Yes 20mg Take 1 tablet by mouth. [facility] naproxen 500 mg tablet 09-11 00:00: 00 Yes 500mg Take 1 tablet by mouth. [facility] albuterol (PROAIR HFA) 90 mcg/actuati on inhaler 09-11 00:00: 00 Yes SMARTSIG:V ia Inhaler [facility] famotidine 20 mg tablet 09-11 00:00: 00 Yes 20mg Take 1 tablet by mouth. [facility] naproxen 500 mg tablet 09-11 00:00: 00 Yes 500mg Take 1 tablet by mouth. [facility] albuterol (PROAIR HFA) 90 mcg/actuati on inhaler 09-11 00:00: 00 Yes SMARTSIG:V ia Inhaler [facility] famotidine 20 mg tablet 09-11 00:00: 00 Yes 20mg Take 1 tablet by mouth. [facility] naproxen 500 mg tablet 09-11 00:00: 00 Yes 500mg Take 1 tablet by mouth. [facility] drospirenon e-ethinyl estradioL (ARLEN, Raciel,) 3-0.02 mg per tablet 06-07 00:00: 00 Yes 1{tbl} Take 1 tablet by mouth. [facility] metFORMIN 500 mg tablet 06-07 00:00: 00 Yes 500mg Take 1 tablet by mouth. [facility] drospirenon e-ethinyl estradioL (ARLEN, ,) 3-0.02 mg per tablet 06-07 00:00: 00 Yes 1{tbl} Take 1 tablet by mouth. [facility] metFORMIN 500 mg tablet 06-07 00:00: 00 Yes 500mg Take 1 tablet by mouth. [facility] drospirenon e-ethinyl estradioL (ARLEN, ,) 3-0.02 mg per tablet 06-07 00:00: 00 Yes 1{tbl} Take 1 tablet by mouth. [facility] metFORMIN 500 mg tablet 06-07 00:00: 00 Yes 500mg Take 1 tablet by mouth. [facility] cyclobenzap rine 5 mg tablet 06-07 00:00: 00 Yes 5mg Take 1 tablet by mouth. [facility] gabapentin 300 mg capsule 06-07 00:00: 00 Yes SMARTSIG:C apsule(s) By Mouth [facility] oxybutynin XL 5 mg 24 hr tablet 06-07 00:00: 00 Yes 5mg Take 1 tablet by mouth. [facility] tranexamic acid 650 mg tablet 06-07 00:00: 00 Yes SMARTSIG:T ablet(s) By Mouth [facility] drospirenon e-ethinyl estradioL (ARLEN, Raciel,) 3-0.02 mg per tablet 06-07 00:00: 00 Yes 1{tbl} Take 1 tablet by mouth. [facility] metFORMIN 500 mg tablet 06-07 00:00: 00 Yes 500mg Take 1 tablet by mouth. [facility] cyclobenzap rine 5 mg tablet 06-07 00:00: 00 Yes 5mg Take 1 tablet by mouth. [facility] gabapentin 300 mg capsule 06-07 00:00: 00 Yes SMARTSIG:C apsule(s) By Mouth [facility] oxybutynin XL 5 mg 24 hr tablet 06-07 00:00: 00 Yes 5mg Take 1 tablet by mouth. [facility] tranexamic acid 650 mg tablet 06-07 00:00: 00 Yes SMARTSIG:T ablet(s) By Mouth [facility] drospirenon e-ethinyl estradioL (ARLEN, 28,) 3-0.02 mg per tablet 06-07 00:00: 00 Yes 1{tbl} Take 1 tablet by mouth. [facility] metFORMIN 500 mg tablet 06-07 00:00: 00 Yes 500mg Take 1 tablet by mouth. [facility] cyclobenzap rine 5 mg tablet 06-07 00:00: 00 Yes 5mg Take 1 tablet by mouth. [facility] gabapentin 300 mg capsule 06-07 00:00: 00 Yes SMARTSIG:C apsule(s) By Mouth [facility] oxybutynin XL 5 mg 24 hr tablet 06-07 00:00: 00 Yes 5mg Take 1 tablet by mouth. [facility] tranexamic acid 650 mg tablet 06-07 00:00: 00 Yes SMARTSIG:T ablet(s) By Mouth [facility] drospirenon e-ethinyl estradioL (ARLEN, 28,) 3-0.02 mg per tablet 06-07 00:00: 00 Yes 1{tbl} Take 1 tablet by mouth. [facility] metFORMIN 500 mg tablet 06-07 00:00: 00 Yes 500mg Take 1 tablet by mouth. [facility] cyclobenzap rine 5 mg tablet 06-07 00:00: 00 Yes 5mg Take 1 tablet by mouth. [facility] gabapentin 300 mg capsule 06-07 00:00: 00 Yes SMARTSIG:C apsule(s) By Mouth [facility] oxybutynin XL 5 mg 24 hr tablet 06-07 00:00: 00 Yes 5mg Take 1 tablet by mouth. [facility] tranexamic acid 650 mg tablet 06-07 00:00: 00 Yes SMARTSIG:T ablet(s) By Mouth [facility] drospirenon e-ethinyl estradioL (ARLEN, 28,) 3-0.02 mg per tablet 06-07 00:00: 00 Yes 1{tbl} Take 1 tablet by mouth. [facility] metFORMIN 500 mg tablet 06-07 00:00: 00 Yes 500mg Take 1 tablet by mouth. [facility] cyclobenzap rine 5 mg tablet 06-07 00:00: 00 Yes 5mg Take 1 tablet by mouth. [facility] gabapentin 300 mg capsule 06-07 00:00: 00 Yes SMARTSIG:C apsule(s) By Mouth [facility] oxybutynin XL 5 mg 24 hr tablet 06-07 00:00: 00 Yes 5mg Take 1 tablet by mouth. [facility] tranexamic acid 650 mg tablet 06-07 00:00: 00 Yes SMARTSIG:T ablet(s) By Mouth [facility] drospirenon e-ethinyl estradioL (ARLEN, 28,) 3-0.02 mg per tablet 06-07 00:00: 00 Yes 1{tbl} Take 1 tablet by mouth. [facility] metFORMIN 500 mg tablet 06-07 00:00: 00 Yes 500mg Take 1 tablet by mouth. [facility] cyclobenzap rine 5 mg tablet 06-07 00:00: 00 Yes 5mg Take 1 tablet by mouth. [facility] gabapentin 300 mg capsule 06-07 00:00: 00 Yes SMARTSIG:C apsule(s) By Mouth [facility] oxybutynin XL 5 mg 24 hr tablet 06-07 00:00: 00 Yes 5mg Take 1 tablet by mouth. [facility] tranexamic acid 650 mg tablet 06-07 00:00: 00 Yes SMARTSIG:T ablet(s) By Mouth [facility] drospirenon e-ethinyl estradioL (ARLEN, 28,) 3-0.02 mg per tablet 06-07 00:00: 00 Yes 1{tbl} Take 1 tablet by mouth. [facility] metFORMIN 500 mg tablet 06-07 00:00: 00 Yes 500mg Take 1 tablet by mouth. [facility] cyclobenzap rine 5 mg tablet 06-07 00:00: 00 Yes 5mg Take 1 tablet by mouth. [facility] gabapentin 300 mg capsule 06-07 00:00: 00 Yes SMARTSIG:C apsule(s) By Mouth [facility] oxybutynin XL 5 mg 24 hr tablet 06-07 00:00: 00 Yes 5mg Take 1 tablet by mouth. [facility] tranexamic acid 650 mg tablet 06-07 00:00: 00 Yes SMARTSIG:T ablet(s) By Mouth [facility] drospirenon e-ethinyl estradioL (ARLEN, 28,) 3-0.02 mg per tablet 06-07 00:00: 00 Yes 1{tbl} Take 1 tablet by mouth. [facility] metFORMIN 500 mg tablet 06-07 00:00: 00 Yes 500mg Take 1 tablet by mouth. [facility] cyclobenzap rine 5 mg tablet 06-07 00:00: 00 Yes 5mg Take 1 tablet by mouth. [facility] gabapentin 300 mg capsule 06-07 00:00: 00 Yes SMARTSIG:C apsule(s) By Mouth [facility] oxybutynin XL 5 mg 24 hr tablet 06-07 00:00: 00 Yes 5mg Take 1 tablet by mouth. [facility] tranexamic acid 650 mg tablet 06-07 00:00: 00 Yes SMARTSIG:T ablet(s) By Mouth [facility] drospirenon e-ethinyl estradioL (ARLEN, Raciel,) 3-0.02 mg per tablet 06-07 00:00: 00 Yes 1{tbl} Take 1 tablet by mouth. [facility] metFORMIN 500 mg tablet 06-07 00:00: 00 Yes 500mg Take 1 tablet by mouth. [facility] cyclobenzap rine 5 mg tablet 06-07 00:00: 00 Yes 5mg Take 1 tablet by mouth. [facility] gabapentin 300 mg capsule 06-07 00:00: 00 Yes SMARTSIG:C apsule(s) By Mouth [facility] oxybutynin XL 5 mg 24 hr tablet 06-07 00:00: 00 Yes 5mg Take 1 tablet by mouth. [facility] tranexamic acid 650 mg tablet 06-07 00:00: 00 Yes SMARTSIG:T ablet(s) By Mouth [facility] drospirenon e-ethinyl estradioL (Raciel MCKINLEY,) 3-0.02 mg per tablet 06-07 00:00: 00 Yes 1{tbl} Take 1 tablet by mouth. [facility] metFORMIN 500 mg tablet 06-07 00:00: 00 Yes 500mg Take 1 tablet by mouth. [facility] cyclobenzap rine 5 mg tablet 06-07 00:00: 00 Yes 5mg Take 1 tablet by mouth. [facility] gabapentin 300 mg capsule 06-07 00:00: 00 Yes SMARTSIG:C apsule(s) By Mouth [facility] oxybutynin XL 5 mg 24 hr tablet 06-07 00:00: 00 Yes 5mg Take 1 tablet by mouth. [facility] tranexamic acid 650 mg tablet 06-07 00:00: 00 Yes SMARTSIG:T ablet(s) By Mouth [facility] drospirenon e-ethinyl estradioL (ARLEN, 28,) 3-0.02 mg per tablet 06-07 00:00: 00 Yes 1{tbl} Take 1 tablet by mouth. [facility] metFORMIN 500 mg tablet 06-07 00:00: 00 Yes 500mg Take 1 tablet by mouth. [facility] cyclobenzap rine 5 mg tablet 06-07 00:00: 00 Yes 5mg Take 1 tablet by mouth. [facility] gabapentin 300 mg capsule 06-07 00:00: 00 Yes SMARTSIG:C apsule(s) By Mouth [facility] oxybutynin XL 5 mg 24 hr tablet 06-07 00:00: 00 Yes 5mg Take 1 tablet by mouth. [facility] tranexamic acid 650 mg tablet 06-07 00:00: 00 Yes SMARTSIG:T ablet(s) By Mouth [facility] ondansetron (ZOFRAN) 4 mg tablet 2018-05 00:00: 00 Yes [id number] 4mg Take 1 tablet by mouth every 12 (twelve) hours. [facility] ondansetron (ZOFRAN) 4 mg tablet 2018-05 00:00: 00 Yes [id number] 4mg Take 1 tablet by mouth every 12 (twelve) hours. [facility] ondansetron (ZOFRAN) 4 mg tablet 2018-05 00:00: 00 Yes [id number] 4mg Take 1 tablet by mouth every 12 (twelve) hours. [facility] ondansetron (ZOFRAN) 4 mg tablet 2018-05 00:00: 00 Yes [id number] 4mg Take 1 tablet by mouth every 12 (twelve) hours. [facility] ondansetron (ZOFRAN) 4 mg tablet 2018-05 00:00: 00 Yes [id number] 4mg Take 1 tablet by mouth every 12 (twelve) hours. [facility] ondansetron (ZOFRAN) 4 mg tablet 2018-05 00:00: 00 Yes [id number] 4mg Take 1 tablet by mouth every 12 (twelve) hours. [facility] lactulose 10 gram/15 mL oral solution 2018-05 00:00: 00 Yes [id number] 30mL Take 30 mL by mouth 3 (three) times daily as needed for Constipati on or For bowel movement. [facility] ondansetron (ZOFRAN) 4 mg tablet 2018-05 00:00: 00 Yes [id number] 4mg Take 1 tablet by mouth every 12 (twelve) hours. [facility] sucralfate 1 gram tablet 2018-05 00:00: 00 Yes [id number] 1g Take 1 tablet by mouth before meals and at bedtime. [facility] ondansetron (ZOFRAN) 4 mg tablet 2018-05 00:00: 00 Yes [id number] 4mg Take 1 tablet by mouth every 12 (twelve) hours. [facility] ondansetron (ZOFRAN) 4 mg tablet 2018-05 00:00: 00 Yes [id number] 4mg Take 1 tablet by mouth every 12 (twelve) hours. [facility] ondansetron (ZOFRAN) 4 mg tablet 2018-05 00:00: 00 Yes [id number] 4mg Take 1 tablet by mouth every 12 (twelve) hours. [facility] ondansetron (ZOFRAN) 4 mg tablet 2018-05 00:00: 00 Yes [id number] 4mg Take 1 tablet by mouth every 12 (twelve) hours. [facility] ondansetron (ZOFRAN) 4 mg tablet 2018-05 00:00: 00 Yes [id number] 4mg Take 1 tablet by mouth every 12 (twelve) hours. [facility] ondansetron (ZOFRAN) 4 mg tablet 2018-05 00:00: 00 Yes [id number] 4mg Take 1 tablet by mouth every 12 (twelve) hours. [facility] ondansetron (ZOFRAN) 4 mg tablet 2018-05 00:00: 00 Yes [id number] 4mg Take 1 tablet by mouth every 12 (twelve) hours. [facility] ondansetron (ZOFRAN) 4 mg tablet 2018-05 00:00: 00 Yes [id number] 4mg Take 1 tablet by mouth every 12 (twelve) hours. [facility] ondansetron (ZOFRAN) 4 mg tablet 2018-05 00:00: 00 Yes [id number] 4mg Take 1 tablet by mouth every 12 (twelve) hours. [facility] ondansetron (ZOFRAN) 4 mg tablet 2018-05 00:00: 00 Yes [id number] 4mg Take 1 tablet by mouth every 12 (twelve) hours. [facility] lactulose 10 gram/15 mL oral solution 2018-05 00:00: 00 Yes [id number] 30mL Take 30 mL by mouth 3 (three) times daily as needed for Constipati on or For bowel movement. [facility] sucralfate 1 gram tablet 2018-05 00:00: 00 Yes [id number] 1g Take 1 tablet by mouth before meals and at bedtime. [facility] ondansetron (ZOFRAN) 4 mg tablet 2018-05 00:00: 00 Yes [id number] 4mg Take 1 tablet by mouth every 12 (twelve) hours. [facility] ondansetron (ZOFRAN) 4 mg tablet 2018-05 00:00: 00 Yes [id number] 4mg Take 1 tablet by mouth every 12 (twelve) hours. [facility] ondansetron (ZOFRAN) 4 mg tablet 2018-05 00:00: 00 Yes [id number] 4mg Take 1 tablet by mouth every 12 (twelve) hours. [facility] ondansetron (ZOFRAN) 4 mg tablet 2018-05 00:00: 00 Yes [id number] 4mg Take 1 tablet by mouth every 12 (twelve) hours. [facility] lactulose 10 gram/15 mL oral solution 2018-05 00:00: 00 06-24 00:00 :00 No [id number] 30mL Take 30 mL by mouth 3 (three) times daily as needed for Constipati on or For bowel movement. [facility] sucralfate 1 gram tablet 2018-05 00:00: 00 06-24 00:00 :00 No [id number] 1g Take 1 tablet by mouth before meals and at bedtime. [facility] lactulose 10 gram/15 mL oral solution 2018-05 00:00: 00 06-24 00:00 :00 No [id number] 30mL Take 30 mL by mouth 3 (three) times daily as needed for Constipati on or For bowel movement. [facility] sucralfate 1 gram tablet 2018-05 00:00: 00 06-24 00:00 :00 No [id number] 1g Take 1 tablet by mouth before meals and at bedtime. [facility] Omeprazole 20 mg tablet 2018-05 00:00: 00 Yes [id number] 20mg Take 1 tablet by mouth daily. [facility] Omeprazole 20 mg tablet 2018-05 00:00: 00 Yes [id number] 20mg Take 1 tablet by mouth daily. [facility] Omeprazole 20 mg tablet 2018-05 0 00:00: 00 Yes [id number] 20mg Take 1 tablet by mouth daily. [facility] Omeprazole 20 mg tablet 2018-05 00:00: 00 Yes [id number] 20mg Take 1 tablet by mouth daily. [facility] Omeprazole 20 mg tablet 2018-05 00:00: 00 Yes [id number] 20mg Take 1 tablet by mouth daily. [facility] Omeprazole 20 mg tablet 2018-05 0 00:00: 00 Yes [id number] 20mg Take 1 tablet by mouth daily. [facility] Omeprazole 20 mg tablet 2018-05 0 00:00: 00 Yes [id number] 20mg Take 1 tablet by mouth daily. [facility] Omeprazole 20 mg tablet 2018-05 0 00:00: 00 Yes [id number] 20mg Take 1 tablet by mouth daily. [facility] Omeprazole 20 mg tablet 2018-05 0 00:00: 00 Yes [id number] 20mg Take 1 tablet by mouth daily. [facility] Omeprazole 20 mg tablet 2018-05 00:00: 00 Yes [id number] 20mg Take 1 tablet by mouth daily. [facility] Omeprazole 20 mg tablet 2018-05 00:00: 00 Yes [id number] 20mg Take 1 tablet by mouth daily. [facility] Omeprazole 20 mg tablet 2018-05 00:00: 00 Yes [id number] 20mg Take 1 tablet by mouth daily. [facility] Omeprazole 20 mg tablet 2018-05 00:00: 00 Yes [id number] 20mg Take 1 tablet by mouth daily. [facility] Omeprazole 20 mg tablet 2018-05 00:00: 00 Yes [id number] 20mg Take 1 tablet by mouth daily. [facility] Omeprazole 20 mg tablet 2018-05 00:00: 00 Yes [id number] 20mg Take 1 tablet by mouth daily. [facility] Omeprazole 20 mg tablet 2018-05 00:00: 00 Yes [id number] 20mg Take 1 tablet by mouth daily. [facility] Omeprazole 20 mg tablet 2018-05 00:00: 00 Yes [id number] 20mg Take 1 tablet by mouth daily. [facility] Omeprazole 20 mg tablet 2018-05 00:00: 00 Yes [id number] 20mg Take 1 tablet by mouth daily. [facility] Omeprazole 20 mg tablet 2018-05 00:00: 00 Yes [id number] 20mg Take 1 tablet by mouth daily. [facility] Omeprazole 20 mg tablet 2018-05 00:00: 00 Yes [id number] 20mg Take 1 tablet by mouth daily. [facility] Omeprazole 20 mg tablet 2018-05 00:00: 00 Yes [id number] 20mg Take 1 tablet by mouth daily. [facility] Comb No.42/Folic Acid (Prena1 Chewable Tablet) 1 TABLET Tab.Ch.Bph 2016-0 7-11 00:00: 00 No 1TABLET Daily [facility] Immunizations Ordered Immunization Name Filled Immunization Name Date Status Comments Source Influenza Virus Vaccine Quad IM, Preserv and ABX Free 6 MO-64 YRS 2021-06-17 00:00:00 Completed [facility] Influenza Virus Vaccine Quad IM, Preserv and ABX Free 6 MO-64 YRS 2021-06-17 00:00:00 Completed [facility] Influenza Virus Vaccine Quad IM, Preserv and ABX Free 6 MO-64 YRS 2021-06-17 00:00:00 Completed [facility] Influenza Virus Vaccine Quad IM, Preserv and ABX Free 6 MO-64 YRS 2021-06-17 00:00:00 Completed [facility] Influenza Virus Vaccine Quad IM, Preserv and ABX Free 6 MO-64 YRS 2021-06-17 00:00:00 Completed [facility] Influenza Virus Vaccine Quad IM, Preserv and ABX Free 6 MO-64 YRS 2021-06-17 00:00:00 Completed [facility] Influenza Virus Vaccine Quad IM, Preserv and ABX Free 6 MO-64 2021-06-17 00:00:00 Completed [facility] Influenza Virus Vaccine Quad IM, Preserv and ABX Free 6 MO-64 YRS 2021-06-17 00:00:00 Completed [facility] Influenza Virus Vaccine Quad IM, Preserv and ABX Free MO-64 2021-06-17 00:00:00 Completed [facility] Influenza Virus Vaccine Quad IM, Preserv and ABX Free 6 MO-64 YRS 2021-06-17 00:00:00 Completed [facility] Influenza Virus Vaccine Quad IM, Preserv and ABX Free 6 MO-64 2021-06-17 00:00:00 Completed [facility] Influenza Virus Vaccine Quad IM, Preserv and ABX Free 6 MO-64 YRS 2021-06-17 00:00:00 Completed [facility] Influenza Virus Vaccine Quad IM, Preserv and ABX Free 6 MO-64 2021-06-17 00:00:00 Completed [facility] Influenza Virus Vaccine Quad IM, Preserv and ABX Free 6 MO-64 YRS 2021-06-17 00:00:00 Completed [facility] Influenza Virus Vaccine Quad IM, Preserv and ABX Free 6 MO-64 YRS 2021-06-17 00:00:00 Completed [facility] Influenza Virus Vaccine Quad IM, Preserv and ABX Free 6 MO-64 YRS 2021-06-17 00:00:00 Completed [facility] Influenza Virus Vaccine Quad IM, Preserv and ABX Free 6 MO-64 YRS 2021-06-17 00:00:00 Completed [facility] Influenza Virus Vaccine Quad IM, Preserv and ABX Free 6 MO-64 YRS 2021-06-17 00:00:00 Completed [facility] Influenza Virus Vaccine Quad IM, Preserv and ABX Free 6 MO-64 YRS (FLUCELVAX) Unknown Completed [facility] Vital Signs Vital Name Observation Time Observation Value Comments S ource Systolic blood pressure 2023-03-29 17:43:12 132 mm[Hg] [facility] Diastolic blood pressure 2023-03-29 17:43:12 74 mm[Hg] [facility] Heart rate 2023-03-29 17:43:12 101 /min [facility] Body temperature 2023-03-29 17:43:12 36.89 Susan [facility] Respiratory rate 2023-03-29 17:43:12 20 /min [facility] Oxygen saturation in Arterial blood by Pulse oximetry 2023-03-29 17:43:12 98 /min [facility] Body height 2023-03-29 16:29:00 154.9 cm [facility] Body weight 2023-03-29 16:29:00 81.647 kg [facility] BMI 2023-03-29 16:29:00 34.01 kg/m2 [facility] Systolic blood pressure 2022-11-09 18:59:00 136 mm[Hg] [facility] Diastolic blood pressure 2022-11-09 18:59:00 84 mm[Hg] [facility] Heart rate 2022-11-09 18:57:00 100 /min [facility] Body temperature 2022-11-09 18:57:00 36.83 Susan [facility] Respiratory rate 2022-11-09 18:57:00 18 /min [facility] Body weight 2022-11-09 18:57:00 68.04 kg [facility] BMI 2022-11-09 18:57:00 29.29 kg/m2 [facility] Oxygen saturation in Arterial blood by Pulse oximetry 2022-11-09 18:57:00 99 /min [facility] Systolic blood pressure 2022-10-15 17:26:00 133 mm[Hg] [facility] Diastolic blood pressure 2022-10-15 17:26:00 95 mm[Hg] [facility] Heart rate 2022-10-15 17:26:00 92 /min [facility] Body temperature 2022-10-15 17:26:00 36.72 Susan [facility] Respiratory rate 2022-10-15 17:26:00 18 /min [facility] Body height 2022-10-15 17:26:00 152.4 cm [facility] Body weight 2022-10-15 17:26:00 68.04 kg [facility] BMI 2022-10-15 17:26:00 29.29 kg/m2 [facility] Systolic blood pressure 2022-09-04 17:31:00 110 mm[Hg] [facility] Diastolic blood pressure 2022-09-04 17:31:00 89 mm[Hg] [facility] Heart rate 2022-09-04 17:31:00 112 /min [facility] Body temperature 2022-09-04 17:31:00 36.72 Susan [facility] Respiratory rate 2022-09-04 17:31:00 16 /min [facility] Body height 2022-09-04 17:31:00 154.9 cm [facility] Body weight 2022-09-04 17:31:00 80.287 kg [facility] BMI 2022-09-04 17:31:00 33.44 kg/m2 [facility] Oxygen saturation in Arterial blood by Pulse oximetry 2022-09-04 17:31:00 99 /min [facility] Systolic blood pressure 2022-08-27 03:00:00 110 mm[Hg] [facility] Diastolic blood pressure 2022-08-27 03:00:00 73 mm[Hg] [facility] Heart rate 2022-08-27 03:00:00 78 /min [facility] Respiratory rate 2022-08-27 03:00:00 17 /min [facility] Oxygen saturation in Arterial blood by Pulse oximetry 2022-08-27 03:00:00 100 /min [facility] Body temperature 2022-08-27 00:20:00 36.72 Susan [facility] Body height 2022-08-27 00:20:00 154.9 cm [facility] Body weight 2022-08-27 00:20:00 77.565 kg [facility] BMI 2022-08-27 00:20:00 32.31 kg/m2 [facility] Systolic blood pressure 2022-07-31 14:31:00 126 mm[Hg] [facility] Diastolic blood pressure 2022-07-31 14:31:00 84 mm[Hg] [facility] Heart rate 2022-07-31 14:31:00 98 /min [facility] Body temperature 2022-07-31 14:31:00 36.78 Susan [facility] Respiratory rate 2022-07-31 14:31:00 16 /min [facility] Body height 2022-07-31 14:31:00 154.9 cm [facility] Body weight 2022-07-31 14:31:00 79.833 kg [facility] BMI 2022-07-31 14:31:00 33.25 kg/m2 [facility] Oxygen saturation in Arterial blood by Pulse oximetry 2022-07-31 14:31:00 99 /min [facility] Systolic blood pressure 2022-07-06 17:11:00 136 mm[Hg] [facility] Diastolic blood pressure 2022-07-06 17:11:00 75 mm[Hg] [facility] Heart rate 2022-07-06 17:11:00 68 /min [facility] Body temperature 2022-07-06 17:11:00 36.72 Susan [facility] Respiratory rate 2022-07-06 17:11:00 18 /min [facility] Body height 2022-07-06 17:11:00 154.9 cm [facility] Body weight 2022-07-06 17:11:00 80.332 kg [facility] BMI 2022-07-06 17:11:00 33.46 kg/m2 [facility] Systolic blood pressure 2022-06-24 15:10:00 108 mm[Hg] [facility] Diastolic blood pressure 2022-06-24 15:10:00 71 mm[Hg] [facility] Heart rate 2022-06-24 15:10:00 78 /min [facility] Body temperature 2022-06-24 15:10:00 36.78 Susan [facility] Body height 2022-06-24 15:10:00 154.9 cm [facility] Body weight 2022-06-24 15:10:00 75.978 kg [facility] BMI 2022-06-24 15:10:00 31.65 kg/m2 [facility] Oxygen saturation in Arterial blood by Pulse oximetry 2022-06-24 15:10:00 100 /min [facility] Systolic blood pressure 2022-06-23 18:00:00 116 mm[Hg] [facility] Diastolic blood pressure 2022-06-23 18:00:00 81 mm[Hg] [facility] Heart rate 2022-06-23 18:00:00 85 /min [facility] Respiratory rate 2022-06-23 18:00:00 19 /min [facility] Oxygen saturation in Arterial blood by Pulse oximetry 2022-06-23 18:00:00 99 /min [facility] Body temperature 2022-06-23 15:18:00 37.22 Susan [facility] Body height 2022-06-23 15:18:00 154.9 cm [facility] Body weight 2022-06-23 15:18:00 72.576 kg [facility] BMI 2022-06-23 15:18:00 30.23 kg/m2 [facility] Systolic blood pressure 2022-05-15 19:58:00 133 mm[Hg] [facility] Diastolic blood pressure 2022-05-15 19:58:00 100 mm[Hg] [facility] Heart rate 2022-05-15 19:58:00 90 /min [facility] Body temperature 2022-05-15 19:58:00 37.11 Susan [facility] Respiratory rate 2022-05-15 19:58:00 16 /min [facility] Body height 2022-05-15 19:58:00 154.9 cm [facility] Body weight 2022-05-15 19:58:00 72.576 kg [facility] BMI 2022-05-15 19:58:00 30.23 kg/m2 [facility] Oxygen saturation in Arterial blood by Pulse oximetry 2022-05-15 19:58:00 100 /min [facility] Procedures Procedure Date / Time Performed Performing Clinician Source XR CHEST 1 VW 2023-03-29 17:09:20 [facility] URINALYSIS 2023-03-29 16:52:00 [facility] RAPID STREP SCREEN FOR GROUP A 2023-03-29 16:52:00 Kenzie Yessica [facility] RAPID INFLUENZA A/B 2023-03-29 16:52:00 Kenzie Yessica [facility] POCT TEST 2023-03-29 16:52:00 Kenzie Yessica [facility] COVID-19 (ID NOW RAPID TESTING) 2023-03-29 16:52:00 Kenzie [facility] CONSENT/REFUSAL FOR DIAGNOSIS AND TREATMENT 2023-03-29 16:21:10 Doctor Unassigned, [place] [facility] ASSIGNMENT OF BENEFITS 2022-11-09 19:50:56 Docto r Unassigned, [place] [facility] XR KNEE <3 VW RIGHT 2022-11-09 19:38:20 Elisabet Pinto [facility] CONSENT/REFUSAL FOR DIAGNOSIS AND TREATMENT 2022-11-09 18:49:17 Doctor Unassigned, [place] [facility] POCT TEST 2022-10-15 19:45:00 Yesenia Orozco [facility] LIPASE 2022-10-15 18:32:00 Yesenia [facility] MAGNESIUM 2022-10-15 18:32:00 Yesenia [facility] COMP. METABOLIC PANEL ([id number]) 2022-10-15 18:32:00 Yesenia Orozco [facility] CBC WITH DIFF 2022-10-15 18:32:00 Yesenia Orozco [facility] URINALYSIS 2022-10-15 18:32:00 Yesenia Orozco [facility] CONSENT/REFUSAL FOR DIAGNOSIS AND TREATMENT 2022-10-15 17:21:37 Doctor Unassigned, [place] [facility] XR KNEE 3 VW RIGHT 2022-09-04 18:40:13 Cheo Michael [facility] CONSENT/REFUSAL FOR DIAGNOSIS AND TREATMENT 2022-09-04 17:28:13 Doctor Unassigned, [place] [facility] EKG-12 LEAD 2022-08-27 03:08:22 Ani Pierce [facility] THYROID STIMULATING HORMONE 2022-08-27 01:09:00 Ani Pierce [facility] COMP. METABOLIC PANEL ([id number]) 2022-08-27 01:09:00 Ani Pierce [facility] CBC WITH DIFF 2022-08-27 01:09:00 [facility] 2022-08-27 01:09:00 Ani Pierce [facility] URINALYSIS 2022-08-27 01:09:00 Ani Pierce [facility] POCT TEST 2022-08-27 01:00:00 JoseemaryanneAni [facility] CONSENT/REFUSAL FOR DIAGNOSIS AND TREATMENT 2022-08-27 00:20:29 Doctor Unassigned, [place] [facility] EXTERNAL PROVIDER RECORDS 2022-07-28 05:01:00 Doctor Unassigned, [place] [facility] PATIENT FINANCIAL POLICY 2022-07-06 17:06:41 Doctor Unassigned, [place] [facility] CT ABDOMEN PELVIS W CONTRAST 2022-06-23 17:22:40 Mohinder Colmenares [facility] URINALYSIS 2022-06-23 16:46:00 Mohinder Colmenares [facility] POCT TEST 2022-06-23 16:46:00 Mohinder Colmenares [facility] LIPASE 2022-06-23 15:31:00 Mohinder Colmenares [facility] COMP. METABOLIC PANEL ([id number]) 2022-06-23 15:31:00 Mohinder Colmenares [facility] CBC WITH DIFF 2022-06-23 15:31:00 Mohinder Colmenares [facility] CONSENT/REFUSAL FOR DIAGNOSIS AND TREATMENT 2022-06-23 15:12:32 Doctor Unassigned, [place] [facility] NOTICE OF PRIVACY PRACTICES 2022-05-15 19:29:32 Doctor Unassigned, [place] [facility] CONSENT/REFUSAL FOR DIAGNOSIS AND TREATMENT 2022-05-15 19:10:31 Doctor Unassigned, [place] [facility] Encounters Start Date/Time End Date/Time Encounter Type Admission Type Attending [facility] Care Facility Care Department Encounter ID Source 2021-08-02 10:33:54 Outpatient [facility] [place] [id number] [facility] 2023-03-29 10:29:00 2023-03-29 12:02:00 Emergency X YESSICA ESPINO [facility] [id number] [facility] 2023-03-29 10:29:00 2023-03-29 12:02:00 Emergency Yessica Espino [facility] 1.2.840.114 350.1.13.10 4.2.7.2.686 [id number] [facility] 2023-03-02 11:09:31 2023-03-02 11:09:31 Outpatient [place] [id number] Yves Chicas 2023-02-23 08:15:28 2023-02-23 08:15:28 Outpatient [facility] [id number] Yves Chicas 2022-11-19 10:40:18 2022-11-19 10:40:18 [address] [id number] Yves Chicas 2022-11-09 14:00:00 2022-11-09 15:41:00 Emergency X PINTO, NAEL [facility] ERT [id number] [facility] 2022-11-09 14:00:00 2022-11-09 15:41:00 Emergency Nael Pinto [facility] 1.2.840.114 350.1.13.10 4.2.7.2.686 [id number] [facility] 2022-10-15 12:28:00 2022-10-15 15:09:00 Emergency Yesenia ROSAS [facility] ERT [id number] [facility] 2022-10-15 12:28:00 2022-10-15 15:09:00 Emergency Yesenia Orozco [facility] 1.2.840.114 350.1.13.10 4.2.7.2.686 [id number] [facility] 2022-09-04 12:33:00 2022-09-04 14:13:00 Emergency CHEO ZHU [facility] ERT [id number] [facility] 2022-09-04 12:33:00 2022-09-04 14:13:00 Emergency Cheo Michael [facility] 1.2.840.114 350.1.13.10 4.2.7.2.686 [id number] [facility] 2022-08-26 19:52:00 2022-08-26 22:18:00 Emergency X ANI PIERCE [facility] ERT [id number] [facility] 2022-08-26 19:52:00 2022-08-26 22:18:00 Emergency Ani Pierce S [facility] 1.840.114 350.1.13.10 4.2.7.2.686 [id number] [facility] 2022-07-31 09:20:00 2022-07-31 09:56:18 Outpatient R YANG PULIDO III [facility] [id number] [facility] 2022-07-31 09:20:00 2022-07-31 09:56:18 Urgent Care Yang Pulido Unknown, Attending [facility] 1.0.114 350.1.13.10 4.2.7.2.686 [id number] [facility] 2022-07-31 00:00:00 2022-07-31 00:00:00 Letter (Out) [facility] 1.840.114 350.1.13.10 4.2.7.2.686 [id number] [facility] 2022-07-28 00:00:00 2022-07-28 00:00:00 Orders Only Doctor Unassigned, [place] [facility] 1.840.114 350.1.13.10 4.2.7.2.686 [id number] [facility] 2022-07-24 00:00:00 2022-07-24 00:00:00 Telephone Linette Montes De [facility] 1.0.114 350.1.13.10 4.2.7.2.686 [id number] [facility] 2022-07-24 00:00:00 2022-07-24 00:00:00 Case Management Linette Montes De Oca [facility] 1.0.114 350.1.13.10 4.2.7.2.686 [id number] [facility] 2022-07-24 00:00:00 2022-07-24 00:00:[address] [facility] 1.840.114 350.1.13.10 4.2.7.2.686 [id number] [facility] 2022-07-22 10:00:00 2022-07-22 10:00:00 Outpatient R MALAIKADIAN [facility] [id number] [facility] 2022-07-10 16:45:00 2022-07-10 16:45:00 Outpatient R [facility] [id number] [facility] 2022-07-08 09:52:04 2022-07-08 09:52:04 Outpatient [facility] [id number] Yves Luong Juan Francisco 2022-07-06 11:30:00 2022-07-06 11:45:05 Outpatient R MALAIKAJAQUELINE [facility] [id number] [facility] 2022-07-06 11:30:00 2022-07-06 11:45:05 Office Visit CandaceLinette farrell [facility] 1.0.114 350.1.13.10 4.2.7.2.686 [id number] [facility] 2022-07-06 00:00:00 2022-07-06 00:00:00 Orders Only Doctor Unassigned, [place] [facility] 1.840.114 350.1.13.10 4.2.7.2.686 [id number] [facility] 2022-07-02 09:00:00 2022-07-02 09:00:00 Outpatient R MC DELUCA [facility] [id number] [facility] 2022-06-25 00:00:00 2022-06-25 00:00:00 Refill [facility] 1..840.114 350.1.13.10 4.2.7.2.686 [id number] [facility] 2022-06-24 09:00:00 2022-06-24 09:37:56 Office Visit Maria ElenaStephanie [facility] EN?[facility] 1..840.114 350.1.13.10 4.2.7.2.686 [id number] [facility] 2022-06-24 09:00:00 2022-06-24 09:37:56 Outpatient R ESASTEPHANIE Cruz [facility] [id number] [facility] 2022-06-24 00:00:00 2022-06-24 00:00:00 Telephone Patti Lino [facility] 1..840.114 350.1.13.10 4.2.7.2.686 [id number] [facility] 2022-06-24 00:00:00 2022-06-24 00:00:00 Letter (Out) EsaStephanie cruz [facility] EN?[facility] 1..840.114 350.1.13.10 4.2.7.2.686 [id number] [facility] 2022-06-23 09:18:00 2022-06-23 13:22:00 Emergency X MOHINDER COLMENARES [facility] ERT [id number] [facility] 2022-06-23 09:18:00 2022-06-23 13:22:00 Emergency Mohinder Colmenares [facility] 1.2.840.114 350.1.13.10 4.2.7.2.686 [id number] [facility] 2022-05-15 13:59:00 2022-05-15 14:35:00 Emergency X Yesenia OROZCO [facility] ERT [id number] [facility] 2022-05-15 13:59:00 2022-05-15 14:35:00 Emergency Yesenia Orozco [facility] 1.2.840.114 350.1.13.10 4.2.7.2.686 [id number] [facility] 2022-01-14 10:20:00 2022-01-14 15:50:00 Emergency ER Lala Jimenez [facility] [id number] [facility] 2018-08-17 19:53:00 2018-08-17 22:38:00 Emergency E DEANNE BRYAN [facility] ECCNONEMER [id number] [facility] 2018-04-10 00:04:00 2018-04-10 01:25:00 Emergency E MARSH OPAL [facility] [id number] [facility] 2017-12-24 21:08:00 2017-12-25 00:55:00 Emergency E JOSH ALMARAZ [facility] [id number] [facility] 2017-11-28 14:16:00 2017-11-28 14:53:00 Emergency E BRITTNEY MARSH [facility] ECC [id number] [facility] 2017-09-04 01:25:00 2017-09-04 02:54:00 Emergency E ANDIE MAE [facility] ECC [id number] [facility] 2017-07-19 21:24:00 2017-07-19 22:59:00 Outpatient C Markel GUY [facility] OB [id number] [facility] 2017-07-03 15:56:00 2017-07-03 18:20:00 Emergency E [facility] ECC [id number] [facility] Results Test Description Test Time Test Comments Results Result Co mments Source [facility] W/AUTO DIFF WITH [id number] 02:46:34* Test Item Value Reference Range Interpretation Comme nts WBC (test code = 1001) 9.2 K/UL 3.5-11.0 RBC (test code = 1002) 4.23 M/UL 3.80-5.40 HEMOGLOBIN (test code = 1003) 14.7 G/DL 11.5-15.5 HEMATOCRIT (test code = 1004) 41.4 % 34.0-45.0 MCV (test code = 1005) 97.9 fL 80.0-99.0 MCH (test code = 1006) 34.8 PG 25.0-33.0 H MCHC (test code = 1007) 35.5 G/DL 31.0-36.0 RDW (test code = 1038) 12.1 % 11.5-15.0 NEUTROPHILS (test code = 1008) 56.6 % LYMPHOCYTES (test code = 1010) 34.1 % MONOCYTES (test code = 1011) 6.3 % EOSINOPHILS (test code = 1012) 2.3 % BASOPHILS (test code = 1013) 0.3 % IMMATURE GRANULOCYTES (test code = 1036) 0.4 % NUCLEATED RBCS (test code = 1065) 0.0 /100 WBC'S See_Comment [Automated message] The system which generated this result transmitted reference range: 0.0. The reference range was not used to interpret this result as normal/abnormal. PLATELET COUNT (test code = 1015) 343 K/UL 130-400 ABSOLUTE NEUTROPHILS (test code = 1066) 5.22 K/UL 1.50-7.50 ABSOLUTE LYMPHOCYTES (test code = 1067) 3.15 K/UL 1.00-4.00 ABSOLUTE MONOCYTES (test code = 1068) 0.58 K/UL 0.20-1.00 ABSOLUTE EOSINOPHILS (test code = 1040) 0.21 K/UL 0.00-0.50 ABSOLUTE BASOPHILS (test code = 1069) 0.03 K/UL 0.00-0.20 ABS IMMATURE GRANULOCYTES (test code = 1020) 0.04 K/UL 0.00-0.10 ABS NUCLEATED RBCS (test code = 97053) 0.00 K/UL 0.00-0.11 UNLESS OTHER CAMPOS INDICATED, ALL TESTING PERFORMED AT [facility] [address] [place] [id number] SIZING SPRAYER: MARISA GRAVES M.D. CLIA NUMBER [id number] [facility] [place]. [id number] POCT [id number] 19:45:00* Test Item Value Reference Range Interpretation Comme nts POCT PREG (test code = 1605) Negative On board controls acceptable with C Line (test code = 3574) Yes POCT PREG LOT # (test code = 3575) [id number] POCT PREG TEST DATE ( test code = 3576) 02-13-24 Lab Interpretation (test cod e = 59845-8) Normal [facility] [id number] 01:00:00* Test Item Value Reference Range Interpretation Comme nts POCT PREG (test code = 1605) negative On board controls acceptable with C Line (test code = 3574) present POCT PREG LOT # (test code = 3575) [id number] POCT PREG TEST DATE ( test code = 3576) Lab Interpretation (test cod e = 15880-8) Normal [facility] [id number] 16:46:00* Test Item Value Reference Range Interpretation Comme nts POCT PREG (test code = 1605) NEGATIVE On board controls acceptable with C Line (test code = 3574) PRESENT POCT PREG LOT # (test code = 3575) [id number] POCT PREG TEST DATE ( test code = 3576) 2023-10-08 Lab Interpretation (test cod e = 52702-4) Normal [facility]. METABOLIC PANEL (95845)2022-06-23 16:14:43* Test Item Value Reference Range Interpretation Comme nts NA (test code = 2532276748) 140 mmol/L 135-145 K (test code = 1237615746) 3.8 mmol/L 3.5-5.0 CL (test code = 4344567910) 105 mmol/L 98-108 CO2 TOTAL (test code = 5199271678) 21 mmol/L 23-31 L AGAP (test code = 7078428579) 14 2-16 BUN (test code = 7884356274) 13 mg/dL 7-23 GLUCOSE (test code = 9241614442) 120 mg/dL 70-110 H CREATININE (test code = 2991195484) 0.69 mg/dL 0.50-1.04 TOTAL BILI (test code = 0317208510) 0.6 mg/dL 0.1-1.1 CALCIUM (test code = 2590197495) 8.9 mg/dL 8.6-10.6 T PROTEIN (test code = 6493652726) 7.8 g/dL 6.3-8.2 ALBUMIN (test code = 6364423403) 4.4 g/dL 3.5-5.0 ALK PHOS (test code = 5867102877) 80 U/L 34-122 ALTv (test code = 1742-6) 25 U/L 5-35 AST(SGOT) (test code = 3926381365) 25 U/L 13-40 eGFR (test code = 0860325531) 101.3 mL/min/1.73m2 JOHN (test code = JOHN) Association of [...] or abnormalities in imaging tests). Lab Interpretation (test code = 35305-4) [facility] 16:14:43* Test Item Value Reference Range Interpretation Comme nts LIPASE (test code = 8942586877) 60 U/L 0-220 Lab Interpretation (test cod e = 66117-4) [facility] [id number] 16:00:42* Test Item Value Reference Range Interpretation Comme nts WBC (test code = 6690-2) 7.22 See_Comment [Automated [employer] [facility]] The system which generated this result transmitted reference range: 4.30 - 11.10 10*3/?L. The reference range was not used to interpret this result as normal/abnormal. RBC (test code = 789-8) 4.32 See_Comment [Automated [employer] ge] The system which generated this result transmitted reference range: 3.93 - 5.25 10*6/?L. The reference range was not used to interpret this result as normal/abnormal. HGB (test code = 718-7) 14.8 g/dL 11.6-15.0 HCT (test code = 4544-3) 41.8 % 35.7-45.2 MCV (test code = 787-2) 96.8 fL 80.6-95.5 H MCH (test code = 785-6) 34.3 pg 25.9-32.8 H MCHC (test code = 786-4) 35.4 g/dL 31.6-35.1 H RDW-SD (test code = 58795-7) 41.9 fL 39.0-49.9 RDW-CV (test code = 788-0) 11.8 % 12.0-15.5 L PLT (test code = 777-3) 271 See_Comment [Automated [employer]] The system which generated this result transmitted reference range: 166 - 358 10*3/?L. The reference range was not used to interpret this result as normal/abnormal. MPV (test code = 30012-6) 8.1 fL 9.5-12.9 L NRBC/100 WBC (test code = 3382992186) 0.0 See_Comment [Automated me ssage] The system which generated this result transmitted reference range: 0.0 - 10.0 /100 WBCs. The reference range was not used to interpret this result as normal/abnormal. NRBC x10^3 (test code = 9887983292) See_Comment [Automated messa ge] The system which generated this result transmitted reference range: 10*3/?L. The reference range was not used to interpret this result as normal/abnormal. GRAN MAT (NEUT) % (test code = 770-8) 61.8 % IMM GRAN % (test code = 9656312824) 0.30 % LYMPH % (test code = 736-9) 30.6 % MONO % (test code = 5905-5) 4.8 % EOS % (test code = 713-8) 2.4 % BASO % (test code = 706-2) 0.1 % GRAN MAT x10^3(ANC) (test code = 1773612549) 4.46 10*3/uL 1.88-7.09 IMM GRAN x10^3 (test code = 3885248187) 0.00-0.06 LYMPH x10^3 (test code = 731-0) 2.21 10*3/uL 1.32-3.29 MONO x10^3 (test code = 742-7) 0.35 10*3/uL 0.33-0.92 EOS x10^3 (test code = 711-2) 0.17 10*3/uL 0.03-0.39 BASO x10^3 (test code = 704-7) 0.01-0.07 Lab Interpretation (test code = 44290-2) [facility] [id number] 20:08:00* Test Item Value Reference Range Interpretation Comme nts Molecular Testing MM (test code = COVIDNAAT) Not Detected NotDetected Negative (Not Detected) results do not preclude infectionwith SARS-CoV-2 virus, and should not be the sole basis of apatient management decision. Consider testing for otherviruses if clinically indicated.The use of this assay as an In vitro diagnostic under theFDA Emergency Use Authorization (EUA) is limited tolaboratories that are certified under the ClinicalLaboratory Improvement Amendments of 1988 (CLIA), 42 U.S.C.263a, to perform high complexity tests. Molecular Testing MM (test code = COVIDSOURCEMM) Nasopharyngeal Swab Resident in [facility] Setting: UnknownEmployed in Healthcare: UnknownFirst Test: UnknownHospitalized: UnknownICU: UnknownDate of Symptom Onset: [id number]: UnknownReason for Testing: PUI -SymptomaticSource: Nasopharyngeal SwabSymptomatic as defined by CDC: IttpnocCnixvzzaye0645-57-52 13:11:00* Test Item Value Reference Range Interpretation Comme nts Urinalysis (test code = UACLR) Light-Yellow Yellow Urinalysis (test code = UACLY) Clear Clear Urinalysis (test code = SPGR) 1.027 1.002-1.036 N Urinalysis (test code = JEWEL) 6.0 5.0-9.0 N Urinalysis (test code = UALEU) 75 Janis/uL Negative A Urinalysis (test code = UANIT) Negative Negative Urinalysis (test code = PROUADIP) Negative mg/dL Neg-Trace Urinalysis (test code = GLUCU) Normal mg/dL Negative Urinalysis (test code = KETU) Negative mg/dL Negative Urinalysis (test code = UAUROB) Normal mg/dL Less than 2 Urinalysis (test code = UABIL) Negative Negative Urinalysis (test code = UABLD) Negative Negative Urinalysis (test code = UARBC) 0-3 HPF 0-3 Urinalysis (test code = UAWBC) 0-3 HPF 0-3 Urinalysis (test code = UASQUAM) 0-3 HPF 0-3 Urinalysis (test code = UABAC) None Seen HPF None Seen Urine Source: Urine VkmdmkGlkgutroft1172-43-71 13:11:00* Test Item Value Reference Range Interpretation Comme nts Urinalysis (test code = BHCGUT) Negative Negative Method of sensit ivity- INDETERMINANT: results should be repeated after 48-72 hrs POSITIVE: results may be detected as early as 1 day after the first missed period A dilute urine specimen may not contain representativelevels of hCG.If is still suspected, a first morning urinespecimen OR a random blood specimen should be obtainedfrom the patient 48-72 hours later and re-tested. Urinalysis (test code = PREGUSG) 1.027 1.002-1.036 N Ivbhhkabd8078-76-81 12:25:00* Test Item Value Reference Range Interpretation Comme [facility] Chemistry (test code = LIP) 10 U/L 8-78 N HCG ur [id number] 12:21:00* Test Item Value Reference Range Interpretation Comme [facility] Urine Test (test c ode = 2106-3) Negative Negative [facility] by Refractometry automated 2022-01-14 12:21:00* Test Item Value Reference Range Interpretation Comme [facility] Urine Specific [place] (test code = 87592-7) 1.027 1.002-1.036 [facility] by [id number] 12:21:00* Test Item Value Reference Range Interpretation Comme [facility] Urine Color (test code = 27068-9) Light-Yellow Yellow [facility] clarity by refractometry xcutzekhs7602-59-88 12:21:00* Test Item Value Reference Range Interpretation Comme [facility] Urine Clarity (test code = 60618-9) Clear Clear [facility] pH measurement by automated test oowix8236-17-47 12:21:00* Test Item Value Reference Range Interpretation Comme [facility] Urine pH (test code = 77656-3) 6.0 5.0-9.0 [facility] leukocyte esterase detection by automated test bepxj5744-56-56 12:21:00* Test Item Value Reference Range Interpretation Comme [facility] Urine Leukocyte Esterase (te st code = 79062-1) 75 Janis/uL Negative [facility]Presence[facility] in Urine by Test kuxxn1034-30-89 12:21:00* Test Item Value Reference Range Interpretation Comme [facility] Urine Nitrite (test code = 5802-4) Negative Negative [facility] protein measurement by automated test strip (mass/volume)2022-01-14 12:21:00* Test Item Value Reference Range Interpretation Comme [facility] Urine Protein (test code = 00813-9) Negative mg/dL Neg-Trace [facility] [Moles/volume] in Urine by Test strip 2022-01-14 12:21:00* Test Item Value Reference Range Interpretation Comme [facility] Urine Glucose (UA) (test cod e = 95316-3) Normal mg/dL Negative [facility] ketones measurement by automated test strip (mass/volume)2022-01-14 12:21:00* Test Item Value Reference Range Interpretation Comme [facility] Urine Ketones (test code = 15554-7) Negative mg/dL Negative [facility] urobilinogen measurement (units/volume) by test pimoq1519-94-83 12:21:00* Test Item Value Reference Range Interpretation Comme [facility] Urine Urobilinogen (test cod e = 04689-1) Normal mg/dL Less than 2 [facility] total bilirubin detection by automated test ouddp9365-43-05 12:21:00* Test Item Value Reference Range Interpretation Comme [facility] Urine Bilirubin (test code = 27057-3) Negative Negative [facility] hemoglobin detection by automated test strip 2022-01-14 12:21:00* Test Item Value Reference Range Interpretation Comme [facility] Urine Blood (test code = 78829-8) Negative Negative [facility] erythrocytes detection by automated method 2022-01-14 12:21:00* Test Item Value Reference Range Interpretation Comme [facility] Urine RBC (test code = 03489-0) 0-3 HPF 0-3 [facility] leukocytes detection by automated method 2022-01-14 12:21:00* Test Item Value Reference Range Interpretation Comme [facility] Urine WBC (test code = 84573-0) 0-3 HPF 0-3 [facility] cells.squamous [#/area] in Urine sediment by Automated bjvjk9300-41-64 12:21:00* Test Item Value Reference Range Interpretation Comme [facility] Urine Squamous Epithelial Ce lls (test code = 60430-1) 0-3 HPF 0-3 [facility] bacteria detection by automated xavbqg8030-32-52 12:21:00* Test Item Value Reference Range Interpretation Comme [facility] Urine Bacteria (test code = 43647-6) None Seen HPF None Seen [facility] - Zvdyytwi3457-65-60 12:18:00* Test Item Value Reference Range Interpretation Comme [facility] Chemistry - Specials (test code = BHCGST) Negative NEGATIVE Method of s ensitivity- Indeterminant: results should be repeated after 48-72 hrs Positive: results may be detected as early as 1 day after the first missed menses. Xfnngugjf2216-84-90 11:13:00* Test Item Value Reference Range Interpretation Comme [facility] Chemistry (test code = NA-T) 139 mmol/L 136-145 N Chemistry (test code = K-T) 3.9 mmol/L 3.5-5.1 N Chemistry (test code = CL) 108 mmol/L 98-107 H Chemistry (test code = CO2) 22 mmol/L 22-29 N Chemistry (test code = ANGP) 13 mmol/L 10-20 N Chemistry (test code = BUN) 14 mg/dL 7.0-18.7 N Chemistry (test code = CREATT) 0.81 mg/dL 0.6-1.1 N Chemistry (test code = EGFRCR) 102 Reference Range for Estimated GFR: Greater than 90 mL/min/1.73 x4Oufktwjs eGFR is based on the CKD-EPI 2020 equation thatdoes not use a race coefficient. Chemistry (test code = GLU-T) 105 mg/dL 70-105 N Chemistry (test code = CA) 9.1 mg/dL 7.8-10.44 N Chemistry (test code = TBILI-T) 0.6 mg/dL 0.2-1.2 N Chemistry (test code = TP) 7.9 g/dL 6.0-8.3 N Chemistry (test code = ALB) 4.3 g/dL 3.5-5.0 N Chemistry (test code = GLOB) 3.6 g/dL 2.4-3.5 H Chemistry (test code = AG) 1.2 g/dL 1.2-2.2 N Chemistry (test code = ALP) 82 U/L 40-110 N Chemistry (test code = AST) 12 U/L 5-34 N Chemistry (test code = ALT) 12 U/L 8-55 N Xyjmobplxr2374-22-63 10:49:00* Test Item Value Reference Range Interpretation Comme nts Hematology (test code = WBCT) 8.3 thou/uL [...] 0.0 thou/uL 0.0-0.2 N Serum or plasma alanine aminotransferase measurement without P-5'-P (enzymatic yrwbuu6541-95-32 10:35:00* Test Item Value Reference Range Interpretation Comme [facility] Alanine Aminotransferase (AL T/SGPT) (test code = 1744-2) 12 U/L 8-55 [facility] or plasma lipase measurement (enzymatic activity/volume)2022-01-14 10:35:00* Test Item Value Reference Range Interpretation Comme [facility] Lipase (test code = 3040-3) 10 U/L 8-78 [facility] human chorionic gonadotropin detection for bdfyvtlmd6591-54-18 10:35:00* Test Item Value Reference Range Interpretation Comme [facility] Serum Test, Qualit ative (test code = 2118-8) Negative NEGATIVE [facility]uk[facility] [#/volume] in Blood by Automated count 2022-01-14 10:35:00* Test Item Value Reference Range Interpretation Comme [facility] White Blood Count (test code = 6690-2) 8.3 thou/uL 4.8-10.8 [facility] erythrocytes automated count (number/volume) 2022-01-14 10:35:00* Test Item Value Reference Range Interpretation Comme [facility] Red Blood Count (test code = 789-8) 4.15 mill/uL 4.20-5.40 [facility] hemoglobin measurement (mass/volume)2022-01-14 10:35:00* Test Item Value Reference Range Interpretation Comme [facility] Hemoglobin (test code = 718-7) 14.3 g/dL 12.0-16.0 [facility] mean corpuscular volume 2022-01-14 10:35:00* Test Item Value Reference Range Interpretation Comme [facility] Mean Corpuscular Volume (ai t code = 787-2) 100.0 fL 78.0-98.0 [facility] mean corpuscular hemoglobin (mass per erythrocyte)2022-01-14 10:35:00* Test Item Value Reference Range Interpretation Comme [facility] Mean Corpuscular Hemoglobin (test code = 785-6) 34.5 pg 27.0-31.0 [facility] mean corpuscular hemoglobin concentration measurement (mass/oac6152-73-68 10:35:00* Test Item Value Reference Range Interpretation Comme [facility] Mean Corpuscular Hemoglobin Concent (test code = 786-4) 34.4 g/dL 32.0-36.0 [facility] eryth[facility] distribution width ratio 2022-01-14 10:35:00* Test Item Value Reference Range Interpretation Comme [facility] Red Cell Distribution Width (test code = 788-0) 10.4 % 11.5-14.5 [facility] platelet count (count/volume) 2022-01-14 10:35:00* Test Item Value Reference Range Interpretation Comme [facility] Platelet Count (test code = 777-3) 293 thou/uL 130-400 [facility] platelet mean oprgkf4685-89-64 10:35:00* Test Item Value Reference Range Interpretation Comme [facility] Mean Platelet Volume (test c ode = 42405-4) 6.2 fL 7.4-10.4 [facility] neutrophils/100 jagqfekhdu9767-07-58 10:35:00* Test Item Value Reference Range Interpretation Comme [facility] Neutrophils % (test code = 770-8) 66.0 % 42.0-75.0 [facility] leukocytes in Blood by Automated count 2022-01-14 10:35:00* Test Item Value Reference Range Interpretation Comme [facility] Lymphocytes % (test code = 736-9) 26.7 % 21.0-51.0 [facility] monocytes/100 zuywrpmhwr2642-32-00 10:35:00* Test Item Value Reference Range Interpretation Comme [facility] Monocytes % (test code = 5905-5) 4.9 % 0.0-10.0 [facility] eosinophils/100 fnnrinotvv7064-43-81 10:35:00* Test Item Value Reference Range Interpretation Comme [facility] Eosinophils % (test code = 713-8) 1.7 % 0.0-10.0 [facility] basophils/100 qdsrqtjoth1844-82-17 10:35:00* Test Item Value Reference Range Interpretation Comme [facility] Basophils % (test code = 706-2) 0.6 % 0.0-1.0 [facility] neutrophils automated count (number/volume) 2022-01-14 10:35:00* Test Item Value Reference Range Interpretation Comme [facility] Neutrophils # (test code = 751-8) 5.5 thou/uL 1.40-6.50 [facility] [#/volume] in Blood by Automated count 2022-01-14 10:35:00* Test Item Value Reference Range Interpretation Comme [facility] Lymphocytes # (test code = 731-0) 2.2 thou/uL 1.20-3.40 [facility] monocytes automated count (number/volume) 2022-01-14 10:35:00* Test Item Value Reference Range Interpretation Comme [facility] Monocytes # (test code = 742-7) 0.4 thou/uL 0.11-0.59 [facility] eosinophils automated count (count/volume) 2022-01-14 10:35:00* Test Item Value Reference Range Interpretation Comme [facility] Eosinophils # (test code = 711-2) 0.1 thou/uL 0.0-0.7 [facility] blood basophil count (count/volume) 2022-01-14 10:35:00* Test Item Value Reference Range Interpretation Comme [facility] Basophils # (test code = 704-7) 0.0 thou/uL 0.0-0.2 [facility] or plasma sodium measurement (moles/volume) 2022-01-14 10:35:00* Test Item Value Reference Range Interpretation Comme [facility] Sodium Level (test code = 2951-2) 139 mmol/L 136-145 [facility] or plasma potassium measurement (moles/volume) 2022-01-14 10:35:00* Test Item Value Reference Range Interpretation Comme [facility] Potassium Level (test code = 2823-3) 3.9 mmol/L 3.5-5.1 [facility] or plasma chloride measurement (moles/volume) 2022-01-14 10:35:00* Test Item Value Reference Range Interpretation Comme [facility] Chloride Level (test code = 2075-0) 108 mmol/L 98-107 [facility] or plasma carbon dioxide, total measurement (moles/volume)2022-01-14 10:35:00* Test Item Value Reference Range Interpretation Comme nts Carbon Dioxide Level (test c ode = 2027-9) 22 mmol/L 22-29 [facility] or plasma anion ihi5735-36-65 10:35:00* Test Item Value Reference Range Interpretation Comme nts Anion Gap (test code = 91788-4) 13 mmol/L 10-20 [facility] urea nitrogen measurement (mass/volume)2022-01-14 10:35:00* Test Item Value Reference Range Interpretation Comme nts Blood Urea Nitrogen (test co de = 3094-0) 14 mg/dL 7.0-18.7 [facility] or plasma creatinine measurement (mass/volume) 2022-01-14 10:35:00* Test Item Value Reference Range Interpretation Comme nts Creatinine (test code = 2160-0) 0.81 mg/dL 0.6-1.1 [facility]/1.73 sq M.predicted [Volume Rate/Area] in Serum, Plasma [id number] 10:35:00* Test Item Value Reference Range Interpretation Comme [facility] Estimated GFR (CKD-EPI 2020) (test code = 28750-6) 102 [facility] [Mass/volume] in Serum or Qmqvxi1772-76-34 10:35:00* Test Item Value Reference Range Interpretation Comme [facility] Glucose Level (test code = 2345-7) 105 mg/dL 70-105 [facility] or plasma calcium measurement (mass/volume) 2022-01-14 10:35:00* Test Item Value Reference Range Interpretation Comme nts Calcium Level (test code = 06035-5) 9.1 mg/dL 7.8-10.44 [facility] or plasma total bilirubin measurement (mass/volume)2022-01-14 10:35:00* Test Item Value Reference Range Interpretation Comme nts Total Bilirubin (test code = 1975-2) 0.6 mg/dL 0.2-1.2 [facility] or plasma protein measurement (mass/volume) 2022-01-14 10:35:00* Test Item Value Reference Range Interpretation Comme nts Serum Total Protein (test co de = 2885-2) 7.9 g/dL 6.0-8.3 [facility] or plasma albumin measurement by bromocresol green (BCG) dye binding method ([id number] 10:35:00* Test Item Value Reference Range Interpretation Comme [facility] Albumin (test code = 03122-5) 4.3 g/dL 3.5-5.0 [facility] [Mass/volume] in Serum by calculation 2022-01-14 10:35:00* Test Item Value Reference Range Interpretation Comme nts Globulin (test code = 09735-1) 3.6 g/dL 2.4-3.5 [facility]Globulin [Mass Ratio] in Serum or Plasma 2022-01-14 10:35:00* Test Item Value Reference Range Interpretation Comme [facility] Albumin/Globulin Ratio (test code = 1759-0) 1.2 g/dL 1.2-2.2 [facility] [Enzymatic activity/volume] in Serum or Sqvsyx4374-61-12 10:35:00* Test Item Value Reference Range Interpretation Comme [facility] Alkaline Phosphatase (test c ode = 6768-6) 82 U/L 40-110 [facility] or plasma aspartate aminotransferase measurement (enzymatic activity/volume)2022-01-14 10:35:00* Test Item Value Reference Range Interpretation Comme [facility] Aspartate Amino Transf (AST/ SGOT) (test code = 1920-8) 12 U/L 5-34 [facility]OL[facility] SAMPSON *WW*2018-08-17 21:11:00* Test Item Value Reference Range Interpretation Comme nts GLUCOSE (test code = 06D) 88 mg/dL [...] 23 IU/L <=78 URINALYSIS WITH MICRO *WW*2018-08-17 21:04:00* Test Item Value Reference Range Interpretation Comme nts COLOR (test code = COLU) YELLOW YELLOW [...] = USPERM) /HPF NONE SERUM MONOCLONAL *WW*2018-08-17 21:03:00* Test Item Value Reference Range Interpretation Comme nts PREG SRM (test code = PGS) NEGATIVE NEGATIVE CBC (INCLUDES AUTOMATED DIFFERENTIAL)*[id number] 20:56:00* Test Item Value Reference Range Interpretation Comme nts WBC (test code = WBC) 13.1 10\\S\\3/uL [...] NO NO RBC MORPH (test code = WRBCMOR) NORMAL Molecular Testing [id number] 23:57:00* Test Item Value Reference Range Interpretation Comme nts Molecular Testing MM (test code = GCPCRT) Inconclusive NotDetected A Patient Interfer ing Substances Present. The most commoninterfering substances are mucous and yeast. Interferingsubstances are usually present because the mucous was notcleared from the collection site using a cotton swab priorto collection. Molecular Testing MM (test code = CHLAMPCRT) Inconclusive NotDetected A Patient Interfer ing Substances Present. The most commoninterfering substances are mucous and yeast. Interferingsubstances are usually present because the mucous was notcleared from the collection site using a cotton swab priorto collection. Molecular Testing MM (test code = PCRINTERP) Accurate results are dependent on adequate specimencollection, absence of inhibitors and sufficient DNA to bedetected. Acceptable specimens for this test are vaginal orcervical swabs (self collected or clinician collected),first void urine (primary specimen for males), and liquidbased pap specimens.A result of "Inconclusive" warrants re-collection.Viability or infectivity can NOT be inferred since targetDNA may persist in the absence of viable organisms. For Urine Sources Collection of urine volumes greater than 20-40 mLs mayresult in specimen dilution that may reduce testsensitivity; lesser volumes may not adequately rinseorganisms into the specimen Source: VaginalReference Lab [id number] 14:15:00* Test Item Value Reference Range Interpretation Comme [facility] Reference Lab Testing (test code = HSVT) . A Positive for Herpes simplex virus type-2. Typing wasconfirmed by monoclonal antibody microscopicimmunofluoresc ence.Performed at: [address] [id number] Director: Clyde Drummond MD, Phone: [phone] Reference Lab [id number] 17:10:00* Test Item Value Reference Range Interpretation Comme [facility] Reference Lab Testing (test code = DBW4JNU) Negative Negative Reference Lab Testing (test code = QHX2SKU) Positive Negative A This test was de veloped and its performance characteristicsdetermined by [facility]. It has not been clearedor approved by the U.S. Food and Drug Administration. TheFDA has determined that such clearance or approval is notnecessary. This test is used for clinical purposes. Itshould not be regarded as investigational or research.Performed at: [address] [id number] Director: Clyde Drummond MD, Phone: [phone] HSV Source: SwabMolecular Testing [id number] 18:56:00* Test Item Value Reference Range Interpretation Comme [facility] Molecular Testing MM (test code = GCPCRT) Not Detected NotDetected Molecular Testing MM (test code = CHLAMPCRT) Not Detected NotDetected Molecular Testing MM (test code = PCRINTERP) Accurate results are dependent on adequate specimencollection, absence of inhibitors and sufficient DNA to bedetected. Acceptable specimens for this test are vaginal orcervical swabs (self collected or clinician collected),first void urine (primary specimen for males), and liquidbased pap specimens.A result of "Inconclusive" warrants re-collection.Viability or infectivity can NOT be inferred since targetDNA may persist in the absence of viable organisms. For Urine Sources Collection of urine volumes greater than 20-40 mLs mayresult in specimen dilution that may reduce testsensitivity; lesser volumes may not adequately rinseorganisms into the specimen Source: VaginalVaginitis Panel 3 by DNA [id number] 08:37:00* Test Item Value Reference Range Interpretation Comme nts Vaginitis Panel 3 by DNA Pro be (test code = VP3) VPIIICANDI Vaginitis Panel 3 by DNA Pro be (test code = VP31) N Vaginitis Panel 3 by DNA Pro be (test code = VP31) VPIIITRICH [id number] 02:06:00* Test Item Value Reference Range Interpretation Comme nts Urinalysis (test code = BHCGUT) Negative Negative Method of sensit ivity- INDETERMINANT: results should be repeated after 48-72 hrs POSITIVE: results may be detected as early as 1 day after the first missed period A dilute urine specimen may not contain representativelevels of hCG.If is still suspected, a first morning urinespecimen OR a random blood specimen should be obtainedfrom the patient 48-72 hours later and re-tested. Urinalysis (test code = PREGUSG) 1.021 1.002-1.036 N Comment add on [id number] 23:39:00* Test Item Value Reference Range Interpretation Comme nts Urinalysis (test code = UACLR) YELLOW Yellow Urinalysis (test code = UACLY) CLOUDY Clear Urinalysis (test code = SPGR) 1.021 1.002-1.036 N Urinalysis (test code = JEWEL) 5.5 5.0-9.0 N Urinalysis (test code = UALEU) Large Negative A Urinalysis (test code = UANIT) Negative Negative Urinalysis (test code = PROUADIP) Trace mg/dL Neg-Trace Urinalysis (test code = GLUCU) Negative mg/dL Negative Urinalysis (test code = KETU) Negative mg/dL Negative Urinalysis (test code = UAUROB) 0.2 mg/dL 0.2-1.0 Urinalysis (test code = UABIL) Negative Negative Urinalysis (test code = UABLD) Small Negative A Urinalysis (test code = UARBC) 7-10 HPF 0-3 A Urinalysis (test code = UAWBC) Greater Than 50-TNTC HPF 0-3 A Urinalysis (test code = UASQUAM) 0-3 HPF 0-3 Urinalysis (test code = UABAC) None Seen HPF None Seen Urinalysis (test code = UACAST) 0-3 HYALINE CAST LPF 0-3 Hyaline Urine Source: Urine Clean [id number] 21:32:00* Test Item Value Reference Range Interpretation Comme nts Chemistry (test code = NA-T) 142 mmol/L 136-145 N Chemistry (test code = K-T) 4.0 mmol/L 3.5-5.1 N Chemistry (test code = CL) 109 mmol/L 98-107 H Chemistry (test code = CO2) 25 mmol/L 22-29 N Chemistry (test code = ANGP) 12 mmol/L 10-20 N Chemistry (test code = BUN) 16 mg/dL 7.0-18.7 N Chemistry (test code = CREATT) 1.03 mg/dL 0.6-1.1 N Chemistry (test code = EGFRMDRD) 66 Reference Range for Estimated GFR: Greater than 90 mL/min/1.73 m2NOTE:The MDRD equation has not been validated for use with theelderly (over 70 years of age), women, patientswith serious comorbid condition or persons with extremes ofbody size, muscle mass, or nutritional status. Chemistry (test code = GLU-T) 106 mg/dL 70-105 H Chemistry (test code = CA) 9.2 mg/dL 7.8-10.44 N Chemistry (test code = TBILI) 0.3 mg/dL 0.2-1.2 N Chemistry (test code = TP) 7.9 g/dL 6.0-8.3 N Chemistry (test code = ALB) 4.2 g/dL 3.5-5.0 N Chemistry (test code = GLOB) 3.7 g/dL 2.4-3.5 H Chemistry (test code = AG) 1.1 g/dL 1.2-2.2 L Chemistry (test code = ALP) 102 U/L 40-150 N Chemistry (test code = AST) 19 U/L 5-34 N Chemistry (test code = ALT) 14 U/L 8-55 N [id number] 21:07:00* Test Item Value Reference Range Interpretation Comme nts Hematology (test code = WBCT) 13.6 thou/uL [...] 0.0-0.2 N PRO TIME AND PTT *WW*2018-04-10 00:57:00* Test Item Value Reference Range Interpretation Comme nts PT (test code = TT) 13.3 s 9.8-13.6 INR (test code = INR) 1.2 INRH (test code = INRH) SUGGESTED THERAPEUTIC RANGE FOR INR: 2.5 - 3.5 For Patients with Prosthetic Valves or Patients with recurrent Thromboembolic Events 2.0 - 3.0 For Most Other Applications PTT (test code = PTT) 27.4 s 20.2-38.0 PTTH (test code = PTTH) To monitor the effectiveness of heparin, we offer the Anti-Xa (Heparin Assay). It can be used for either unfractionated or LMW Heparin. Order Code is ANTI-XA COMPREHENSIVE METABOLIC SAMPSON *WW*2018-04-10 00:53:00* Test Item Value Reference Range Interpretation Comme nts GLUCOSE (test code = 06D) 97 mg/dL [...] 31A) 26 IU/L <=78 CARDIAC PROFILE 2018-04-10 00:53:00* Test Item Value Reference Range Interpretation Comme nts TROPONIN I (test code = A84) <0.015 ng/mL 0.000-0.045 XR CHEST 1 VIEW PORTABLE 2018-04-10 00:44:06Examination: Chest one viewLocation code: W3Emhiufomye: NoneDiscussion:Clinical history is remarkable for chest pain. Cardiac silhouette is normal insize. No consolidation, effusion, or pneumothorax is appreciated. The osseousstructures are unremarkable.Impression:1. No acute abnormality. SERUM MONOCLONAL 2018-04-10 00:43:00* Test Item Value Reference Range Interpretation Comme nts PREG SRM (test code = PGS) NEGATIVE NEGATIVE CBC (INCLUDES AUTOMATED DIFFERENTIAL)*[id number] 00:35:00* Test Item Value Reference Range Interpretation Comme nts WBC (test code = WBC) 9.7 10\\S\\3/uL [...] NO NO RBC MORPH (test code = WRBCMOR) NORMAL DIRECT CHLAMYDIA EXAM *WW*2017-12-27 13:20:00* Test Item Value Reference Range Interpretation Comme nts CHLAMYDIA TRACHOMATIS (test code = 95830959) NOT DETECTED NOT DETECTED NEISSERIA GONORRHOEAE (test code = 29491748) NOT DETECTED NOT DETECTED Endnote (test code = 85616632) This test was performed using the APTIMA COMBO2 Assay([employer]The analytical performance characteristics of thisassay, when used to test SurePath specimens havebeen determined by [employer].TEST PERFORMED AT:[facility] [address] [id number] HANNON M.D. URINE [id number] 09:33:00* Test Item Value Reference Range Interpretation Comme nts Culture Observations (test code = COB1) THREE OR MORE SPECIES OF BACTERIA ISOLATED. PROBABLE CONTAMINATION. Culture Observations (test code = COB17) IDENTIFICATION AND SUSCEPTIBILITY NOT INDICATED. RECOLLECTION RECOMMENDED WET [id number] 00:23:00* Test Item Value Reference Range Interpretation Comme nts Direct Exam (test code = DE1) FEW RED BLOOD CELLS SEEN Direct Exam (test code = DE2) MODERATE WHITE BLOOD CELLS SEEN Direct Exam (test code = DE3) RARE TRICHOMONAS SEEN Direct Exam (test code = DE4) RARE CLUE CELLS SEEN Direct Exam (test code = DE5) NO FUNGAL ELEMENTS SEEN ON DIRECT EXAM COMPREHENSIVE METABOLIC SAMPSON 2017-12-24 22:54:00* Test Item Value Reference Range Interpretation Comme nts GLUCOSE (test code = 06D) 88 mg/dL [...] 31A) 30 IU/L <=78 URINE MONOCLONAL *WW*2017-12-24 22:48:00* Test Item Value Reference Range Interpretation Comme nts PREG UR (test code = PGU) NEGATIVE NEGATIVE URINALYSIS WITH MICRO *WW*2017-12-24 22:43:00* Test Item Value Reference Range Interpretation Comme nts COLOR (test code = COLU) YELLOW YELLOW [...] = USPERM) /HPF NONE CBC (INCLUDES AUTOMATED DIFFERENTIAL)*[id number] 22:38:00* Test Item Value Reference Range Interpretation Comme nts WBC (test code = WBC) 11.3 10\\S\\3/uL [...] NO NO RBC MORPH (test code = WRBCMOR) NORMAL U/S PELVIS*WW*2017-09-04 02:40:03ULTRASOUND OF THE PELVISLocation: [id number] HISTORY: pelvic pain history of recent /deliveryCOMPARISON: None.TECHNIQUE: Transabdominal only, patient refused transvaginal Real-timegrayscale, color and spectral Doppler imaging was performed. Normal arterialinflow and venous outflow of eachovary was documented.FINDINGS:The uterus measures 10.8 x 6.1 x 7 cm. There is anechoic complex structure seenwithin the lower uterine segment is nonspecific there is questionable flownoted peripherally. Patient had 3 weeks prior this may represent apostsurgical collection. Recommend further evaluation with CT. Patient refusedtransvaginal imagingThe right ovary is not well seen. The leftovary measures 2.1 x 1.2 x 2.1 cm nosignificant free fluid is visualized. IMPRESSION:There is nonspecific anechoic complex structure seen within the lower uterinesegment with questionable flow noted peripherally. Patient had 3weeks prior , this may represent a postsurgical collection. Recommend furtherevaluation with CT. Patient refused transvaginal imagingDIRECT CHLAMYDIA [id number] 08:05:00* Test Item Value Reference Range Interpretation Comme nts CHLAMYDIA TRACHOMATIS (test code = 83522319) NOT DETECTED NOT DETECTED NEISSERIA GONORRHOEAE (test code = 98018705) NOT DETECTED NOT DETECTED Endnote (test code = 56406080) This test was performed using the APTIMA COMBO2 Assay([employer]The analytical performance characteristics of thisassay, when used to test SurePath specimens havebeen determined by [employer].TEST PERFORMED AT:[facility] [id number] [place] [address]LKHEMJEN HANNON M.D. URINE [id number] 07:55:00* Test Item Value Reference Range Interpretation Comme nts Isolate 1 (test code = ISO1) Staphylococcus epidermidis A oxacillin miko (test code = ox) ug/mL S gentamicin (test code = gm) ug/mL S ciprofloxacin (test code = cip) ug/mL S levofloxacin (test code = lev) ug/mL S clindamycin (test code = cc) ug/mL S linezolid (test code = lnz) ug/mL S daptomycin (test code = dap) ug/mL S vancomycin (test code = va) ug/mL S doxycycline (test code = dx) ug/mL S tetracycline (test code = tet) ug/mL S nitrofurantoin (test code = ftn) ug/mL S rifampicin (test code = rif) ug/mL S DIRECT STREP GROUP [id number] 07:36:00* Test Item Value Reference Range Interpretation Comme nts Culture Observations (test code = COB1) NO BETA HEMOLYTIC STREPTOCOCCUS ISOLATED Direct Exam (test code = DE1) NEGATIVE FOR STREP A ANTIGEN WET [id number] 18:51:00* Test Item Value Reference Range Interpretation Comme nts Direct Exam (test code = DE1) MODERATE EPITHELIAL CELLS SEEN Direct Exam (test code = DE2) MODERATE BACTERIA SEEN Direct Exam (test code = DE3) FEW WHITE BLOOD CELLS SEEN Direct Exam (test code = DE4) TRICHOMONAS SEEN Direct Exam (test code = DE5) RARE CLUE CELLS SEEN Direct Exam (test code = DE6) NO YEAST DIRECT INFLUENZA A AND B [id number] 17:05:00* Test Item Value Reference Range Interpretation Comme nts Direct Exam (test code = DE1) PRESUMPTIVE NEGATIVE FOR THE PRESENCE OF INFLUENZA ANTIGEN AMYLASE AND [id number] 17:02:00* Test Item Value Reference Range Interpretation Comme nts AMYLASE (test code = 10A) 64 U/L 28-100 LIPASE (test code = 60A) 83 IU/L 73-393 COMPREHENSIVE METABOLIC [id number] 17:02:00* Test Item Value Reference Range Interpretation Comme nts GLUCOSE (test code = 06D) 84 mg/dL [...] (test code = 31A) 13 IU/L <=78 [id number] 16:55:00* Test Item Value Reference Range Interpretation Comme nts MAGNESIUM (test code = 48A) 1.9 mg/dL 1.8-2.4 URINALYSIS WITH [id number] 16:51:00* Test Item Value Reference Range Interpretation Comme nts COLOR (test code = COLU) DK YELLOW [...] USPERM) /HPF NONE CBC (INCLUDES AUTOMATED DIFFERENTIAL)2017-07-03 16:46:00* Test Item Value Reference Range Interpretation Comme nts WBC (test code = WBC) 11.3 10\\S\\3/uL [...]
[2023-05-27 09:05] LABS: Absolute Lymphocytes (CBC) 2.3 K/uL (0.7-4.9); Hematocrit 39.5 % (36.0-45.0); Lymphocytes % 29.9 % (15.3-44.8); MCV 99.6 fL (80-100); MPV 6.3 fL (7.6-11.3); Platelets 362 thou/uL (152-406); RBC Red Blood Cell Count 3.97 M/uL (3.86-4.86); Specific Gravity 1.006 (1.005-1.030)
[2023-05-27 09:17] LABS: Specific Gravity 1.006 (1.005-1.030); Transitional Epithelial <5 /HPF (None Seen); Urine Bacteria <20 /HPF (<20); Urine Bilirubin NEGATIVE (Negative); Urine Blood Negative (Negative); Urine Clarity Extremely Turbid (Clear); Urine Color Light-Yellow (Yellow); Urine Glucose NEGATIVE (Negative); Urine Mucus Slight /HPF (None Seen); Urine Protein NEGATIVE (Negative); Urine RBC <5 /HPF (None Seen); Urine Urobilinogen Normal (Normal); Urine pH 6.5 (5.0-7.0)
[2023-05-27 09:21] LABS: Albumin 3.5 g/dL (3.4-5.0); Bilirubin Total 0.5 mg/dL (0.2-1.0); Protein, Total 8.2 g/dL (6.4-8.2)
--- NOTE | 2023-05-27 10:13 | EDPHYS ---
Physician Documentation [facility] Name: Sony Major Age: 28 yrs Sex: Female : 1995 Arrival Date: 05/27/2023 Time: 08:28 Bed 6 Private MD: ROBERT Physician Dev [place] HPI: 05/27 08:54 This 28 yrs old Female presents to ER via Ambulatory with complaints of zeeshan Vomiting/Diarrhea, Abdominal Pain. 08:54 The patient presents to the emergency department with nausea, vomiting, diarrhea, zeeshan abdominal pain, of the right upper quadrant, left upper quadrant, right lower quadrant and left lower quadrant. Onset: The symptoms/episode began/occurred 2 day(s) ago. Possible causes: unknown. The symptoms are aggravated by nothing. The symptoms are alleviated by nothing. remaining still. Severity of symptoms: At their worst the symptoms were mild in the emergency department the symptoms are unchanged. The patient has experienced similar episodes in the past, a few times. 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 - Social history:: Smoking status: Patient denies any tobacco usage or history of. - Family history:: not pertinent. ROS: 08:54 Constitutional: Negative for fever, chills, and weight loss, Eyes: Negative for injury, zeeshan pain, redness, and discharge, ENT: Negative for injury, pain, and discharge, Neck: Negative for injury, pain, and swelling, Cardiovascular: Negative for chest pain, palpitations, and edema, Respiratory: Negative for shortness of breath, cough, wheezing, and pleuritic chest pain, Back: Negative for injury and pain, : Negative for injury, bleeding, discharge, and swelling, MS/Extremity: Negative for injury and deformity, Skin: Negative for injury, rash, and discoloration, Neuro: Negative for headache, weakness, numbness, tingling, and seizure, Psych: Negative for depression, anxiety, suicide ideation, homicidal ideation, and hallucinations, Allergy/Immunology: Negative for hives, rash, and allergies, Endocrine: Negative for neck swelling, polydipsia, polyuria, polyphagia, and marked weight changes, Hematologic/Lymphatic: Negative for swollen nodes, abnormal bleeding, and unusual bruising, 08:54 Abdomen/GI: Positive for nausea and vomiting, diarrhea, Exam: 08:54 Constitutional: This is a well developed, well nourished patient who is awake, alert, zeeshan and in no acute distress. Head/Face: Normocephalic, atraumatic. Eyes: Pupils equal round and reactive to light, extra-ocular motions intact. Lids and lashes normal. Conjunctiva and sclera are non-icteric and not injected. Cornea within normal limits. Periorbital areas with no swelling, redness, or edema. ENT: Nares patent. No nasal discharge, no septal abnormalities noted. Tympanic membranes are normal and external auditory canals are clear. Oropharynx with no redness, swelling, or masses, exudates, or evidence of obstruction, uvula midline. Mucous membranes moist. Neck: Trachea midline, no thyromegaly or masses palpated, and no cervical lymphadenopathy. Supple, full range of motion without nuchal rigidity, or vertebral point tenderness. No Meningismus. Chest/axilla: Normal chest wall appearance and motion. Nontender with no deformity. No lesions are appreciated. Cardiovascular: Regular rate and rhythm with a normal S1 and S2. No gallops, murmurs, or rubs. Normal PMI, no JVD. No pulse deficits. Respiratory: Lungs have equal breath sounds bilaterally, clear to auscultation and percussion. No rales, rhonchi or wheezes noted. No increased work of breathing, no retractions or nasal flaring. Abdomen/GI: Soft, non-tender, with normal bowel sounds. No distension or tympany. No guarding or rebound. No evidence of tenderness throughout. Back: No spinal tenderness. No costovertebral tenderness. Full range of motion. Skin: Warm, dry with normal turgor. Normal color with no rashes, no lesions, and no evidence of cellulitis. MS/ Extremity: Pulses equal, no cyanosis. Neurovascular intact. Full, normal range of motion. Neuro: Awake and alert, GCS 15, oriented to person, place, time, and situation. Cranial nerves II-XII grossly intact. Motor strength 5/5 in all extremities. Sensory grossly intact. Cerebellar exam normal. Normal gait. Psych: Awake, alert, with orientation to person, place and time. Behavior, mood, and affect are within normal limits. 08:54 Abdomen/GI: Inspection: abdomen appears normal, Bowel sounds: normal, Palpation: nontender, Liver: no appreciated palpable abnormalities, Hernia: not appreciated, Vital Signs: 08:38 BP 123 / 93; Pulse 88; Resp 16 S; Temp 97.6(O); Pulse Ox 95% on R/A; Weight 79.83 kg kc6 (R); Height 5 ft. 1 in. (R); 09:46 BP 135 / 81; Pulse 75; Resp 16 S; Pulse Ox 98% on R/A; kc6 08:38 Body Mass Index 33.25 (79.83 kg, 154.94 cm) kc6 MDM: 08:32 Patient medically screened. zeeshan 08:58 Differential diagnosis: Nonspecific abd pain, gastritis, cholecystitis, pancreatitis, zeeshan appendicitis, diverticulitis, viral gastroenteritis, gastroenteritis. Data reviewed: vital signs, nurses notes, lab test result(s). Consideration of Admission/Observation Escalation of care including admission/observation considered. I considered the following discharge prescriptions or medication management in the emergency department Medications were administered in the Emergency Department. See MAR. Test considered but Not performed: CT: no ct abd pelvis. Care significantly affected by the following chronic conditions: pcos, asthma, migraine. Counseling: I had a detailed discussion with the patient and/or guardian regarding the historical points, exam findings, and any diagnostic results supporting the discharge/admit diagnosis, lab results, the need for outpatient follow up, for definitive care, 05/27 08:50 Order name: CBC with Diff; Complete Time: 10:12 [facility] 05/27 08:50 Order name: CMP; Complete Time: 10:12 [facility] 05/27 08:50 Order name: Lipase; Complete Time: 10:12 [facility] 05/27 08:50 Order name: Test, Urine; Complete Time: 10:12 [facility] 05/27 08:50 Order name: Urinalysis w/ reflexes; Complete Time: 10:12 [facility] 05/27 08:50 Order name: IV Saline Lock; Complete Time: 08:52 [facility] 05/27 08:50 Order name: Labs collected and sent; Complete Time: 08:52 [facility] Administered Medications: 08:59 Drug: NS 0.9% IV 1000 ml IV at 1 bolus Per protocol; 1000 mL bolus Route: IV; Rate: 1 db bolus; Site: right antecubital; 09:59 Follow up: Response: No adverse reaction; IV Status: Completed infusion; IV Intake: kc6 1000ml 08:59 Drug: Famotidine IVP 20 mg IVP once; dilute with 10 mL 0.9% NaCl; give over 2 minutes db Route: IVP; Site: right antecubital; 09:46 Follow up: Response: No adverse reaction kc6 08:59 Drug: Ondansetron IVP 4 mg IVP once; over 2 minutes Route: IVP; Site: right antecubital;db 09:46 Follow up: Response: No adverse reaction; Nausea is decreased kc6 Disposition Summary: 05/27/23 10:12 Discharge Ordered Notes: Location: Home zeeshan Problem: new zeeshan Symptoms: have improved zeeshan Condition: Stable zeeshan Diagnosis - Vomiting, unspecified zeeshan - Abdominal tenderness zeeshan - Diarrhea, unspecified zeeshan Followup: zeeshan - With: Private Physician - When: 2 - 3 days - Reason: Recheck today's complaints, Continuance of care, Re-evaluation by your physician Discharge Instructions: - Discharge Summary Sheet zeeshan - Abdominal Pain, Adult zeeshan - Food Choices to Help Relieve Diarrhea, Adult zeeshan - Diarrhea, Adult zeeshan - Nausea and Vomiting, Adult zeeshan - Nausea and Vomiting, Adult, [id number]-[id number] zeeshan - Abdominal Pain, Adult, Qodg-sp-Pzor zeeshan - Diarrhea, Adult, Muzs-np-Rubk zeeshan Forms: - Medication Reconciliation Form zeeshan - Thank You Letter zeeshan - Antibiotic Education zeeshan - Prescription Opioid Use zeeshan - Patient Portal Instructions zeeshan - Leadership Thank You Letter zeeshan - Work release form iw Prescriptions: - ondansetron HCl 4 mg Oral tablet - take 1 tablet ORAL route every 6-8 hours for 5 days as needed for nausea and zeeshan vomiting; 20 tablet; Refills: 0, Product Selection Permitted - dicyclomine 20 mg Oral tablet - take 1 tablet ORAL route 4 times per day; 28 tablet; Refills: 0, Product zeeshan Selection Permitted Signatures: Dispatcher [employer] Dev Fried MD MD cha Campbell, Kaitlyn RN RN kc6 Maria Teresa Campbell RN RN db Corrections: (The following items were deleted from the chart) 08:40 08:40 PMHx: pcos ( section); kc6 kc6
--- NOTE | 2023-05-27 10:13 | ER ---
Nurse's Notes [facility] Name: Sony Major Age: 28 yrs Sex: Female : 1995 Arrival Date: 05/27/2023 Time: 08:28 Bed 6 Private MD: Diagnosis: Vomiting, unspecified;Abdominal tenderness;Diarrhea, unspecified Presentation: 05/27 08:38 Chief complaint: Patient states: she took her topamax and metformin together last night kc6 at 11pm and woke up at 2am with n/v/d and belly cramping. Coronavirus screen: At this time, the client does not indicate any symptoms associated with coronavirus-19. Ebola Screen: No symptoms or risks identified at this time. Initial Sepsis Screen: Does the patient meet any 2 criteria? No. Patient's initial sepsis screen is negative. Does the patient have a suspected source of infection? No. Patient's initial sepsis screen is negative. Risk Assessment: Do you want to hurt yourself or someone else? Patient reports no desire to harm self or others. Onset of symptoms was May 27, 2023. 08:38 Method Of Arrival: Ambulatory kc6 08:38 Acuity: VINNIE 4 kc6 Triage Assessment: 08:40 General: Appears in no apparent distress. comfortable, well groomed, well developed, kc6 Behavior is calm, cooperative, appropriate for age. Pain: Complains of pain in abdomen Quality of pain is described as crampy. EENT: No signs and/or symptoms were reported regarding the EENT system. Neuro: Level of Consciousness is awake, alert, obeys commands, Oriented to person, place, time, situation, Appropriate for age. Cardiovascular: Capillary refill < 3 seconds. Respiratory: Airway is patent Trachea midline Respiratory effort is even, unlabored, Respiratory pattern is regular, symmetrical. GI: Abdomen is flat, non-distended, Last BM was May 27, 2023. Bowel sounds present X 4 quads. Reports diarrhea, nausea, vomiting. : No signs and/or symptoms were reported regarding the genitourinary system. Derm: No signs and/or symptoms reported regarding the dermatologic system. Skin is intact, is healthy with good turgor, Skin is pink, warm \T\ dry. Musculoskeletal: No signs and/or symptoms reported regarding the musculoskeletal system. Circulation, motion, and sensation intact. Capillary refill < 3 seconds, Range of motion: intact in all extremities. 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 - Social history:: Smoking status: Patient denies any tobacco usage or history of. - Family history:: not pertinent. Screenin:42 [facility] ED Fall Risk Assessment (Adult) History of falling in the last 3 months, kc6 including since admission No falls in past 3 months (0 pts) Confusion or Disorientation No (0 pts) Intoxicated or Sedated No (0 pts) Impaired Gait No (0 pts) Mobility Assist Device Used No (0 pt) Altered Elimination Yes (1 pt) Score/Fall Risk Level 0 - 2 = Low Risk. Abuse screen: Denies threats or abuse. Denies injuries from another. Nutritional screening: No deficits noted. Tuberculosis screening: No symptoms or risk factors identified. Assessment: 08:42 Reassessment: please see triage assessment. kc6 09:46 Reassessment: Patient appears in no apparent distress at this time. No changes from [facility] previously documented assessment. Patient and/or family updated on plan of care and expected duration. Pain level reassessed. Patient is alert, oriented x 3, equal unlabored respirations, skin warm/dry/pink. Vital Signs: 08:38 BP 123 / 93; Pulse 88; Resp 16 S; Temp 97.6(O); Pulse Ox 95% on R/A; Weight 79.83 kg kc6 (R); Height 5 ft. 1 in. (R); 09:46 BP 135 / 81; Pulse 75; Resp 16 S; Pulse Ox 98% on R/A; kc6 08:38 Body Mass Index 33.25 (79.83 kg, 154.94 cm) 6 ED Course: 08:31 Patient arrived in ED. mr 08:32 Dev Austin MD is Attending Physician. zeeshan 08:38 Maryam Cagle RN is Primary Nurse. kc6 08:40 Triage completed. kc6 08:40 Arm band placed on. kc6 08:42 Patient has correct armband on for positive identification. Bed in low position. Call kc6 light in reach. Side rails up X 1. Client placed on continuous cardiac and pulse oximetry monitoring. NIBP monitoring applied. 08:42 Patient maintains SpO2 saturation greater than 95% on room air. kc6 08:52 Inserted saline lock: 20 gauge in right antecubital area, using aseptic technique. kc6 Blood collected. 10:24 Provided Education on: . iw 10:24 No provider procedures requiring assistance completed. IV discontinued, intact, iw bleeding controlled, No redness/swelling at site. Pressure dressing applied. Administered Medications: 08:59 Drug: NS 0.9% IV 1000 ml IV at 1 bolus Per protocol; 1000 mL bolus Route: IV; Rate: 1 db bolus; Site: right antecubital; 09:59 Follow up: Response: No adverse reaction; IV Status: Completed infusion; IV Intake: kc6 1000ml 08:59 Drug: Famotidine IVP 20 mg IVP once; dilute with 10 mL 0.9% NaCl; give over 2 minutes db Route: IVP; Site: right antecubital; 09:46 Follow up: Response: No adverse reaction kc6 08:59 Drug: Ondansetron IVP 4 mg IVP once; over 2 minutes Route: IVP; Site: right antecubital;db 09:46 Follow up: Response: No adverse reaction; Nausea is decreased kc6 Medication: 10:24 VIS not applicable for this client. iw Intake: 09:59 IV: 1000ml; Total: 1000ml. kc6 Outcome: 10:12 Discharge ordered by . zeeshan 10:24 Discharged to home ambulatory, iw 10:24 Condition: good 10:24 Discharge instructions given to patient, Instructed on discharge instructions, follow up and referral plans. medication usage, Demonstrated understanding of instructions, follow-up care, medications, Prescriptions given X 2, 10:25 Patient left the ED. iw Signatures: Dev Austin MD MD cha Rivera, Mary, Reg Reg Marce Hairston RN RN iw Maryam Cagle RN RN kc6 Maria Teresa Campbell RN RN db Corrections: (The following items were deleted from the chart) 08:40 08:40 PMHx: pcos ( section); kc6 kc6
[2023-05-27 12:28] VITALS: BP 135/81; TEMP 97.6; O2SAT 98
== END ==
LOC: ER 08:28
DX: R11.2 Nausea with vomiting, unspecified (principal); R19.7 Diarrhea, unspecified; R10.819 Abdominal tenderness, unspecified site; E28.2 Polycystic ovarian syndrome; J45.909 Unspecified asthma, uncomplicated; G43.909 Migraine, unspecified, not intractable, without status migrainosus; Z88.0 Allergy status to penicillin
CPT/HCPCS: 96361; 85025; 81001; 36415; 81025; 83690; 80053; 96375; 96374; 99285; J2405; J7030

== ENCOUNTER → 2023-06-15 | Emergency (ER) | payer OTHER ==
[~2023-06-15] MED LIST changes: -FAMOTIDINE 20 MG/2 ML VIAL IV ONE; +HYDROCODONE/APAP 10/325 TAB ONE; +KETOROLAC 30 MG/ML INJ ONE; -NA CHLORIDE 0.9% 1,000 ML ONE; -ONDANSETRON 4 MG/2 ML VIAL ONE; +dexAMETHasone 10 MG/ML VIAL ONE
--- OUTSIDE RECORDS SUMMARY | 2023-06-15 16:32 | XMS REPORT | Continuity of Care Document ---
Author Name Unknown Address [address] [facility] [address] [place] [address] [facility] thconnect Address [address] [facility] [address] [place] [address] Care Team Providers Care Section Repairer Name Role Phone Maria Elena Stephanie REESE Primary Care Physician [phone] CECIL LARKIN Attending Clinician Unavailable Cecil Larkin MD Attending Clinician [phone] YESSICA ESPINO Attending Clinician Unavailable NAEL PINTO Attending Clinician Unavailable Nael Pinto DO Attending Clinician [phone] Yesenia OROZCO Attending Clinician Unavailable Yesenia Smalls Attending Clinician [phone] CHEO MICHAEL Attending Clinician Unavailable Cheo Michael MD Attending Clinician [phone] ANI PIERCE Attending Clinician Unavailable Ani Pierce MD Attending Clinician [phone] YANG PULIDO III Attending Clinician Unavaillorena Pulido III, MD, James C Attending Clinician [phone] Unknown, Attending Attending Clinician Unavailab le Doctor Unassigned, Vernal Attending Clinician U pauline Montes De Oca NP, Linette Attending Clinician + [phone] LINETTE MONTES DE OCA Attending Clinician UnavailWILLIAM Puentes Attending Clinician Unavailable MC DELUCA Attending Clinician Un available Stephanie Richards Attending Clinician [phone] STEPHANIE ARREDONDO Attending Clinician Unavailable Holland REESE, Patti Attending Clinician [phone] MOHINDER COLMENARES Attending Clinician Unavailable Bayron REESE, Mohinder Hicks Attending Clinician [phone] Lala Jimenez Attending Clinician Unavailable DEANNE, DR ADAMS Attending Clinician UnavailJude Dey Attending Clinician Unavailable BONNY ALEX Attending Clinician Unavailable PROVIDER, ED TEM Attending Clinician Unavaillorena MARSH, DR OPAL Poole [...] Date Source [employer] [id number] 2022 00:00:00 MEDICAID PENDING PENDING 2022 00:00:00 [facility] [id number] 2019 00:00:00 Problems Condition Name Condition Details Condition Category Status Onset Date Resolution Date Last Treatment Date Treating Clinician Comments Source Bilateral ovarian cysts Bilateral ovarian cysts Disease Active 07-06 00:00: 00 [facility] Menorrhagi a with irregular cycle Menorrhagi a with irregular cycle Disease Active 07-06 00:00: 00 [facility] Depo-Prove ra contracept radha status Depo-Prove ra contracept radha status Disease Active 07-06 00:00: 00 [facility] On oral contracept radha pills for non-contra ception indication On oral contracept radha pills for non-contra ception indication Disease Active 07-06 00:00: 00 [facility] Pelvic peritoneal adhesions, female (postopera tive) (postinfec tion) Pelvic peritoneal adhesions, female (postopera tive) (postinfec tion) Disease Active 07-06 00:00: 00 [facility] Chronic pelvic pain in female Chronic pelvic pain in female Disease Active 07-06 00:00: 00 [facility] BMI 33.0-33.9, adult BMI 33.0-33.9, adult Disease Active 07-06 00:00: 00 [facility] Screening for endocrine, metabolic and immunity disorder Screening for endocrine, metabolic and immunity disorder Disease Active 07-06 00:00: 00 [facility] Follow-up exam Follow-up exam Disease Active 06-24 00:00: 00 [facility] Constipati on, unspecifie d constipati on type Constipati on, unspecifie d constipati on type Disease Active 06-24 00:00: 00 [facility] PCOS (polycysti c ovarian syndrome) PCOS (polycysti c ovarian syndrome) Disease Active 2 00:00: 00 [facility] Irregular periods Irregular periods Disease Active 06-24 00:00: 00 [facility] Bladder adhesions Bladder adhesions Disease Active 2 00:00: 00 [facility] Lower abdominal pain Lower abdominal pain Disease Active 06-24 00:00: 00 [facility] Abnormal maternal glucose tolerance, antepartum Abnormal maternal glucose tolerance, antepartum Disease Active 11-09 00:00: 00 [facility] Susceptibl e to varicella (non-immun e), currently - needs vaccine Susceptibl e to varicella (non-immun e), currently - needs vaccine Disease Active 11-09 00:00: 00 [facility] Insufficie nt care Insufficie nt care Disease Active 11-08 00:00: 00 [facility] History of section History of section Disease Active 11-08 00:00: 00 [facility] Complicati on of , antepartum Complicati on of , antepartum Disease Active 11-08 00:00: 00 Overview: Formattin g of this note might be different from the original. ICD10 Diagnosis Term Family Assistant Utility [facility] History of macrosomia in in prior , currently History of macrosomia in infant in prior , currently Disease Active 11-08 00:00: 00 [facility] Allergies, Adverse Reactions, Alerts Allergy Name Allergy Type Status Severity Reaction(s) Onset Date Inactive Date Treating Clinician Comments Source CODEINE DRUG INGREDI Active High Hives 2019-05 00:00: 00 [facility] Codeine Propensi ty to adverse reaction s Active Hives 2019-05 00:00: 00 [facility] Penicill ins Allergy to substanc e Active Mild 11-17 00:04: 08 [facility] Penicill ins DA Active DE Rash 11-17 00:00: 00 [facility] Penicill ins Propensi ty to adverse reaction s Active Rash 06-28 00:00: 00 [facility] PENICILL INS Drug Class Active Rash 06-28 00:00: 00 [facility] Family History Family Member Diagnosis Comments Start Date Stop Date Sourc e Mother Family Breast Cancer?No [facility] Mother Family Coronary Nhi ry Disease?No [facility] Mother Family Congenital Heart Disease?No [facility] Mother Family Myocardial Infarction?No [facility] Mother Family Stroke?No [facility] Mother Family Diabetes?No [facility] Mother Family Colorectal Cancer?No [facility] Social History Social Habit Start Date Stop Date Quantity Comments Source History of tobacco use [facility] 2023-06-01 00:00:00 2023-06-01 00:00:00 Current non-drinker of alcohol (finding) [facility] Exposure to SARS-CoV-2 (event) 2022-08-25 00:00:00 2022-09-04 14:03:00 Not sure [facility] Tobacco use and exposure 2022-06-24 00:00:00 2022-06-24 00:00:00 Smokeless tobacco non-user [facility] History of Social function 2022-06-24 00:00:00 2022-06-24 00:00:00 [facility] Sex Assigned At 1995 00:00:00 1995 00:00:00 [facility] Smoking Status Start Date Stop Date Source Never smoked tobacco [facility] Medications Ordered Medication Name Filled Medication Name Start Date Stop Date Current Medication? Ordering Clinician Indication Dosage Frequency Signature (SIG) Comments Components Source hyoscyamine sulfate (LEVSIN/SL) sublingual tablet 0.25 mg 06-14 16:30: 00 06-14 15:49 :00 No .25mg 0.25 mg, Sublingual , ONCE NOW, 1 dose, On Wed06/14/23 at 1030, Routine [facility] meloxicam 15 mg tablet 06-14 00:00: 00 Yes [id number] 15mg Take 1 tablet by mouth in the morning. [facility] hyoscyamine sulfate (LEVSIN/SL) 0.125 mg sublingual tablet 06-14 00:00: [id number] 2 tablets under the tongue every 6 (six) hours as needed (Abdominal pain or cramping). [facility] acetaminoph en (TYLENOL ARTHRITIS PAIN) 650 mg CR tablet 06-14 00:00: 00 Yes [id number] 650mg Take 1 tablet by mouth every 8 (eight) hours as needed for Pain. [facility] predniSONE 20 mg tablet 2- 00:00: 00 Yes [id number] Take 2 tablets PO daily [facility] cefTRIAXone (ROCEPHIN) injection 1,000 mg 2022-05 18:00: 00 03-29 17:16 :00 No 1000mg 1,000 mg, Intramuscu lar, ONCE, 1 dose, On Wed03/29/23 at 1200, VINEET
Re ason for Anti-Infec tive: Documented Infection< br>Documen stevan Infection Site: HEENT
D uration of Therapy: 7 days [facility] azithromyci n 250 mg tablet 2022-05 00:00: 00 Yes [id number] 2 tabs today, then one tab once daily until completed [facility] ibuprofen 800 mg tablet 2022-05 00:00: 00 Yes [id number] 800mg Take 1 tablet by mouth every 6 (six) hours as needed for Temp > 38.5 C or Pain (scale 4-6). [facility] oseltamivir (TAMIFLU) 75 mg capsule 2022-05 00:00: 00 Yes [id number] 75mg Take 1 capsule by mouth in the morning and 1 capsule in the evening. [facility] benzonatate 100 mg capsule 2022-05 00:00: 00 Yes [id number] 100mg Take 1 capsule by mouth 3 (three) times daily as needed for Cough. [facility] azithromyci n 250 mg tablet 2022-05 00:00: 00 Yes [id number] 2 tabs today, then one tab once daily until completed [facility] ibuprofen 800 mg tablet 2022-05 00:00: 00 Yes [id number] 800mg Take 1 tablet by mouth every 6 (six) hours as needed for Temp > 38.5 C or Pain (scale 4-6). [facility] oseltamivir (TAMIFLU) 75 mg capsule 2022-05 00:00: 00 Yes [id number] 75mg Take 1 capsule by mouth in the morning and 1 capsule in the evening. [facility] benzonatate 100 mg capsule 2022-05 00:00: 00 Yes [id number] 100mg Take 1 capsule by mouth 3 (three) times daily as needed for Cough. [facility] naproxen sodium (ANAPROX DS) 550 mg tablet 11-09 00:00: 00 Yes [id number] 550mg Take 1 tablet by mouth in the morning and 1 tablet in the evening. Take with meals. [facility] naproxen sodium (ANAPROX DS) 550 mg tablet 11-09 00:00: 00 Yes [id number] 9109 550mg Take 1 tablet by mouth in the morning and 1 tablet in the evening. Take with meals. [facility] naproxen sodium (ANAPROX DS) 550 mg tablet 11-09 00:00: 00 Yes [id number] 550mg Take 1 tablet by mouth in the morning and 1 tablet in the evening. Take with meals. [facility] ondansetron 4 mg disintegrat ing tablet 10-15 00:00: 00 Yes [id number] 4mg Take 1 tablet by mouth every 8 (eight) hours as needed for Nausea and Vomiting (N/V). [facility] ondansetron 4 mg disintegrat ing tablet 10-15 00:00: 00 Yes [id number] 4mg Take 1 tablet by mouth every 8 (eight) hours as needed for Nausea and Vomiting (N/V). [facility] ondansetron 4 mg disintegrat ing tablet 10-15 00:00: 00 Yes [id number] 4mg Take 1 tablet by mouth every 8 (eight) hours as needed for Nausea and Vomiting (N/V). [facility] ondansetron 4 mg disintegrat ing tablet 10-15 00:00: 00 Yes [id number] 4mg Take 1 tablet by mouth every 8 (eight) hours as needed for Nausea and Vomiting (N/V). [facility] cefdinir 300 mg capsule 2023-0 6-08 00:00: 00 10-26 04:59 :00 No [id number] 300mg Take 1 capsule by mouth every 12 (twelve) hours for 10 days. [facility] benzonatate 100 mg capsule 3-0 3-24 00:00: 00 Yes [id number] 100mg Take 1 capsule by mouth every 8 (eight) hours as needed for Cough. [facility] benzonatate 100 mg capsule 3-0 3-24 00:00: 00 Yes [id number] 100mg Take 1 capsule by mouth every 8 (eight) hours as needed for Cough. [facility] benzonatate 100 mg capsule 2023-0 3-24 00:00: 00 Yes [id number] 100mg Take 1 capsule by mouth every 8 (eight) hours as needed for Cough. [facility] benzonatate 100 mg capsule 3-0 3-24 00:00: 00 Yes [id number] 100mg Take 1 capsule by mouth every 8 (eight) hours as needed for Cough. [facility] benzonatate 100 mg capsule 3-0 3-24 00:00: 00 Yes [id number] 100mg Take 1 capsule by mouth every 8 (eight) hours as needed for Cough. [facility] benzonatate 100 mg capsule 3-0 3-24 00:00: 00 Yes [id number] 100mg Take 1 capsule by mouth every 8 (eight) hours as needed for Cough. [facility] benzonatate 100 mg capsule 3-0 3-24 00:00: 00 Yes [id number] 100mg Take 1 capsule by mouth every 8 (eight) hours as needed for Cough. [facility] benzonatate 100 mg capsule 3-0 3-24 00:00: 00 Yes [id number] 100mg Take 1 capsule by mouth every 8 (eight) hours as needed for Cough. [facility] Methylpredn isolone 4 mg tablet 3-0 3-24 00:00: 00 08-06 04:59 :00 No [id number] 4mg Take 1 tablet by mouth every 12 (twelve) hours for 5 days. [facility] Methylpredn isolone 4 mg tablet 07-31 00:00: 00 08-06 04:59 :00 No [id number] 4mg Take 1 tablet by mouth every 12 (twelve) hours for 5 days. [facility] medroxyPROG ESTERone (DEPO-PROVE RA) 150 mg/mL injection 07-06 11:23: 40 Yes 150mg 1 mL by Intramuscu lar route every 3 (three) months. [facility] medroxyPROG ESTERone (DEPO-PROVE RA) 150 mg/mL injection 07-06 11:23: 40 Yes 150mg 1 mL by Intramuscu lar route every 3 (three) months. [facility] medroxyPROG ESTERone (DEPO-PROVE RA) 150 mg/mL injection 07-06 11:23: 40 Yes 150mg 1 mL by Intramuscu lar route every 3 (three) months. [facility] medroxyPROG ESTERone (DEPO-PROVE RA) 150 mg/mL injection 07-06 11:23: 40 Yes 150mg 1 mL by Intramuscu lar route every 3 (three) months. [facility] medroxyPROG ESTERone (DEPO-PROVE RA) 150 mg/mL injection 07-06 11:23: 40 Yes 150mg 1 mL by Intramuscu lar route every 3 (three) months. [facility] medroxyPROG ESTERone (DEPO-PROVE RA) 150 mg/mL injection 07-06 11:23: 40 Yes 150mg 1 mL by Intramuscu lar route every 3 (three) months. [facility] medroxyPROG ESTERone (DEPO-PROVE RA) 150 mg/mL injection 07-06 11:23: 40 Yes 150mg 1 mL by Intramuscu lar route every 3 (three) months. [facility] medroxyPROG ESTERone (DEPO-PROVE RA) 150 mg/mL injection 07-06 11:23: 40 Yes 150mg 1 mL by Intramuscu lar route every 3 (three) months. [facility] medroxyPROG ESTERone (DEPO-PROVE RA) 150 mg/mL injection 07-06 11:23: 40 Yes 150mg 1 mL by Intramuscu lar route every 3 (three) months. [facility] medroxyPROG ESTERone (DEPO-PROVE RA) 150 mg/mL injection 07-06 11:23: 40 Yes 150mg 1 mL by Intramuscu lar route every 3 (three) months. [facility] medroxyPROG ESTERone (DEPO-PROVE RA) 150 mg/mL injection 07-06 11:23: 40 Yes 150mg 1 mL by Intramuscu lar route every 3 (three) months. [facility] medroxyPROG ESTERone (DEPO-PROVE RA) 150 mg/mL injection 07-06 11:23: 40 Yes 150mg 1 mL by Intramuscu lar route every 3 (three) months. [facility] medroxyPROG ESTERone (DEPO-PROVE RA) 150 mg/mL injection 07-06 11:23: 40 Yes 150mg 1 mL by Intramuscu lar route every 3 (three) months. [facility] medroxyPROG ESTERone (DEPO-PROVE RA) 150 mg/mL injection 07-06 11:23: 40 Yes 150mg 1 mL by Intramuscu lar route every 3 (three) months. [facility] mirtazapine SOLTAB 15 mg rapid tablet 07-01 00:00: 00 Yes DISSOLVE 1 TABLET BY MOUTH ONCE DAILY WITH OR WITHOUT WATER [facility] mirtazapine SOLTAB 15 mg rapid tablet - 00:00: 00 Yes DISSOLVE 1 TABLET BY MOUTH ONCE DAILY WITH OR WITHOUT WATER [facility] mirtazapine SOLTAB 15 mg rapid tablet 2- 00:00: 00 Yes DISSOLVE 1 TABLET BY MOUTH ONCE DAILY WITH OR WITHOUT WATER [facility] mirtazapine SOLTAB 15 mg rapid tablet - 00:00: 00 Yes DISSOLVE 1 TABLET BY MOUTH ONCE DAILY WITH OR WITHOUT WATER [facility] mirtazapine SOLTAB 15 mg rapid tablet -22 00:00: 00 Yes DISSOLVE 1 TABLET BY MOUTH ONCE DAILY WITH OR WITHOUT WATER [facility] mirtazapine SOLTAB 15 mg rapid tablet 0 07-01 00:00: 00 Yes DISSOLVE 1 TABLET BY MOUTH ONCE DAILY WITH OR WITHOUT WATER [facility] mirtazapine SOLTAB 15 mg rapid tablet 0 07-01 00:00: 00 Yes DISSOLVE 1 TABLET BY MOUTH ONCE DAILY WITH OR WITHOUT WATER [facility] mirtazapine SOLTAB 15 mg rapid tablet 0 07-01 00:00: 00 Yes DISSOLVE 1 TABLET BY MOUTH ONCE DAILY WITH OR WITHOUT WATER [facility] mirtazapine SOLTAB 15 mg rapid tablet 0 07-01 00:00: 00 Yes DISSOLVE 1 TABLET BY MOUTH ONCE DAILY WITH OR WITHOUT WATER [facility] mirtazapine SOLTAB 15 mg rapid tablet 0 07-01 00:00: 00 Yes DISSOLVE 1 TABLET BY MOUTH ONCE DAILY WITH OR WITHOUT WATER [facility] mirtazapine SOLTAB 15 mg rapid tablet 07-01 00:00: 00 Yes DISSOLVE 1 TABLET BY MOUTH ONCE DAILY WITH OR WITHOUT WATER [facility] mirtazapine SOLTAB 15 mg rapid tablet 07-01 00:00: 00 Yes DISSOLVE 1 TABLET BY MOUTH ONCE DAILY WITH OR WITHOUT WATER [facility] tiZANidine 2 mg tablet 2022-0 06-30 00:00: 00 Yes [id number] 2mg Take 1 tablet by mouth every 8 (eight) hours as needed for Pain (scale 4-6). [facility] tiZANidine 2 mg tablet 2022-0 06-30 00:00: 00 Yes [id number] 2mg Take 1 tablet by mouth every 8 (eight) hours as needed for Pain (scale 4-6). [facility] tiZANidine 2 mg tablet 2022-0 06-30 00:00: 00 Yes [id number] 2mg Take 1 tablet by mouth every 8 (eight) hours as needed for Pain (scale 4-6). [facility] tiZANidine 2 mg tablet 2023-0 2-21 00:00: 00 Yes [id number] 2mg Take 1 tablet by mouth every 8 (eight) hours as needed for Pain (scale 4-6). [facility] tiZANidine 2 mg tablet 3-0 2-21 00:00: 00 Yes [id number] 2mg Take 1 tablet by mouth every 8 (eight) hours as needed for Pain (scale 4-6). [facility] tiZANidine 2 mg tablet 3-0 2-21 00:00: 00 Yes [id number] 2mg Take 1 tablet by mouth every 8 (eight) hours as needed for Pain (scale 4-6). [facility] tiZANidine 2 mg tablet 3-0 2-21 00:00: 00 Yes [id number] 2mg Take 1 tablet by mouth every 8 (eight) hours as needed for Pain (scale 4-6). [facility] tiZANidine 2 mg tablet 3-0 2-21 00:00: 00 Yes [id number] 2mg Take 1 tablet by mouth every 8 (eight) hours as needed for Pain (scale 4-6). [facility] tiZANidine 2 mg tablet 3-0 2-21 00:00: 00 Yes [id number] 2mg Take 1 tablet by mouth every 8 (eight) hours as needed for Pain (scale 4-6). [facility] tiZANidine 2 mg tablet 3-0 2-21 00:00: 00 Yes [id number] 2mg Take 1 tablet by mouth every 8 (eight) hours as needed for Pain (scale 4-6). [facility] tiZANidine 2 mg tablet 3-0 2-21 00:00: 00 Yes [id number] 2mg Take 1 tablet by mouth every 8 (eight) hours as needed for Pain (scale 4-6). [facility] tiZANidine 2 mg tablet 3-0 2-21 00:00: 00 Yes [id number] 2mg Take 1 tablet by mouth every 8 (eight) hours as needed for Pain (scale 4-6). [facility] tiZANidine 2 mg tablet 3-0 2-21 00:00: 00 Yes [id number] 2mg Take 1 tablet by mouth every 8 (eight) hours as needed for Pain (scale 4-6). [facility] tiZANidine 2 mg tablet 2022-0 2-21 00:00: 00 Yes [id number] 2mg Take 1 tablet by mouth every 8 (eight) hours as needed for Pain (scale 4-6). [facility] tiZANidine 2 mg tablet 2022-0 2-21 00:00: 00 Yes [id number] 2mg Take 1 tablet by mouth every 8 (eight) hours as needed for Pain (scale 4-6). [facility] tiZANidine 2 mg tablet 2022-0 2-21 00:00: 00 Yes [id number] 2mg Take 1 tablet by mouth every 8 (eight) hours as needed for Pain (scale 4-6). [facility] hydrOXYzine 25 mg tablet 2022-0 2-16 00:00: 00 Yes TAKE 1 TO 2 TABLETS BY MOUTH AT BEDTIME [facility] hydrOXYzine 25 mg tablet 3-0 2-16 00:00: 00 Yes TAKE 1 TO 2 TABLETS BY MOUTH AT BEDTIME [facility] hydrOXYzine 25 mg tablet 3-0 2-16 00:00: 00 Yes TAKE 1 TO 2 TABLETS BY MOUTH AT BEDTIME [facility] QUEtiapine 25 mg tablet 2022-0 2-16 00:00: 00 Yes 25mg Take 1 tablet by mouth at bedtime. [facility] hydrOXYzine 25 mg tablet 3-0 2-16 00:00: 00 Yes TAKE 1 TO 2 TABLETS BY MOUTH AT BEDTIME [facility] QUEtiapine 25 mg tablet 3-0 2-16 00:00: 00 Yes 25mg Take 1 tablet by mouth at bedtime. [facility] hydrOXYzine 25 mg tablet 3-0 2-16 00:00: 00 Yes TAKE 1 TO 2 TABLETS BY MOUTH AT BEDTIME [facility] QUEtiapine 25 mg tablet 3-0 2-16 00:00: 00 Yes 25mg Take 1 tablet by mouth at bedtime. [facility] hydrOXYzine 25 mg tablet 2023-0 2-16 00:00: 00 Yes TAKE 1 TO 2 TABLETS BY MOUTH AT BEDTIME [facility] QUEtiapine 25 mg tablet 3-0 2-16 00:00: 00 Yes 25mg Take 1 tablet by mouth at bedtime. [facility] hydrOXYzine 25 mg tablet 3-0 2-16 00:00: 00 Yes TAKE 1 TO 2 TABLETS BY MOUTH AT BEDTIME [facility] QUEtiapine 25 mg tablet 3-0 2-16 00:00: 00 Yes 25mg Take 1 tablet by mouth at bedtime. [facility] hydrOXYzine 25 mg tablet 3-0 2-16 00:00: 00 Yes TAKE 1 TO 2 TABLETS BY MOUTH AT BEDTIME [facility] QUEtiapine 25 mg tablet 3-0 2-16 00:00: 00 Yes 25mg Take 1 tablet by mouth at bedtime. [facility] hydrOXYzine 25 mg tablet 3-0 2-16 00:00: 00 Yes TAKE 1 TO 2 TABLETS BY MOUTH AT BEDTIME [facility] QUEtiapine 25 mg tablet 3-0 2-16 00:00: 00 Yes 25mg Take 1 tablet by mouth at bedtime. [facility] hydrOXYzine 25 mg tablet 3-0 2-16 00:00: 00 Yes TAKE 1 TO 2 TABLETS BY MOUTH AT BEDTIME [facility] QUEtiapine 25 mg tablet 3-0 2-16 00:00: 00 Yes 25mg Take 1 tablet by mouth at bedtime. [facility] hydrOXYzine 25 mg tablet 3-0 2-16 00:00: 00 Yes TAKE 1 TO 2 TABLETS BY MOUTH AT BEDTIME [facility] QUEtiapine 25 mg tablet 3-0 2-16 00:00: 00 Yes 25mg Take 1 tablet by mouth at bedtime. [facility] hydrOXYzine 25 mg tablet 3-0 2-16 00:00: 00 Yes TAKE 1 TO 2 TABLETS BY MOUTH AT BEDTIME [facility] QUEtiapine 25 mg tablet 3-0 2-16 00:00: 00 Yes 25mg Take 1 tablet by mouth at bedtime. [facility] hydrOXYzine 25 mg tablet 2-16 00:00: 00 Yes TAKE 1 TO 2 TABLETS BY MOUTH AT BEDTIME [facility] QUEtiapine 25 mg tablet 2-16 00:00: 00 Yes 25mg Take 1 tablet by mouth at bedtime. [facility] hydrOXYzine 25 mg tablet 2-16 00:00: 00 Yes TAKE 1 TO 2 TABLETS BY MOUTH AT BEDTIME [facility] QUEtiapine 25 mg tablet 2-16 00:00: 00 Yes 25mg Take 1 tablet by mouth at bedtime. [facility] tiZANidine 2 mg tablet 2-15 00:00: 00 Yes [id number] 2mg Take 1 tablet by mouth every 6 (six) hours as needed for Pain (scale 4-6). [facility] tiZANidine 2 mg tablet -15 00:00: 00 Yes [id number] 2mg Take 1 tablet by mouth every 6 (six) hours as needed for Pain (scale 4-6). [facility] tiZANidine 2 mg tablet -15 00:00: 00 06-30 00:00 :00 No [id number] 2mg Take 1 tablet by mouth every 6 (six) hours as needed for Pain (scale 4-6). [facility] iopamidol (ISOVUE 370-500 mL) injection 100 mL 06-23 18:15: 00 06-23 17:14 :00 No [id number] 100mL 100 mL, Intravenou s, ONCE, 1 dose, On Wed06/23/22 at 1215, Routine [facility] NaCl 0.9% (NS) bolus infusion 1,000 mL 06-23 16:15: 00 06-23 18:18 :00 No 1000mL at 999 mL/hr, 1,000 mL, IV Infusion, ONCE, 1 dose, On Wed06/23/22 at 1015, VINEET [facility] ondansetron (ZOFRAN (PF)) injection 4 mg 0 -14 15:30: 00 14 15:39 :00 No 4mg 4 mg, Slow IV Push, ONCE, 1 dose, On Wed06/23/22 at 0930, VINEET [facility] ondansetron 4 mg disintegrat ing tablet 2022-0 2-14 00:00: 00 Yes [id number] 4mg Take 1 tablet by mouth every 12 (twelve) hours as needed for Nausea and Vomiting (N/V). [facility] ibuprofen 800 mg tablet 2022-0 -14 00:00: 00 Yes [id number] 800mg Take 1 tablet by mouth every 8 (eight) hours as needed for Pain (scale 4-6). [facility] dicyclomine 20 mg tablet 2022-0 -14 00:00: 00 Yes [id number] 20mg Take 1 tablet by mouth 4 (four) times daily as needed for Abdominal pain. [facility] ondansetron 4 mg disintegrat ing tablet 2022-0 -14 00:00: 00 Yes [id number] 4mg Take 1 tablet by mouth every 12 (twelve) hours as needed for Nausea and Vomiting (N/V). [facility] ibuprofen 800 mg tablet 2022-0 -14 00:00: 00 Yes [id number] 800mg Take 1 tablet by mouth every 8 (eight) hours as needed for Pain (scale 4-6). [facility] dicyclomine 20 mg tablet 2022-0 2-14 00:00: 00 Yes [id number] 20mg Take 1 tablet by mouth 4 (four) times daily as needed for Abdominal pain. [facility] ondansetron 4 mg disintegrat ing tablet 2022-0 2-14 00:00: 00 Yes [id number] 4mg Take 1 tablet by mouth every 12 (twelve) hours as needed for Nausea and Vomiting (N/V). [facility] ibuprofen 800 mg tablet 2022-0 2-14 00:00: 00 Yes [id number] 800mg Take 1 tablet by mouth every 8 (eight) hours as needed for Pain (scale 4-6). [facility] dicyclomine 20 mg tablet 2023-0 2-14 00:00: 00 Yes [id number] 20mg Take 1 tablet by mouth 4 (four) times daily as needed for Abdominal pain. [facility] ondansetron 4 mg disintegrat ing tablet 2022-0 2-14 00:00: 00 Yes [id number] 4mg Take 1 tablet by mouth every 12 (twelve) hours as needed for Nausea and Vomiting (N/V). [facility] ibuprofen 800 mg tablet 2022-0 2-14 00:00: 00 Yes [id number] 800mg Take 1 tablet by mouth every 8 (eight) hours as needed for Pain (scale 4-6). [facility] dicyclomine 20 mg tablet 2022-0 2-14 00:00: 00 Yes [id number] 20mg Take 1 tablet by mouth 4 (four) times daily as needed for Abdominal pain. [facility] ondansetron 4 mg disintegrat ing tablet 2022-0 2-14 00:00: 00 Yes [id number] 4mg Take 1 tablet by mouth every 12 (twelve) hours as needed for Nausea and Vomiting (N/V). [facility] ibuprofen 800 mg tablet 3-0 2-14 00:00: 00 Yes [id number] 800mg Take 1 tablet by mouth every 8 (eight) hours as needed for Pain (scale 4-6). [facility] dicyclomine 20 mg tablet 3-0 2-14 00:00: 00 Yes [id number] 20mg Take 1 tablet by mouth 4 (four) times daily as needed for Abdominal pain. [facility] ondansetron 4 mg disintegrat ing tablet 2022-0 2-14 00:00: 00 Yes [id number] 4mg Take 1 tablet by mouth every 12 (twelve) hours as needed for Nausea and Vomiting (N/V). [facility] ibuprofen 800 mg tablet 3-0 2-14 00:00: 00 Yes [id number] 800mg Take 1 tablet by mouth every 8 (eight) hours as needed for Pain (scale 4-6). [facility] dicyclomine 20 mg tablet 3-0 2-14 00:00: 00 Yes [id number] 20mg Take 1 tablet by mouth 4 (four) times daily as needed for Abdominal pain. [facility] on[facility]ans[facility]ron 4 mg disintegrat ing tablet 2022-0 2-14 00:00: 00 Yes [id number] 4mg Take 1 tablet by mouth every 12 (twelve) hours as needed for Nausea and Vomiting (N/V). [facility] ibuprofen 800 mg tablet 3-0 2-14 00:00: 00 Yes [id number] 800mg Take 1 tablet by mouth every 8 (eight) hours as needed for Pain (scale 4-6). [facility] dicyclomine 20 mg tablet 2022-0 2-14 00:00: 00 Yes [id number] 20mg Take 1 tablet by mouth 4 (four) times daily as needed for Abdominal pain. [facility] ondansetron 4 mg disintegrat ing tablet 2022-0 2-14 00:00: 00 Yes [id number] 4mg Take 1 tablet by mouth every 12 (twelve) hours as needed for Nausea and Vomiting (N/V). [facility] ibuprofen 800 mg tablet 3-0 2-14 00:00: 00 Yes [id number] 800mg Take 1 tablet by mouth every 8 (eight) hours as needed for Pain (scale 4-6). [facility] dicyclomine 20 mg tablet 2022-0 2-14 00:00: 00 Yes [id number] 20mg Take 1 tablet by mouth 4 (four) times daily as needed for Abdominal pain. [facility] ondansetron 4 mg disintegrat ing tablet 2022-0 2-14 00:00: 00 Yes [id number] 4mg Take 1 tablet by mouth every 12 (twelve) hours as needed for Nausea and Vomiting (N/V). [facility] ibuprofen 800 mg tablet 3-0 2-14 00:00: 00 Yes [id number] 800mg Take 1 tablet by mouth every 8 (eight) hours as needed for Pain (scale 4-6). [facility] dicyclomine 20 mg tablet 3-0 2-14 00:00: 00 Yes [id number] 20mg Take 1 tablet by mouth 4 (four) times daily as needed for Abdominal pain. [facility] ondansetron 4 mg disintegrat ing tablet 2022-0 2-14 00:00: 00 Yes [id number] 4mg Take 1 tablet by mouth every 12 (twelve) hours as needed for Nausea and Vomiting (N/V). [facility] ibuprofen 800 mg tablet 2022-0 2-14 00:00: 00 Yes [id number] 800mg Take 1 tablet by mouth every 8 (eight) hours as needed for Pain (scale 4-6). [facility] dicyclomine 20 mg tablet 2022-0 2-14 00:00: 00 Yes [id number] 20mg Take 1 tablet by mouth 4 (four) times daily as needed for Abdominal pain. [facility] ondansetron 4 mg disintegrat ing tablet 2022-0 2-14 00:00: 00 Yes [id number] 4mg Take 1 tablet by mouth every 12 (twelve) hours as needed for Nausea and Vomiting (N/V). [facility] ibuprofen 800 mg tablet 2022-0 2-14 00:00: 00 Yes [id number] 800mg Take 1 tablet by mouth every 8 (eight) hours as needed for Pain (scale 4-6). [facility] dicyclomine 20 mg tablet 0 2-14 00:00: 00 Yes [id number] 20mg Take 1 tablet by mouth 4 (four) times daily as needed for Abdominal pain. [facility] ondansetron 4 mg disintegrat ing tablet 2022-0 2-14 00:00: 00 Yes [id number] 4mg Take 1 tablet by mouth every 12 (twelve) hours as needed for Nausea and Vomiting (N/V). [facility] ibuprofen 800 mg tablet 2022-0 2-14 00:00: 00 Yes [id number] 800mg Take 1 tablet by mouth every 8 (eight) hours as needed for Pain (scale 4-6). [facility] dicyclomine 20 mg tablet 3-0 2-14 00:00: 00 Yes [id number] 20mg Take 1 tablet by mouth 4 (four) times daily as needed for Abdominal pain. [facility] ondansetron 4 mg disintegrat ing tablet 2023-0 2-14 00:00: 00 Yes [id number] 4mg Take 1 tablet by mouth every 12 (twelve) hours as needed for Nausea and Vomiting (N/V). [facility] ibuprofen 800 mg tablet 2022-0 2-14 00:00: 00 Yes [id number] 800mg Take 1 tablet by mouth every 8 (eight) hours as needed for Pain (scale 4-6). [facility] dicyclomine 20 mg tablet 2022-0 2-14 00:00: 00 Yes [id number] 20mg Take 1 tablet by mouth 4 (four) times daily as needed for Abdominal pain. [facility] ondansetron 4 mg disintegrat ing tablet 2022-0 2-14 00:00: 00 Yes [id number] 4mg Take 1 tablet by mouth every 12 (twelve) hours as needed for Nausea and Vomiting (N/V). [facility] ibuprofen 800 mg tablet 2022-0 2-14 00:00: 00 Yes [id number] 800mg Take 1 tablet by mouth every 8 (eight) hours as needed for Pain (scale 4-6). [facility] dicyclomine 20 mg tablet 2022-0 2-14 00:00: 00 Yes [id number] 20mg Take 1 tablet by mouth 4 (four) times daily as needed for Abdominal pain. [facility] ondansetron 4 mg disintegrat ing tablet 2022-0 2-14 00:00: 00 Yes [id number] 4mg Take 1 tablet by mouth every 12 (twelve) hours as needed for Nausea and Vomiting (N/V). [facility] ibuprofen 800 mg tablet 2022-0 2-14 00:00: 00 Yes [id number] 800mg Take 1 tablet by mouth every 8 (eight) hours as needed for Pain (scale 4-6). [facility] dicyclomine 20 mg tablet 3-0 2-14 00:00: 00 Yes [id number] 20mg Take 1 tablet by mouth 4 (four) times daily as needed for Abdominal pain. [facility] ondansetron 4 mg disintegrat ing tablet 3-0 2-14 00:00: 00 Yes [id number] 4mg Take 1 tablet by mouth every 12 (twelve) hours as needed for Nausea and Vomiting (N/V). [facility] ibuprofen 800 mg tablet 3-0 2-14 00:00: 00 Yes [id number] 800mg Take 1 tablet by mouth every 8 (eight) hours as needed for Pain (scale 4-6). [facility] dicyclomine 20 mg tablet 3-0 2-14 00:00: 00 Yes [id number] 20mg Take 1 tablet by mouth 4 (four) times daily as needed for Abdominal pain. [facility] ondansetron 4 mg disintegrat ing tablet 3-0 2-14 00:00: 00 Yes [id number] 4mg Take 1 tablet by mouth every 12 (twelve) hours as needed for Nausea and Vomiting (N/V). [facility] ibuprofen 800 mg tablet 3-0 2-14 00:00: 00 Yes [id number] 800mg Take 1 tablet by mouth every 8 (eight) hours as needed for Pain (scale 4-6). [facility] dicyclomine 20 mg tablet 3-0 2-14 00:00: 00 Yes [id number] 20mg Take 1 tablet by mouth 4 (four) times daily as needed for Abdominal pain. [facility] ondansetron 4 mg disintegrat ing tablet 3-0 2-14 00:00: 00 Yes [id number] 4mg Take 1 tablet by mouth every 12 (twelve) hours as needed for Nausea and Vomiting (N/V). [facility] ibuprofen 800 mg tablet 3-0 2-14 00:00: 00 Yes [id number] 800mg Take 1 tablet by mouth every 8 (eight) hours as needed for Pain (scale 4-6). [facility] dicyclomine 20 mg tablet 3-0 2-14 00:00: 00 Yes [id number] 20mg Take 1 tablet by mouth 4 (four) times daily as needed for Abdominal pain. [facility] ondansetron 4 mg disintegrat ing tablet 3-0 2-14 00:00: 00 Yes [id number] 4mg Take 1 tablet by mouth every 12 (twelve) hours as needed for Nausea and Vomiting (N/V). [facility] ibup[facility]fen 800 mg tablet 3-0 2-14 00:00: 00 Yes [id number] 800mg Take 1 tablet by mouth every 8 (eight) hours as needed for Pain (scale 4-6). [facility] dicyclomine 20 mg tablet 3-0 2-14 00:00: 00 Yes [id number] 20mg Take 1 tablet by mouth 4 (four) times daily as needed for Abdominal pain. [facility] ondansetron 4 mg disintegrat ing tablet 2022-0 2-14 00:00: 00 Yes [id number] 4mg Take 1 tablet by mouth every 12 (twelve) hours as needed for Nausea and Vomiting (N/V). [facility] ibuprofen 800 mg tablet 2022-0 2-14 00:00: 00 Yes [id number] 800mg Take 1 tablet by mouth every 8 (eight) hours as needed for Pain (scale 4-6). [facility] dicyclomine 20 mg tablet 2022-0 2-14 00:00: 00 Yes [id number] 20mg Take 1 tablet by mouth 4 (four) times daily as needed for Abdominal pain. [facility] ondansetron 4 mg disintegrat ing tablet 2022-0 2-14 00:00: 00 Yes [id number] 4mg Take 1 tablet by mouth every 12 (twelve) hours as needed for Nausea and Vomiting (N/V). [facility] ibuprofen 800 mg tablet 3-0 2-14 00:00: 00 Yes [id number] 800mg Take 1 tablet by mouth every 8 (eight) hours as needed for Pain (scale 4-6). [facility] dicyclomine 20 mg tablet 3-0 2-14 00:00: 00 Yes [id number] 20mg Take 1 tablet by mouth 4 (four) times daily as needed for Abdominal pain. [facility] ibuprofen 600 mg tablet 3-0 1-06 00:00: 00 Yes [id number] 600mg Take 1 tablet by mouth every 6 (six) hours as needed for Pain (scale 4-6). [facility] ibuprofen 600 mg tablet 05-15 00:00: 00 Yes [id number] 600mg Take 1 tablet by mouth every 6 (six) hours as needed for Pain (scale 4-6). [facility] ibuprofen 600 mg tablet 05-15 00:00: 00 06-24 00:00 :00 No [id number] 600mg Take 1 tablet by mouth every 6 (six) hours as needed for Pain (scale 4-6). [facility] ibuprofen 600 mg tablet 05-15 00:00: 00 06-24 00:00 :00 No [id number] 600mg Take 1 tablet by mouth every 6 (six) hours as needed for Pain (scale 4-6). [facility] albuterol (PROAIR HFA) 90 mcg/actuati on inhaler 09-11 00:00: 00 Yes SMARTSIG:V ia Inhaler [facility] albuterol (PROAIR HFA) 90 mcg/actuati on inhaler 09-11 00:00: 00 Yes SMARTSIG:V ia Inhaler [facility] albuterol (PROAIR HFA) 90 mcg/actuati on inhaler 09-11 00:00: 00 Yes SMARTSIG:V ia Inhaler [facility] famotidine 20 mg tablet 09-11 00:00: 00 Yes 20mg Take 1 tablet by mouth. [facility] naproxen 500 mg tablet 09-11 00:00: 00 Yes 500mg Take 1 tablet by mouth. [facility] albuterol (PROAIR HFA) 90 mcg/actuati on inhaler 09-11 00:00: 00 Yes SMARTSIG:V ia Inhaler [facility] famotidine 20 mg tablet 09-11 00:00: 00 Yes 20mg Take 1 tablet by mouth. [facility] naproxen 500 mg tablet 09-11 00:00: 00 Yes 500mg Take 1 tablet by mouth. [facility] albuterol (PROAIR HFA) 90 mcg/actuati on inhaler 09-11 00:00: 00 Yes SMARTSIG:V ia Inhaler [facility] famotidine 20 mg tablet 09-11 00:00: 00 Yes 20mg Take 1 tablet by mouth. [facility] naproxen 500 mg tablet 09-11 00:00: 00 Yes 500mg Take 1 tablet by mouth. [facility] albuterol (PROAIR HFA) 90 mcg/actuati on inhaler 09-11 00:00: 00 Yes SMARTSIG:V ia Inhaler [facility] famotidine 20 mg tablet 09-11 00:00: 00 Yes 20mg Take 1 tablet by mouth. [facility] naproxen 500 mg tablet 09-11 00:00: 00 Yes 500mg Take 1 tablet by mouth. [facility] albuterol (PROAIR HFA) 90 mcg/actuati on inhaler 09-11 00:00: 00 Yes SMARTSIG:V ia Inhaler [facility] famotidine 20 mg tablet 09-11 00:00: 00 Yes 20mg Take 1 tablet by mouth. [facility] naproxen 500 mg tablet 09-11 00:00: 00 Yes 500mg Take 1 tablet by mouth. [facility] albuterol (PROAIR HFA) 90 mcg/actuati on inhaler 09-11 00:00: 00 Yes SMARTSIG:V ia Inhaler [facility] famotidine 20 mg tablet 09-11 00:00: 00 Yes 20mg Take 1 tablet by mouth. [facility] naproxen 500 mg tablet 09-11 00:00: 00 Yes 500mg Take 1 tablet by mouth. [facility] albuterol (PROAIR HFA) 90 mcg/actuati on inhaler 09-11 00:00: 00 Yes SMARTSIG:V ia Inhaler [facility] famotidine 20 mg tablet 09-11 00:00: 00 Yes 20mg Take 1 tablet by mouth. [facility] naproxen 500 mg tablet 09-11 00:00: 00 Yes 500mg Take 1 tablet by mouth. [facility] albuterol (PROAIR HFA) 90 mcg/actuati on inhaler 09-11 00:00: 00 Yes SMARTSIG:V ia Inhaler [facility] famotidine 20 mg tablet 09-11 00:00: 00 Yes 20mg Take 1 tablet by mouth. [facility] naproxen 500 mg tablet 09-11 00:00: 00 Yes 500mg Take 1 tablet by mouth. [facility] albuterol (PROAIR HFA) 90 mcg/actuati on inhaler 09-11 00:00: 00 Yes SMARTSIG:V ia Inhaler [facility] famotidine 20 mg tablet 09-11 00:00: 00 Yes 20mg Take 1 tablet by mouth. [facility] naproxen 500 mg tablet 09-11 00:00: 00 Yes 500mg Take 1 tablet by mouth. [facility] albuterol (PROAIR HFA) 90 mcg/actuati on inhaler 09-11 00:00: 00 Yes SMARTSIG:V ia Inhaler [facility] famotidine 20 mg tablet 09-11 00:00: 00 Yes 20mg Take 1 tablet by mouth. [facility] naproxen 500 mg tablet 09-11 00:00: 00 Yes 500mg Take 1 tablet by mouth. [facility] albuterol (PROAIR HFA) 90 mcg/actuati on inhaler 05 00:00: 00 Yes SMARTSIG:V ia Inhaler [facility] famotidine 20 mg tablet 09-11 00:00: 00 Yes 20mg Take 1 tablet by mouth. [facility] naproxen 500 mg tablet 05 00:00: 00 Yes 500mg Take 1 tablet by mouth. [facility] albuterol (PROAIR HFA) 90 mcg/actuati on inhaler 09-11 00:00: 00 Yes SMARTSIG:V ia Inhaler [facility] famotidine 20 mg tablet 09-11 00:00: 00 Yes 20mg Take 1 tablet by mouth. [facility] naproxen 500 mg tablet 09-11 00:00: 00 Yes 500mg Take 1 tablet by mouth. [facility] drospirenon e-ethinyl estradioL (ARLEN, Raciel,) 3-0.02 mg per tablet 06-07 00:00: 00 Yes 1{tbl} Take 1 tablet by mouth. [facility] metFORMIN 500 mg tablet 06-07 00:00: 00 Yes 500mg Take 1 tablet by mouth. [facility] drospirenon e-ethinyl estradioL (ARLEN, Raciel,) 3-0.02 mg per tablet 06-07 00:00: 00 Yes 1{tbl} Take 1 tablet by mouth. [facility] metFORMIN 500 mg tablet 06-07 00:00: 00 Yes 500mg Take 1 tablet by mouth. [facility] drospirenon e-ethinyl estradioL (ARLEN, Raciel,) 3-0.02 mg per tablet 06-07 00:00: 00 Yes 1{tbl} Take 1 tablet by mouth. [facility] metFORMIN 500 mg tablet 06-07 00:00: 00 Yes 500mg Take 1 tablet by mouth. [facility] cyclobenzap rine 5 mg tablet 06-07 00:00: 00 Yes 5mg Take 1 tablet by mouth. [facility] gabapentin 300 mg capsule 06-07 00:00: 00 Yes SMARTSIG:C apsule(s) By Mouth [facility] oxybutynin XL 5 mg 24 hr tablet 06-07 00:00: 00 Yes 5mg Take 1 tablet by mouth. [facility] tranexamic acid 650 mg tablet 06-07 00:00: 00 Yes SMARTSIG:T ablet(s) By Mouth [facility] drospirenon e-ethinyl estradioL (ARLEN, 28,) 3-0.02 mg per tablet 06-07 00:00: 00 Yes 1{tbl} Take 1 tablet by mouth. [facility] metFORMIN 500 mg tablet 06-07 00:00: 00 Yes 500mg Take 1 tablet by mouth. [facility] cyclobenzap rine 5 mg tablet 06-07 00:00: 00 Yes 5mg Take 1 tablet by mouth. [facility] gabapentin 300 mg capsule 06-07 00:00: 00 Yes SMARTSIG:C apsule(s) By Mouth [facility] oxybutynin XL 5 mg 24 hr tablet 06-07 00:00: 00 Yes 5mg Take 1 tablet by mouth. [facility] tranexamic acid 650 mg tablet 06-07 00:00: 00 Yes SMARTSIG:T ablet(s) By Mouth [facility] drospirenon e-ethinyl estradioL (ARLEN, 28,) 3-0.02 mg per tablet 06-07 00:00: 00 Yes 1{tbl} Take 1 tablet by mouth. [facility] metFORMIN 500 mg tablet 06-07 00:00: 00 Yes 500mg Take 1 tablet by mouth. [facility] cyclobenzap rine 5 mg tablet 06-07 00:00: 00 Yes 5mg Take 1 tablet by mouth. [facility] gabapentin 300 mg capsule 06-07 00:00: 00 Yes SMARTSIG:C apsule(s) By Mouth [facility] oxybutynin XL 5 mg 24 hr tablet 06-07 00:00: 00 Yes 5mg Take 1 tablet by mouth. [facility] tranexamic acid 650 mg tablet 06-07 00:00: 00 Yes SMARTSIG:T ablet(s) By Mouth [facility] drospirenon e-ethinyl estradioL (ARLEN, Raciel,) 3-0.02 mg per tablet 06-07 00:00: 00 Yes 1{tbl} Take 1 tablet by mouth. [facility] metFORMIN 500 mg tablet 06-07 00:00: 00 Yes 500mg Take 1 tablet by mouth. [facility] cyclobenzap rine 5 mg tablet 06-07 00:00: 00 Yes 5mg Take 1 tablet by mouth. [facility] gabapentin 300 mg capsule 06-07 00:00: 00 Yes SMARTSIG:C apsule(s) By Mouth [facility] oxybutynin XL 5 mg 24 hr tablet 06-07 00:00: 00 Yes 5mg Take 1 tablet by mouth. [facility] tranexamic acid 650 mg tablet 06-07 00:00: 00 Yes SMARTSIG:T ablet(s) By Mouth [facility] drospirenon e-ethinyl estradioL (ARLEN, Raciel,) 3-0.02 mg per tablet 06-07 00:00: 00 Yes 1{tbl} Take 1 tablet by mouth. [facility] metFORMIN 500 mg tablet 06-07 00:00: 00 Yes 500mg Take 1 tablet by mouth. [facility] cyclobenzap rine 5 mg tablet 06-07 00:00: 00 Yes 5mg Take 1 tablet by mouth. [facility] gabapentin 300 mg capsule 06-07 00:00: 00 Yes SMARTSIG:C apsule(s) By Mouth [facility] oxybutynin XL 5 mg 24 hr tablet 06-07 00:00: 00 Yes 5mg Take 1 tablet by mouth. [facility] tranexamic acid 650 mg tablet 06-07 00:00: 00 Yes SMARTSIG:T ablet(s) By Mouth [facility] drospirenon e-ethinyl estradioL (ARLEN, Raciel,) 3-0.02 mg per tablet 06-07 00:00: 00 Yes 1{tbl} Take 1 tablet by mouth. [facility] metFORMIN 500 mg tablet 06-07 00:00: 00 Yes 500mg Take 1 tablet by mouth. [facility] cyclobenzap rine 5 mg tablet 06-07 00:00: 00 Yes 5mg Take 1 tablet by mouth. [facility] gabapentin 300 mg capsule 06-07 00:00: 00 Yes SMARTSIG:C apsule(s) By Mouth [facility] oxybutynin XL 5 mg 24 hr tablet 06-07 00:00: 00 Yes 5mg Take 1 tablet by mouth. [facility] tranexamic acid 650 mg tablet 06-07 00:00: 00 Yes SMARTSIG:T ablet(s) By Mouth [facility] drospirenon e-ethinyl estradioL (ARLEN, Raciel,) 3-0.02 mg per tablet 06-07 00:00: 00 Yes 1{tbl} Take 1 tablet by mouth. [facility] metFORMIN 500 mg tablet 06-07 00:00: 00 Yes 500mg Take 1 tablet by mouth. [facility] cyclobenzap rine 5 mg tablet 06-07 00:00: 00 Yes 5mg Take 1 tablet by mouth. [facility] gabapentin 300 mg capsule 06-07 00:00: 00 Yes SMARTSIG:C apsule(s) By Mouth [facility] oxybutynin XL 5 mg 24 hr tablet 06-07 00:00: 00 Yes 5mg Take 1 tablet by mouth. [facility] tranexamic acid 650 mg tablet 06-07 00:00: 00 Yes SMARTSIG:T ablet(s) By Mouth [facility] drospirenon e-ethinyl estradioL (ARLEN, Raciel,) 3-0.02 mg per tablet 06-07 00:00: 00 Yes 1{tbl} Take 1 tablet by mouth. [facility] metFORMIN 500 mg tablet 06-07 00:00: 00 Yes 500mg Take 1 tablet by mouth. [facility] cyclobenzap rine 5 mg tablet 06-07 00:00: 00 Yes 5mg Take 1 tablet by mouth. [facility] gabapentin 300 mg capsule 06-07 00:00: 00 Yes SMARTSIG:C apsule(s) By Mouth [facility] oxybutynin XL 5 mg 24 hr tablet 06-07 00:00: 00 Yes 5mg Take 1 tablet by mouth. [facility] tranexamic acid 650 mg tablet 06-07 00:00: 00 Yes SMARTSIG:T ablet(s) By Mouth [facility] drospirenon e-ethinyl estradioL (ARLEN, Raciel,) 3-0.02 mg per tablet 06-07 00:00: 00 Yes 1{tbl} Take 1 tablet by mouth. [facility] metFORMIN 500 mg tablet 06-07 00:00: 00 Yes 500mg Take 1 tablet by mouth. [facility] cyclobenzap rine 5 mg tablet 06-07 00:00: 00 Yes 5mg Take 1 tablet by mouth. [facility] gabapentin 300 mg capsule 06-07 00:00: 00 Yes SMARTSIG:C apsule(s) By Mouth [facility] oxybutynin XL 5 mg 24 hr tablet 06-07 00:00: 00 Yes 5mg Take 1 tablet by mouth. [facility] tranexamic acid 650 mg tablet 06-07 00:00: 00 Yes SMARTSIG:T ablet(s) By Mouth [facility] drospirenon e-ethinyl estradioL (ARLEN, 28,) 3-0.02 mg per tablet 06-07 00:00: 00 Yes 1{tbl} Take 1 tablet by mouth. [facility] metFORMIN 500 mg tablet 06-07 00:00: 00 Yes 500mg Take 1 tablet by mouth. [facility] cyclobenzap rine 5 mg tablet 06-07 00:00: 00 Yes 5mg Take 1 tablet by mouth. [facility] gabapentin 300 mg capsule 06-07 00:00: 00 Yes SMARTSIG:C apsule(s) By Mouth [facility] oxybutynin XL 5 mg 24 hr tablet 06-07 00:00: 00 Yes 5mg Take 1 tablet by mouth. [facility] tranexamic acid 650 mg tablet 06-07 00:00: 00 Yes SMARTSIG:T ablet(s) By Mouth [facility] drospirenon e-ethinyl estradioL (ARLEN, Raciel,) 3-0.02 mg per tablet 06-07 00:00: 00 Yes 1{tbl} Take 1 tablet by mouth. [facility] metFORMIN 500 mg tablet 06-07 00:00: 00 Yes 500mg Take 1 tablet by mouth. [facility] cyclobenzap rine 5 mg tablet 06-07 00:00: 00 Yes 5mg Take 1 tablet by mouth. [facility] gabapentin 300 mg capsule 06-07 00:00: 00 Yes SMARTSIG:C apsule(s) By Mouth [facility] oxybutynin XL 5 mg 24 hr tablet 06-07 00:00: 00 Yes 5mg Take 1 tablet by mouth. [facility] tranexamic acid 650 mg tablet 06-07 00:00: 00 Yes SMARTSIG:T ablet(s) By Mouth [facility] drospirenon e-ethinyl estradioL (ARLEN, Raciel,) 3-0.02 mg per tablet 06-07 00:00: 00 Yes 1{tbl} Take 1 tablet by mouth. [facility] metFORMIN 500 mg tablet 06-07 00:00: 00 Yes 500mg Take 1 tablet by mouth. [facility] cyclobenzap rine 5 mg tablet 06-07 00:00: 00 Yes 5mg Take 1 tablet by mouth. [facility] gabapentin 300 mg capsule 06-07 00:00: 00 Yes SMARTSIG:C apsule(s) By Mouth [facility] oxybutynin XL 5 mg 24 hr tablet 06-07 00:00: 00 Yes 5mg Take 1 tablet by mouth. [facility] tranexamic acid 650 mg tablet 06-07 00:00: 00 Yes SMARTSIG:T ablet(s) By Mouth [facility] ondansetron (ZOFRAN) 4 mg tablet 2018-05 00:00: 00 Yes [id number] 4mg Take 1 tablet by mouth every 12 (twelve) hours. [facility] ondansetron (ZOFRAN) 4 mg tablet 2018-05 00:00: 00 Yes [id number] 4mg Take 1 tablet by mouth every 12 (twelve) hours. [facility] ondansetron (ZOFRAN) 4 mg tablet 2018-05 00:00: 00 Yes [id number] 4mg Take 1 tablet by mouth every 12 (twelve) hours. [facility] ondansetron (ZOFRAN) 4 mg tablet 2018-05 00:00: 00 Yes [id number] 4mg Take 1 tablet by mouth every 12 (twelve) hours. [facility] ondansetron (ZOFRAN) 4 mg tablet 2018-05 00:00: 00 Yes [id number] 4mg Take 1 tablet by mouth every 12 (twelve) hours. [facility] ondansetron (ZOFRAN) 4 mg tablet 2018-05 00:00: 00 Yes [id number] 4mg Take 1 tablet by mouth every 12 (twelve) hours. [facility] lactulose 10 gram/15 mL oral solution 2018-05 00:00: 00 Yes [id number] 30mL Take 30 mL by mouth 3 (three) times daily as needed for Constipati on or For bowel movement. [facility] ondansetron (ZOFRAN) 4 mg tablet 2018-05 00:00: 00 Yes [id number] 4mg Take 1 tablet by mouth every 12 (twelve) hours. [facility] sucralfate 1 gram tablet 2018-05 00:00: 00 Yes [id number] 1g Take 1 tablet by mouth before meals and at bedtime. [facility] ondansetron (ZOFRAN) 4 mg tablet 2018-05 00:00: 00 Yes [id number] 4mg Take 1 tablet by mouth every 12 (twelve) hours. [facility] ondansetron (ZOFRAN) 4 mg tablet 2018-05 00:00: 00 Yes [id number] 4mg Take 1 tablet by mouth every 12 (twelve) hours. [facility] ondansetron (ZOFRAN) 4 mg tablet 2018-05 00:00: 00 Yes [id number] 4mg Take 1 tablet by mouth every 12 (twelve) hours. [facility] ondansetron (ZOFRAN) 4 mg tablet 2018-05 00:00: 00 Yes [id number] 4mg Take 1 tablet by mouth every 12 (twelve) hours. [facility] ondansetron (ZOFRAN) 4 mg tablet 2018-05 00:00: 00 Yes [id number] 4mg Take 1 tablet by mouth every 12 (twelve) hours. [facility] ondansetron (ZOFRAN) 4 mg tablet 2018-05 00:00: 00 Yes [id number] 4mg Take 1 tablet by mouth every 12 (twelve) hours. [facility] ondansetron (ZOFRAN) 4 mg tablet 2018-05 00:00: 00 Yes [id number] 4mg Take 1 tablet by mouth every 12 (twelve) hours. [facility] ondansetron (ZOFRAN) 4 mg tablet 2018-05 00:00: 00 Yes [id number] 4mg Take 1 tablet by mouth every 12 (twelve) hours. [facility] ondansetron (ZOFRAN) 4 mg tablet 2018-05 00:00: 00 Yes [id number] 4mg Take 1 tablet by mouth every 12 (twelve) hours. [facility] ondansetron (ZOFRAN) 4 mg tablet 2018-05 00:00: 00 Yes [id number] 4mg Take 1 tablet by mouth every 12 (twelve) hours. [facility] lactulose 10 gram/15 mL oral solution 2018-05 00:00: 00 Yes [id number] 30mL Take 30 mL by mouth 3 (three) times daily as needed for Constipati on or For bowel movement. [facility] sucralfate 1 gram tablet 2018-05 00:00: 00 Yes [id number] 1g Take 1 tablet by mouth before meals and at bedtime. [facility] ondansetron (ZOFRAN) 4 mg tablet 2018-05 00:00: 00 Yes [id number] 4mg Take 1 tablet by mouth every 12 (twelve) hours. [facility] ondansetron (ZOFRAN) 4 mg tablet 2018-05 00:00: 00 Yes [id number] 4mg Take 1 tablet by mouth every 12 (twelve) hours. [facility] ondansetron (ZOFRAN) 4 mg tablet 2018-05 00:00: 00 Yes [id number] 4mg Take 1 tablet by mouth every 12 (twelve) hours. [facility] ondansetron (ZOFRAN) 4 mg tablet 2018-05 00:00: 00 Yes [id number] 4mg Take 1 tablet by mouth every 12 (twelve) hours. [facility] ondansetron (ZOFRAN) 4 mg tablet 2018-05 00:00: 00 Yes [id number] 4mg Take 1 tablet by mouth every 12 (twelve) hours. [facility] lactulose 10 gram/15 mL oral solution 2018-05 00:00: 00 06-24 00:00 :00 No [id number] 30mL Take 30 mL by mouth 3 (three) times daily as needed for Constipati on or For bowel movement. [facility] sucralfate 1 gram tablet 2018-05 00:00: 06-24 00:00 :00 No [id number] 1g Take 1 tablet by mouth before meals and at bedtime. [facility] lactulose 10 gram/15 mL oral solution 2018-05 00:00: 00 06-24 00:00 :00 No [id number] 30mL Take 30 mL by mouth 3 (three) times daily as needed for Constipati on or For bowel movement. [facility] sucralfate 1 gram tablet 2018-05 00:00: 00 06-24 00:00 :00 No [id number] 1g Take 1 tablet by mouth before meals and at bedtime. [facility] Omeprazole 20 mg tablet 2018-05 00:00: 00 Yes [id number] 20mg Take 1 tablet by mouth daily. [facility] Omeprazole 20 mg tablet 2018-05 00:00: 00 Yes [id number] 20mg Take 1 tablet by mouth daily. [facility] Omeprazole 20 mg tablet 2018-05 00:00: 00 Yes [id number] 20mg Take 1 tablet by mouth daily. [facility] Omeprazole 20 mg tablet 2018-05 00:00: 00 Yes [id number] 20mg Take 1 tablet by mouth daily. [facility] Omeprazole 20 mg tablet 2018-05 00:00: 00 Yes [id number] 20mg Take 1 tablet by mouth daily. [facility] Omeprazole 20 mg tablet 2018-05 00:00: 00 Yes [id number] 20mg Take 1 tablet by mouth daily. [facility] Omeprazole 20 mg tablet 2018-05 0 00:00: 00 Yes [id number] 20mg Take 1 tablet by mouth daily. [facility] Omeprazole 20 mg tablet 2018-05 0 00:00: 00 Yes [id number] 20mg Take 1 tablet by mouth daily. [facility] Omeprazole 20 mg tablet 2018-05 0 00:00: 00 Yes [id number] 20mg Take 1 tablet by mouth daily. [facility] Omeprazole 20 mg tablet 2018-05 0 00:00: 00 Yes [id number] 20mg Take 1 tablet by mouth daily. [facility] Omeprazole 20 mg tablet 2018-05 00:00: 00 Yes [id number] 20mg Take 1 tablet by mouth daily. [facility] Omeprazole 20 mg tablet 2018-05 00:00: 00 Yes [id number] 20mg Take 1 tablet by mouth daily. [facility] Omeprazole 20 mg tablet 2018-05 00:00: 00 Yes [id number] 20mg Take 1 tablet by mouth daily. [facility] Omeprazole 20 mg tablet 2018-05 00:00: 00 Yes [id number] 20mg Take 1 tablet by mouth daily. [facility] Omeprazole 20 mg tablet 2018-05 00:00: 00 Yes [id number] 20mg Take 1 tablet by mouth daily. [facility] Omeprazole 20 mg tablet 2018-05 00:00: 00 Yes [id number] 20mg Take 1 tablet by mouth daily. [facility] Omeprazole 20 mg tablet 2018-05 00:00: 00 Yes [id number] 20mg Take 1 tablet by mouth daily. [facility] Omeprazole 20 mg tablet 2018-05 00:00: 00 Yes [id number] 20mg Take 1 tablet by mouth daily. [facility] Omeprazole 20 mg tablet 2018-05 00:00: 00 Yes [id number] 20mg Take 1 tablet by mouth daily. [facility] Omeprazole 20 mg tablet 2018-05 00:00: 00 Yes [id number] 20mg Take 1 tablet by mouth daily. [facility] Omeprazole 20 mg tablet 2018-05 0 00:00: 00 Yes [id number] 20mg Take 1 tablet by mouth daily. [facility] Omeprazole 20 mg tablet 2018-05 00:00: 00 Yes [id number] 20mg Take 1 tablet by mouth daily. [facility] Comb No.42/Folic Acid (Prena1 Chewable Tablet) 1 TABLET Tab.Ch.Bph 2016-0 7-11 00:00: 00 No 1TABLET Daily [facility] Immun[facility] Ordered Immunization Name Filled Immunization Name Date Status Comments Source Influenza Virus Vaccine Quad IM, Preserv and ABX Free 6 MO-64 YRS 2021-06-17 00:00:00 Completed [facility] Influenza Virus Vaccine Quad IM, Preserv and ABX Free 6 MO-64 YRS 2021-06-17 00:00:00 Completed [facility] Influenza Virus Vaccine Quad IM, Preserv and ABX Free 6 MO-64 YRS 2021-06-17 00:00:00 Completed [facility] Influenza Virus Vaccine Quad IM, Preserv and ABX Free 6 MO-64 YRS 2021-06-17 00:00:00 Completed [facility] Influenza Virus Vaccine Quad IM, Preserv and ABX Free 6 MO-64 YRS 2021-06-17 00:00:00 Completed [facility] Influenza Virus Vaccine Quad IM, Preserv and ABX Free 6 MO-64 YRS 2021-06-17 00:00:00 Completed [facility] Influenza Virus Vaccine Quad IM, Preserv and ABX Free 6 MO-64 YRS 2021-06-17 00:00:00 Completed [facility] Influenza Virus Vaccine Quad IM, Preserv and ABX Free 6 MO-64 YRS 2021-06-17 00:00:00 Completed [facility] Influenza Virus Vaccine Quad IM, Preserv and ABX Free 6 MO-64 YRS 2021-06-17 00:00:00 Completed [facility] Influenza Virus Vaccine Quad IM, Preserv and ABX Free 6 MO-64 YRS 2021-06-17 00:00:00 Completed [facility] Influenza Virus Vaccine Quad IM, Preserv and ABX Free 6 MO-64 YRS 2021-06-17 00:00:00 Completed [facility] Influenza Virus Vaccine Quad IM, Preserv and ABX Free 6 MO-64 YRS 2021-06-17 00:00:00 Completed [facility] Influenza Virus Vaccine Quad IM, Preserv and ABX Free 6 MO-64 YRS 2021-06-17 00:00:00 Completed [facility] Influenza Virus Vaccine Quad IM, Preserv and ABX Free 6 MO-64 YRS 2021-06-17 00:00:00 Completed [facility] Influenza Virus Vaccine Quad IM, Preserv and ABX Free 6 MO-64 YRS 2021-06-17 00:00:00 Completed [facility] Influenza Virus Vaccine Quad IM, Preserv and ABX Free 6 MO-64 YRS 2021-06-17 00:00:00 Completed [facility] Influenza Virus Vaccine Quad IM, Preserv and ABX Free 6 MO-64 YRS 2021-06-17 00:00:00 Completed [facility] Influenza Virus Vaccine Quad IM, Preserv and ABX Free 6 MO-64 YRS 2021-06-17 00:00:00 Completed [facility] Influenza Virus Vaccine Quad IM, Preserv and ABX Free 6 MO-64 YRS (FLUCELVAX) Unknown Completed [facility] Influenza Virus Vaccine Quad IM, Preserv and ABX Free 6 MO-64 YRS (FLUCELVAX) Unknown Completed [facility] Vital Signs Vital Name Observation Time Observation Value Comments S ource Systolic blood pressure 2023-06-14 15:23:00 125 mm[Hg] [facility] Diastolic blood pressure 2023-06-14 15:23:00 80 mm[Hg] [facility] Heart rate 2023-06-14 15:23:00 92 /min [facility] Body temperature 2023-06-14 15:23:00 36.78 Susan [facility] Respiratory rate 2023-06-14 15:23:00 16 /min [facility] Body height 2023-06-14 15:23:00 154.9 cm [facility] Body weight 2023-06-14 15:23:00 78.472 kg [facility] BMI 2023-06-14 15:23:00 32.69 kg/m2 [facility] Oxygen saturation in Arterial blood by Pulse oximetry 2023-06-14 15:23:00 98 /min [facility] Systolic blood pressure 2023-03-29 17:43:12 132 mm[Hg] [facility] Diastolic blood pressure 2023-03-29 17:43:12 74 mm[Hg] [facility] Heart rate 2023-03-29 17:43:12 101 /min [facility] Body temperature 2023-03-29 17:43:12 36.89 Susan [facility] Respiratory rate 2023-03-29 17:43:12 20 /min [facility] Oxygen saturation in Arterial blood by Pulse oximetry 2023-03-29 17:43:12 98 /min [facility] Body height 2023-03-29 16:29:00 154.9 cm [facility] Body weight 2023-03-29 16:29:00 81.647 kg [facility] BMI 2023-03-29 16:29:00 34.01 kg/m2 [facility] Systolic blood pressure 2022-11-09 18:59:00 136 mm[Hg] [facility] Diastolic blood pressure 2022-11-09 18:59:00 84 mm[Hg] [facility] Heart rate 2022-11-09 18:57:00 100 /min [facility] Body temperature 2022-11-09 18:57:00 36.83 Susan [facility] Respiratory rate 2022-11-09 18:57:00 18 /min [facility] Body weight 2022-11-09 18:57:00 68.04 kg [facility] BMI 2022-11-09 18:57:00 29.29 kg/m2 [facility] Oxygen saturation in Arterial blood by Pulse oximetry 2022-11-09 18:57:00 99 /min [facility] Systolic blood pressure 2022-10-15 17:26:00 133 mm[Hg] [facility] Diastolic blood pressure 2022-10-15 17:26:00 95 mm[Hg] [facility] Heart rate 2022-10-15 17:26:00 92 /min [facility] Body temperature 2022-10-15 17:26:00 36.72 Susan [facility] Respiratory rate 2022-10-15 17:26:00 18 /min [facility] Body height 2022-10-15 17:26:00 152.4 cm [facility] Body weight 2022-10-15 17:26:00 68.04 kg [facility] BMI 2022-10-15 17:26:00 29.29 kg/m2 [facility] Systolic blood pressure 2022-09-04 17:31:00 110 mm[Hg] [facility] Diastolic blood pressure 2022-09-04 17:31:00 89 mm[Hg] [facility] Heart rate 2022-09-04 17:31:00 112 /min [facility] Body temperature 2022-09-04 17:31:00 36.72 Susan [facility] Respiratory rate 2022-09-04 17:31:00 16 /min [facility] Body height 2022-09-04 17:31:00 154.9 cm [facility] Body weight 2022-09-04 17:31:00 80.287 kg [facility] BMI 2022-09-04 17:31:00 33.44 kg/m2 [facility] Oxygen saturation in Arterial blood by Pulse oximetry 2022-09-04 17:31:00 99 /min [facility] Systolic blood pressure 2022-08-27 03:00:00 110 mm[Hg] [facility] Diastolic blood pressure 2022-08-27 03:00:00 73 mm[Hg] [facility] Heart rate 2022-08-27 03:00:00 78 /min [facility] Respiratory rate 2022-08-27 03:00:00 17 /min [facility] Oxygen saturation in Arterial blood by Pulse oximetry 2022-08-27 03:00:00 100 /min [facility] Body temperature 2022-08-27 00:20:00 36.72 Susan [facility] Body height 2022-08-27 00:20:00 154.9 cm [facility] Body weight 2022-08-27 00:20:00 77.565 kg [facility] BMI 2022-08-27 00:20:00 32.31 kg/m2 [facility] Systolic blood pressure 2022-07-31 14:31:00 126 mm[Hg] [facility] Diastolic blood pressure 2022-07-31 14:31:00 84 mm[Hg] [facility] Heart rate 2022-07-31 14:31:00 98 /min [facility] Body temperature 2022-07-31 14:31:00 36.78 Susan [facility] Respiratory rate 2022-07-31 14:31:00 16 /min [facility] Body height 2022-07-31 14:31:00 154.9 cm [facility] Body weight 2022-07-31 14:31:00 79.833 kg [facility] BMI 2022-07-31 14:31:00 33.25 kg/m2 [facility] Oxygen saturation in Arterial blood by Pulse oximetry 2022-07-31 14:31:00 99 /min [facility] Systolic blood pressure 2022-07-06 17:11:00 136 mm[Hg] [facility] Diastolic blood pressure 2022-07-06 17:11:00 75 mm[Hg] [facility] Heart rate 2022-07-06 17:11:00 68 /min [facility] Body temperature 2022-07-06 17:11:00 36.72 Susan [facility] Respiratory rate 2022-07-06 17:11:00 18 /min [facility] Body height 2022-07-06 17:11:00 154.9 cm [facility] Body weight 2022-07-06 17:11:00 80.332 kg [facility] BMI 2022-07-06 17:11:00 33.46 kg/m2 [facility] Systolic blood pressure 2022-06-24 15:10:00 108 mm[Hg] [facility] Diastolic blood pressure 2022-06-24 15:10:00 71 mm[Hg] [facility] Heart rate 2022-06-24 15:10:00 78 /min [facility] Body temperature 2022-06-24 15:10:00 36.78 Susan [facility] Body height 2022-06-24 15:10:00 154.9 cm [facility] Body weight 2022-06-24 15:10:00 75.978 kg [facility] BMI 2022-06-24 15:10:00 31.65 kg/m2 [facility] Oxygen saturation in Arterial blood by Pulse oximetry 2022-06-24 15:10:00 100 /min [facility] Systolic blood pressure 2022-06-23 18:00:00 116 mm[Hg] [facility] Diastolic blood pressure 2022-06-23 18:00:00 81 mm[Hg] [facility] Heart rate 2022-06-23 18:00:00 85 /min [facility] Respiratory rate 2022-06-23 18:00:00 19 /min [facility] Oxygen saturation in Arterial blood by Pulse oximetry 2022-06-23 18:00:00 99 /min [facility] Body temperature 2022-06-23 15:18:00 37.22 Susan [facility] Body height 2022-06-23 15:18:00 154.9 cm [facility] Body weight 2022-06-23 15:18:00 72.576 kg [facility] BMI 2022-06-23 15:18:00 30.23 kg/m2 [facility] Systolic blood pressure 2022-05-15 19:58:00 133 mm[Hg] [facility] Diastolic blood pressure 2022-05-15 19:58:00 100 mm[Hg] [facility] Heart rate 2022-05-15 19:58:00 90 /min [facility] Body temperature 2022-05-15 19:58:00 37.11 Susan [facility] Respiratory rate 2022-05-15 19:58:00 16 /min [facility] Body height 2022-05-15 19:58:00 154.9 cm [facility] Body weight 2022-05-15 19:58:00 72.576 kg [facility] BMI 2022-05-15 19:58:00 30.23 kg/m2 [facility] Oxygen saturation in Arterial blood by Pulse oximetry 2022-05-15 19:58:00 100 /min [facility] Procedures Procedure Date / Time Performed Performing Clinician Source POCT TEST 2023-06-14 15:49:00 Benjy Larkin [facility] URINALYSIS 2023-06-14 15:48:00 Cecil Larkin [facility] CONSENT/REFUSAL FOR DIAGNOSIS AND TREATMENT 2023-06-14 15:20:48 Doctor Unassigned, Vernal [facility] XR CHEST 1 VW 2023-03-29 17:09:20 Yessica Espino [facility] URINALYSIS 2023-03-29 16:52:00 Yessica Espino [facility] RAPID STREP SCREEN FOR GROUP A 2023-03-29 16:52:00 Yessica Espino [facility] RAPID INFLUENZA A/B 2023-03-29 16:52:00 Yessica Espino [facility] POCT TEST 2023-03-29 16:52:00 Celia Yessica [facility] COVID-19 (ID NOW RAPID TESTING) 2023-03-29 16:52:00 Celia Yessica [facility] CONSENT/REFUSAL FOR DIAGNOSIS AND TREATMENT 2023-03-29 16:21:10 Doctor Unassigned, Vernal [facility] ASSIGNMENT OF BENEFITS 2022-11-09 19:50:56 Docto r Unassigned, Vernal [facility] XR KNEE <3 VW RIGHT 2022-11-09 19:38:20 Elisabet Pinto [facility] CONSENT/REFUSAL FOR DIAGNOSIS AND TREATMENT 2022-11-09 18:49:17 Doctor Unassigned, Vernal [facility] POCT TEST 2022-10-15 19:45:00 Yesenia Orozco [facility] LIPASE 2022-10-15 18:32:00 Yesenia Orozco [facility] MAGNESIUM 2022-10-15 18:32:00 Yesenia Orozco [facility] COMP. METABOLIC PANEL ([id number]) 2022-10-15 18:32:00 Yesenia Orozco [facility] CBC WITH DIFF 2022-10-15 18:32:00 Yesenia Orozco [facility] URINALYSIS 2022-10-15 18:32:00 [facility]US[facility] FOR DIAGNOSIS AND TREATMENT 2022-10-15 17:21:37 Doctor Unassigned, Vernal [facility] XR KNEE 3 VW RIGHT 2022-09-04 18:40:13 Cheo Michael [facility] CONSENT/REFUSAL FOR DIAGNOSIS AND TREATMENT 2022-09-04 17:28:13 Doctor Unassigned, Vernal [facility] EKG-12 LEAD 2022-08-27 03:08:22 Ani Pierce [facility] THYROID STIMULATING HORMONE 2022-08-27 01:09:00 Ani Pierce [facility] COMP. METABOLIC PANEL ([id number]) 2022-08-27 01:09:00 Ani Pierce [facility] CBC WITH DIFF 2022-08-27 01:09:00 Ani [facility] 2022-08-27 01:09:00 Ani Pierce [facility] URINALYSIS 2022-08-27 01:09:00 Ani Pierce [facility] POCT TEST 2022-08-27 01:00:00 Ani Pierce [facility] CONSENT/REFUSAL FOR DIAGNOSIS AND TREATMENT 2022-08-27 00:20:29 Doctor Unassigned, Vernal [facility] EXTERNAL PROVIDER RECORDS 2022-07-28 05:01:00 Doctor Unassigned, Vernal [facility] PATIENT FINANCIAL POLICY 2022-07-06 17:06:41 Doctor Unassigned, Vernal [facility] CT ABDOMEN PELVIS W CONTRAST 2022-06-23 17:22:40 Mohinder Colmenares [facility] URINALYSIS 2022-06-23 16:46:00 Mohinder Colmenares [facility] POCT TEST 2022-06-23 16:46:00 Mohinder Colmenares [facility] LIPASE 2022-06-23 15:31:00 Mohinder Colmenares [facility] COMP. METABOLIC PANEL ([id number]) 2022-06-23 15:31:00 Mohinder Colmenares [facility] CBC WITH DIFF 2022-06-23 15:31:00 Mohinder Colmenares [facility] CONSENT/REFUSAL FOR DIAGNOSIS AND TREATMENT 2022-06-23 15:12:32 Doctor Unassigned, Vernal [facility] NOTICE OF PRIVACY PRACTICES 2022-05-15 19:29:32 Doctor Unassigned, Vernal [facility] CONSENT/REFUSAL FOR DIAGNOSIS AND TREATMENT 2022-05-15 19:10:31 Doctor Unassigned, Vernal [facility] Encounters Start Date/Time End Date/Time Encounter Type Admission Type Attending [facility] Care Facility Care Department Encounter ID Source 2021-08-02 10:33:54 Outpatient [facility] [place] [id number] [facility] 2023-06-14 09:25:00 2023-06-14 11:19:00 Emergency X FANTA LARKINS [facility] ERT [id number] [facility] 2023-06-14 09:25:00 2023-06-14 11:19:00 Emergency Cecil Larkin [facility] [id number] [facility] 2023-03-29 10:29:00 2023-03-29 12:02:00 Emergency Jesica PORTERYESSICA MOTLEY [facility] ERT [id number] [facility] 2023-03-29 10:29:00 2023-03-29 12:02:00 Emergency Yessica Espino [facility] [id number] [facility] 2023-03-02 11:09:31 2023-03-02 11:09:31 Outpatient [facility] [id number] Yves Chicas 2023-02-23 08:15:28 2023-02-23 08:15:28 Outpatient [facility] [id number] Yves Chicas 2022-11-19 10:40:18 2022-11-19 10:40:18 Outpatient [facility] [id number] Yves Chicas 2022-11-09 14:00:00 2022-11-09 15:41:00 Emergency X NAEL PINTO [facility] ERT [id number] [facility] 2022-11-09 14:00:00 2022-11-09 15:41:00 Emergency Nael Pinto [facility] [id number] [facility] 2022-10-15 12:28:00 2022-10-15 15:09:00 Emergency X Yesenia OROZCO [facility] ERT [id number] [facility] 2022-10-15 12:28:00 2022-10-15 15:09:00 Emergency Yesenia Orozco [facility] [id number] 350.1.13.10 4.2.7.2.686 [id number] [facility] 2022-09-04 12:33:00 2022-09-04 14:13:00 Emergency X CHEO MICHAEL [facility] ERT [id number] [facility] 2022-09-04 12:33:00 2022-09-04 14:13:00 Emergency Cheo Michael [facility] 1.2.840.114 350.1.13.10 4.2.7.2.686 [id number] [facility] 2022-08-26 19:52:00 2022-08-26 22:18:00 Emergency X ANI PIERCE [facility] ERT [id number] [facility] 2022-08-26 19:52:00 2022-08-26 22:18:00 Emergency Ani Pierce [facility] 1.2840.114 350.1.13.10 4.2.7.2.686 [id number] [facility] 2022-07-31 09:20:00 2022-07-31 09:56:18 Outpatient R YANG PULIDO III [facility] [id number] [facility] 2022-07-31 09:20:00 2022-07-31 09:56:18 Urgent Care Yang Pulido Unknown, Attending [facility] 1.840.114 350.1.13.10 4.2.7.2.686 [id number] [facility] 2022-07-31 00:00:00 2022-07-31 00:00:00 Letter (Out) Yang Pulido [facility] 1.840.114 350.1.13.10 4.2.7.2.686 [id number] [facility] 2022-07-28 00:00:00 2022-07-28 00:00:00 Orders Only Doctor Unassigned, Vernal [facility] 1.114 350.1.13.10 4.2.7.2.686 [id number] [facility] 2022-07-24 00:00:00 2022-07-24 00:00:00 Telephone Linette Montes De Oca [facility] 1..114 350.1.13.10 4.2.7.2.686 [id number] [facility] 2022-07-24 00:00:00 2022-07-24 00:00:00 Case [facility] 1.2.840.114 350.1.13.10 4.2.7.2.686 [id number] [facility] 2022-07-24 00:00:00 2022-07-24 00:00:00 Telephone Linette Montes De Oca [facility] 1.2840.114 350.1.13.10 4.2.7.2.686 [id number] [facility] 2022-07-22 10:00:00 2022-07-22 10:00:00 Outpatient R MALAIKAJAQUELINE LINETTE MONTES DE OCA LINETTE [facility] [id number] [facility] 2022-07-10 16:45:00 2022-07-10 16:45:00 Outpatient R [facility] [id number] [facility] 2022-07-08 09:52:04 2022-07-08 09:52:04 Outpatient SFA [facility] [id number] Yves Chicas 2022-07-06 11:30:00 2022-07-06 11:45:05 Outpatient R MALAIKAJAQUELINE LINETTE [facility] [id number] [facility] 2022-07-06 11:30:00 2022-07-06 11:45:05 Office Visit CandaceLinette redding [facility] 1.2840.114 350.1.13.10 4.2.7.2.686 [id number] [facility] 2022-07-06 00:00:00 2022-07-06 00:00:00 Orders Only Doctor Unassigned, Vernal [facility] 1.2.840.114 350.1.13.10 4.2.7.2.686 [id number] [facility] 2022-07-02 09:00:00 2022-07-02 09:00:00 Outpatient R MC DELUCA [facility] [id number] [facility] 2022-06-25 00:00:00 2022-06-25 00:00:00 [facility] 1..114 350.1.13.10 4.2.7.2.686 [id number] [facility] 2022-06-24 09:00:00 2022-06-24 09:37:56 Office Visit Stephanie Arredondo PENDING SALE TO [facility] EN?[facility] 1..114 350.1.13.10 4.2.7.2.686 [id number] [facility] 2022-06-24 09:00:00 2022-06-24 09:37:56 Outpatient R STEPHANIE ARREDONDO [facility] [id number] [facility] 2022-06-24 00:00:00 2022-06-24 00:00:00 Telephone Patti Lino [facility] 1..114 350.1.13.10 4.2.7.2.686 [id number] [facility] 2022-06-24 00:00:00 2022-06-24 00:00:00 Letter (Out) Stephanie Arredondo PENDING SALE TO [facility] EN?[facility] 1..114 350.1.13.10 4.2.7.2.686 [id number] [facility] 2022-06-23 09:18:00 2022-06-23 13:22:00 Emergency X MOHINDER COLMENARES [facility] ERT [id number] [facility] 2022-06-23 09:18:00 2022-06-23 13:22:00 Emergency Mohinder Colmenares B [facility] 1.0.114 350.1.13.10 4.2.7.2.686 [id number] [facility] 2022-05-15 13:59:00 2022-05-15 14:35:00 Emergency X Yesenia OROZCO [facility] ERT [id number] [facility] 2022-05-15 13:59:00 2022-05-15 14:35:00 Emergency Yesenia Orozco [facility] 1.2.840.114 350.1.13.10 4.2.7.2.686 [id number] [facility] 2022-01-14 10:20:00 2022-01-14 15:50:00 Emergency ER Lala Jimenez [facility] [id number] [facility] 2018-08-21 19:57:00 2018-08-21 19:57:00 Emergency E [facility] [id number] [facility] 2018-08-17 19:53:00 2018-08-17 22:38:00 Emergency E BRYAN ALICEA [facility] [id number] [facility] 2018-04-10 00:04:00 2018-04-10 01:25:00 Emergency E MAXIMO OPAL [facility] [id number] [facility] 2017-12-24 21:08:00 2017-12-25 00:55:00 Emergency E JEREMYNUPUR JOSH [facility] [id number] [facility] 2017-11-28 14:16:00 2017-11-28 14:53:00 Emergency E MARSH, BRITTNEY [facility] [id number] [facility] 2017-09-04 01:25:00 2017-09-04 02:54:00 Emergency E ANDIE MAE [facility] [id number] [facility] 2017-07-19 21:24:00 2017-07-19 22:59:00 Outpatient C Markel GUY [facility] [id number] [facility] 2017-07-03 15:56:00 2017-07-03 18:20:00 Emergency E AMILCAR RILEY [facility] [id number] [facility] Results Test Description Test Time Test Comments Results Result Co mments Source [facility] [id number] 16:52:00* Test Item Value Reference Range Interpretation Comme nts POCT PREG (test code = 1605) Negative On board controls acceptable with C Line (test code = 3574) Yes POCT PREG LOT # (test code = 3575) [id number] POCT PREG TEST DATE ( test code = 3576) 08/12/2024 Lab Interpretation (test cod e = 84491-9) Normal [facility] W/AUTO DIFF WITH [id number] 02:46:34* Test Item Value Reference Range Interpretation [...] 0.00-0.10 ABS NUCLEATED RBCS (test code = 33523) 0.00 K/UL 0.00-0.11 UNLESS OTHER CAMPOS INDICATED, ALL TESTING PERFORMED AT [facility] [address] [place] [id number] MERINGUER: MARISA GRAVES M.D. CLIA NUMBER [id number] [facility] [place]. [id number] POCT [id number] 19:45:00* Test Item Value Reference Range Interpretation Comme nts POCT PREG (test code = 1605) Negative On board controls acceptable with C Line (test code = 3574) Yes POCT PREG LOT # (test code = 3575) [id number] POCT PREG TEST DATE ( test code = 3576) 02-13-24 Lab Interpretation (test cod e = 08443-6) Normal [facility] [id number] 01:00:00* Test Item Value Reference Range Interpretation Comme nts POCT PREG (test code = 1605) negative On board controls acceptable with C Line (test code = 3574) present POCT PREG LOT # (test code = 3575) [id number] POCT PREG TEST DATE ( test code = 3576) Lab Interpretation (test cod e = 13415-7) Normal [facility] [id number] 16:46:00* Test Item Value Reference Range Interpretation Comme nts POCT PREG (test code = 1605) NEGATIVE On board controls acceptable with C Line (test code = 3574) PRESENT POCT PREG LOT # (test code = 3575) [id number] POCT PREG TEST DATE ( test code = 3576) 2023-10-08 Lab Interpretation (test cod e = 05889-4) Normal [facility] METABOLIC PANEL (54419)2022-06-23 16:14:43* Test Item Value Reference Range Interpretation Comme nts NA (test code = 1064250361) 140 mmol/L 135-145 K (test code = 8100010407) 3.8 mmol/L 3.5-5.0 CL (test code = 0054050347) 105 mmol/L 98-108 CO2 TOTAL (test code = 3100973219) 21 mmol/L 23-31 L AGAP (test code = 2752047727) 14 2-16 BUN (test code = 9860915065) 13 mg/dL 7-23 GLUCOSE (test code = 4554925873) 120 mg/dL 70-110 H CREATININE (test code = 6823820625) 0.69 mg/dL 0.50-1.04 TOTAL BILI (test code = 2410044045) 0.6 mg/dL 0.1-1.1 CALCIUM (test code = 6433995865) 8.9 mg/dL 8.6-10.6 T PROTEIN (test code = 3611981887) 7.8 g/dL 6.3-8.2 ALBUMIN (test code = 3639664736) 4.4 g/dL 3.5-5.0 ALK PHOS (test code = 2153019774) 80 U/L 34-122 ALTv (test code = 1742-6) 25 U/L 5-35 AST(SGOT) (test code = 6164289980) 25 U/L 13-40 eGFR (test code = 8955416036) 101.3 mL/min/1.73m2 JOHN (test code = JOHN) [...] imaging tests). Lab Interpretation (test code = 41872-9) Abnormal [facility]2023-02-14 16:14:43* Test Item Value Reference Range Interpretation Comme nts LIPASE (test code = 5144892134) 60 U/L 0-220 Lab Interpretation (test cod e = 01174-3) Normal [facility] WITH [id number] 16:00:42* Test Item Value Reference Range Interpretation Comme nts WBC (test code = 6690-2) 7.22 See_Comment [Automated Five-Thirty] The system which generated this result transmitted reference range: 4.30 - 11.10 10*3/?L. The reference range was not used to interpret this result as normal/abnormal. RBC (test code = 789-8) 4.32 See_Comment [Automated Five-Thirty] The system which generated this result transmitted [...] g/dL 31.6-35.1 H RDW-SD (test code = 43549-0) 41.9 fL 39.0-49.9 RDW-CV (test code = 788-0) 11.8 % 12.0-15.5 L PLT (test code = 777-3) 271 See_Comment [Automated messa ge] The system which generated this result transmitted reference range: 166 - 358 10*3/?L. The reference range was not used to interpret this result as normal/abnormal. MPV (test code = 45969-0) 8.1 fL 9.5-12.9 L NRBC/100 WBC (test code = 7534054568) 0.0 See_Comment [Automated me ssage] The system which generated this result transmitted reference range: 0.0 - 10.0 /100 WBCs. The reference range was not used to interpret this result as normal/abnormal. NRBC x10^3 (test code = 0996658672) See_Comment [Automated messa ge] The system which generated this result transmitted reference range: 10*3/?L. The reference range was not used to interpret this result as normal/abnormal. GRAN MAT (NEUT) % (test code = 770-8) 61.8 % IMM GRAN % (test code = 0475952384) 0.30 % LYMPH % (test code = 736-9) 30.6 % MONO % (test code = 5905-5) 4.8 % EOS % (test code = 713-8) 2.4 % BASO % (test code = 706-2) 0.1 % GRAN MAT x10^3(ANC) (test code = 0776519993) 4.46 10*3/uL 1.88-7.09 IMM GRAN x10^3 (test code = 9944132525) 0.00-0.06 LYMPH x10^3 (test code = 731-0) 2.21 10*3/uL 1.32-3.29 MONO x10^3 (test code = 742-7) 0.35 10*3/uL 0.33-0.92 EOS x10^3 (test code = 711-2) 0.17 10*3/uL 0.03-0.39 BASO x10^3 (test code = 704-7) 0.01-0.07 Lab Interpretation (test code = 50057-8) Abnormal [facility] [id number] 20:08:00* Test Item Value Reference Range Interpretation Comme nts Molecular Testing MM (test code = COVIDNAAT) Not Detected NotDetected Negative (Not Detected) results do not preclude infectionwith SARS-CoV-2 virus, and should not be the sole basis of apatient management decision. Consider testing for otherviruses if clinically indicated.The use of this assay as an In vitro diagnostic under theA Emergency Use Authorization (EUA) is limited tolaboratories that are certified under the ClinicalLaboratory Improvement Amendments of 1988 (CLIA), 42 U.S.C.263a, to perform high complexity tests. Molecular Testing MM (test code = COVIDSOURCEMM) Nasopharyngeal Swab Resident in Congregate Care Setting: UnknownEmployed in Healthcare: UnknownFirst Test: UnknownHospitalized: UnknownICU: UnknownDate of Symptom Onset: [id number]: UnknownReason for Testing: PUI -SymptomaticSource: Nasopharyngeal SwabSymptomatic as defined by CDC: YjezttuXrkbdlgvsh7644-21-30 13:11:00* Test Item Value Reference Range Interpretation [...] Seen HPF None Seen Urine Source: Urine UqcejpYnkcrqoqgy8384-10-63 13:11:00* Test Item Value Reference Range Interpretation [...] (test code = PREGUSG) 1.027 1.002-1.036 N Dojiddtgj5420-64-99 12:25:00* Test Item Value Reference Range Interpretation Comme [facility] Chemistry (test code = LIP) 10 U/L 8-78 N HCG ur [id number] 12:21:00* Test Item Value Reference Range Interpretation Comme [facility] Urine Test (test c ode = 2106-3) Negative Negative [facility] gravity of Urine by Refractometry automated 2022-01-14 12:21:00* Test Item Value Reference Range Interpretation Comme [facility] Urine Specific [place] (test code = 76494-5) 1.027 1.002-1.036 [facility] by Fhow5675-78-46 12:21:00* Test Item Value Reference Range Interpretation Comme [facility] Urine Color (test code = 75998-5) Light-Yellow Yellow [facility] clarity by refractometry oeofeygpy3996-24-00 12:21:00* Test Item Value Reference Range Interpretation Comme [facility] Urine Clarity (test code = 93380-4) Clear Clear [facility] pH measurement by automated test hyrvf2882-43-59 12:21:00* Test Item Value Reference Range Interpretation Comme [facility] Urine pH (test code = 08159-3) 6.0 5.0-9.0 [facility] leukocyte esterase detection by automated test qgigm6377-66-33 12:21:00* Test Item Value Reference Range Interpretation Comme [facility] Urine Leukocyte Esterase (te st code = 91659-3) 75 Janis/uL Negative [facility] [Presence] in Urine by Test zsbmb6443-66-84 12:21:00* Test Item Value Reference Range Interpretation Comme [facility] Urine Nitrite (test code = 5802-4) Negative Negative [facility] protein measurement by automated test strip (mass/volume)2022-01-14 12:21:00* Test Item Value Reference Range Interpretation Comme [facility] Urine Protein (test code = 27838-9) Negative mg/dL Neg-Trace [facility] [Moles/volume] in Urine by Test strip 2022-01-14 12:21:00* Test Item Value Reference Range Interpretation Comme [facility] Urine Glucose (UA) (test cod e = 36937-4) Normal mg/dL Negative [facility] ketones measurement by automated test strip (mass/volume)2022-01-14 12:21:00* Test Item Value Reference Range Interpretation Comme [facility] Urine Ketones (test code = 91976-8) Negative mg/dL Negative [facility] urobilinogen measurement (units/volume) by test [id number] 12:21:00* Test Item Value Reference Range Interpretation Comme [facility] Urine Urobilinogen (test cod e = 09062-8) Normal mg/dL Less than 2 [facility] total bilirubin detection by automated test ytofl5932-35-00 12:21:00* Test Item Value Reference Range Interpretation Comme [facility] Urine Bilirubin (test code = 82501-5) Negative Negative [facility] hemoglobin detection by automated test strip 2022-01-14 12:21:00* Test Item Value Reference Range Interpretation Comme [facility] Urine Blood (test code = 51533-4) Negative Negative [facility] erythrocytes detection by automated method 2022-01-14 12:21:00* Test Item Value Reference Range Interpretation Comme [facility] Urine RBC (test code = 03692-2) 0-3 HPF 0-3 [facility] leukocytes detection by automated method 2022-01-14 12:21:00* Test Item Value Reference Range Interpretation Comme [facility] Urine WBC (test code = 65198-9) 0-3 HPF 0-3 [facility] cells.squamous [#/area] in Urine sediment by Automated admvf9861-12-35 12:21:00* Test Item Value Reference Range Interpretation Comme [facility] Urine Squamous Epithelial Ce lls (test code = 67623-7) 0-3 HPF 0-3 [facility] bacteria detection by automated ipqkjd2789-52-08 12:21:00* Test Item Value Reference Range Interpretation Comme [facility] Urine Bacteria (test code = 51588-7) None Seen HPF None Seen [facility] Center[facility] - Sypotwgl0734-96-54 12:18:00* Test Item Value Reference Range Interpretation Comme [facility] Chemistry - Specials (test code = BHCGST) Negative NEGATIVE Method of s ensitivity- Indeterminant: results should be repeated after 48-72 hrs Positive: results may be detected as early as 1 day after the first missed menses. Aqpreuaxz9505-92-02 11:13:00* Test Item Value Reference Range Interpretation Comme [facility] Chemistry (test code = NA-T) 139 mmol/L [...] for Estimated GFR: Greater than 90 mL/min/1.73 b9Lprwvplk eGFR is based on the CKD-EPI 2020 [...] code = ALT) 12 U/L 8-55 N Zcmcwjnthm9476-74-77 10:49:00* Test Item Value Reference Range Interpretation [...] 0.0 thou/uL 0.0-0.2 N Serum or plasma aspartate aminotransferase measurement (enzymatic activity/volume)2022-01-14 10:35:00* Test Item Value Reference Range Interpretation Comme [facility] Aspartate Amino Transf (AST/ SGOT) (test code = 1920-8) 12 U/L 5-34 [facility] or plasma alanine aminotransferase measurement without P-5'-P (enzymatic uakaij4238-15-10 10:35:00* Test Item Value Reference Range Interpretation Comme [facility] Alanine Aminotransferase (AL T/SGPT) (test code = 1744-2) 12 U/L 8-55 [facility] or plasma lipase measurement (enzymatic activity/volume)2022-01-14 10:35:00* Test Item Value Reference Range Interpretation Comme [facility] Lipase (test code = 3040-3) 10 U/L 8-78 [facility] human chorionic gonadotropin detection for klikmiuxw5091-65-57 10:35:00* Test Item Value Reference Range Interpretation Comme [facility] Serum Test, Qualit ative (test code = 2118-8) Negative NEGATIVE [facility]ukocytes [#/volume] in Blood by Automated count 2022-01-14 10:35:00* Test Item Value Reference Range Interpretation Comme [facility] White Blood Count (test code = 6690-2) 8.3 thou/uL 4.8-10.8 [facility] erythrocytes automated count (number/volume) 2022-01-14 10:35:00* Test Item Value Reference Range Interpretation Comme [facility] Red Blood Count (test code = 789-8) 4.15 mill/uL 4.20-5.40 [facility] hemoglobin measurement (mass/volume)2022-01-14 10:35:00* Test Item Value Reference Range Interpretation Comme [facility] Hemoglobin (test code = 718-7) 14.3 g/dL 12.0-16.0 [facility] mean corpuscular volume 2022-01-14 10:35:00* Test Item Value Reference Range Interpretation Comme [facility] Mean Corpuscular Volume (ai t code = 787-2) 100.0 fL 78.0-98.0 [facility] mean corpuscular hemoglobin (mass per erythrocyte)2022-01-14 10:35:00* Test Item Value Reference Range Interpretation Comme [facility] Mean Corpuscular Hemoglobin (test code = 785-6) 34.5 pg 27.0-31.0 [facility] mean corpuscular hemoglobin concentration measurement (mass/bwp2768-43-79 10:35:00* Test Item Value Reference Range Interpretation Comme [facility] Mean Corpuscular Hemoglobin Concent (test code = 786-4) 34.4 g/dL 32.0-36.0 [facility] erythrocyte distribution width ratio 2022-01-14 10:35:00* Test Item Value Reference Range Interpretation Comme [facility] Red Cell Distribution Width (test code = 788-0) 10.4 % 11.5-14.5 [facility] blood platelet count (count/volume) 2022-01-14 10:35:00* Test Item Value Reference Range Interpretation Comme [facility] Platelet Count (test code = 777-3) 293 thou/uL 130-400 [facility] blood platelet mean gmsbqf4397-68-76 10:35:00* Test Item Value Reference Range Interpretation Comme [facility] Mean Platelet Volume (test c ode = 91684-7) 6.2 fL 7.4-10.4 [facility] blood neutrophils/100 fakwrdbowa7127-75-70 10:35:00* Test Item Value Reference Range Interpretation Comme [facility] Neutrophils % (test code = 770-8) 66.0 % 42.0-75.0 [facility] leukocytes in Blood by Automated count 2022-01-14 10:35:00* Test Item Value Reference Range Interpretation Comme [facility] Lymphocytes % (test code = 736-9) 26.7 % 21.0-51.0 [facility] blood monocytes/100 dcdhdonexz7173-59-17 10:35:00* Test Item Value Reference Range Interpretation Comme [facility] Monocytes % (test code = 5905-5) 4.9 % 0.0-10.0 [facility] blood eosinophils/100 nuhmolysqw1209-29-12 10:35:00* Test Item Value Reference Range Interpretation Comme [facility] Eosinophils % (test code = 713-8) 1.7 % 0.0-10.0 [facility] blood basophils/100 ylcgzecrof6284-58-56 10:35:00* Test Item Value Reference Range Interpretation Comme [facility] Basophils % (test code = 706-2) 0.6 % 0.0-1.0 [facility] neutrophils automated count (number/volume) 2022-01-14 10:35:00* Test Item Value Reference Range Interpretation Comme [facility] Neutrophils # (test code = 751-8) 5.5 thou/uL 1.40-6.50 [facility] CenterLymphocytes [#/volume] in Blood by Automated count 2022-01-14 10:35:00* Test Item Value Reference Range Interpretation Comme [facility] Lymphocytes # (test code = 731-0) 2.2 thou/uL 1.20-3.40 [facility] monocytes automated count (number/volume) 2022-01-14 10:35:00* Test Item Value Reference Range Interpretation Comme [facility] Monocytes # (test code = 742-7) 0.4 thou/uL 0.11-0.59 [facility] eosinophils automated count (count/volume) 2022-01-14 10:35:00* Test Item Value Reference Range Interpretation Comme [facility] Eosinophils # (test code = 711-2) 0.1 thou/uL 0.0-0.7 [facility] blood basophil count (count/volume) 2022-01-14 10:35:00* Test Item Value Reference Range Interpretation Comme [facility] Basophils # (test code = 704-7) 0.0 thou/uL 0.0-0.2 [facility] Center[facility] or plasma sodium measurement (moles/volume) 2022-01-14 10:35:00* Test Item Value Reference Range Interpretation Comme [facility] Sodium Level (test code = 2951-2) 139 mmol/L 136-145 [facility] or plasma potassium measurement (moles/volume) 2022-01-14 10:35:00* Test Item Value Reference Range Interpretation Comme [facility] Potassium Level (test code = 2823-3) 3.9 mmol/L 3.5-5.1 [facility] or plasma chloride measurement (moles/volume) 2022-01-14 10:35:00* Test Item Value Reference Range Interpretation Comme [facility] Chloride Level (test code = 2075-0) 108 mmol/L 98-107 [facility] or plasma carbon dioxide, total measurement (moles/volume)2022-01-14 10:35:00* Test Item Value Reference Range Interpretation Comme [facility] Carbon Dioxide Level (test c ode = 2027-9) 22 mmol/L 22-29 [facility] or plasma anion [id number] 10:35:00* Test Item Value Reference Range Interpretation Comme [facility] Anion Gap (test code = 80467-9) 13 mmol/L 10-20 [facility] or plasma urea nitrogen measurement (mass/volume)2022-01-14 10:35:00* Test Item Value Reference Range Interpretation Comme [facility] Blood Urea Nitrogen (test co de = 3094-0) 14 mg/dL 7.0-18.7 [facility] or plasma creatinine measurement (mass/volume) 2022-01-14 10:35:00* Test Item Value Reference Range Interpretation Comme [facility] Creatinine (test code = 2160-0) 0.81 mg/dL 0.6-1.1 [facility]/1.73 sq M.predicted [Volume Rate/Area] in Serum, Plasma xo3508-76-32 10:35:00* Test Item Value Reference Range Interpretation Comme [facility] Estimated GFR (CKD-EPI 2020) (test code = 20984-5) 102 [facility] [[facility]/volume] in Serum or Uwetlc7713-80-05 10:35:00* Test Item Value Reference Range Interpretation Comme [facility] Glucose Level (test code = 2345-7) 105 mg/dL 70-105 [facility] calcium measurement (mass/volume) 2022-01-14 10:35:00* Test Item Value Reference Range Interpretation Comme [facility] Calcium Level (test code = 04227-4) 9.1 mg/dL 7.8-10.44 [facility] total bilirubin measurement (mass/volume)2022-01-14 10:35:00* Test Item Value Reference Range Interpretation Comme [facility] Total Bilirubin (test code = 1975-2) 0.6 mg/dL 0.2-1.2 [facility] or plasma protein measurement (mass/volume) 2022-01-14 10:35:00* Test Item Value Reference Range Interpretation Comme [facility] Serum Total Protein (test co de = 2885-2) 7.9 g/dL 6.0-8.3 [facility] or plasma albumin measurement by bromocresol green (BCG) dye binding method (ar1955-95-53 10:35:00* Test Item Value Reference Range Interpretation Comme [facility] Albumin (test code = 44617-3) 4.3 g/dL 3.5-5.0 [facility] [Mass/volume] in Serum by calculation 2022-01-14 10:35:00* Test Item Value Reference Range Interpretation Comme [facility] Globulin (test code = 57294-2) 3.6 g/dL 2.4-3.5 [facility]Gl[facility] [Mass Ratio] in Serum or Plasma 2022-01-14 10:35:00* Test Item Value Reference Range Interpretation Comme [facility] Albumin/Globulin Ratio (test code = 1759-0) 1.2 g/dL 1.2-2.2 [facility] [Enzymatic activity/volume] in Serum or Unkcqy2497-56-27 10:35:00* Test Item Value Reference Range Interpretation Comme [facility] Alkaline Phosphatase (test c ode = 6768-6) 82 U/L 40-110 [facility]ON *WW*2018-08-17 21:11:00* Test Item Value [...] code = USPERM) /HPF NONE SERUM MONOCLONAL 2018-08-17 21:03:00* Test Item Value Reference Range Interpretation Comme nts PREG SRM (test code = PGS) NEGATIVE NEGATIVE CBC (INCLUDES AUTOMATED DIFFERENTIAL)*[id number] 20:56:00* Test Item Value Reference Range Interpretation [...] (test code = WRBCMOR) NORMAL Molecular Testing [id number] 23:57:00* Test Item Value Reference Range Interpretation [...] rinseorganisms into the specimen Source: VaginalReference Lab Kpdxteq0405-76-60 14:15:00* Test Item Value Reference Range Interpretation Comme [facility] Reference Lab Testing (test code = HSVT) . A Positive for Herpes simplex virus type-2. Typing wasconfirmed by monoclonal antibody microscopicimmunofluoresc ence.Performed at: [address] [id number] Director: Clyde Drummond MD, Phone: [phone] Reference Lab Huvsyxw9683-33-61 17:10:00* Test Item Value Reference Range Interpretation Comme [facility] Reference Lab Testing (test code = GVC3RFD) Negative Negative Reference Lab Testing (test code = WGS1XQX) Positive Negative A This test was de veloped and its performance characteristicsdetermined by [employer]. It has not been clearedor approved by the U.S. Food and Drug Administration. TheFDA has determined that such clearance or approval is notnecessary. This test is used for clinical purposes. Itshould not be regarded as investigational or research.Performed at: [address] [id number] Director: Clyde Drummond MD, Phone: [phone] HSV Source: SwabMolecular Testing [id number] 18:56:00* Test Item Value Reference Range Interpretation Comme [facility] Molecular Testing MM (test code = GCPCRT) [...] specimen Source: VaginalVaginitis Panel 3 by DNA Jfapp0564-57-88 08:37:00* Test Item Value Reference Range Interpretation Comme nts Vaginitis Panel 3 by DNA Pro be (test code = VP3) VPIIICANDI Vaginitis Panel 3 by DNA Pro be (test code = VP31) N Vaginitis Panel 3 by DNA Pro be (test code = VP31) VPIIITRICH Zkahowacwa6962-67-80 02:06:00* Test Item Value Reference Range Interpretation [...] PREGUSG) 1.021 1.002-1.036 N Comment add on vsjrdaFpymfzzmsl8149-47-94 23:39:00* Test Item Value Reference Range Interpretation [...] LPF 0-3 Hyaline Urine Source: Urine Clean RqnibHgmgboays0673-04-47 21:32:00* Test Item Value Reference Range Interpretation [...] code = ALT) 14 U/L 8-55 N Zqqrkyoqcm5072-70-83 21:07:00* Test Item Value Reference Range Interpretation [...] PORTABLE 2018-04-10 00:44:06Examination: Chest one viewLocation code: M0Rhrwfqvrjy: NoneDiscussion:Clinical history is remarkable for chest pain. Cardiac silhouette is normal insize. No consolidation, effusion, or pneumothorax is appreciated. The osseousstructures are unremarkable.Impression:1. No acute abnormality. SERUM MONOCLONAL 2018-04-10 00:43:00* Test Item Value Reference Range Interpretation Comme nts PREG SRM (test code = PGS) NEGATIVE NEGATIVE CBC (INCLUDES AUTOMATED DIFFERENTIAL)*[id number] 00:35:00* Test Item Value Reference Range Interpretation [...] Comme nts CHLAMYDIA TRACHOMATIS (test code = 62675758) NOT DETECTED NOT DETECTED NEISSERIA GONORRHOEAE (test code = 69359331) NOT DETECTED NOT DETECTED Endnote (test code = 20623748) This test was performed using the APTIMA COMBO2 Assay([employer]The analytical performance characteristics of thisassay, when used to test SurePath specimens havebeen determined by [employer].TEST PERFORMED AT:[facility] [address] [address]HQMDEJEN HANNON M.D. URINE TYBRQXN1063-25-29 09:33:00* Test Item Value Reference Range Interpretation Comme nts Culture Observations (test code = COB1) THREE OR MORE SPECIES OF BACTERIA ISOLATED. PROBABLE CONTAMINATION. Culture Observations (test code = COB17) IDENTIFICATION AND SUSCEPTIBILITY NOT INDICATED. RECOLLECTION RECOMMENDED WET WQEPG4482-61-01 00:23:00* Test Item Value Reference Range Interpretation [...] = USPERM) /HPF NONE CBC (INCLUDES AUTOMATED DIFFERENTIAL)*[id number] 22:38:00* Test Item Value Reference Range Interpretation [...] NORMAL U/S PELVIS*WW*2017-09-04 02:40:03ULTRASOUND OF THE PELVISLocation: S04YUVGWVPN HISTORY: pelvic pain history of recent /deliveryCOMPARISON: [...] with CT. Patient refused transvaginal imagingDIRECT CHLAMYDIA [id number] 08:05:00* Test Item Value Reference Range Interpretation Comme nts CHLAMYDIA TRACHOMATIS (test code = 75876480) NOT DETECTED NOT DETECTED NEISSERIA GONORRHOEAE (test code = 35097859) NOT DETECTED NOT DETECTED Endnote (test code = 44038893) This test was performed using the APTIMA COMBO2 Assay([employer]The analytical performance characteristics of thisassay, when used to test SurePath specimens havebeen determined by [employer].TEST PERFORMED AT:[facility] [address] [address]DTQRJJEN HANNON M.D. URINE [id number] 07:55:00* Test Item Value Reference Range Interpretation [...] = rif) ug/mL S DIRECT STREP GROUP [id number] 07:36:00* Test Item Value Reference Range Interpretation Comme nts Culture Observations (test code = COB1) NO BETA HEMOLYTIC STREPTOCOCCUS ISOLATED Direct Exam (test code = DE1) NEGATIVE FOR STREP A ANTIGEN WET [id number] 18:51:00* Test Item Value Reference Range Interpretation [...] NO YEAST DIRECT INFLUENZA A AND B [id number] 17:05:00* Test Item Value Reference Range Interpretation Comme nts Direct Exam (test code = DE1) PRESUMPTIVE NEGATIVE FOR THE PRESENCE OF INFLUENZA ANTIGEN AMYLASE AND [id number] 17:02:00* Test Item Value Reference Range Interpretation Comme nts AMYLASE (test code = 10A) 64 U/L 28-100 LIPASE (test code = 60A) 83 IU/L 73-393 COMPREHENSIVE METABOLIC [id number] 17:02:00* Test Item Value Reference Range Interpretation [...] (test code = 31A) 13 IU/L <=78 [id number] 16:55:00* Test Item Value Reference Range Interpretation Comme nts MAGNESIUM (test code = 48A) 1.9 mg/dL 1.8-2.4 URINALYSIS WITH [id number] 16:51:00* Test Item Value Reference Range Interpretation [...] RBC MORPH (test code = RBCMOR) NORMAL Notes Date/Time Note Provider Source 2023-06-14 11:15:08 Easm+5Dag3Dkfsh7u/iHiMhnpkvWuAXNLkJHbc 7q2t5wDbMlblBO2uRaZBrkXycQ8940-79-28S8 1:15:08 Patient discharged home. Follow up with pcp. Take rx as prescribed. [address]8544-5Qmgktdeep department XjtoSP9673-13-25L10:15:30Emergency department NoteTXT1.2.840.633443.1.13.104.2.7.2.7 31517|[id number] for patient fgpl84159-5YtzlWLOFXPKHSWPLrgcribbj C-CDA narrative [id number] Fregoso RN[id number] ZWPNCKXTDFCMFSUDSAQC7229-04-42D26:15:3 01.840.218955.1.72.3.15|1..1143 [id number] Bonny Fregoso RN [facility] 2023-06-14 09:21:33 l40Ql0rRzRE+5TIJwFSA/QhRuug4ltMJMANEwF Qzpi65l2fnEtJ8+fdzOTqesYSN4027-40-83X2 9:21:33 Pt presents with c/o of day two of left lower abdominal pain. Pt reports having nausea but denies vomiting or diarrhea.Zofran taken for nausea, last dose of tylenol last night.LMP: middle of last month 10299-9Vqnaejpsm department Triage feluTA2633-38-73G01:23:11[facility] Triage noteTXT1.2.840.644006.1.13.104.2.7.2.7 80451|[id number] for patient zfvh67386-3Dayepfokr department NoteLNNARRATIVEFormatted C-CDA narrative [id number] E Linkes RN[id number] PTWGDUEVJXQQKVYHCUPY4371-94-10V48:23:1 11..840.306176.1.72.3.15|1..1143 50.1.13.104.2.7.2.727879_[id number] Tisha Novak RN [facility] - Health 2023-06-14 09:20:00 W4QeOR8eqngCCnVWcHGhQEDbWQz0YpHFATvZia VfnhErJeOf3AKxYeraJtBxf7vy0130-94-49C7 9:20:00 [facility] Emergency Department NotePatient Name: Zackery Bains of : 1995 28 year old femaleTreatment Room: [place] [address]Medical Record Number: [id number] Care Physician: Tati Foote Escorted by: Self [9]Mode of Arrival: Personal means [1]EMS Treatment Prior to ED Arrival:Travel and Exposure Screening:SymptomsDoes patient have any of these symptoms?: (not recorded)Exposure ScreeningHas patient had contact with someone with a communicable disease in the last month?: (not recorded)Diseases exposed to:: (not recorded)Is Patient ?: (not recorded)Exposure Date: (not recorded)Chief Complaint:Chief ComplaintPatient presents withAbdominal PainLLQHistory of Present Illness:Pt presents with c/o of day two of left lower abdominal pain. Pt reports having nausea but denies vomiting or diarrhea. She also complain of lower mid back pain, after helping her friend move her paralyzed mother who is 280 lbs.Zofran taken for nausea, last dose of tylenol last night.LMP: middle of last monthHistory provided by: PatientLanguage sheriff's sergeant used: NoAbdominal PainPain location: Suprapubic and LLQPain quality: aching, cramping and gnawingPain radiates to: Does not radiatePain severity: MildOnset quality: GradualDuration: 2 daysTiming: ConstantProgression: UnchangedChronicity: NewContext: not alcohol use, not awakening from sleep, not diet changes, not eating, not medication withdrawal, not previous surgeries, not recent illness, not recent travel, not retching, not sick contacts, not suspicious food intake and not traumaContext comment: History of PCOSRelieved by: None triedWorsened by: NothingIneffective treatments: None triedAssociated symptoms: nauseaAssociated symptoms: no chest pain, no chills, no constipation, no cough, no diarrhea, no dysuria, no fatigue, no fever, no hematuria, no shortness of breath, no sore throat, no vaginal bleeding, no vaginal discharge and no vomitingAssociated symptoms comment: UrgencyRisk factors: obesityRisk factors comment: PCOSPast Medical History/Immunizations:Past Medical History:Diagnosis DateAbnormal uterine bleedingMenstrual disorderTetanus received in last 5 years: UnknownAllergies:AllergiesAllergen ReactionsCodeine HivesPcn [Penicillins] RashPast Social History:Tobacco UseNever smoked or used smokeless tobacco.Alcohol UseNo.Drug UseNo.Sexual ActivityNot currently sexually active; Partners: Male; Control/Protection: None, Inserts.Comments: NexplanonPast Surgical History:Past Surgical History:Procedure Laterality DateCESAREAN SECTION 01/10/2014Review of Systems:Review of SystemsConstitutional: Negative for activity change, appetite change, chills, diaphoresis, fatigue and fever.HENT: Negative for congestion, ear discharge, ear pain, rhinorrhea, sore throat and trouble swallowing.Eyes: Negative for photophobia, pain, discharge and redness.Respiratory: Negative for cough, chest tightness, shortness of breath and wheezing.Cardiovascular: Negative for chest pain, palpitations and leg swelling.Gastrointestinal: Positive for abdominal pain and nausea. Negative for abdominal distention, blood in stool, constipation, diarrhea and vomiting.Genitourinary: Negative for dysuria, urgency, polyuria, frequency, hematuria, flank pain, vaginal bleeding and vaginal discharge.Musculoskeletal: Negative for arthralgias, joint swelling, myalgias and neck stiffness.Skin: Negative for color change, rash and wound.Neurological: Negative for dizziness, seizures, syncope, facial asymmetry, weakness, light-headedness, numbness and headaches.Psychiatric/Behavioral: Negative for agitation, confusion, hallucinations and self-injury. The patient is not nervous/anxious.Hematological: Negative for adenopathy and cold intolerance. Does not bruise/bleed easily.Endocrine: Negative for cold intolerance, polydipsia and polyuria.Physical Exam:ED Triage Vitals [02/05/24 0923]Weight 78.5 kg (173 lb)Actual or estimatedHeight 1.549 m (5' 1")BP 125/80Pulse 92Resp 16Temp 36.8 ?C (98.2 ?F)Temp srcSpO2 98 %Measured on Room airPhysical ExamVitals and nursing note reviewed.Constitutional:General: She is awake. She is not in acute distress.Appearance: She is well-developed, well-groomed and overweight. She is not ill-appearing, toxic-appearing or diaphoretic.HENT:Head: Normocephalic and atraumatic.Right Ear: External ear normal.Left Ear: External ear normal.Nose: Nose normal.Mouth/Throat:Pharynx: No oropharyngeal exudate.Eyes:General: No scleral icterus.Right eye: No discharge.Left eye: No discharge.Conjunctiva/sclera: Conjunctivae normal.Pupils: Pupils are equal, round, and reactive to light.Neck:Thyroid: No thyromegaly.Vascular: No JVD.Trachea: No tracheal deviation.Cardiovascular:Rate and Rhythm: Normal rate and regular rhythm.Heart sounds: Normal heart sounds. No murmur heard.No friction rub. No gallop.Pulmonary:Effort: Pulmonary effort is normal. No respiratory distress.Breath sounds: Normal breath sounds. No stridor. No wheezing or rales.Chest:Chest wall: No tenderness.Abdominal:General: Bowel sounds are normal. There is no distension.Palpations: Abdomen is soft. There is no mass.Tenderness: There is abdominal tenderness in the suprapubic area and left lower quadrant. There is no right CVA tenderness, left CVA tenderness, guarding or rebound. Negative signs include Funk's sign, McBurney's sign and obturator sign.Hernia: No hernia is present.Musculoskeletal:General: No tenderness or deformity. Normal range of motion.Cervical back: Normal range of motion and neck supple.Lymphadenopathy:Cervical: No cervical adenopathy.Skin:General: Skin is warm and dry.Coloration: Skin is not pale.Findings: No erythema or rash.Neurological:Mental Status: She is alert and oriented to person, place, and time.Cranial Nerves: No cranial nerve deficit.Motor: No abnormal muscle tone.Coordination: Coordination normal.Deep Tendon Reflexes: Reflexes are normal and symmetric. Reflexes normal.Psychiatric:Behavior: Behavior normal. Behavior is cooperative.Thought Content: Thought content normal.Judgment: Judgment normal.Radiology:Abdomen 2 views X Ray Interpreted by me:- Normal @ View Abdomen- No dilated loops of bowel- No Constipation- No Air Fluid Levels- No bone abnormalities.BED SIDE TRANSABDOMINAL PELVIC U/S:- Normal size uterus- Normal endometrial stripe- No uterine fibroid or masses- Small amount of physiologic free fluid in her pelvis- Small ovarian cyst present- Normal full bladderLab Results:Lab ResultsURINALYSIS - AbnormalResult Value Ref RangeAPPEARANCE Hazy (*) ClearCOLOR Yellow YellowPH 5.0 4.8 - 8.0SP GRAVITY 1.016 1.003 - 1.030GLU U QUAL Normal NormalBLOOD Negative NegativeKETONES Negative NegativePROTEIN Negative NegativeUROBILIN Normal NormalBILIRUBIN Negative NegativeNITRITE Negative NegativeLEUK RAYRAY 25/uL (*) NegativeRBC/HPF 1 0 - 3 HPFWBC/HPF 2 0 - 5 HPFBACTERIA Negative NegativeMUCOUS Moderate (*) Negative LPFSQ EPITH 9 HPFPOCT TEST - NormalPOCT PREG NegativeOn board controls acceptable with C Line YesPOCT PREG LOT # [id number] PREG TEST DATE 08-15-24EKG:If EKG completed, see Procedure Note.Orders and Treatments:Orders Placed This EncounterProceduresXR ABDOMEN 2 VWUrinalysisPOCT TestOrders Placed This EncounterMedicationshyoscyamine sulfate (LEVSIN/SL) sublingual tablet 0.25 mgmeloxicam 15 mg tablethyoscyamine sulfate (LEVSIN/SL) 0.125 mg sublingual tabletacetaminophen (TYLENOL ARTHRITIS PAIN) 650 mg CR tabletpredniSONE 20 mg tabletFirst Provider Eval:ED EventsDate/Time Event User Coeghuwk08/05/24926 Medical Screening Begins CECIL LARKIN MD --06/14/23926 First Provider Evaluation CECIL LARKIN MD --ED COURSEPatient's condition improved with the treatment provided in the ED, will Dc Home with adequate medications to treat her condition, and instructions to follow up with her PCP within a week.Diagnosis/Impression as of 06/14/23 1102LLQ painRupture of follicular cyst of ovaryBack strain, initial encounterProcedures:ProceduresMDM:Medi lakeisha Decision MakingProblems Addressed:Back strain, initial encounter: acute illness or injuryLLQ pain: self-limited or minor problemDetails: Patient with no signs of acute abdomen, normal vital signs, Pelvic Ultrasound did not show any large ovarian cyst or large amount of free fluid in her pelvis, small fluid present must likely secondary to a ruptured follicular cystRupture of follicular cyst of ovary: acute illness or injury with systemic symptomsAmount and/or Complexity of Data ReviewedExternal Data Reviewed: labs, radiology and notes.Details: From previous visits reviewed and compared with current dataLabs: ordered. Decision-making details documented in ED Course.Radiology: ordered and independent interpretation performed.RiskPrescription drug management.Flowsheet Documentation:Scoring Tools:No data recordedDisposition/Condition:ED DispositionED DispositionDisch - HomeConditionStableComment--Discharge Medications:Patient's MedicationsSTART taking these medicationsACETAMINOPHEN (TYLENOL ARTHRITIS PAIN) 650 MG CR TABLET Take 1 tablet by mouth every 8 (eight) hours as needed for Pain.HYOSCYAMINE SULFATE (LEVSIN/SL) 0.[address] 2 tablets under the tongue every 6 (six) hours as needed (Abdominal pain or cramping).MELOXICAM 15 MG TABLET Take 1 tablet by mouth in the morning.PREDNISONE 20 MG TABLET Take 2 tablets PO dailyCONTINUE taking these medications which have NOT CHANGEDALBUTEROL (PROAIR HFA) 90 MCG/ACTUATION INHALER SMARTSIG:Via InhalerAZITHROMYCIN 250 MG TABLET 2 tabs today, then one tab once daily until completedBENZONATATE 100 MG CAPSULE Take 1 capsule by mouth every 8 (eight) hours as needed for Cough.BENZONATATE 100 MG CAPSULE Take 1 capsule by mouth 3 (three) times daily as needed for Cough.CYCLOBENZAPRINE 5 MG TABLET Take 1 tablet by mouth.DICYCLOMINE 20 MG TABLET Take 1 tablet by mouth 4 (four) times daily as needed for Abdominal pain.DROSPIRENONE-ETHINYL ESTRADIOL (ARLEN, Raciel,) 3-0.02 MG PER TABLET Take 1 tablet by mouth.FAMOTIDINE 20 MG TABLET Take 1 tablet by mouth.GABAPENTIN 300 MG CAPSULE SMARTSIG:Capsule(s) By MouthHYDROXYZINE 25 MG TABLET TAKE 1 TO 2 TABLETS BY MOUTH AT BEDTIMEIBUPROFEN 800 MG TABLET Take 1 tablet by mouth every 8 (eight) hours as needed for Pain (scale 4-6).IBUPROFEN 800 MG TABLET Take 1 tablet by mouth every 6 (six) hours as needed for Temp > 38.5 C or Pain (scale 4-6).MEDROXYPROGESTERONE (DEPO-PROVERA) 150 MG/ML INJECTION 1 mL by Intramuscular route every 3 (three) months.METFORMIN 500 MG TABLET Take 1 tablet by mouth.MIRTAZAPINE SOLTAB 15 MG RAPID TABLET DISSOLVE 1 TABLET BY MOUTH ONCE DAILY WITH OR WITHOUT WATERNAPROXEN 500 MG TABLET Take 1 tablet by mouth.NAPROXEN SODIUM (ANAPROX DS) 550 MG TABLET Take 1 tablet by mouth in the morning and 1 tablet in the evening. Take with meals.OMEPRAZOLE 20 MG TABLET Take 1 tablet by mouth daily.ONDANSETRON (ZOFRAN) 4 MG TABLET Take 1 tablet by mouth every 12 (twelve) hours.ONDANSETRON 4 MG DISINTEGRATING TABLET Take 1 tablet by mouth every 12 (twelve) hours as needed for Nausea and Vomiting (N/V).ONDANSETRON 4 MG DISINTEGRATING TABLET Take 1 tablet by mouth every 8 (eight) hours as needed for Nausea and Vomiting (N/V).OSELTAMIVIR (TAMIFLU) 75 MG CAPSULE Take 1 capsule by mouth in the morning and 1 capsule in the evening.OXYBUTYNIN XL 5 MG 24 HR TABLET Take 1 tablet by mouth.QUETIAPINE 25 MG TABLET Take 1 tablet by mouth at bedtime.TIZANIDINE 2 MG TABLET Take 1 tablet by mouth every 8 (eight) hours as needed for Pain (scale 4-6).TRANEXAMIC ACID 650 MG TABLET SMARTSIG:Tablet(s) By MouthSTART taking Modified Medications as PrescribedNo medications on fileSTOP taking these medicationsNo medications on fileFollow-up:Contact information for follow-upStephanie Arredondo FNPSpecialty: [employer]-FAMILYRelationship: PCP - [facility] AND [address] [place] [address]Yxauk: [phone] signed by:Cecil Larkin MD06/14/23 1102 [address]-6Pcywmfjlm Emergency department DcegUX3665-74-53J37:02:25Physician Emergency department NoteTXT1.2.840.843437.1.13.104.2.7.2.7 18249|[id number] for patient ompr70773-6Ycbyozrzn department NoteLNNARRATIVEFormatted C-CDA narrative text[address] [id number] YMXBKJPIKHDEPUPHYQGZ4910-25-78L66:02:2 51.2.840.641666.1.72.3.15|1.2.840.1143 50.1.13.104.2.7.2.727879_[id number] [facility]
--- NOTE | 2023-06-15 18:10 | EDPHYS ---
Physician Documentation [facility] Name: Sony Major Age: 28 yrs Sex: Female : 1995 Arrival Date: 06/15/2023 Time: 16:25 Bed IW2 Private MD: ED Physician Brian Deleon HPI: 06/15 23:24 This 28 yrs old Female presents to ER via Ambulatory with complaints of Low Back Pain. 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 Denies radiation. Denies incontinence, numbness, tingling. Ambulates with steady gait.. 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 Flu vaccine is up to date. - Social history:: Smoking status: Patient denies any tobacco usage or history of. ROS: 23:22 Constitutional: Negative for fever, chills, and weight loss, kb 23:22 Back: Positive for pain at rest, pain with movement, of the lumbar area, 23:22 All other systems are negative, Exam: 23:22 Constitutional: This is a well developed, well nourished patient who is awake, alert, kb and in no acute distress. Head/Face: Normocephalic, atraumatic. ENT: Moist Mucous membranes Cardiovascular: Regular rate Respiratory: Respirations even and unlabored. No increased work of breathing. Talking in full sentences Skin: Warm, dry with normal turgor. Normal color. MS/ Extremity: Pulses equal, no cyanosis. Neurovascular intact. Full, normal range of motion. Neuro: Awake and alert, GCS 15, oriented to person, place, time, and situation. Moves all extremities. Normal gait. 23:22 Back: pain, that is moderate, of the lumbar area, ROM is painful, normal spinal alignment noted, CVA tenderness, is absent, Vital Signs: 16:31 Pulse 82; Resp 18; Temp 98.2; Pulse Ox 100% ; Weight 78.47 kg; Height 5 ft. 1 in. ; ap3 Pain 8/10; 16:33 BP 143 / 84; ap3 16:31 Body Mass Index 32.69 (78.47 kg, 154.94 cm) ap3 16:31 Pain Scale: Adult ap3 MDM: 16:32 Patient medically screened. kb 23:22 Differential diagnosis: arthritis, strain, sciatica, Herniated disc. Data reviewed: kb vital signs, nurses notes. Test considered but Not performed: X-ray: X-ray of lumbar spine considered but patient denies injury that would have caused fracture. Counseling: I had a detailed discussion with the patient and/or guardian regarding the historical points, exam findings, and any diagnostic results supporting the discharge/admit diagnosis, the need for outpatient follow up, a family practitioner, to return to the emergency department if symptoms worsen or persist or if there are any questions or concerns that arise at home. Response to treatment: the patient's symptoms have markedly improved after treatment. ED course: Patient feeling much better after treatment. Educated on rest and pain management for home. Educated on need for follow-up for possible MRI if symptoms persist. Verbal understanding received.. Administered Medications: 17:03 Drug: Ketorolac IM 30 mg IM once Route: IM; Site: right deltoid; ap3 18:09 Follow up: Response: No adverse reaction; Pain is decreased ap3 17:03 Drug: [place] PO 10 mg-325 mg 1 tabs PO once Route: PO; ap3 18:09 Follow up: Response: No adverse reaction; Pain is decreased ap3 17:11 Drug: Dexamethasone IM 10 mg IM once Route: IM; Site: left deltoid; ap3 18:09 Follow up: Response: No adverse reaction ap3 Disposition Summary: 06/15/23 18:10 Discharge Ordered Notes: Location: Home Condition: Stable kb Diagnosis - Low back pain kb Followup: kb - With: Emergency Department - When: As needed - Reason: Worsening of condition Followup: kb - With: Private Physician - When: 2 - 3 days - Reason: Recheck today's complaints, Continuance of care, Re-evaluation by your physician Discharge Instructions: - Acute Back Pain, Adult kb - Musculoskeletal Pain kb - Discharge Summary Sheet ap3 Forms: - Medication Reconciliation Form kb - Thank You Letter kb - Antibiotic Education kb - Prescription Opioid Use kb - Patient Portal Instructions kb - Leadership Thank You Letter kb - Work release form ap3 Prescriptions: - Diclofenac Sodium 75 mg Oral tablet, delayed release (enteric coated) - take 1 tablet ORAL route 2 times per day As needed; 30 tablet; Refills: 0, kb Product Selection Permitted - orphenadrine citrate 100 mg Oral Tablet Sustained Release - take 1 tablet ORAL route 2 times per day As needed; 20 tablet; Refills: 0, kb Product Selection Permitted Signatures: Lottie Go FNP-C FNP-Ckb Prokisch, Amanda, RN RN ap3
--- NOTE | 2023-06-15 18:10 | ER ---
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 patient reports the pain to be an 8/10 on the pain scale at this time. Coronavirus screen: At this time, the client does not indicate any symptoms associated with coronavirus-19. Ebola Screen: No symptoms or risks identified at this time. Initial Sepsis Screen: Does the patient meet any 2 criteria? No. Patient's initial sepsis screen is negative. Does the patient have a suspected source of infection? No. Patient's initial sepsis screen is negative. Risk Assessment: Do you want to hurt yourself or someone else? Patient reports no desire to harm self or others. Onset of symptoms was June 15, 2023. 16:31 Method Of Arrival: Ambulatory ap3 16:31 Acuity: VINNIE 4 ap3 Triage Assessment: 16:32 General: Appears in no apparent distress. Behavior is calm, cooperative, appropriate ap3 for age. Pain: Complains of pain in low back area Pain currently is 8 out of 10 on a pain scale. Pain began suddenly. Pain: Pain began 4 hours ago. Neuro: Level of Consciousness is awake, alert, obeys commands, Oriented to person, place, time, situation, Appropriate for age. Cardiovascular: Patient's skin is warm and dry. Respiratory: Airway is patent Respiratory effort is even, unlabored, Respiratory pattern is regular, symmetrical. Musculoskeletal: Reports pain in low back area. DIRECTOR CORPORATE COMMUNICATIONS: 16:33 LMP 05/29/2023, unknown ap3 Historical: - Allergies: 16:32 PENICILLINS; ap3 - PMHx: 16:32 Asthma; Migraine; PCOS; ap3 - PSHx: 16:32 section; ap3 - Immunization history:: Client reports having NOT received the Covid vaccine. Flu vaccine is up to date. - Social history:: Smoking status: Patient denies any tobacco usage or history of. Screenin:33 [facility] ED Fall Risk Assessment (Adult) History of falling in the last 3 months, ap3 including since admission No falls in past 3 months (0 pts). Abuse screen: Denies threats or abuse. Nutritional screening: No deficits noted. Tuberculosis screening: No symptoms or risk factors identified. Vital Signs: 16:31 Pulse 82; Resp 18; Temp 98.2; Pulse Ox 100% ; Weight 78.47 kg; Height 5 ft. 1 in. ; ap3 Pain 8/10; 16:33 BP 143 / 84; ap3 16:31 Body Mass Index 32.69 (78.47 kg, 154.94 cm) ap3 16:31 Pain Scale: Adult ap3 ED Course: 16:28 Patient arrived in ED. kj1 16:30 Lottie Go [facility]NP-C [facility]. kb 16:30 Brian Deleon MD is Attending Physician. kb 16:32 Triage completed. ap3 16:33 Arm band placed on right wrist. ap3 16:36 No provider procedures requiring assistance completed. Patient did not have IV access ap3 during this emergency room visit. 18:16 Patient has correct armband on for positive identification. ap3 18:16 Provided Education on: discharge instructions. ap3 Administered Medications: 17:03 Drug: Ketorolac IM 30 mg IM once Route: IM; Site: right deltoid; ap3 18:09 Follow up: Response: No adverse reaction; Pain is decreased ap3 17:03 Drug: [place] PO 10 mg-325 mg 1 tabs PO once Route: PO; ap3 18:09 Follow up: Response: No adverse reaction; Pain is decreased ap3 17:11 Drug: Dexamethasone IM 10 mg IM once Route: IM; Site: left deltoid; ap3 18:09 Follow up: Response: No adverse reaction ap3 Medication: 18:16 VIS not applicable for this client. ap3 Outcome: 18:10 Discharge ordered by MD. kb 18:16 Discharged to home ambulatory, ap3 18:16 Condition: good 18:16 Discharge instructions given to patient, Instructed on discharge instructions, follow up and referral plans. medication usage, Demonstrated understanding of instructions, follow-up care, medications, Prescriptions given X 2, 18:16 Patient left the ED. ap3 Signatures: Lottie Go FNP-C FNP-Sherrie Thompson RN RN ap3 Donavan, Dominga kj1
== END ==
LOC: ER 16:25
DX: M54.50 Low back pain, unspecified (principal); Z88.0 Allergy status to penicillin
CPT/HCPCS: J1100